=== PATIENT | female | born 1990 | race Caucasian/White ===

== ENCOUNTER 2023-06-20 16:08 | Emergency (ER) | payer MEDICAID, SELFPAY ==
[2023-06-20 16:14] VITALS: BP 150/91; PULSE 104; RESP 17; TEMP 36.9; O2SAT 97; BMI 21.6
--- NOTE | 2023-06-20 16:23 | CT_ITS ---
The [address] [address] Patient Name: RM MCCULLOUGH MRN: [id number] date: 1990 Sex: F Assigned Patient Location: ER Current Patient Location: ER Accession/Order Number: [id number] Exam Date: 06/20/2023 17:00 Report Date: 06/20/2023 18:30 At the request of: MEGHA SMITH Procedure: CT femur RT wo con EXAM: CT femur RT wo con, [id number] HISTORY: soft tissue infection TECHNIQUE: Helical CT images of the right thigh were obtained without IV contrast. Multiplanar reformats were generated at the scanner. COMPARISON: None. FINDINGS: Postsurgical soft tissue thickening and increased attenuation along the anterior and medial aspect of the right thigh. Mild adjacent subcutaneous fat stranding. No large loculated fluid collection demonstrated. No subcutaneous emphysema. No radiopaque foreign body. Right inguinal adenopathy with the largest lymph node measuring 16 x 12 mm (series 4 image 14). Moderate colonic stool burden. Remainder of the visualized intra-abdominal contents are within normal limits. Status post ACL repair. No acute fracture, dislocation, or suspicious osseous lesion. No significant knee joint effusion. No osteolysis to suggest osteomyelitis. CT/CT femur RT wo con IMPRESSION: 1. Postsurgical changes in the anterior medial aspects of the right thigh likely representing the sequela fasciotomies with the reported history of necrotizing fasciitis. Within the limitation of this noncontrast exam, no large loculated fluid collection. No soft tissue gas or radiopaque foreign body. Early inflammatory changes superimposed on the postsurgical changes cannot be ruled out. 2. Reactive right inguinal adenopathy. Electronically authenticated by: SPENCER PITTS Date: 06/20/2023 18:30
--- NOTE | 2023-06-20 16:29 | ED_ITS ---
HPI - General Adult General Chief complaint: Fever Stated complaint: Fever, Edema, Wound Check Time Seen by Provider: 06/20/23 16:14 Source: patient Mode of arrival: walk-in Limitations: no limitations History of Present Illness HPI narrative: patient is a 32-year-old female who presents to the emergency department for evaluation of erythematous rash around the site of two skin grafts to her right thigh. She states she had necrotizing fasciitis, she was admitted to [facility] and had two skin grafts performed on 05/08/23. she is due to see her plastic surgeon on Thursday. She states today she noticed redness in between the skin grafts on the anterior aspect and posterior aspect of the right thigh. She is concerned that the necrotizing fasciitis may be returning. She is not currently on antibiotics and has been doing her own wound dressings for his skin grafts at the rehab facility where she is currently being treated for opioid addiction. She is currently taking Suboxone. She states today she has had a headache, she has felt generally achy and nauseous. She is not concerned for . There has been no drainage from the rash, she denies any issues with the actual skin graft sites. she reports subjective fever. Related Data Allergies Allergy/AdvReac Type Severity Reaction Status Date / Time amoxicillin Allergy Severe Anaphylaxis Verified 06/20/23 16:14 nitrofurantoin Allergy Severe Anaphylaxis Verified 06/20/23 16:14 [From Macrobid] Penicillins Allergy Severe Anaphylaxis Verified 06/20/23 16:14 codeine Allergy Intermediate Hives Verified 06/20/23 16:14 medroxyprogesterone Allergy Mild Rash Verified 06/20/23 16:14 [From Depo-Provera] Review of Systems ROS Constitutional Denies: fever or chills Cardiovascular Denies: chest pain Respiratory Denies: shortness of breath Gastrointestinal Reports: nausea; Denies: abdominal pain or vomiting Musculoskeletal Reports: extremity pain; Denies: back pain or neck pain Integumentary/Breast Reports: rash, redness, skin pain and skin tenderness Neurological Reports: headache Allergic/Immunologic Denies: hives PFSH [facility] Social History Smoking status: Current every day smoker Exam Narrative Exam Narrative: Gen.: Awake, alert, in no distress Head: Normocephalic, atraumatic ENT: Moist mucous membranes Respiratory: No respiratory distress Extremities: right lower extremity with skin graft site to the medial and lateral aspects of the right thigh. Skin grafts are well healing with granulated tissue surrounding the edges of the skin graft. No redness or drainage. Blanchi ng erythematous rash on the anterior and posterior aspect of the right thigh. right thigh is soft, compressible. There is no rash or swelling or redness noted to the right calf. No purulent drainage or visible abscess. No open wounds other than the skin graft areas Psych: Normal mood and affect Neuro: No focal neuro deficit Skin: Warm, dry, intact Constitutional Vital Signs, click to edit/add: Last Vital Signs Temp 98.4 F 06/20/23 16:14 Pulse 104 H 06/20/23 16:14 Resp 17 06/20/23 16:14 BP 150/91 H 06/20/23 16:14 Pulse Ox 97 06/20/23 16:14 O2 Del Method Room Air 06/20/23 16:14 Course Vital Signs Vital signs: Vital Signs Temperature 98.4 F 06/20/23 16:14 Pulse Rate 104 H 06/20/23 16:14 Respiratory Rate 17 06/20/23 16:14 Blood Pressure 150/91 H 06/20/23 16:14 Pulse Oximetry 97 06/20/23 16:14 Oxygen Delivery Method Room Air 06/20/23 16:14 Temperature 98.4 F 06/20/23 16:14 Pulse Rate 104 H 06/20/23 16:14 Respiratory Rate 17 06/20/23 16:14 Blood Pressure 150/91 H 06/20/23 16:14 Pulse Oximetry 97 06/20/23 16:14 Oxygen Delivery Method Room Air 06/20/23 16:14 Medical Decision Making MDM Narrative Medical decision making narrative: patient was medicated with IV fluids, Toradol/Reglan/Benadryl for headache. Additional Valium and Pepcid were given for itching and discomfort in the right thigh. patient is on Suboxone and opioid addiction treatment. Lab studies show normal white blood cell count, normal lactic acid. Blood cultures obtained. Photos were placed in the patient's chart for reference. CT of the femur with no obvious gas or abscess in the soft tissue. Case discussed with [facility], Dr. Hunter for vascular services covering for Dr. Caban. Discussed transfer for evaluation to rule out necrotizing fasciitis given the patient's, located medical history. Patient was accepted by Dr. Arias to [facility] emergency department for evaluation. She is neurovascularly intact with stable vital signs at time of transfer. Evaluated by attending physician prior to transfer. critical care time thirty-five minutes Medical Records Medical records reviewed: Yes I reviewed the patient's medical records Lab Data Lab results reviewed: Yes I reviewed the patient's lab results Labs: Lab Results 06/20/23 Range/Units 16:46 WBC 7.5 (4.0-11.0) 10^3/uL RBC 5.18 (4.20-5.40) 10^6/uL Hgb 12.7 (12.0-16.0) g/dL Hct 40.7 (36.0-48.0) % MCV 78.6 L (81.0-99.0) fL MCH 24.5 L (26.7-34.0) pg MCHC 31.2 (29.9-35.2) g/dL RDW 15.4 H (11.0-15.0) % Plt Count 281 (150-450) 10^3/uL MPV 11.0 (9.5-13.5) fL Neut % (Auto) 86.9 H (43.0-75.0) % Lymph % (Auto) 9.5 L (20.5-60.0) % [place] % (Auto) 3.2 (1.7-12.0) % Eos % (Auto) 0.0 L (0.9-7.0) % Baso % (Auto) 0.1 L (0.2-2.0) % Neut # (Auto) 6.5 (1.4-6.5) 10^3/uL Lymph # (Auto) 0.7 L (1.2-3.8) 10^3/uL [place] # (Auto) 0.2 L (0.3-0.8) 10^3/uL Eos # (Auto) 0.0 (0.0-0.7) 10^3/uL Baso # (Auto) 0.0 (0.0-0.1) 10^3/uL Abs Immat Gran (auto) 0.02 (0.00-0.03) 10^3/uL Imm/Tot Granulo (auto) 0.3 (0.0-0.5) % PT 10.9 (9.0-11.6) sec INR 1.03 Lactate 1.3 (0.4-2.0) mmol/L Serum HCG, Qual Negative (NEGATIVE) Imaging Data CT femur: Attestation: I have reviewed the pertinent imaging results. Radiologist's impression: Procedure: CT femur RT wo con EXAM: CT femur RT wo con, [id number] HISTORY: soft tissue infection TECHNIQUE: Helical CT images of the right thigh were obtained without IV contrast. Multiplanar reformats were generated at the scanner. COMPARISON: None. FINDINGS: Postsurgical soft tissue thickening and increased attenuation along the anterior and medial aspect of the right thigh. Mild adjacent subcutaneous fat stranding. No large loculated fluid collection demonstrated. No subcutaneous emphysema. No radiopaque foreign body. Right inguinal adenopathy with the largest lymph node measuring 16 x 12 mm (series 4 image 14). Moderate colonic stool burden. Remainder of the visualized intra-abdominal contents are within normal limits. Status post ACL repair. No acute fracture, dislocation, or suspicious osseous lesion. No significant knee joint effusion. No osteolysis to suggest osteomyelitis. IMPRESSION: 1. Postsurgical changes in the anterior medial aspects of the right thigh likely representing the sequela fasciotomies with the reported history of necrotizing fasciitis. Within the limitation of this noncontrast exam, no large loculated fluid collection. No soft tissue gas or radiopaque foreign body. Early inflammatory changes superimposed on the postsurgical changes cannot be ruled out. 2. Reactive right inguinal adenopathy. Electronically authenticated by: SPENCER PITTS Date: 06/20/2023 18:30 Discharge Plan Discharge Chief Complaint: Fever Clinical Impression: Cellulitis of right leg Patient Disposition: [facility] Time of Disposition Decision: 18:38 Discharge Location: [facility] Condition: Good Mode of Transportation: EMS Stand Alone Forms: Portal Instructions Referrals: Physician,Non-Staff, MD [Primary Care Provider] - 1 week
[2023-06-20] MEDS: DIPHENHYDRAMINE HCL 50 MG/ML (1ML) VIAL 25 MG IV (16:52)
[2023-06-20] MEDS: 0.9 % SODIUM CHLORIDE 1,000 ML 999 ML IV (16:52)
[2023-06-20] MEDS: KETOROLAC TROMETHAMINE 30 MG/ML VIAL 15 MG IVP (16:52)
[2023-06-20] MEDS: METOCLOPRAMIDE HCL 10 MG/2 ML VIAL INJ (16:52)
[2023-06-20 17:08] LABS: Basophils Percent Auto 0.1 % (0.2-2.0); Hematocrit 40.7 % (36.0-48.0); Hemoglobin 12.7 g/dL (12.0-16.0); Immature Granulocytes Abs Auto 0.02 10^3/uL (0.00-0.03); Immature Granulocytes Pct Auto 0.3 % (0.0-0.5); Lymphocytes Absolute Auto 0.7 10^3/uL (1.2-3.8); Lymphocytes Percent Auto 9.5 % (20.5-60.0); Mean Corpuscular HGB Conc 31.2 g/dL (29.9-35.2); Mean Corpuscular Hemoglobin 24.5 pg (26.7-34.0); Mean Corpuscular Volume 78.6 fL (81.0-99.0); Monocytes Absolute Auto 0.2 10^3/uL (0.3-0.8); Monocytes Percent Auto 3.2 % (1.7-12.0); Neutrophils Absolute Auto 6.5 10^3/uL (1.4-6.5); Neutrophils Percent Auto 86.9 % (43.0-75.0); Platelet Count 281 10^3/uL (150-450); Red Blood Count 5.18 10^6/uL (4.20-5.40); Red Cell Distribution Width 15.4 % (11.0-15.0); White Blood Count 7.5 10^3/uL (4.0-11.0)
[2023-06-20 17:15] LABS: HCG Qualitative NEGATIVE (NEGATIVE)
[2023-06-20 17:16] LABS: INR 1.03; Prothrombin Time 10.9 sec (9.0-11.6)
[2023-06-20 17:20] LABS: Anion Gap 15.7
[2023-06-20 17:23] LABS: Lactate/Lactic Acid 1.3 mmol/L (0.4-2.0)
[2023-06-20 17:26] LABS: Alanine Aminotransferase 23 U/L (14-59); Albumin Globulin Ratio 0.9; Albumin Level 4.1 g/dL (3.4-5.0); Alkaline Phosphatase 125 U/L (46-116); Aspartate Amino Transferase 16 U/L (15-37); BUN Creatinine Ratio 12.5; Bilirubin Total 0.4 mg/dL (0.2-1.0); C Reactive Protein 15.5 mg/dL (<=1.0); Calcium 9.8 mg/dL (8.5-10.1); Carbon Dioxide 25.9 mmol/L (21.0-32.0); Chloride 97 mmol/L (98-107); Estimated GFR (African America >60 (>=60); Estimated GFR (Non-African Ame >60 (>=60); Globulin 4.7 g/dL; Glucose 100 mg/dL (74-106); Potassium 3.6 mmol/L (3.5-5.1); Sodium 135 mmol/L (136-145); Total Protein 8.8 g/dL (6.4-8.2)
[2023-06-20 17:45] VITALS: BP 130/75; PULSE 90; RESP 16; O2SAT 100
[2023-06-20 17:46] LABS: Erythrocyte Sedimentation Rate 91 mm/hr (<=20)
[2023-06-20] MEDS: VANCOMYCIN HCL 1,000 MG in 0.9 % SODIUM CHLORIDE 250 ML 250 MG IV (18:02)
[2023-06-20] MEDS: DIAZEPAM 5 MG/ML - 2 ML INJ SYRINGE IV (18:03)
[2023-06-20] MEDS: FAMOTIDINE/PF 20 MG/2 ML VIAL IV (18:03)
[2023-06-20] MEDS: IMIPENEM/CILASTATIN SODIUM 1,000 MG in 0.9 % SODIUM CHLORIDE 100 ML 100 MG IV (19:20)
== END 2023-06-20 20:40 | disposition short-term general hospital (02) ==
PROVIDERS: Physician Assistant; Emergency Provider Emergency Medicine
DX: L03.115 Cellulitis of right lower limb (principal); F11.20 Opioid dependence, uncomplicated; F17.210 Nicotine dependence, cigarettes, uncomplicated
CPT/HCPCS: 36415; 73700; 80053; 83605; 84703; 85025; 85610; 85652; 86140; 87040; 96365; 96366; 96368; 96372; 96375; 99285; J3370

== ENCOUNTER 2023-08-24 11:06 | Emergency (ER) | payer MEDICAID, SELFPAY ==
[2023-08-24 11:19] VITALS: BP 117/88; PULSE 77; RESP 18; TEMP 36.7; O2SAT 99; BMI 18.2
--- NOTE | 2023-08-24 11:31 | PC.NURSE ---
Dark blue/yellow bruise behind left knee, no redness or warmth at site, patient denies injury to area, skin to right leg pink and warm and pulses present.
--- NOTE | 2023-08-24 11:32 | ED.EXTPRO1 ---
HPI - Extremity Problem General Chief complaint: Extremity Problem, Nontraumatic Stated complaint: LOWER EXTREMITY PAIN Time Seen by Provider: 08/24/23 11:26 Mode of arrival: walk-in History of Present Illness HPI Narrative: his patient's here today with some discomfort swelling and bruising in the back of her left calf. To her knowledge she's not had any trauma or injury. She is concerned about having deep vein thrombosis because she has a history of idiopathic thrombocytopenia purpura and is supposed to be on blood thinners but because of insurance problems and follow-up she's not taking any anticoagulation therapy. She had been admitted to the hospital sometime ago after having severe trauma and necrotizing fasciitis to her right leg and was subsequently taking heparin injections after being on Lovenox for a while. However she's not been on any anticoagulation therapy and is scheduled to follow-up early this year with various physicians to get Rectified. In either case she has bruising behind her left calf. She does not have any shortness of breath she has no new symptoms in her right leg. Related Data Home Medications Medication Instructions Recorded Confirmed buspirone 7.5 mg tablet 7.5 mg PO TID 08/24/23 08/24/23 oxcarbazepine 150 mg tablet 150 mg PO BID 08/24/23 08/24/23 (Trileptal) propranolol 10 mg tablet 10 mg PO Q12H 08/24/23 08/24/23 quetiapine 200 mg tablet mg 08/24/23 Allergies Allergy/AdvReac Type Severity Reaction Status Date / Time amoxicillin Allergy Severe Anaphylaxis Verified 06/20/23 16:14 nitrofurantoin Allergy Severe Anaphylaxis Verified 06/20/23 16:14 [From Macrobid] Penicillins Allergy Severe Anaphylaxis Verified 06/20/23 16:14 codeine Allergy Intermediate Hives Verified 06/20/23 16:14 medroxyprogesterone Allergy Mild Rash Verified 06/20/23 16:14 [From Depo-Provera] aripiprazole [From Abilify] AdvReac Intermediate Verified 08/24/23 11:23 asenapine [From Saphris] AdvReac Intermediate Verified 08/24/23 11:23 bupropion [From Wellbutrin] AdvReac Intermediate Verified 08/24/23 11:23 fluoxetine [From Prozac] AdvReac Intermediate Verified 08/24/23 11:23 sertraline [From Zoloft] AdvReac Intermediate Verified 08/24/23 11:23 tramadol AdvReac Intermediate Verified 08/24/23 11:23 PFSH PFSH Social History Smoking status: Current every day smoker Exam Narrative Exam Narrative: patient here awake alert pleasant vital signs are stable is no hypoxemia her vital signs are stable was not tachycardic and she really does not appear uncomfortable. She is very pleasant. Problem focused examination shows good pulses to the distal left extremity with good capillary refill and no evidence of arterial insufficiency. The catheter is not red hot swollen or tender. Just distal to the popliteal fossa there is an area of ecchymosis approximately 5 x 4 cm. There is no hematoma. There is no pain over the hamstring tendon to palpation. She does have minor discomfort with unturned dorsiflexion of the foot. Upper thigh areas normal. Constitutional Vital Signs, click to edit/add: Last Vital Signs Temp 98.1 F 08/24/23 11:19 Pulse 77 08/24/23 11:19 Resp 18 08/24/23 11:19 BP 117/88 08/24/23 11:19 Pulse Ox 99 08/24/23 11:19 O2 Del Method Room Air 08/24/23 11:19 Course Vital Signs Vital signs: Vital Signs Temperature 98.1 F 08/24/23 11:19 Pulse Rate 77 08/24/23 11:19 Respiratory Rate 18 08/24/23 11:19 Blood Pressure 117/88 08/24/23 11:19 Pulse Oximetry 99 08/24/23 11:19 Oxygen Delivery Method Room Air 08/24/23 11:19 Temperature 98.1 F 08/24/23 11:19 Pulse Rate 77 08/24/23 11:19 Respiratory Rate 18 08/24/23 11:19 Blood Pressure 117/88 08/24/23 11:19 Pulse Oximetry 99 08/24/23 11:19 Oxygen Delivery Method Room Air 08/24/23 11:19 MDM - Extremity (Nontraumatic) MDM Narrative Medical decision making narrative: on a holiday today there is no ultrasound available. Because of her history I am not start her on Lovenox and we'll schedule her for an outpatient venous ultrasound tomorrow. She is in agreement with that therapy. Discharge Plan Discharge Chief Complaint: Extremity Problem, Nontraumatic Clinical Impression: Pain of left calf Patient Disposition: Home, Self-Care Time of Disposition Decision: 11:35 Prescriptions / Home Meds: No Action oxcarbazepine [Trileptal] 150 mg tablet 150 mg PO BID buspirone 7.5 mg tablet 7.5 mg PO TID propranolol 10 mg tablet 10 mg PO Q12H quetiapine 200 mg tablet Additional Instructions: return tomorrow for the ultrasound. Stand Alone Forms: Portal Instructions Referrals: Physician,Non-Staff, MD [Primary Care Provider] - 1 week
--- OUTSIDE RECORDS SUMMARY | 2023-08-24 11:36 | XMS_ITS | CCD ---
Author Name Unknown Address [id number] [place] [address] Organization [facility] Care Team Providers Care Industrial Chemist Name Role Phone Ingrid Dent Primary Care Provider SHEEBA LAINEZ Admitting Unavailable INGRID DENT Primary Care Unavailable SELF, REFERRED Referring Unavailable ZOHREH JOHANSEN Attending Unavailable Unavailable Primary Care Provider Unavailabl e Unavailable Primary Care Provider Unavailabl e INGRID DENT Primary Care Unavailable ROBY NAPIER P Consulting Unavailable MASHALCARLA, MOHAMMAD I Admitting Unavailable MASHALEH, MOHAMMAD I Attending Unavailable MASFABIAN, MOHAMMAD I Consulting Unavailable LAUREN CARTER Consulting Unavailable YOKO THAPA Attending Unavailable Lily OBREGON - AN, Mc Primary Care Provider Lily OBREGON - Mc NOLAN Primary Care Provider MC BAUTISTA Primary Care Unavailable PARINJA, JONATAN Admitting Unavailable THUMMEGGAN AGUSTIN Attending Unavaila ble PARINJA, JONATAN Consulting Unavailable ADELA, RAE S Consulting Unavailable LUIS RUTLEDGE Consulting Unavailable ASPEN BAUTISTAUA Primary Care Unavailable FLORENTINO ALVARADO Attending Unavailable RISSA BRIZUELA Referring Unavailable LILYMC MCDONOUGH Primary Care Unavailable HUMBLE RBIZUELA L Referring Unavailable USAMA BAUTISTASHUA Primary Care Unavailable RISSA MACK Attending Unavailable RISSA MACK Referring Unavailable NO PCP, NO PCP Primary Care Unavailable Allergies Allergy Classification Reported Allergen(s) Allergy Type Date of Onset Reaction(s) Facility (10 sources) Acetaminophen / HYDROcodone; Translations: [HYDROCODONE-ACETAMI NOPHEN] Drug Allergy 06-28-20 13 [place], [place] (10 sources) Amoxicillin; Translations: [AMOXICILLIN] Drug Allergy 06-28-20 13 Anaphylaxis [place], [place] (10 sources) ARIPiprazole; Translations: [ARIPIPRAZOLE] Drug Allergy 06-28-20 13 [place]aphylaxis [place], [place] (10 sources) Asenapine; Translations: [ASENAPINE] Drug Allergy 02-26-20 16 [place]axis [place], [place] (10 sources) Azithromycin; Translations: [AZITHROMYCIN] Drug Allergy 06-28-20 13 [place], [place] (10 sources) buPROPion; Translations: [BUPROPION] Drug Allergy 06-28-20 13 Anaphylaxis [place], [place] (10 sources) Codeine; Translations: [CODEINE] Drug Allergy 06-28-20 13 [facility], Itching [place], [place] (10 sources) Dihydroergotamine; Translations: [DIHYDROERGOTAMINE] Drug Allergy 06-28-20 13 [place]aphylaxis [place], [place] (9 sources) FLUoxetine Drug Allergy 02-17-20 19 [place]axis [place], [place] (10 sources) gabapentin; Translations: [GABAPENTIN] Drug Allergy 06-28-20 13 [place], [place] (10 sources) lamoTRIgine; Translations: [LAMOTRIGINE] Drug Allergy 06-28-20 13 [place], [place] (10 sources) medroxyPROGESTERone; Translations: [MEDROXYPROGESTERONE ] Drug Allergy 06-28-20 13 Other (See Comments) [place], [place] (9 sources) Naproxen Drug Allergy 02-26-20 16 [place], [place] (10 sources) Nitrofurantoin; Translations: [NITROFURANTOIN] Drug Allergy 06-28-20 13 [place] (9 sources) Nitrofurantoin Drug Allergy 02-17-20 19 Other (See Comments), Rash [place], [place] (9 sources) Penicillins; Translations: [PENICILLINS] Propensity to adverse reactions to drug 06-28-20 13 Hives, Rash [place], [place] (10 sources) Sertraline; Translations: [SERTRALINE] Drug Allergy 06-28-20 13 [place], [place] (10 sources) Sulfamethoxazole / Trimethoprim; Translations: [SULFAMETHOXAZOLE-TR IMETHOPRIM] Drug Allergy 06-28-20 13 [place], [place] (10 sources) traMADol; Translations: [TRAMADOL] Drug Allergy 01-17-20 15 [place], [place] (9 sources) Clindamycin/Lincomyc in Propensity to adverse reactions to drug 06-28-20 13 Anaphylaxis [place], [place] (1 source) Asenapine Drug Allergy 10-30-19 17 [facility] (1 source) buPROPion Drug Allergy 10-30-19 17 [facility] (1 source) Codeine Drug Allergy 10-30-19 17 [facility] (1 source) Dihydroergotamine Drug Allergy 10-30-19 17 [facility] (1 source) FLUoxetine Drug Allergy 10-30-19 17 [facility] (1 source) gabapentin Drug Allergy 10-30-19 17 [facility] (2 sources) HYDROcodone; Translations: [HYDROCODONE] Drug Allergy 10-30-19 17 [facility] (1 source) lamoTRIgine Drug Allergy 10-30-19 17 [facility] (2 sources) Naproxen; Translations: [NAPROXEN] Drug Allergy 10-30-19 17 [facility] (1 source) Nitrofurantoin Drug Allergy 10-30-19 17 [facility] (1 source) Penicillin Drug Allergy 10-30-19 17 [facility] (1 source) Sertraline Drug Allergy 10-30-19 17 [facility] (1 source) Sisomicin Drug Allergy 10-30-19 17 [facility] (1 source) Penicillins Propensity to adverse reactions to drug 06-28-20 13 Hives, Rash [facility] [employer] Phone: (1 source) Asenapine; Translations: [ASENAPINE MALEATE] Drug Allergy 06-07-20 [facility] (1 source) buPROPion; Translations: [BUPROPION HCL] Drug Allergy [facility] (1 source) Clindamycin; Translations: [CLINDAMYCIN HCL] Drug Allergy [facility] (1 source) FLUoxetine; Translations: [FLUOXETINE] Drug Allergy 06-28-20 13 [facility] (1 source) OLANZapine; Translations: [OLANZAPINE] Drug Allergy 09-08-19 21 [facility] (1 source) NITROFURANTOIN MONOHYD/M-CRYST; Translations: [NITROFURANTOIN MONOHYD/M-CRYST] Propensity to adverse reactions to drug (disorder) 02-27-20 16 [facility] Medications Current Medications Medication Drug Class(es) Dates Sig (Normalized) Sig (Original) acetaminophen 325 mg oral tablet (2 sources) Start: 08-30-2020 acetaminophen (TYLENOL) tablet 650 mg Start: 08-30-2020 End: 08-30-2020 acetaminophen (TYLENOL) 325 MG tablet Albuterol (9 sources) beta2-Adrenergic Agonist ALBUTER OL SULFATE HFA IN Inhale 2 puffs into the lungs as needed 0 Active buprenorphine 12 mg / naloxone 3 mg sublingual film (3 sources) Partial Opioid Agonist, Opioid Antagonist Start: 10-03-2021 buprenorphine-naloxon e (SUBOXONE) 12-3 MG sublingual film Start: 05-25-2020 End: 06-01-2020 buprenorphine-naloxone (SUBO XONE) 2-0.5 MG SUBL Indications: Opioid type dependence, continuous use (HCC) Place 2 tablets under the tongue 2 times daily for 7 days. 28 tablet 0 05/25/2020 06/01/2020 Active diazePAM 5 mg oral tablet (8 sources) Benzodiazepine take 1 tablet by billy th every twelve hours as needed for anxiety diazePAM (VALIUM) 5 MG tablet Take 5 mg by mouth every 12 hours as needed for Anxiety. 0 Active End: 09-01-2020 take 1 tablet by mouth every eight hours as needed for muscle spasms diazePAM (VALIUM) 5 MG tablet Take 5 mg by mouth every 8 hours as needed (muscle spasms). 0 09/01/2020 Discontinued (Stop Taking at Discharge) doxycycline hyclate 100 mg oral tablet (3 sources) Tetracycline-class Drug Start: 08-16-2022 End: 08-26-2022 take 1 tablet by mouth twice daily doxycycline hyclate (VIBRA-TABS) 100 MG tablet Take 1 tablet by mouth 2 times daily for 10 days 20 tablet 0 08/16/2022 08/26/2022 Active Start: 06-14-2021 End: 06-24-2021 take 1 tablet by mouth twice daily doxycycline hyclate (VIBRA-TABS) 100 MG tablet Take 1 tablet by mouth 2 times daily for 10 days 20 tablet 0 06/14/2021 06/24/2021 Active 1 ml enoxaparin sodium 100 mg/ml prefilled syringe (9 sources) Low Molecular Weight Heparin Start: 09-02-2020 enoxaparin (LOVENOX) injection 100 mg Start: 08-30-2020 End: 09-01-2020 inject 40 mg by subcutaneous injection once daily 40 mg, Subcutaneous, DAILY, First dose on Georgina 08/30/20 at 0900 ferrous sulfate 325 mg delayed release oral tablet (7 sources) Start: 09-02-2020 take 1 tablet by billy th once daily at breakfast ferrous sulfate (FE TABS 325) 325 (65 Fe) MG EC tablet Take 1 tablet by mouth daily (with breakfast) 90 tablet 3 09/02/2020 Active Start: 09-01-2020 ferrous sulfat e (FE TABS 325) EC tablet 325 mg Start: 08-02-2015 End: 05-22-2020 take 1 tablet by mouth twice daily at mealtime ferrous sulfate 325 (65 FE) MG tablet Take 1 tablet by mouth 2 times daily (with meals) 30 tablet 2 08/02/2015 05/22/2020 Discontinued (LIST CLEANUP) furosemide 40 mg oral tablet (10 sources) Loop Diuretic take 1 tablet by mouth twice daily furosemide (LASIX) 40 MG tablet Take 40 mg by mouth 2 times daily 0 Active End: 09-01-2020 take 1 tablet by mouth once daily furosemide (LASIX) 40 MG tablet Take 40 mg by mouth daily 0 09/01/2020 Discontinued (Stop Taking at Discharge) End: 05-25-2020 take 2 tablets by mouth once daily furosemide (LASIX) 20 MG tablet Take 40 mg by mouth daily 0 05/25/2020 Discontinued (Stop Taking at Discharge) gabapentin 300 mg oral capsule (8 sources) Anti-epileptic Agent Start: 09-01-2020 gabapentin (NEURONTIN) capsule 300 mg hydrocortisone 20 mg/ml topical lotion (2 sources) Corticosteroid Start: 08-16-2022 End: 08-16-2022 hydrocortisone (SCALACORT) 2 % LOTN lotion Apply 1 application topically 2 times daily 29.6 mL 0 08/16/2022 Active hydrOXYzine hydrochloride 25 mg oral tablet (1 source) Antihistamine Start: 12-10-2021 End: 12-20-2021 take 1 tablet by mouth every eight hours as needed hydrOXYzine (ATARAX) 25 MG tablet Indications: Anxiety Take 1 tablet by mouth every 8 hours as needed for Itching 30 tablet 0 12/10/2021 12/20/2021 Active lactobacillus rhamnosus gg [id number] unt oral capsule (1 source) Start: 09-01-2020 lactobacillus (CULTURELLE) capsule 1 capsule lithium carbonate 300 mg oral tablet (10 sources) Start: 08-30-2020 take 300 mg by mouth three times daily 300 mg, Oral, 3 TIMES DAILY, First dose on Georgina 08/30/20 at 0900 Maintain adequate fluid and sodium intake take 1 capsule by mouth three ti mes daily lithium 300 MG capsule Take 300 mg by mouth 3 times daily 0 Active loperamide hydrochloride 2 mg oral capsule (1 source) Opioid Agonist Start: 09-01-2020 loperamide (IMODIUM) capsule 2 mg metoprolol tartrate 50 mg oral tablet (10 sources) beta-Adrenergi c Rich Start: 03-21-2022 take 1 tablet by mouth in the morning metoprolol tartrate (LOPRESSOR) 50 MG tablet Indications: Essential hypertension Take 1 tablet by mouth in the morning and 1 tablet before bedtime. 180 tablet 0 03/21/2022 Active Start: 12-11-2021 take 1 tablet by billy th twice daily metoprolol tartrate (LOPRESSOR) 25 MG tablet Take 1 tablet by mouth 2 times daily 10 tablet 0 12/11/2021 Active Start: 12-10-2021 End: 03-10-2022 take 1 tablet by mouth once daily metoprolol tartrate (LOPRESSOR) 25 MG tablet Indications: Essential hypertension Take 1 tablet by mouth daily 90 tablet 0 12/10/2021 03/10/2022 Active Start: 08-30-2020 End: 08-31-2020 take 200 mg by mouth once daily 200 mg, Oral, DAILY, F irst dose on Georgina 08/30/20 at 0900 Do not crush or break. End: 09-01-2020 take 1 tablet by mouth once daily metoprolol succinate (TOPROL XL) 200 MG extended release tablet Take 200 mg by mouth daily 0 09/01/2020 Discontinued (Stop Taking at Discharge) ofloxacin 3 mg/ml otic solution (1 source) Quinolone Antimicrobial Start: 06-14-2021 End: 06-24-2021 take 5 drop(s) into the eye(s) twice daily ofloxacin (FLOXIN) 0.3 % otic solution Place 5 drops into the left ear 2 times daily for 10 days May Substitute ophthalmic drops. 10 mL 0 06/14/2021 06/24/2021 Active ondansetron 4 mg disintegrating oral tablet (5 sources) Serotonin-3 Receptor Antagonist Start: 12-11-2021 End: 12-11-2021 take 1 tablet by mouth every eight hours as needed for nausea ondansetron (ZOFRAN ODT) 4 MG disintegrating tablet Take 1 tablet by mouth every 8 hours as needed for Nausea or Vomiting 20 tablet 0 12/11/2021 Active Start: 11-05-2020 End: 11-05-2020 ondansetron (ZOFRAN-ODT) dis integrating tablet 4 mg microencapsulated potassium chloride 20 meq extended release oral tablet (10 sources) Start: 09-02-2020 potassium chlo ride (KLOR-CON M) extended release tablet 40 mEq Start: 09-02-2020 take 1 tablet by billy th once daily potassium chloride (KLOR-CON M) 20 MEQ extended release tablet Take 1 tablet by mouth daily 14 tablet 0 09/02/2020 Active Start: 05-25-2020 End: 09-01-2020 take 1 tablet by mouth twice daily at mealtime potassium chloride (KLOR-CON M) 20 MEQ extended release tablet Take 1 tablet by mouth 2 times daily (with meals) 60 tablet 3 05/25/2020 09/01/2020 Discontinued (Stop Taking at Discharge) Start: 07-12-2018 End: 05-22-2020 take 1 tablet by mouth once daily, then take 1 tablet by mouth potassium chloride (KLOR-CON M) 20 MEQ extended release tablet Take 20 mEq by mouth daily 0 07/12/2018 05/22/2020 Discontinued (LIST CLEANUP) predniSONE 10 mg oral tablet (3 sources) Start: 01-03-2022 predniSONE (DE LTASONE) 10 MG tablet Take five tablets on days 1-2, four tablets on days 3-4, three tablets on days 5-6, two tablets on day 7-8, one tablet on days 9-10. 30 tablet 0 01/03/2022 Active Start: 01-03-2022 End: 01-03-2022 predniSONE (DELTASONE) table t 60 mg Promethazine (1 source) Phenothiazine Start: 08-30-2020 promethazine (PHENERGAN) tablet 12.5 mg 24 hr QUEtiapine 300 mg extended release oral tablet (16 sources) Atypical Antipsychotic Start: 09-01-2020 QUEtiap ine (SEROQUEL XR) extended release tablet 900 mg Start: 09-01-2020 take 3 tablets by mo uth once daily QUEtiapine (SEROQUEL XR) 300 MG extended release tablet Take 3 tablets by mouth nightly 30 tablet 3 09/01/2020 Active Start: 08-31-2020 End: 09-01-2020 QUEtiapine (SEROQUEL XR) ext ended release tablet 300 mg Start: 08-30-2020 End: 08-31-2020 take 400 mg by mouth once daily 400 mg, Oral, NIGHTLY, First dose on Georgina 08/30/20 at 2100 Do not crush or break. Start: 05-25-2020 End: 09-01-2020 take 1 tablet by mouth once daily QUEtiapine (SEROQUEL XR) 400 MG extended release tablet Take 1 tablet by mouth nightly 30 tablet 3 05/25/2020 09/01/2020 Discontinued (Stop Taking at Discharge) End: 05-25-2020 take 2 tablets by mouth once daily QUEtiapine (SEROQUEL) 300 MG tablet Take 600 mg by mouth nightly 0 05/25/2020 Discontinued (Stop Taking at Discharge) End: 05-25-2020 take 2 tablets by mouth once daily QUEtiapine (SEROQUEL) 400 MG tablet Take 800 mg by mouth nightly 0 05/25/2020 Discontinued (Stop Taking at Discharge) traZODone (13 sources) Serotonin Reuptake Inhibitor Start: 09-01-2020 traZODone (DESYREL) tablet 150 mg Start: 09-01-2020 take 1 tablet by billy th once daily traZODone (DESYREL) 300 MG tablet Take 1 tablet by mouth nightly 30 tablet 0 09/01/2020 Active Start: 08-30-2020 End: 09-01-2020 traZODone (DESYREL) tablet 5 0 mg Start: 10-10-2018 End: 09-01-2020 take 1 tablet by mouth once daily as needed for sleep traZODone (DESYREL) 150 MG tablet Take 150 mg by mouth nightly as needed for Sleep 0 10/10/2018 05/25/2020 Discontinued (Stop Taking at Discharge) 24 hr venlafaxine 150 mg extended release oral capsule (13 sources) Serotonin and Norepinephrine Reuptake Inhibitor Start: 09-01-2020 End: 09-01-2020 take 2 capsules by mouth once daily venlafaxine (EFFEXOR XR) 150 MG extended release capsule Take 2 capsules by mouth daily 60 capsule 0 09/01/2020 Active Start: 09-01-2020 End: 09-01-2020 take 4 capsules by mouth once daily venlafaxine (EFFEXOR XR) 75 MG extended release capsule Take 4 capsules by mouth daily 30 capsule 3 09/01/2020 09/01/2020 Discontinued (REORDER) Start: 07-30-2015 End: 05-22-2020 take 1 capsule by mouth once daily at breakfast venlafaxine (EFFEXOR-XR) 75 MG XR capsule Take 1 capsule by mouth daily (with breakfast) 30 capsule 0 07/30/2015 05/22/2020 Discontinued (LIST CLEANUP) Completed/Discontinued Medications Medication Drug Class(es) Dates Sig (Normalized) Sig (Original) acetaminophen 325 mg / oxyCODONE hydrochloride 5 mg oral tablet (1 source) Opioid Agonist End: 09-05-2020 take 1 tablet by mouth every six hours as needed for pain oxyCODONE-acetami nophen (PERCOCET) 5-325 MG per tablet Take 1 tablet by mouth every 6 hours as needed for Pain. Up to 7 days. 0 09/05/2020 Discontinued (Stop Taking at Discharge) aspirin 81 mg oral tablet (1 source) Platelet Aggregation Inhibitor, Nonsteroidal Anti-inflammatory Drug End: 05-22-2020 take 1 tablet by mouth once daily aspirin 81 MG tablet Take 81 mg by mouth daily LAST DOSE 03/02/2019 0 05/22/2020 Discontinued (LIST CLEANUP) calcium chloride 0.0014 meq/ml / potassium chloride 0.004 meq/ml / sodium chloride 0.103 meq/ml / sodium lactate 0.028 meq/ml injectable solution (2 sources) Start: 08-30-2020 End: 08-30-2020 lactated ringers bolus cefadroxil 1000 mg oral tablet (2 sources) Cephalosporin Antibacterial Start: 09-01-2020 End: 09-01-2020 take 1 tablet by mouth once daily, then take 1 tablet by mouth cefadroxil (DURICEF) 1 g tablet Take 1 tablet by mouth daily for 5 days 5 tablet 0 09/01/2020 09/01/2020 Discontinued (Stop Taking at Discharge) ceFAZolin (ANCEF) 2 g in dextrose 5 % 50 mL IVPB (1 source) Start: 08-30-2020 End: 09-01-2020 ceFAZolin (ANCEF) 2 g in dextrose 5 % 50 mL IVPB docusate sodium 100 mg oral capsule (1 source) Start: 02-16-2019 End: 05-22-2020 take 1 capsule by mouth twice daily as needed for constipation docusate sodium (COLACE) 100 MG capsule Take 1 capsule by mouth 2 times daily as needed for Constipation 60 capsule 0 02/16/2019 05/22/2020 Discontinued (LIST CLEANUP) ergocalciferol 50895 unt oral capsule (1 source) Provitamin D2 Compound Start: 09-28-2018 End: 05-22-2020 take 1 capsule by mouth every week vitamin D (ERGOCALCIFEROL) 40867 units CAPS capsule Take 50,000 Units by mouth once a week Thursday 0 09/28/2018 05/22/2020 Discontinued (LIST CLEANUP) ibuprofen 600 mg oral tablet (3 sources) Nonsteroidal Anti-inflammatory Drug Start: 05-13-2018 End: 09-01-2020 take 1 tablet by mouth every six hours as needed for pain ibuprofen (IBU) 600 MG tablet Take 1 tablet by mouth every 6 hours as needed for Pain 30 tablet 0 05/13/2018 09/01/2020 Discontinued (Stop Taking at Discharge) LORazepam 0.5 mg oral tablet (1 source) Benzodiazepine Start: 11-05-2020 End: 11-05-2020 LORazepam (ATIVAN) tablet 0.5 mg Start: 11-05-2020 End: 11-05-2020 LORazepam (ATIVAN) tablet 0. 5 mg lubiprostone 0.024 mg oral capsule (1 source) Chloride Channel Activator Start: 11-09-2018 End: 05-25-2020 lubiprostone (AMITIZA) 24 MCG capsule Take 24 mcg by mouth as needed LAST DOSE 02/16/2019 0 11/09/2018 05/25/2020 Discontinued (Stop Taking at Discharge) magnesium oxide 400 mg oral tablet (8 sources) Start: 07-12-2018 End: 05-22-2020 take 1 tablet by mouth once daily magnesium oxide (MAG-OX) 400 MG tablet Take 1 tablet by mouth daily 0 07/12/2018 05/22/2020 Discontinued (LIST CLEANUP) 50 ml magnesium sulfate 40 mg/ml injection (1 source) Start: 09-01-2020 End: 09-01-2020 magnesium sulfate 2 g in 50 mL IVPB premix Naloxone (5 sources) Opioid Antagonist Start: 09-01-2020 End: 09-01-2020 Naloxone HCl (NALOXONE OPIATE OVERDOSE KIT) 1 each by Nasal route once for 1 dose 1 kit 0 09/01/2020 09/01/2020 Start: 05-25-2020 End: 09-01-2020 naloxone (NARCAN) 4 MG/0.1ML LIQD nasal spray 1 spray by Nasal route as needed for Opioid Reversal 1 each 0 05/25/2020 09/01/2020 Discontinued (Therapy completed) OLANZapine 10 mg oral tablet (1 source) Atypical Antipsychotic End: 05-22-2020 take 1 tablet by mouth once daily OLANZapine (ZYPREXA) 10 MG tablet Take 10 mg by mouth nightly 0 05/22/2020 Discontinued (LIST CLEANUP) 3 ml sodium chloride 9 mg/ml injection (2 sources) Start: 08-30-2020 End: 08-31-2020 10 mL, Intravenous, EVERY 12 HOURS SCHEDULED (2 times per day), First dose on Georgina 08/30/20 at 0900 Start: 08-30-2020 End: 08-30-2020 Intravenous, at 75 mL/hr, CO NTINUOUS, Starting Georgina 08/30/20 at 0530 spironolactone 25 mg oral tablet (10 sources) Aldosterone Antagonist Start: 08-30-2020 End: 08-31-2020 take 50 mg by mouth once daily 50 mg, Oral, DAILY, First dose on Georgina 08/30/20 at 0900 Start: 05-26-2020 End: 09-01-2020 take 1 tablet by mouth once daily spironolactone (ALDACTONE) 50 MG tablet Take 1 tablet by mouth daily 30 tablet 3 05/26/2020 09/01/2020 Discontinued (LIST CLEANUP) take 1 tablet by billy th once daily spironolactone (ALDACTONE) 25 MG tablet Take 25 mg by mouth daily 0 Active tiZANidine 2 mg oral tablet (1 source) Central alpha-2 Adrenergic Agonist End: 05-25-2020 take 1 tablet by mouth every eight hours as needed tiZANidine (ZANAFLEX) 2 MG tablet Take 2 mg by mouth every 8 hours as needed 0 05/25/2020 Discontinued (Stop Taking at Discharge) valACYclovir 1000 mg oral tablet (1 source) Herpesvirus Nucleoside Analog DNA Polymerase Inhibitor, Herpes Simplex Virus Nucleoside Analog DNA Polymerase Inhibitor, Herpes Zoster Virus Nucleoside Analog DNA Polymerase Inhibitor End: 05-25-2020 valACYclovir (VALTREX) 1 G tablet Take 1,000 mg by mouth 2 times daily as needed Started 1 wk ago (genital herpes diagnosed December 2015) 0 05/25/2020 Discontinued (Stop Taking at Discharge) vancomycin (VANCOCIN) 1250 mg in dextrose 5 % 250 mL IVPB (1 source) Start: 09-01-2020 End: 09-02-2020 vancomycin (VANCOCIN) 1250 mg in dextrose 5 % 250 mL IVPB vitamin b 12 1 mg/ml injectable solution (2 sources) Vitamin B12 Start: 09-28-2018 End: 05-22-2020 Cyanocobalamin 1000 MCG/ML KIT Inject 1,000 mcg/1.7m2 into the muscle every 30 days 0 09/28/2018 05/22/2020 Discontinued (LIST CLEANUP) Start: 09-28-2018 End: 05-22-2020 Cyanocobalamin 1000 MCG/ML K IT Inject into the skin LAST DOSE END OF 0 09/28/2018 05/22/2020 Discontinued (LIST CLEANUP) ziprasidone 40 mg oral capsule (1 source) Atypical Antipsychotic End: 05-25-2020 take 1 capsule by mouth once daily at mealtime ziprasidone (GEODON) 40 MG capsule Take 40 mg by mouth nightly With a meal 0 05/25/2020 Discontinued (Stop Taking at Discharge) Problems Active Problems Problem Classification Problem Date Documented Da te Episodic/Chronic Acute and unspecified renal failure (2 sources) Acute kidney failure, unspecified; Translations: [Acute kidney failure, unspecified] Onset: 3 Episodic Alcohol-related disorders (2 sources) Alcohol intoxication; Translations: [Alcoholic intoxication with complication (HCC)] Chronic Coagulation and hemorrhagic disorders (9 sources) Idiopathic thrombocytopenic purpura; 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] Onset: 5 01-27-2016 Chronic Essential hypertension (14 sources) Essential hypertension; Translations: [Essential (primary) hypertension] Onset: 5 07-27-2015 Chronic Hepatitis (9 sources) Chronic hepatitis C; Translations: [Chronic viral hepatitis C] Onset: 5 08-02-2015 Chronic Infective arthritis and osteomyelitis (except that caused by tuberculosis or sexually transmitted disease) (2 sources) Acute hematogenous osteomyelitis ; Translations: [Acute hematogenous osteomyelitis, unspecified site (HCC)] Chronic Mood disorders (17 sources) Mixed bipolar I disorder; Translations: [Depressive disorder] Onset: 3 07-19-2015 Chronic Mood disorders (1 source) Mood disorders; Translations: [Depression, unspecified] Onset: 3 Nausea and vomiting (1 source) Nausea; Translations: [Nausea] Episodic Non-Hodgkin`s lymphoma (9 sources) Non-Hodgkin's lymphoma (clinical); Translations: [Non-Hodgkin lymphoma, unspecified, unspecified site] Onset: 5 07-27-2015 Chronic Other connective tissue disease (4 sources) Transient synovitis; Translations: [Transient synovitis of knee, right] 03-14-2019 Episodic Other connective tissue disease (1 source) Pain in left foot; Translations: [Pain in left foot] Episodic Other connective tissue disease (5 sources) Transient synovitis, right knee; Translations: [Synovitis and tenosynovitis, unspecified] 03-14-2019 Episodic Other gastrointestinal disorders (9 sources) Celiac disease; Translations: [Celiac disease] Onset: 5 08-01-2015 Chronic Other injuries and conditions due to external causes (2 sources) Unspecified multiple injuries, initial encounter; Translations: [Unspecified multiple injuries, initial encounter] Onset: 3 Episodic Other skin disorders (2 sources) Eruption; Translations: [Rash and other nonspecific skin eruption] Episodic Otitis media and related conditions (1 source) Purulent otitis media; Translations: [Suppurative otitis media, unspecified, left ear] Episodic Poisoning by other medications and drugs (1 source) Accidental drug overdose; Translations: [Accidental drug overdose, initial encounter] Episodic Schizophrenia and other psychotic disorders (16 sources) Schizoaffective disorder; Translations: [Schizoaffective disorder, depressive type ] Onset: 0 05-22-2020 Chronic Sprains and strains (5 sources) Rupture of anterior cruciate ligament of right knee; Translations: [Sprain of anterior cruciate ligament of right knee, initial encounter] 04-13-2019 Episodic Substance-related disorders (20 sources) Continuous opioid dependence; Translations: [Opioid dependence] Onset: 3 07-19-2015 Chronic Suicide and intentional self-inflicted injury (13 sources) Suicidal behavior; Translations: [Suicidal thoughts] Onset: 1 09-01-2020 Episodic Unclassified (4 sources) Rupture of anterior cruciate ligament of right knee; Translations: [Rupture of anterior cruciate ligament of right knee] 04-13-2019 Past or Other Problems Problem Classification Problem Date Documented Da te Episodic/Chronic Abdominal pain (9 sources) Right upper quadrant pain; Translations: [Right upper quadrant pain] Onset: 08-01-2015 08-01-2015 Episodic Fluid and electrolyte disorders (20 sources) Lactic acidosis; Translations: [Acute hypokalemia] Onset: 08-30-2020 Resolved: 09-02-2020 09-02-2020 Episodic Nonspecific chest pain (9 sources) Chest pain; Translations: [Chest pain, unspecified] Onset: 08-01-2015 08-01-2015 Episodic Other and unspecified benign neoplasm (9 sources) Fibroma; Translations: [Benign neoplasm of connective and other soft tissue, unspecified] Onset: 08-01-2015 08-01-2015 Episodic Other gastrointestinal disorders (9 sources) Swollen abdomen; Translations: [Generalized intra-abdominal and pelvic swelling, mass and lump] Onset: 08-01-2015 08-01-2015 Episodic Other lower respiratory disease (9 sources) Dyspnea; Translations: [Shortness of breath] Onset: 08-01-2015 08-01-2015 Episodic Other nervous system disorders (9 sources) Trigeminal neuralgia; Translations: [Trigeminal neuralgia] Onset: 08-01-2015 08-01-2015 Episodic Other skin disorders (1 source) Rash and other nonspecific skin eruption; Translations: [Rash and other nonspecific skin eruption] Onset: 08-16-2022 Episodic Phlebitis; thrombophlebitis and thromboembolism (9 sources) Deep venous thrombosis; Translations: [Acute embolism and thrombosis of unspecified deep veins of unspecified lower extremity] Onset: 08-01-2015 08-01-2015 Episodic Residual codes; unclassified (9 sources) Localized edema; Translations: [Bilateral lower limb edema] Onset: 08-01-2015 08-01-2015 Episodic Screening and history of mental health and substance abuse codes (8 sources) H/O: depression; Translations: [Personal history of other mental and behavioral disorders] Onset: 09-02-2020 09-02-2020 Episodic Skin and subcutaneous tissue infections (10 sources) Cellulitis; Translations: [Cellulitis, unspecified] Onset: 08-30-2020 09-01-2020 Episodic Results Test Name Value Interpretation Reference Range Facility CT CHEST ABDOMEN PELVIS W CO NTRASTon 02-16-2023 CT CHEST ABDOMEN PELVIS W CONTRAST EXAMINATION: CT OF THE CHEST, ABDOMEN, AND PELVIS WITH CONTRAST 02/12/2023 4:19 pm TECHNIQUE: CT of the chest, abdomen and pelvis was performed with the administration of intravenous contrast. Multiplanar reformatted images are provided for review. Automated exposure control, iterative reconstruction, and/or weight based adjustment of the mA/kV was utilized to reduce the radiation dose to as low as reasonably achievable. COMPARISON: 08/29/2021, 11/06/2021 HISTORY: ORDERING SYSTEM PROVIDED HISTORY: lymphoma TECHNOLOGIST PROVIDED HISTORY: lymphoma Reason for Exam: Lymphoma Additional signs and symptoms: Pt has no complaints; States hx Non-Hodgkins Lymphoma FINDINGS: Chest: Mediastinum: No central pulmonary embolus. No thoracic adenopathy. Heart size is normal. No pericardial effusion. Thoracic aorta is normal caliber. Lungs/pleura: No acute lung or pleural abnormality. Central airways are clear. Soft Tissues/Bones: No acute abnormality of the visualized osseous structures. Abdomen/Pelvis: Organs: Stable low-attenuation in the posterior aspect of the liver dome. Stable mild splenomegaly measuring 12 cm. The liver, spleen, pancreas, gallbladder, adrenal glands, and kidneys demonstrate no acute abnormality. GI/Bowel: No acutely dilated or inflamed loops of bowel. Pelvis: No pelvic mass, adenopathy, or fluid collection. Peritoneum/Retroperito neum: No abdominal aortic aneurysm. No adenopathy. No ascites. No free intraperitoneal air. Bones/Soft Tissues: No acute abnormality of the visualized osseous structures. IMPRESSION: 1. No lymphadenopathy or metastatic disease in the chest, abdomen or pelvis. 2. Stable nonspecific low-density in the posterior dome of the right hepatic lobe since 08/29/2021. Interpreted by: Jerzy Linton MD Signed by: Jerzy Linton MD 02/16/23 Final result Normal [facility] Hemoglobin A1Con 02-13-2023 Glucose [Mass/Vol] 85 mg/dL Normal [facility] Comment on above: Result Comment: The ADA and AACC recommend providing the estimated average glucose result to permit better patient understanding of their HBA1c result. Performed By: #### T RAY, LIPR #### [facility] [address] [place] [address] Hot Strip Finisher: Rupesh Feldman DO #### GLYHGB #### [facility] [address] [place] [address] Hot Strip Finisher: Bryn Farias MD HbA1c (Bld) [Mass fraction] 4.6 % Normal 4.0-6.0 [facility] Comment on above: Performed By: #### T RAY, LIPR #### [facility] [address] [place] [address] Hot Strip Finisher: Rupesh Feldman DO #### GLYHGB #### [address] [address] Hot Strip Finisher: Bryn Farias MD TSH w/reflex to FT4on 2022 Thyroid Stim. Horm. 0.56 uIU/mL Normal 0.30-5.00 [facility] Comment on above: Performed By: #### T SHX, LIPR #### [facility] [address] [place] [address] Hot Strip Finisher: Rupesh Feldman DO #### GLYHGB #### [address] [address] Hot Strip Finisher: Bryn Farias MD Lipid Profileon Cholesterol [Mass/Vol] 198 mg/dL Normal <200 [facility] Comment on above: Result Comment: Cholesterol Guidelines: <200 Desirable 200-240 Borderline >240 Undesirable Performed By: #### T SHX, LIPR #### [facility] [address] [place] [address] Hot Strip Finisher: Rupesh Feldman DO #### GLYHGB #### [address] [address] Hot Strip Finisher: Bryn Farias MD Cholesterol in HDL [Mass/Vol] 45 mg/dL Normal >40 [facility] Comment on above: Result Comment: HDL Guidelines: <40 Undesirable 40-59 Borderline >59 Desirable Performed By: #### T SHX, LIPR #### [facility] [address] [place] [address] Hot Strip Finisher: Rupesh Feldman DO #### GLYHGB #### [address] [address] Hot Strip Finisher: Bryn Farias MD Cholesterol in LDL [Mass/Vol] 131 mg/dL High 0-130 [facility] Comment on above: Result Comment: LDL Guidelines: <100 Desirable 100-129 Near to/above Desirable 130-159 Borderline >159 Undesirable Direct (measured) LDL and calculated LDL are not interchangeable tests. Performed By: #### T SHX, LIPR #### [facility] [address] [place] [address] Hot Strip Finisher: Rupesh Feldman DO #### GLYHGB #### [id number] [place], [place] [id number] Hot Strip Finisher: Bryn Farias MD Cholesterol.total/Ch olesterol in HDL [Mass ratio] 4.4 {ratio} Normal <5 [facility] Comment on above: Performed By: #### T SHX, LIPR #### [facility] [address] [place] [address] Hot Strip Finisher: Rupesh Feldman DO #### GLYHGB #### [address] [address] Hot Strip Finisher: Bryn Farias MD Triglyceride [Mass/Vol] 109 mg/dL Normal <150 [facility] Comment on above: Result Comment: Triglyceride Guidelines: <150 Desirable 150-199 Borderline 200-499 High >499 Very high Based on AHA Guidelines for fasting triglyceride, May 2012. Performed By: #### T SHX, LIPR #### [facility] [address] [place] [address] Hot Strip Finisher: Rupesh Feldman DO #### GLYHGB #### [address] [address] Hot Strip Finisher: Bryn Farias MD Acetaminophenon 02-10-2023 Acetaminophen [Mass/Vol] ug/mL Low 10-30 [facility] Comment on above: Performed By: #### C DP, ACET, ALCB, SALI, CP, MG #### [facility] [address] [place] [address] Hot Strip Finisher: Rupesh Feldman DO CBC with Diffon 02-10-2023 Abs. Basophil 0.00 k/uL Normal 0.0-0.2 [facility] Comment on above: Performed By: #### C DP, ACET, ALCB, SALI, CP, MG #### [facility] [address] [place] [address] Hot Strip Finisher: Rupesh Feldman DO Abs.Neutrophil (Seg) 4.80 k/uL Normal 1.3-9.1 [facility] Comment on above: Performed By: #### C DP, ACET, ALCB, SALI, CP, MG #### [facility] [place] [address] Hot Strip Finisher: Rupesh Feldman DO Basophils/100 WBC (Bld) 1 % Normal 0-2 [facility] Comment on above: Performed By: #### C DP, ACET, ALCB, SALI, CP, MG #### [facility] [address] [place] [address] Hot Strip Finisher: Rupesh Feldman DO Eosinophils (Bld) [#/Vol] 0.00 10*3/uL Normal 0.0-0.4 [facility] Comment on above: Performed By: #### C DP, ACET, ALCB, SALI, CP, MG #### [facility] [address] [place] [address] Hot Strip Finisher: Rupesh Feldman DO Eosinophils/100 WBC (Bld) 1 % Normal 0-4 [facility] Comment on above: Performed By: #### C DP, ACET, ALCB, SALI, CP, MG #### [facility] [address] [place] [address] Hot Strip Finisher: Rupesh Feldman DO Erythrocyte distribution width (RBC) [Ratio] 15.3 % High 11.5-14.9 [facility] Comment on above: Performed By: #### C DP, ACET, ALCB, SALI, CP, MG #### [facility] [address] [place] [address] Hot Strip Finisher: Rupesh Feldman DO Hematocrit (Bld) [Volume fraction] 40.5 % Normal 36-46 [facility] Comment on above: Performed By: #### C DP, ACET, ALCB, SALI, CP, MG #### [facility] [address] [place] [address] Hot Strip Finisher: Rupesh Feldman DO Hemoglobin (Bld) [Mass/Vol] 13.9 g/dL Normal 12.0-16.0 [facility] Comment on above: Performed By: #### C DP, ACET, ALCB, SALI, CP, MG #### [facility] [address] [place], [place] [address]e [facility] [place] [address] Hot Strip Finisher: Rupesh Feldman DO Lymphocytes (Bld) [#/Vol] 2.20 10*3/uL Normal 1.0-4.8 [facility] Comment on above: Performed By: #### C DP, ACET, ALCB, SALI, CP, MG #### [facility] [place] [address] Hot Strip Finisher: Rupesh Feldman DO Lymphocytes/100 WBC (Bld) 30 % Normal 24-44 [facility] Comment on above: Performed By: #### C DP, ACET, ALCB, SALI, CP, MG #### [facility] [facility] [place] [address] Hot Strip Finisher: Rupesh Feldman DO MCH (RBC) [Entitic mass] 28.5 pg Normal 26-34 [facility] Comment on above: Performed By: #### C DP, ACET, ALCB, SALI, CP, MG #### [facility] [place] [facility] [place] [address] Hot Strip Finisher: Rupesh Feldman DO MCHC (RBC) [Mass/Vol] 34.3 g/dL Normal 31-37 [facility] Comment on above: Performed By: #### C DP, ACET, ALCB, SALI, CP, MG #### [facility] [address] [place] [address] Hot Strip Finisher: Rupesh Feldman DO MCV (RBC) [Entitic vol] 83.2 fL Normal 80-100 [facility] Comment on above: Performed By: #### C DP, ACET, ALCB, SALI, CP, MG #### [facility] [address] [place] [address] Hot Strip Finisher: Rupesh Feldman DO Monocytes (Bld) [#/Vol] 0.40 10*3/uL Normal 0.1-1.3 [facility] Comment on above: Performed By: #### C DP, ACET, ALCB, SALI, CP, MG #### [facility] [address] [facility] [place] [address] Hot Strip Finisher: Rupesh Feldman DO Monocytes/100 WBC (Bld) 5 % Normal 1-7 [facility] Comment on above: Performed By: #### C DP, ACET, ALCB, SALI, CP, MG #### [facility] [place] [address] Hot Strip Finisher: Rupesh Feldman DO Neutrophil (Seg) 63 % Normal 36-66 [facility] Comment on above: Performed By: #### C DP, ACET, ALCB, SALI, CP, MG #### [facility] [address] [facility] [place] [address] Hot Strip Finisher: Rupesh Feldman DO Platelet mean volume (Bld) [Entitic vol] 7.7 fL Normal 6.0-12.0 [facility] Comment on above: Performed By: #### C DP, ACET, ALCB, SALI, CP, MG #### [facility] [address] [place] [address] Hot Strip Finisher: Rupesh Feldman DO Platelets (Bld) [#/Vol] 287 10*3/uL Normal 150-450 [facility] Comment on above: Performed By: #### C DP, ACET, ALCB, SALI, CP, MG #### [facility] [address] [place] [address] Hot Strip Finisher: Rupesh Feldman DO RBC (Bld) [#/Vol] 4.87 10*6/uL Normal 4.0-5.2 [facility] Comment on above: Performed By: #### C DP, ACET, ALCB, SALI, CP, MG #### [facility] [place] [facility] [place] [address] Hot Strip Finisher: Rupesh Feldman DO WBC (Bld) [#/Vol] 7.5 10*3/uL Normal 3.5-11.0 [facility] Comment on above: Performed By: #### C DP, ACET, ALCB, SALI, CP, MG #### [facility] [address] [place] [address]. [place] [address] Hot Strip Finisher: Rupesh Feldman DO Comp Metabolic Profon 2022 Albumin [Mass/Vol] 4.8 g/dL Normal 3.5-5.2 [facility] Comment on above: Performed By: #### C DP, ACET, ALCB, SALI, CP, MG #### [facility] [place] [facility] [place] [address] Hot Strip Finisher: Rupesh Feldman DO Alkaline Phos 74 U/L Normal 35-104 [facility] Comment on above: Performed By: #### C DP, ACET, ALCB, SALI, CP, MG #### [facility] [address] [place] [address] Hot Strip Finisher: Rupesh Feldman DO ALT [Catalytic activity/Vol] 12 U/L Normal 5-33 [facility] Comment on above: Performed By: #### C DP, ACET, ALCB, SALI, CP, MG #### [facility] [address] [place] [address] Hot Strip Finisher: Rupesh Feldman DO Anion gap [Moles/Vol] 14 mmol/L Normal 9-17 [facility] Comment on above: Performed By: #### C DP, ACET, ALCB, SALI, CP, MG #### [facility] [address] [place] [address] Hot Strip Finisher: Rupesh Feldman DO AST [Catalytic activity/Vol] 15 U/L Normal <32 [facility] Comment on above: Performed By: #### C DP, ACET, ALCB, SALI, CP, MG #### [facility] [address] [place] [address] Hot Strip Finisher: Rupesh Feldman DO Bilirubin [Mass/Vol] 0.4 mg/dL Normal 0.3-1.2 [facility] Comment on above: Performed By: #### C DP, ACET, ALCB, SALI, CP, MG #### [facility] [address] [place] [address] Hot Strip Finisher: Rupesh Feldman DO Calcium [Mass/Vol] 9.4 mg/dL Normal 8.6-10.4 [facility] Comment on above: Performed By: #### C DP, ACET, ALCB, SALI, CP, MG #### [facility] [address] [place] [address] Hot Strip Finisher: Rupesh Feldman DO Chloride [Moles/Vol] 103 mmol/L Normal 98-107 [facility] Comment on above: Performed By: #### C DP, ACET, ALCB, SALI, CP, MG #### [facility] [address] [facility] [place] [address] Hot Strip Finisher: Rupesh Feldman DO CO2 [Moles/Vol] 19 mmol/L Low 20-31 [facility] Comment on above: Performed By: #### C DP, ACET, ALCB, SALI, CP, MG #### [facility] [address] [facility] [place] [address] Hot Strip Finisher: Rupesh Feldman DO Creatinine [Mass/Vol] 0.59 mg/dL Normal 0.50-0.90 [facility] Comment on above: Performed By: #### C DP, ACET, ALCB, SALI, CP, MG #### [facility] [address] [facility] [place] [address] Hot Strip Finisher: Rupesh Feldman DO GFR/1.73 sq M.predicted among non-blacks MDRD (S/P/Bld) [Vol rate/Area] mL/min/{1.73_m2} Normal >60 [facility] Comment on above: Result Comment: These results are not intended for use in patients <18 years of age. eGFR results are calculated without a race factor using the 2020 CKD-EPI equation. Careful clinical correlation is recommended, particularly when comparing to results calculated using previous equations. The CKD-EPI equation is less accurate in patients with extremes of muscle mass, extra-renal metabolism of creatine, excessive creatine ingestion, or following therapy that affects renal tubular secretion. Performed By: #### C DP, ACET, ALCB, SALI, CP, MG #### [facility] [address] [facility] [place] [address] Hot Strip Finisher: Rupesh Feldman DO Glucose [Mass/Vol] 101 mg/dL High 70-99 [facility] Comment on above: Performed By: #### C DP, ACET, ALCB, SALI, CP, MG #### [facility] [address] [place] [address] Hot Strip Finisher: Rupesh Feldman DO Potassium [Moles/Vol] 3.5 mmol/L Low 3.7-5.3 [facility] Comment on above: Performed By: #### C DP, ACET, ALCB, SALI, CP, MG #### [facility] [address] [place] [address] Hot Strip Finisher: Rupesh Feldman DO Protein [Mass/Vol] 7.6 g/dL Normal 6.4-8.3 [facility] Comment on above: Performed By: #### C DP, ACET, ALCB, SALI, CP, MG #### [facility] [place] [address] Hot Strip Finisher: Rupesh Feldman DO Sodium [Moles/Vol] 136 mmol/L Normal 135-144 [facility] Comment on above: Performed By: #### C DP, ACET, ALCB, SALI, CP, MG #### [facility] [place] [address] Hot Strip Finisher: Rupesh Feldman DO Urea nitrogen [Mass/Vol] 15 mg/dL Normal 6-20 [facility] Comment on above: Performed By: #### C DP, ACET, ALCB, SALI, CP, MG #### [facility] [place] [address] Hot Strip Finisher: Rupesh Feldman DO Drug Scr, Abuse, Uron 2022 Amphetamine(s),Ur Positive Abnormal NEG [facility] Comment on above: Result Comment: (Positive cutoff 1000 ng/mL) Performed By: #### D AU #### [facility] [place] [address] Hot Strip Finisher: Rupesh Feldman DO Barbiturate(s),Ur Negative Normal NEG [facility] Comment on above: Result Comment: (Positive cutoff 200 ng/mL) Performed By: #### D AU #### [facility] [address] [place] [address] Hot Strip Finisher: Rupesh Feldman DO Benzodiazepine(s) Negative Normal NEG [facility] Comment on above: Result Comment: (Positive cutoff 200 ng/mL) Performed By: #### D AU #### [facility] [address] [place] [address] Hot Strip Finisher: Rupesh Feldman DO Cannabinoid(s),Ur Negative Normal NEG [facility] Comment on above: Result Comment: (Positive cutoff 50 ng/mL) Performed By: #### D AU #### [facility] [address] [place] [address] Hot Strip Finisher: Rupesh Feldman DO Cocaine Metabolite Positive Abnormal NEG [facility] Comment on above: Result Comment: (Positive cutoff 300 ng/mL) Performed By: #### D AU #### [facility] [address] [place] [address] Hot Strip Finisher: Rupesh Feldman DO Fentanyl, Urine Negative Normal NEG [facility] Comment on above: Result Comment: (Positive cutoff 5 ng/ml) Performed By: #### D AU #### [facility] [address] [place] [address] Hot Strip Finisher: Rupesh Feldman DO Interpretive Info Assay provides medic al screening only. The absence of expected drug(s) and/or Normal [facility] Comment on above: Result Comment: meta bolite(s) may indicate diluted or adulterated urine, limitations of testing or timing of collection. Testing for legal purposes should be confirmed by another method. To request confirmation of test result, please call the lab within 7 days of sample submission. Performed By: #### D AU #### [facility] [address] [place] [address] Hot Strip Finisher: Rupesh Feldman DO Methadone Ql (U) Negative Normal NEG [facility] Comment on above: Result Comment: (Positive cutoff 300 ng/mL) Performed By: #### D AU #### [facility] [place] [address] Hot Strip Finisher: Rupesh Feldman DO Opiate(s), Ur Negative Normal NEG [facility] Comment on above: Result Comment: (Positive cutoff 300 ng/mL) Performed By: #### D AU #### [facility] [address] [place] [address] Hot Strip Finisher: Rupesh Feldman DO Oxycodone, Urine Negative Normal NEG [facility] Comment on above: Result Comment: (Positive cutoff 100 ng/mL) Performed By: #### D AU #### [facility] [address] [place] [address] Hot Strip Finisher: Rupesh Feldman DO Phencyclidine, Ur Negative Normal NEG [facility] Comment on above: Result Comment: (Positive cutoff 25 ng/mL) Performed By: #### D AU #### [facility] [address] [place] [address] Hot Strip Finisher: Rupesh Feldman DO Ethanol Alcoholon 02-10-2023 Ethanol [Mass/Vol] mg/dL Normal <10 [facility] Comment on above: Performed By: #### C DP, ACET, ALCB, SALI, CP, MG #### [facility] [address] [place] [address] Hot Strip Finisher: Rupesh Feldman DO Ethanol percent <0.010 Normal [facility] Comment on above: Performed By: #### C DP, ACET, ALCB, SALI, CP, MG #### [facility] [address] [place] [address] Hot Strip Finisher: Rupesh Feldman DO Magnesiumon 02-10-2023 Magnesium [Mass/Vol] 2.0 mg/dL Normal 1.6-2.6 [facility] Comment on above: Performed By: #### C DP, ACET, ALCB, SALI, CP, MG #### [facility] [address] [facility] [place] [address] Hot Strip Finisher: Rupesh Feldman DO Salicylateon 02-10-2023 Salicylate <1 Low 3-10 [facility] Comment on above: Performed By: #### T SHX, LIPR #### [facility] [address] [place] [address] Hot Strip Finisher: Rupesh Feldman DO #### GLYHGB #### [facility] [address] [place] [address] Hot Strip Finisher: Bryn Farias MD Flu A/B Ag Detectionon 12-11 Flu A Antigen Negative NEGATIVE [facility] Comment on above: for Influenza A Anti gen Flu B Antigen Negative NEGATIVE [facility] Comment on above: for Influenza B Anti gen. [facility] XR FOOT LEFT (MIN 3 VIEWS)on 05-16-2021 XR FOOT LEFT (MIN 3 VIEWS) EXAMINATION: THREE XRAY VIEWS OF THE LEFT FOOT 05/16/2021 1:00 am COMPARISON: None. HISTORY: ORDERING SYSTEM PROVIDED HISTORY: pain, bruising to the left lateral foot TECHNOLOGIST PROVIDED HISTORY: pain, bruising to the left lateral foot Reason for Exam: bruising to lateral aspect FINDINGS: Bones demonstrate normal alignment. Bone mineralization is within normal limits. Joint spaces are preserved. Soft tissues are unremarkable. IMPRESSION: Unremarkable radiographic views of the left foot. Interpreted by: Carlitos Lovell MD Signed by: Carlitos Lovell MD 05/16/21 Final result Normal [facility] XR FOOT LEFT (MIN 3 VIEWS)Or dered By: Van Peña on 05-16-2021 Unremarkable radiographic views of the left foot. [facility] Work Phone: EXAMINATION: THREE XRAY VIEWS OF THE LEFT FOOT 05/16/2021 1:00 am COMPARISON: None. HISTORY: ORDERING SYSTEM PROVIDED HISTORY: pain, bruising to the left lateral foot TECHNOLOGIST PROVIDED HISTORY: pain, bruising to the left lateral foot Reason for Exam: bruising to lateral aspect FINDINGS: Bones demonstrate normal alignment. Bone mineralization is within normal limits. Joint spaces are preserved. Soft tissues are unremarkable. [employer] Phone: [place], pn Incoming Radiant Results From [employer] - 05/16/2021 1:19 AM EDT EXAMINATION: THREE XRAY VIEWS OF THE LEFT FOOT 05/16/2021 1:00 am COMPARISON: None. HISTORY: ORDERING SYSTEM PROVIDED HISTORY: pain, bruising to the left lateral foot TECHNOLOGIST PROVIDED HISTORY: pain, bruising to the left lateral foot Reason for Exam: bruising to lateral aspect FINDINGS: Bones demonstrate normal alignment. Bone mineralization is within normal limits. Joint spaces are preserved. Soft tissues are unremarkable. IMPRESSION: Unremarkable radiographic views of the left foot. [employer] Phone: [employer] Phone: Comprehensive Metabolic Pane zaina 11-05-2020 Albumin [Mass/Vol] 4.8 g/dL 3.5 - 5.2 g/dL [facility] Phone: Albumin/Globulin [Mass ratio] 1.2 {ratio} [employer] Phone: ALP [Catalytic activity/Vol] 243 U/L High 35 - 104 U/L [employer] Phone: ALT [Catalytic activity/Vol] 27 U/L 5 - 33 U/L [employer] Phone: Anion gap [Moles/Vol] 18 mmol/L High 9 - 17 mmol/L [employer] Phone: AST [Catalytic activity/Vol] 32 U/L High <32 [employer] Phone: Bilirubin Ql (U) 0.50 mg/dL 0.3 - 1.2 mg/dL [employer] Phone: Bun/Cre Ratio NOT REPORTED [facility] Work Phone: Calcium [Mass/Vol] 9.9 mg/dL 8.6 - 10. 4 mg/dL [employer] Phone: Chloride [Moles/Vol] 98 mmol/L 98 - 10 7 mmol/L [facility] Phone: CO2 [Moles/Vol] 24 mmol/L 20 - 31 mmol/L [facility] Phone: Creatinine [Mass/Vol] 0.5 mg/dL 0.50 - 0.90 mg/dL [employer] Phone: GFR >60 >60 mL/min [employer] Phone: GFR Non- >60 >60 mL/min [facility] Phone: GFR/1.73 sq M predicted among non-blacks MDRD (S/P/Bld) [Vol rate/Area] [facility] Phone: Comment on above: Average GFR for 20-2 9 years old: 116 mL/min/1.73sq m Chronic Kidney Disease: <60 mL/min/1.73sq m Kidney failure: <15 mL/min/1.73sq m eGFR calculated using average adult body mass. Additional eGFR calculator available at: http://www.[employer].WhereNet/multiple_crcl_2012.htm GFR/1.73 sq M predicted among non-blacks MDRD (S/P/Bld) [Vol rate/Area] NOT REPORTED [facility] Phone: Glucose [Mass/Vol] 92 mg/dL 70 - 99 mg/dL [facility] [employer] Work Phone: Interpretation and review of laboratory results Abnormal [facility] Phone: Potassium [Moles/Vol] 2.7 mmol/L Critically low 3.7 - 5.3 mmol/L [facility] Work Phone: Protein [Mass/Vol] 8.7 g/dL High 6.4 - 8.3 g/dL [facility] [employer] Phone: Sodium [Moles/Vol] 140 mmol/L 135 - 144 mmol/L [facility] [employer] Phone: Urea nitrogen [Mass/Vol] 13 mg/dL 6 - 20 mg/dL [facility] [employer] Phone: Cult,Bloodon 09-05-2020 Cult,Blood Specimen Description .BLOOD Special Requests R WRIST, 3 ML red only Culture NO GROWTH 6 DAYS Report Status FINAL 09/05/2020 Normal [facility] Comment on above: Performed By: #### C DP, IPF, HCG, CRP, CP, EDTOX #### [facility] [address] [place] [phone] Hot Strip Finisher: Bryn Farias MD Cult,Blood Specimen Description .BLOOD Special Requests R HAND, 7 ML Culture NO GROWTH 6 DAYS Report Status FINAL 09/05/2020 Normal [facility] Comment on above: Performed By: #### C DP, IPF, HCG, CRP, CP, EDTOX #### [employer] [address] [place] [phone] Hot Strip Finisher: Bryn Farias MD Culture, Blood 1on Culture NO GROWTH 6 DAYS [place], [place] Special Requests R WRIST, 3 ML red only [place], [place] Specimen Description .BLOOD [place], [place] CBC with Diffon 09-02-2020 Abs. Basophil <0.03 Normal 0.00-0.20 [facility] Comment on above: Performed By: #### C DP, IPF, HCG, CRP, CP, EDTOX #### [facility] [address] [place] [phone] Hot [employer] Finisher: Bryn Farias MD Abs.Imm.Granulocyte <0.03 Normal 0.00-0.30 [facility] Comment on above: Performed By: #### C DP, IPF, HCG, CRP, CP, EDTOX #### [address] [address] Hot Strip Finisher: Bryn Farias MD Abs.Neutrophil (Seg) 3.13 k/uL Normal 1.50-8.10 [facility] Comment on above: Performed By: #### C DP, IPF, HCG, CRP, CP, EDTOX #### [address] [address] Hot [employer] Finisher: Bryn Farias MD Basophils/100 WBC (Bld) 0 % Normal 0-2 [facility] Comment on above: Performed By: #### C DP, IPF, HCG, CRP, CP, EDTOX #### [place] [address] Hot Strip Finisher: Bryn Farias MD Eosinophils (Bld) [#/Vol] 0.10 10*3/uL Normal 0.00-0.44 [facility] Comment on above: Performed By: #### C DP, IPF, HCG, CRP, CP, EDTOX #### [address] [address] Hot Strip Finisher: Bryn Farias MD Eosinophils/100 WBC (Bld) 2 % Normal 1-4 [facility] Comment on above: Performed By: #### C DP, IPF, HCG, CRP, CP, EDTOX #### [address] [address] Hot [employer] Finisher: Bryn Farias MD Erythrocyte distribution width (RBC) [Ratio] 16.4 % High 11.8-14.4 [facility] Comment on above: Performed By: #### C DP, IPF, HCG, CRP, CP, EDTOX #### [address] [address] Hot [employer] Finisher: Bryn Farias MD Hematocrit (Bld) [Volume fraction] 34.7 % Low 36.3-47.1 [facility] Comment on above: Performed By: #### C DP, IPF, HCG, CRP, CP, EDTOX #### [place] [address] Hot [employer] Finisher: Bryn Farias MD Hemoglobin (Bld) [Mass/Vol] 10.4 g/dL Low 11.9-15.1 [facility] Comment on above: Performed By: #### C DP, IPF, HCG, CRP, CP, EDTOX #### [place] [address] Hot Strip Finisher: Bryn Farias MD Immature granulocytes/100 WBC (Bld) 0 % Normal 0 [facility] Comment on above: Performed By: #### C DP, IPF, HCG, CRP, CP, EDTOX #### [place] [address] Hot Strip Finisher: Bryn Farias MD Lymphocytes (Bld) [#/Vol] 2.25 10*3/uL Normal 1.10-3.70 [facility] Comment on above: Performed By: #### C DP, IPF, HCG, CRP, CP, EDTOX #### [address] [address] Hot [employer] Finisher: Bryn Farias MD Lymphocytes/100 WBC (Bld) 38 % Normal 24-43 [facility] Comment on above: Performed By: #### C DP, IPF, HCG, CRP, CP, EDTOX #### [place] [address] Hot [employer] Finisher: Bryn Farias MD MCH (RBC) [Entitic mass] 29.6 pg Normal 25.2-33.5 [facility] Comment on above: Performed By: #### C DP, IPF, HCG, CRP, CP, EDTOX #### [address] [address] Hot [employer] Finisher: Bryn Farias MD MCHC (RBC) [Mass/Vol] 30.0 g/dL Normal 28.4-34.8 [facility] Comment on above: Performed By: #### C DP, IPF, HCG, CRP, CP, EDTOX #### [address] [address] Hot [employer] Finisher: Bryn Farias MD MCV (RBC) [Entitic vol] 98.9 fL Normal 82.6-102.9 [facility] Comment on above: Performed By: #### C DP, IPF, HCG, CRP, CP, EDTOX #### [address] [address] Hot Strip Finisher: Bryn Farias MD Monocytes (Bld) [#/Vol] 0.37 10*3/uL Normal 0.10-1.20 [facility] Comment on above: Performed By: #### C DP, IPF, HCG, CRP, CP, EDTOX #### [address] [address] Hot [employer] Finisher: Bryn Farias MD Monocytes/100 WBC (Bld) 6 % Normal 3-12 [facility] Comment on above: Performed By: #### C DP, IPF, HCG, CRP, CP, EDTOX #### [address] [address] Hot [employer] Finisher: Bryn Farias MD Neutrophil (Seg) 54 % Normal 36-65 [facility] Comment on above: Performed By: #### C DP, IPF, HCG, CRP, CP, EDTOX #### [address] [address] Hot [employer] Finisher: Bryn Farias MD NRBC Automated 0.0 per 100 WBC Normal 0.0 [facility] Comment on above: Performed By: #### C DP, IPF, HCG, CRP, CP, EDTOX #### [address] [phone] Hot Strip Finisher: Bryn Farias MD Platelet mean volume (Bld) [Entitic vol] 8.9 fL Normal 8.1-13.5 [facility] Comment on above: Performed By: #### C DP, IPF, HCG, CRP, CP, EDTOX #### [address] [address] Hot [employer] Finisher: Bryn Farias MD Platelets (Bld) [#/Vol] 269 10*3/uL Normal 138-453 [facility] Comment on above: Performed By: #### C DP, IPF, HCG, CRP, CP, EDTOX #### [address] [address] Hot Strip Finisher: Bryn Farias MD RBC (Bld) [#/Vol] 3.51 10*6/uL Low 3.95-5.11 [facility] Comment on above: Performed By: #### C DP, IPF, HCG, CRP, CP, EDTOX #### [address] [address] Hot [employer] Finisher: Bryn Farias MD RBC morphology finding Nom (Bld) ANISOCYTOSIS PRESENT Normal [facility] Comment on above: Performed By: #### C DP, IPF, HCG, CRP, CP, EDTOX #### [address] [address] Hot [employer] Finisher: Bryn Farias MD WBC (Bld) [#/Vol] 5.9 10*3/uL Normal 3.5-11.3 [facility] Comment on above: Performed By: #### C DP, IPF, HCG, CRP, CP, EDTOX #### [facility] [address] [place] [address] Hot [employer] Finisher: Bryn Farias MD Auto Diff Performed NOT REPORTED Normal [facility] Comment on above: Performed By: #### C DP, IPF, HCG, CRP, CP, EDTOX #### [facility] [address] [place], [place] [phone] Hot [employer] Finisher: Bryn Farias MD Platelet Estimate NOT REPORTED Normal [facility] Comment on above: Performed By: #### C DP, IPF, HCG, CRP, CP, EDTOX #### [facility] [address] [place], [place] [phone] Hot [employer] Finisher: Bryn Farias MD WBC Morphology NOT REPORTED Normal [facility] Comment on above: Performed By: #### C DP, IPF, HCG, CRP, CP, EDTOX #### [facility] [place], [place] [phone] Hot [employer] Finisher: Bryn Farias MD Hematologyon 09-02-2020 Basophils (Bld) [#/Vol] 10*3/uL [place] Basophils/100 WBC (Bld) 0 % 0 - 2 % [place] Eosinophils (Bld) [#/Vol] 0.10 10*3/uL [place] Eosinophils/100 WBC (Bld) 2 % 1 - 4 % [place] Hematocrit (Bld) [Volume fraction] 34.7 % Low 36.3 - 47.1 % [place] Hemoglobin (Bld) [Mass/Vol] 10.4 g/dL Low 11.9 - 15.1 g/dL [place] Lymphocytes (Bld) [#/Vol] 2.25 10*3/uL [place] Lymphocytes/100 WBC (Bld) 38 % 24 - 43 % [place] MCH (RBC) [Entitic mass] 29.6 pg 25.2 - 33.5 pg [place] MCV (RBC) [Entitic vol] 98.9 fL 82.6 - 102.9 fL [place] Monocytes (Bld) [#/Vol] 0.37 10*3/uL [place] Monocytes/100 WBC (Bld) 6 % 3 - 12 % [place] Platelets (Bld) [#/Vol] NOT REPORTED [place] Platelets (Bld) [#/Vol] 269 10*3/uL [place] RBC (Bld) [#/Vol] 3.51 10*6/uL Low 3.95 - 5.1 1 m/uL [place] RBC morphology finding Nom (Bld) ANISOCYTOSIS PRESENT [place] WBC (Bld) [#/Vol] 0.0 10*3/uL 0.0 per 10 0 WBC [place] WBC (Bld) [#/Vol] 5.9 10*3/uL [place] Metabolic Panelon 09-02-2020 Albumin [Mass/Vol] 2.8 g/dL Low 3.5 - 5.2 g/dL [place] Anion gap [Moles/Vol] 8 mmol/L Low 9 - 17 mmol/L [place] Calcium [Mass/Vol] 7.8 mg/dL Low 8.6 - 10. 4 mg/dL [place] Chloride [Moles/Vol] 108 mmol/L High 98 - 10 7 mmol/L [place] CO2 [Moles/Vol] 21 mmol/L 20 - 31 mmol/L [place] Creatinine [Mass/Vol] 0.31 mg/dL Low 0.5 - 0.9 mg/dL [place] GFR/1.73 sq M predicted among non-blacks MDRD (S/P/Bld) [Vol rate/Area] [place] Comment on above: Average GFR for 20-2 9 years old: 116 mL/min/1.73sq m Chronic Kidney Disease: <60 mL/min/1.73sq m Kidney failure: <15 mL/min/1.73sq m eGFR calculated using average adult body mass. Additional eGFR calculator available at: http://www.[employer].WhereNet/multiple_crcl_2012.htm GFR/1.73 sq M predicted among non-blacks MDRD (S/P/Bld) [Vol rate/Area] NOT REPORTED [place] Glucose [Mass/Vol] 99 mg/dL 70 - 99 mg/dL [place], [place] Phosphate [Mass/Vol] 3.6 mg/dL 2.6 - 4 .5 mg/dL [place] Potassium [Moles/Vol] 3.1 mmol/L Low 3.7 - 5.3 mmol/L [place] Sodium [Moles/Vol] 137 mmol/L 135 - 144 mmol/L [place] Urea nitrogen [Mass/Vol] 3 mg/dL Low 6 - 20 mg/dL [place] Otheron 09-02-2020 SARS-CoV-2 [place] SARS-CoV-2, Rapid Not Detected Not Detected [place] Comment on above: Rapid NAAT: The specimen is NEGATIVE for SARS-CoV-2, the novel coronavirus associated with COVID-19. The ID NOW COVID-19 assay is designed to detect the virus that causes COVID-19 in patients with signs and symptoms of infection who are suspected of COVID-19. An individual without symptoms of COVID-19 and who is not shedding SARS-CoV-2 virus would expect to have a negative (not detected) result in this assay. Negative results should be treated as presumptive and, if inconsistent with clinical signs and symptoms or necessary for patient management, should be tested with an alternative molecular assay. Negative results do not preclude SARS-CoV-2 infection and should not be used as the sole basis for patient management decisions. Fact sheet for Healthcare Providers: https://www.fda.gov/media/155083/download Fact sheet for Patients: https://www.fda.gov/media/434150/download Methodology: Isothermal Nucleic Acid Amplification Source .NASOPHARYNGEAL SWAB [place] Bun/Cre Ratio NOT REPORTED [place] GFR >60 >60 mL/min [place] GFR Non- >60 >60 mL/min [place] Interpretation and review of laboratory results Abnormal [place] Differential Type NOT REPORTED [place] Erythrocyte distribution width (RBC) [Ratio] 16.4 % High 11.8 - 14.4 % [place] Immature granulocytes (Bld) [#/Vol] 0 % 0 [place] Immature granulocytes (Bld) [#/Vol] 10*3/uL [place] Interpretation and review of laboratory results Abnormal [place] MCHC (RBC) [Mass/Vol] 30.0 g/dL 28.4 - 34.8 g/dL [place] Platelet mean volume (Bld) [Entitic vol] 8.9 fL 8.1 - 13.5 fL [place], [place] Segmented neutrophils/100 WBC (Bld) 54 % 36 - 65 % [place] Segs Absolute 3.13 [place], [place] WBC Morphology NOT REPORTED [place], [place] Renal Function Panelon 09-02 (cont.) Normal [facility] Comment on above: Result Comment: Aver age GFR for 20-29 years old: 116 mL/min/1.73sq m Chronic Kidney Disease: <60 mL/min/1.73sq m Kidney failure: <15 mL/min/1.73sq m eGFR calculated using average adult body mass. Additional eGFR calculator available at: http://www.[employer]/multiple_crcl_2011.htm Performed By: #### C DP, IPF, HCG, CRP, CP, EDTOX #### [facility] [address] [place] [phone] Hot [employer] Finisher: Bryn Farias MD Albumin [Mass/Vol] 2.8 g/dL Low 3.5-5.2 [facility] Comment on above: Performed By: #### C DP, IPF, HCG, CRP, CP, EDTOX #### [facility] [place], [place] [phone] [employer] Finisher: Bryn Farias MD Anion gap [Moles/Vol] 8 mmol/L Low 9-17 [facility] Comment on above: Performed By: #### C DP, IPF, HCG, CRP, CP, EDTOX #### [address] [address] Hot Strip Finisher: Bryn Farias MD Calcium [Mass/Vol] 7.8 mg/dL Low 8.6-10.4 [facility] Comment on above: Performed By: #### C DP, IPF, HCG, CRP, CP, EDTOX #### [address] [address] [employer] Finisher: Bryn Farias MD Chloride [Moles/Vol] 108 mmol/L High 98-107 [facility] Comment on above: Performed By: #### C DP, IPF, HCG, CRP, CP, EDTOX #### [address] [address] Hot Strip Finisher: Bryn Farias MD CO2 [Moles/Vol] 21 mmol/L Normal 20-31 [facility] Comment on above: Performed By: #### C DP, IPF, HCG, CRP, CP, EDTOX #### [address] [address] Hot Strip Finisher: Bryn Farias MD Creatinine [Mass/Vol] 0.31 mg/dL Low 0.50-0.90 [facility] Comment on above: Performed By: #### C DP, IPF, HCG, CRP, CP, EDTOX #### [address] [address] [employer] Finisher: Bryn Farias MD GFR, Amer >60 Normal >60 [facility] Comment on above: Performed By: #### C DP, IPF, HCG, CRP, CP, EDTOX #### [address] [address] [employer] Finisher: Bryn Farias MD GFR,non Amer >60 Normal >60 [facility] Comment on above: Performed By: #### C DP, IPF, HCG, CRP, CP, EDTOX #### [facility] [address] [place] [phone] Hot Strip Finisher: Bryn Farias MD Glucose [Mass/Vol] 99 mg/dL Normal 70-99 [facility] Comment on above: Performed By: #### C DP, IPF, HCG, CRP, CP, EDTOX #### [facility] [address] [place] [phone] Hot Strip Finisher: Bryn Farias MD Phosphorus, Inorg. 3.6 mg/dL Normal 2.6-4.5 [facility] Comment on above: Performed By: #### C DP, IPF, HCG, CRP, CP, EDTOX #### [facility] [address] [place] [phone] Hot [employer] Finisher: Bryn Farias MD Potassium [Moles/Vol] 3.1 mmol/L Low 3.7-5.3 [facility] Comment on above: Performed By: #### C DP, IPF, HCG, CRP, CP, EDTOX #### [facility] [address] [place] [phone] Hot Strip Finisher: Bryn Farias MD Sodium [Moles/Vol] 137 mmol/L Normal 135-144 [facility] Comment on above: Performed By: #### C DP, IPF, HCG, CRP, CP, EDTOX #### [facility] [address] [place] [phone] Hot [employer] Finisher: Bryn Farias MD Urea nitrogen [Mass/Vol] 3 mg/dL Low 6-20 [facility] Comment on above: Performed By: #### C DP, IPF, HCG, CRP, CP, EDTOX #### [facility] [address] [place] [phone] [employer] Finisher: Bryn Farias MD BUN/CRE Ratio NOT REPORTED Normal -20 [facility] Comment on above: Performed By: #### C DP, IPF, HCG, CRP, CP, EDTOX #### [address] [address] [employer] Finisher: Bryn Farias MD Staging: NOT REPORTED Normal [facility] Comment on above: Performed By: #### C DP, IPF, HCG, CRP, CP, EDTOX #### [address] [address] [employer] Finisher: Bryn Farias MD [id number] 09-02-2020 SARS-CoV-2 (COVID-19) RNA IRENA+probe Ql (Unsp spec) Normal [facility] Comment on above: Performed By: #### C DP, IPF, HCG, CRP, CP, EDTOX #### [address] [address] Hot Strip Finisher: Bryn Farias MD SARS-CoV-2 (COVID-19) RNA IRENA+probe Ql (Unsp spec) Normal [facility] Comment on above: Performed By: #### C DP, IPF, HCG, CRP, CP, EDTOX #### [address] [address] Hot Strip Finisher: Bryn Farias MD SARS-CoV-2 (COVID-19) RNA IRENA+probe Ql (Unsp spec) Not detected [facility] Comment on above: Result Comment: Rapid NAAT: The specimen is NEGATIVE for SARS-CoV-2, the novel coronavirus associated with COVID-19. The ID NOW COVID-19 assay is designed to detect the virus that causes COVID-19 in patients with signs and symptoms of infection who are suspected of COVID-19. An individual without symptoms of COVID-19 and who is not shedding SARS-CoV-2 virus would expect to have a negative (not detected) result in this assay. Negative results should be treated as presumptive and, if inconsistent with clinical signs and symptoms or necessary for patient management, should be tested with an alternative molecular assay. Negative results do not preclude SARS-CoV-2 infection and should not be used as the sole basis for patient management decisions. Fact sheet for Healthcare Providers: https://www.fda.gov/media/016155/download Fact sheet for Patients: https://www.fda.gov/media/698952/download Methodology: Isothermal Nucleic Acid Amplification Performed By: #### C DP, IPF, HCG, CRP, CP, EDTOX #### [facility] [address] [place] [phone] Hot [employer] Finisher: Bryn Farias MD SARS-CoV-2 (COVID-19) RNA IRENA+probe Ql (Unsp spec) .NASOPHARYNGEAL SWAB Normal [facility] Comment on above: Performed By: #### C DP, IPF, HCG, CRP, CP, EDTOX #### [facility] [address] [place] [phone] [employer] Finisher: Bryn Farias MD C-Reactive Proteinon 021 CRP [Mass/Vol] 10.2 mg/L High 0.0-5.0 [facility] Comment on above: Performed By: #### C DP, IPF, HCG, CRP, CP, EDTOX #### [facility] [address] [place] [phone] [employer] Finisher: Bryn Farias MD CBC auto differentialon Basophils (Bld) [#/Vol] 10*3/uL [place] Basophils/100 WBC (Bld) 0 % 0 - 2 % [place] Differential Type NOT REPORTED [place] Eosinophils (Bld) [#/Vol] 0.11 10*3/uL [place] Eosinophils/100 WBC (Bld) 2 % 1 - 4 % [place] Erythrocyte distribution width (RBC) [Ratio] 16.0 % High 11.8 - 14.4 % [place] Hematocrit (Bld) [Volume fraction] 35.0 % Low 36.3 - 47.1 % [place] Hemoglobin (Bld) [Mass/Vol] 11.0 g/dL Low 11.9 - 15.1 g/dL [place] Immature granulocytes (Bld) [#/Vol] 1 % High 0 [place] Immature granulocytes (Bld) [#/Vol] 0.03 10*3/uL [place] Interpretation and review of laboratory results Abnormal [place] Lymphocytes (Bld) [#/Vol] 1.99 10*3/uL [place] Lymphocytes/100 WBC (Bld) 30 % 24 - 43 % [place] MCH (RBC) [Entitic mass] 29.9 pg 25.2 - 33.5 pg [place] MCHC (RBC) [Mass/Vol] 31.4 g/dL 28.4 - 34.8 g/dL [place] MCV (RBC) [Entitic vol] 95.1 fL 82.6 - 102.9 fL [place] Monocytes (Bld) [#/Vol] 0.41 10*3/uL [place] Monocytes/100 WBC (Bld) 6 % 3 - 12 % [place] Platelet mean volume (Bld) [Entitic vol] 9.0 fL 8.1 - 13.5 fL [place] Platelets (Bld) [#/Vol] 258 10*3/uL [place] Platelets (Bld) [#/Vol] NOT REPORTED [place] RBC (Bld) [#/Vol] 3.68 10*6/uL Low 3.95 - 5.1 1 m/uL [place] RBC morphology finding Nom (Bld) ANISOCYTOSIS PRESENT [place] Segmented neutrophils/100 WBC (Bld) 61 % 36 - 65 % [place] Segs Absolute 3.99 [place] WBC (Bld) [#/Vol] 6.5 10*3/uL [place] WBC (Bld) [#/Vol] 0.0 10*3/uL 0.0 per 10 0 WBC [place] WBC Morphology NOT REPORTED [place] CBC with Diffon 09-01-2020 Abs. Basophil <0.03 Normal 0.00-0.20 [facility] Comment on above: Performed By: #### C DP, IPF, HCG, CRP, CP, EDTOX #### [address] [address] Hot Strip Finisher: Bryn Farias MD Abs.Imm.Granulocyte 0.03 k/uL Normal 0.00-0.30 [facility] Comment on above: Performed By: #### C DP, IPF, HCG, CRP, CP, EDTOX #### [place] [address] [employer] Finisher: Bryn Farias MD Abs.Neutrophil (Seg) 3.99 k/uL Normal 1.50-8.10 [facility] Comment on above: Performed By: #### C DP, IPF, HCG, CRP, CP, EDTOX #### [address] [address] [employer] Finisher: Bryn Farias MD Basophils/100 WBC (Bld) 0 % Normal 0-2 [facility] Comment on above: Performed By: #### C DP, IPF, HCG, CRP, CP, EDTOX #### [address] [address] [employer] Finisher: Bryn Farias MD Eosinophils (Bld) [#/Vol] 0.11 10*3/uL Normal 0.00-0.44 [facility] Comment on above: Performed By: #### C DP, IPF, HCG, CRP, CP, EDTOX #### [address] [address] Hot Strip Finisher: Bryn Farias MD Eosinophils/100 WBC (Bld) 2 % Normal 1-4 [facility] Comment on above: Performed By: #### C DP, IPF, HCG, CRP, CP, EDTOX #### [address] [address] Hot Strip Finisher: Bryn Farias MD Erythrocyte distribution width (RBC) [Ratio] 16.0 % High 11.8-14.4 [facility] Comment on above: Performed By: #### C DP, IPF, HCG, CRP, CP, EDTOX #### [address] [address] Hot Strip Finisher: Bryn Farias MD Hematocrit (Bld) [Volume fraction] 35.0 % Low 36.3-47.1 [facility] Comment on above: Performed By: #### C DP, IPF, HCG, CRP, CP, EDTOX #### [address] [address] [employer] Strip Finisher: Bryn Farias MD Hemoglobin (Bld) [Mass/Vol] 11.0 g/dL Low 11.9-15.1 [facility] Comment on above: Performed By: #### C DP, IPF, HCG, CRP, CP, EDTOX #### [address] [address] [employer] Strip Finisher: Bryn Farias MD Immature granulocytes/100 WBC (Bld) 1 % High 0 [facility] Comment on above: Performed By: #### C DP, IPF, HCG, CRP, CP, EDTOX #### [address] [address] [employer] Strip Finisher: Bryn Farias MD Lymphocytes (Bld) [#/Vol] 1.99 10*3/uL Normal 1.10-3.70 [facility] Comment on above: Performed By: #### C DP, IPF, HCG, CRP, CP, EDTOX #### [address] [address] [employer] Strip Finisher: Bryn Farias MD Lymphocytes/100 WBC (Bld) 30 % Normal 24-43 [facility] Comment on above: Performed By: #### C DP, IPF, HCG, CRP, CP, EDTOX #### [address] [address] Hot Strip Finisher: Bryn Fraias MD MCH (RBC) [Entitic mass] 29.9 pg Normal 25.2-33.5 [facility] Comment on above: Performed By: #### C DP, IPF, HCG, CRP, CP, EDTOX #### [facility] [address] [place] [phone] [employer] Finisher: Bryn Farias MD MCHC (RBC) [Mass/Vol] 31.4 g/dL Normal 28.4-34.8 [facility] Comment on above: Performed By: #### C DP, IPF, HCG, CRP, CP, EDTOX #### [address] [address] [employer] Strip Finisher: Bryn Farias MD MCV (RBC) [Entitic vol] 95.1 fL Normal 82.6-102.9 [facility] Comment on above: Performed By: #### C DP, IPF, HCG, CRP, CP, EDTOX #### [address] [address] [employer] Strip Finisher: Bryn Farias MD Monocytes (Bld) [#/Vol] 0.41 10*3/uL Normal 0.10-1.20 [facility] Comment on above: Performed By: #### C DP, IPF, HCG, CRP, CP, EDTOX #### [place] [address] [employer] Finisher: Bryn Farias MD Monocytes/100 WBC (Bld) 6 % Normal 3-12 [facility] Comment on above: Performed By: #### C DP, IPF, HCG, CRP, CP, EDTOX #### [address] [address] Hot Strip Finisher: Bryn Farias MD Neutrophil (Seg) 61 % Normal 36-65 [facility] Comment on above: Performed By: #### C DP, IPF, HCG, CRP, CP, EDTOX #### [address] [address] [employer] Strip Finisher: Bryn Farias MD NRBC Automated 0.0 per 100 WBC Normal 0.0 [facility] Comment on above: Performed By: #### C DP, IPF, HCG, CRP, CP, EDTOX #### [address] [address] [employer] Strip Finisher: Bryn Farias MD Platelet mean volume (Bld) [Entitic vol] 9.0 fL Normal 8.1-13.5 [facility] Comment on above: Performed By: #### C DP, IPF, HCG, CRP, CP, EDTOX #### [address] [address] [employer] Strip Finisher: Bryn Farias MD Platelets (Bld) [#/Vol] 258 10*3/uL Normal 138-453 [facility] Comment on above: Performed By: #### C DP, IPF, HCG, CRP, CP, EDTOX #### [address] [address] [employer] Strip Finisher: Bryn Farias MD RBC (Bld) [#/Vol] 3.68 10*6/uL Low 3.95-5.11 [facility] Comment on above: Performed By: #### C DP, IPF, HCG, CRP, CP, EDTOX #### [address] [address] [employer] Strip Finisher: Bryn Farias MD RBC morphology finding Nom (Bld) ANISOCYTOSIS PRESENT Normal [facility] Comment on above: Performed By: #### C DP, IPF, HCG, CRP, CP, EDTOX #### [address] [address] [employer] Strip Finisher: Bryn Farias MD WBC (Bld) [#/Vol] 6.5 10*3/uL Normal 3.5-11.3 [facility] Comment on above: Performed By: #### C DP, IPF, HCG, CRP, CP, EDTOX #### [address] [address] [employer] Finisher: Bryn Farias MD Auto Diff Performed NOT REPORTED Normal [facility] Comment on above: Performed By: #### C DP, IPF, HCG, CRP, CP, EDTOX #### [address] [address] [employer] Strip Finisher: Bryn Farias MD Platelet Estimate NOT REPORTED Normal [facility] Comment on above: Performed By: #### C DP, IPF, HCG, CRP, CP, EDTOX #### [address] [address] [employer] Strip Finisher: Bryn Farias MD WBC Morphology NOT REPORTED Normal [facility] Comment on above: Performed By: #### C DP, IPF, HCG, CRP, CP, EDTOX #### [address] [address] Hot Strip Finisher: Bryn Farias MD [facility]acon 09-01-2020 CRP [Mass/Vol] 10.2 mg/L High 0 - 5 mg/L [place] Otheron 09-01-2020 Sed Rate 1 mm 0 - 20 mm [place] Interpretation and review of laboratory results Abnormal [place] Sedimentation Rateon 021 Sedimentation Rate 1 mm Normal 0-20 [facility] Comment on above: Performed By: #### C DP, IPF, HCG, CRP, CP, EDTOX #### [address] [place] [address] Hot Strip Finisher: Bryn Farias MD CBC auto differentialon Basophils (Bld) [#/Vol] 10*3/uL [place] Basophils/100 WBC (Bld) 0 % 0 - 2 % [place] Differential Type NOT REPORTED [place] Eosinophils (Bld) [#/Vol] 0.12 10*3/uL [place] Eosinophils/100 WBC (Bld) 2 % 1 - 4 % [place] Erythrocyte distribution width (RBC) [Ratio] 16.7 % High 11.8 - 14.4 % [place] Hematocrit (Bld) [Volume fraction] 34.3 % Low 36.3 - 47.1 % [place] Hemoglobin (Bld) [Mass/Vol] 10.4 g/dL Low 11.9 - 15.1 g/dL [place] Immature granulocytes (Bld) [#/Vol] 0 % 0 [place] Immature granulocytes (Bld) [#/Vol] 0.03 10*3/uL [place] Interpretation and review of laboratory results Abnormal [place] Lymphocytes (Bld) [#/Vol] 2.10 10*3/uL [place] Lymphocytes/100 WBC (Bld) 26 % 24 - 43 % [place] MCH (RBC) [Entitic mass] 29.4 pg 25.2 - 33.5 pg [place] MCHC (RBC) [Mass/Vol] 30.3 g/dL 28.4 - 34.8 g/dL [place] MCV (RBC) [Entitic vol] 96.9 fL 82.6 - 102.9 fL [place] Monocytes (Bld) [#/Vol] 0.44 10*3/uL [place] Monocytes/100 WBC (Bld) 5 % 3 - 12 % [place] Platelet mean volume (Bld) [Entitic vol] 9.1 fL 8.1 - 13.5 fL [place] Platelets (Bld) [#/Vol] 238 10*3/uL [place] Platelets (Bld) [#/Vol] NOT REPORTED [place] RBC (Bld) [#/Vol] 3.54 10*6/uL Low 3.95 - 5.1 1 m/uL [place] RBC morphology finding Nom (Bld) ANISOCYTOSIS PRESENT [place] Segmented neutrophils/100 WBC (Bld) 67 % High 36 - 65 % [place] Segs Absolute 5.40 [place] WBC (Bld) [#/Vol] 8.1 10*3/uL [place] WBC (Bld) [#/Vol] 0.0 10*3/uL 0.0 per 10 0 WBC [place] WBC Morphology NOT REPORTED [place] CBC with Diffon 08-31-2020 Abs. Basophil <0.03 Normal 0.00-0.20 [facility] Comment on above: Performed By: #### C DP, IPF, HCG, CRP, CP, EDTOX #### [facility] [address] [place] [phone] Hot [employer] Finisher: Bryn Farias MD Abs.Imm.Granulocyte 0.03 k/uL Normal 0.00-0.30 [facility] Comment on above: Performed By: #### C DP, IPF, HCG, CRP, CP, EDTOX #### [facility] [address] [place] [address] [phone] [employer] Finisher: Bryn Farias MD Abs.Neutrophil (Seg) 5.40 k/uL Normal 1.50-8.10 [facility] Comment on above: Performed By: #### C DP, IPF, HCG, CRP, CP, EDTOX #### [facility] [address] [place] [address] [phone] [employer] Finisher: Bryn Farias MD Basophils/100 WBC (Bld) 0 % Normal 0-2 [facility] Comment on above: Performed By: #### C DP, IPF, HCG, CRP, CP, EDTOX #### [address] [address] Hot Strip Finisher: Bryn Farias MD Eosinophils (Bld) [#/Vol] 0.12 10*3/uL Normal 0.00-0.44 [facility] Comment on above: Performed By: #### C DP, IPF, HCG, CRP, CP, EDTOX #### [address] [address] [employer] Strip Finisher: Bryn Farias MD Eosinophils/100 WBC (Bld) 2 % Normal 1-4 [facility] Comment on above: Performed By: #### C DP, IPF, HCG, CRP, CP, EDTOX #### [place] [address] [employer] Strip Finisher: Bryn Farias MD Erythrocyte distribution width (RBC) [Ratio] 16.7 % High 11.8-14.4 [facility] Comment on above: Performed By: #### C DP, IPF, HCG, CRP, CP, EDTOX #### [address] [address] [employer] Strip Finisher: Bryn Farias MD Hematocrit (Bld) [Volume fraction] 34.3 % Low 36.3-47.1 [facility] Comment on above: Performed By: #### C DP, IPF, HCG, CRP, CP, EDTOX #### [address] [address] Hot Strip Finisher: Bryn Farias MD Hemoglobin (Bld) [Mass/Vol] 10.4 g/dL Low 11.9-15.1 [facility] Comment on above: Performed By: #### C DP, IPF, HCG, CRP, CP, EDTOX #### [address] [address] Hot Strip Finisher: Bryn Farias MD Immature granulocytes/100 WBC (Bld) 0 % Normal 0 [facility] Comment on above: Performed By: #### C DP, IPF, HCG, CRP, CP, EDTOX #### [address] [phone] Hot Strip Finisher: Bryn Farias MD Lymphocytes (Bld) [#/Vol] 2.10 10*3/uL Normal 1.10-3.70 [facility] Comment on above: Performed By: #### C DP, IPF, HCG, CRP, CP, EDTOX #### [address] [address] Hot Strip Finisher: Bryn Farias MD Lymphocytes/100 WBC (Bld) 26 % Normal 24-43 [facility] Comment on above: Performed By: #### C DP, IPF, HCG, CRP, CP, EDTOX #### [address] [address] Hot Strip Finisher: Bryn Farias MD MCH (RBC) [Entitic mass] 29.4 pg Normal 25.2-33.5 [facility] Comment on above: Performed By: #### C DP, IPF, HCG, CRP, CP, EDTOX #### [address] [address] Hot Strip Finisher: Bryn Farias MD MCHC (RBC) [Mass/Vol] 30.3 g/dL Normal 28.4-34.8 [facility] Comment on above: Performed By: #### C DP, IPF, HCG, CRP, CP, EDTOX #### [address] [address] Hot Strip Finisher: Bryn Farias MD MCV (RBC) [Entitic vol] 96.9 fL Normal 82.6-102.9 [facility] Comment on above: Performed By: #### C DP, IPF, HCG, CRP, CP, EDTOX #### [address] [address] Hot Strip Finisher: Bryn Farias MD Monocytes (Bld) [#/Vol] 0.44 10*3/uL Normal 0.10-1.20 [facility] Comment on above: Performed By: #### C DP, IPF, HCG, CRP, CP, EDTOX #### [address] [address] Hot Strip Finisher: Bryn Farias MD Monocytes/100 WBC (Bld) 5 % Normal 3-12 [facility] Comment on above: Performed By: #### C DP, IPF, HCG, CRP, CP, EDTOX #### [address] [address] Hot Strip Finisher: Bryn Farias MD Neutrophil (Seg) 67 % High 36-65 [facility] Comment on above: Performed By: #### C DP, IPF, HCG, CRP, CP, EDTOX #### [address] [address] Hot Strip Finisher: Bryn Farias MD NRBC Automated 0.0 per 100 WBC Normal 0.0 [facility] Comment on above: Performed By: #### C DP, IPF, HCG, CRP, CP, EDTOX #### [address] [address] Hot Strip Finisher: Bryn Farias MD Platelet mean volume (Bld) [Entitic vol] 9.1 fL Normal 8.1-13.5 [facility] Comment on above: Performed By: #### C DP, IPF, HCG, CRP, CP, EDTOX #### [address] [address] Hot Strip Finisher: Bryn Farias MD Platelets (Bld) [#/Vol] 238 10*3/uL Normal 138-453 [facility] Comment on above: Performed By: #### C DP, IPF, HCG, CRP, CP, EDTOX #### [address] [address] Hot Strip Finisher: Bryn Farias MD RBC (Bld) [#/Vol] 3.54 10*6/uL Low 3.95-5.11 [facility] Comment on above: Performed By: #### C DP, IPF, HCG, CRP, CP, EDTOX #### [address] [address] Hot Strip Finisher: Byrn Farias MD RBC morphology finding Nom (Bld) ANISOCYTOSIS PRESENT Normal [facility] Comment on above: Performed By: #### C DP, IPF, HCG, CRP, CP, EDTOX #### [address] [address] Hot Strip Finisher: Bryn Farias MD WBC (Bld) [#/Vol] 8.1 10*3/uL Normal 3.5-11.3 [facility] Comment on above: Performed By: #### C DP, IPF, HCG, CRP, CP, EDTOX #### [address] [address] Hot Strip Finisher: Bryn Farias MD Auto Diff Performed NOT REPORTED Normal [facility] Comment on above: Performed By: #### C DP, IPF, HCG, CRP, CP, EDTOX #### [address] [address] Hot Strip Finisher: Bryn Farias MD Platelet Estimate NOT REPORTED Normal [facility] Comment on above: Performed By: #### C DP, IPF, HCG, CRP, CP, EDTOX #### [address] [address] Hot Strip Finisher: Bryn Farias MD WBC Morphology NOT REPORTED Normal [facility] Comment on above: Performed By: #### C DP, IPF, HCG, CRP, CP, EDTOX #### [employer] [address] [place] [address] [phone] Hot Strip Finisher: Bryn Farias MD Comp Metabolic Pr/rfx MGon 0 08-31-2020 (cont.) Normal [facility] Comment on above: Result Comment: Aver age GFR for 20-29 years old: 116 mL/min/1.73sq m Chronic Kidney Disease: <60 mL/min/1.73sq m Kidney failure: <15 mL/min/1.73sq m eGFR calculated using average adult body mass. Additional eGFR calculator available at: http://www.[employer]/multiple_crcl_2011.htm Performed By: #### C DP, IPF, HCG, CRP, CP, EDTOX #### [employer] [address] [place] [phone] Hot Strip Finisher: Bryn Farias MD Albumin [Mass/Vol] 3.0 g/dL Low 3.5-5.2 [facility] Comment on above: Performed By: #### C DP, IPF, HCG, CRP, CP, EDTOX #### [employer] [address] [place] [address] [phone] Hot Strip Finisher: Bryn Farias MD Albumin/Glob Ratio 1.4 Normal 1.0-2.5 [facility] Comment on above: Performed By: #### C DP, IPF, HCG, CRP, CP, EDTOX #### [employer] [address] [place] [address] [phone] Hot Strip Finisher: Bryn Farias MD Alkaline Phos 122 U/L High 35-104 [facility] Comment on above: Result Comment: SPEC IMEN MODERATELY HEMOLYZED, RESULTS MAY BE ADVERSELY AFFECTED Performed By: #### C DP, IPF, HCG, CRP, CP, EDTOX #### [employer] [address] [place] [address] [phone] [employer] Strip Finisher: Bryn Farias MD ALT [Catalytic activity/Vol] 13 U/L Normal 5-33 [facility] Comment on above: Result Comment: SPEC IMEN MODERATELY HEMOLYZED, RESULTS MAY BE ADVERSELY AFFECTED Performed By: #### C DP, IPF, HCG, CRP, CP, EDTOX #### [address] [address] Hot Strip Finisher: Bryn Farias MD Anion gap [Moles/Vol] 4 mmol/L Low 9-17 [facility] Comment on above: Performed By: #### C DP, IPF, HCG, CRP, CP, EDTOX #### [facility] [address] [place] [address] Hot Strip Finisher: Bryn Farias MD AST [Catalytic activity/Vol] 26 U/L Normal <32 [facility] Comment on above: Result Comment: SPEC IMEN MODERATELY HEMOLYZED, RESULTS MAY BE ADVERSELY AFFECTED Performed By: #### C DP, IPF, HCG, CRP, CP, EDTOX #### [facility] [address] [place] [phone] Hot Strip Finisher: Bryn Farias MD Bilirubin [Mass/Vol] 0.21 mg/dL Low 0.3-1.2 [facility] Comment on above: Performed By: #### C DP, IPF, HCG, CRP, CP, EDTOX #### [facility] [address] [place] [address] Hot Strip Finisher: Bryn Farias MD Calcium [Mass/Vol] 8.5 mg/dL Low 8.6-10.4 [facility] Comment on above: Performed By: #### C DP, IPF, HCG, CRP, CP, EDTOX #### [facility] [address] [place] [phone] Hot Strip Finisher: Bryn Farias MD Chloride [Moles/Vol] 109 mmol/L High 98-107 [facility] Comment on above: Performed By: #### C DP, IPF, HCG, CRP, CP, EDTOX #### [address] [address] Hot Strip Finisher: Bryn Farias MD CO2 [Moles/Vol] 24 mmol/L Normal 20-31 [facility] Comment on above: Performed By: #### C DP, IPF, HCG, CRP, CP, EDTOX #### [address] [address] Hot Strip Finisher: Bryn Farias MD Creatinine [Mass/Vol] 0.31 mg/dL Low 0.50-0.90 [facility] Comment on above: Performed By: #### C DP, IPF, HCG, CRP, CP, EDTOX #### [address] [address] Hot Strip Finisher: Bryn Farias MD GFR, Amer >60 Normal >60 [facility] Comment on above: Performed By: #### C DP, IPF, HCG, CRP, CP, EDTOX #### [address] [address] Hot Strip Finisher: Bryn Farias MD GFR,non Amer >60 Normal >60 [facility] Comment on above: Performed By: #### C DP, IPF, HCG, CRP, CP, EDTOX #### [address] [address] Hot Strip Finisher: Bryn Farias MD Glucose [Mass/Vol] 104 mg/dL High 70-99 [facility] Comment on above: Performed By: #### C DP, IPF, HCG, CRP, CP, EDTOX #### [address] [address] Hot Strip Finisher: Bryn Farias MD Potassium [Moles/Vol] 4.5 mmol/L Normal 3.7-5.3 [facility] Comment on above: Result Comment: SPEC IMEN MODERATELY HEMOLYZED, RESULTS MAY BE ADVERSELY AFFECTED Performed By: #### C DP, IPF, HCG, CRP, CP, EDTOX #### [facility] [address] [place] [phone] Hot Strip Finisher: Bryn Farias MD Protein [Mass/Vol] 5.2 g/dL Low 6.4-8.3 [facility] Comment on above: Performed By: #### C DP, IPF, HCG, CRP, CP, EDTOX #### [facility] [address] [place] [phone] Hot Strip Finisher: Bryn Farias MD Sodium [Moles/Vol] 137 mmol/L Normal 135-144 [facility] Comment on above: Performed By: #### C DP, IPF, HCG, CRP, CP, EDTOX #### [address] [address] Hot Strip Finisher: Bryn Farias MD Urea nitrogen [Mass/Vol] 2 mg/dL Low 6-20 [facility] Comment on above: Performed By: #### C DP, IPF, HCG, CRP, CP, EDTOX #### [facility] [address] [place] [phone] Hot Strip Finisher: Bryn Farias MD BUN/CRE Ratio NOT REPORTED Normal -20 [facility] Comment on above: Performed By: #### C DP, IPF, HCG, CRP, CP, EDTOX #### [facility] [address] [place] [phone] Hot Strip Finisher: Bryn Farias MD Staging: NOT REPORTED Normal [facility] Comment on above: Performed By: #### C DP, IPF, HCG, CRP, CP, EDTOX #### [facility] [address] [place] [phone] [employer] Strip Finisher: Bryn Farias MD Metabolic Panelon 08-31-2020 Albumin [Mass/Vol] 3 g/dL Low 3.5 - 5.2 g/dL [place] ALP [Catalytic activity/Vol] 122 U/L High 35 - 104 U/L [place] Comment on above: SPECIMEN MODERATELY HEMOLYZED, RESULTS MAY BE ADVERSELY AFFECTED ALT [Catalytic activity/Vol] 13 U/L 5 - 33 U/L [place] Comment on above: SPECIMEN MODERATELY HEMOLYZED, RESULTS MAY BE ADVERSELY AFFECTED Anion gap [Moles/Vol] 4 mmol/L Low 9 - 17 mmol/L [place] AST [Catalytic activity/Vol] 26 U/L <32 [place] Comment on above: SPECIMEN MODERATELY HEMOLYZED, RESULTS MAY BE ADVERSELY AFFECTED Calcium [Mass/Vol] 8.5 mg/dL Low 8.6 - 10. 4 mg/dL [place] Chloride [Moles/Vol] 109 mmol/L High 98 - 10 7 mmol/L [place] CO2 [Moles/Vol] 24 mmol/L 20 - 31 mmol/L [place] Creatinine [Mass/Vol] 0.31 mg/dL Low 0.5 - 0.9 mg/dL [place] GFR/1.73 sq M predicted among non-blacks MDRD (S/P/Bld) [Vol rate/Area] NOT REPORTED [place] GFR/1.73 sq M predicted among non-blacks MDRD (S/P/Bld) [Vol rate/Area] [place] Comment on above: Average GFR for 20-2 9 years old: 116 mL/min/1.73sq m Chronic Kidney Disease: <60 mL/min/1.73sq m Kidney failure: <15 mL/min/1.73sq m eGFR calculated using average adult body mass. Additional eGFR calculator available at: http://www.[employer]/multiple_crcl_2012.htm Glucose [Mass/Vol] 104 mg/dL High 70 - 99 mg/dL [place] Potassium [Moles/Vol] 4.5 mmol/L 3.7 - 5.3 mmol/L [place] Comment on above: SPECIMEN MODERATELY HEMOLYZED, RESULTS MAY BE ADVERSELY AFFECTED Protein [Mass/Vol] 5.2 g/dL Low 6.4 - 8.3 g/dL [place] Sodium [Moles/Vol] 137 mmol/L 135 - 144 mmol/L [place] Urea nitrogen [Mass/Vol] 2 mg/dL Low 6 - 20 mg/dL [place] Otheron 08-31-2020 Atrial Rate 122 BPM [place] P [place] 60 degrees [place] P-R Interval 144 ms [place] Q-T Interval 356 ms [place] QRS Duration 92 ms [place] QTc Calculation ([place]) 507 ms [place] R [place] 19 degrees [place] T [place] 60 degrees [place] Ventricular Rate 122 BPM [place], [employer] Incoming E kg Results From [facility] - 08/31/2020 11:53 AM EST Sinus tachycardia Possible Left atrial enlargement Nonspecific ST abnormality Abnormal ECG When compared with ECG of 31-JUL-2015 19:51, No significant change was found [place] Sinus tachycardia Possible Left atrial enlargement Nonspecific ST abnormality Abnormal ECG When compared with ECG of 31-JUL-2015 19:51, No significant change was found [place] Albumin/Globulin [Mass ratio] 1.4 {ratio} [place] Bilirubin Ql (U) 0.21 mg/dL Low 0.3 - 1.2 mg/dL [place] Bun/Cre Ratio NOT REPORTED [place] GFR >60 >60 mL/min [place] GFR Non- >60 >60 mL/min [place] Interpretation and review of laboratory results Abnormal [place] EXAMINATION: TWO XRA Y VIEWS OF THE LEFT FOREARM; THREE XRAY VIEWS OF THE RIGHT HAND 08/30/2020 2:00 am COMPARISON: None. HISTORY: ORDERING SYSTEM PROVIDED HISTORY: s/p laceration eval for fb TECHNOLOGIST PROVIDED HISTORY: S/p laceration eval for fb Reason for Exam: r/o foreign body; ORDERING SYSTEM PROVIDED HISTORY: s/p laceration eval fb TECHNOLOGIST PROVIDED HISTORY: S/p laceration eval fb Reason for Exam: multiple cuts to hand r/o fb FINDINGS: Three views of the hand and two views of the forearm demonstrate no acute fracture or dislocation. Normal bony mineralization. No suspicious osseous lesion. No significant degenerative changes. No soft tissue swelling. No radiodense foreign body. [place] 1. No acute osseous abnormality of the right hand and forearm. 2. No radiodense foreign body. [place], [employer] Incoming Radiant Results From [facility] [employer] - 08/31/2020 5:09 AM EST EXAMINATION: TWO XRAY VIEWS OF THE LEFT FOREARM; THREE XRAY VIEWS OF THE RIGHT HAND 08/30/2020 2:00 am COMPARISON: None. HISTORY: ORDERING SYSTEM PROVIDED HISTORY: s/p laceration eval for fb TECHNOLOGIST PROVIDED HISTORY: S/p laceration eval for fb Reason for Exam: r/o foreign body; ORDERING SYSTEM PROVIDED HISTORY: s/p laceration eval fb TECHNOLOGIST PROVIDED HISTORY: S/p laceration eval fb Reason for Exam: multiple cuts to hand r/o fb FINDINGS: Three views of the hand and two views of the forearm demonstrate no acute fracture or dislocation. Normal bony mineralization. No suspicious osseous lesion. No significant degenerative changes. No soft tissue swelling. No radiodense foreign body. IMPRESSION: 1. No acute osseous abnormality of the right hand and forearm. 2. No radiodense foreign body. [place] XR HAND RIGHT (MIN 3 VIEWS)o n 08-31-2020 XR HAND RIGHT (MIN 3 VIEWS) EXAMINATION: TWO XRAY VIEWS OF THE LEFT FOREARM; THREE XRAY VIEWS OF THE RIGHT HAND 08/30/2020 2:00 am COMPARISON: None. HISTORY: ORDERING SYSTEM PROVIDED HISTORY: s/p laceration eval for fb TECHNOLOGIST PROVIDED HISTORY: S/p laceration eval for fb Reason for Exam: r/o foreign body; ORDERING SYSTEM PROVIDED HISTORY: s/p laceration eval fb TECHNOLOGIST PROVIDED HISTORY: S/p laceration eval fb Reason for Exam: multiple cuts to hand r/o fb FINDINGS: Three views of the hand and two views of the forearm demonstrate no acute fracture or dislocation. Normal bony mineralization. No suspicious osseous lesion. No significant degenerative changes. No soft tissue swelling. No radiodense foreign body. IMPRESSION: 1. No acute osseous abnormality of the right hand and forearm. 2. No radiodense foreign body. Interpreted by: Petty Lisa MD Signed by: Petty Lisa MD 08/31/20 Final result Normal [facility] XR RADIUS ULNA LEFT (2 VIEWS )on 08-31-2020 XR RADIUS ULNA LEFT (2 VIEWS) EXAMINATION: TWO XRAY VIEWS OF THE LEFT FOREARM; THREE XRAY VIEWS OF THE RIGHT HAND 08/30/2020 2:00 am COMPARISON: None. HISTORY: ORDERING SYSTEM PROVIDED HISTORY: s/p laceration eval for fb TECHNOLOGIST PROVIDED HISTORY: S/p laceration eval for fb Reason for Exam: r/o foreign body; ORDERING SYSTEM PROVIDED HISTORY: s/p laceration eval fb TECHNOLOGIST PROVIDED HISTORY: S/p laceration eval fb Reason for Exam: multiple cuts to hand r/o fb FINDINGS: Three views of the hand and two views of the forearm demonstrate no acute fracture or dislocation. Normal bony mineralization. No suspicious osseous lesion. No significant degenerative changes. No soft tissue swelling. No radiodense foreign body. IMPRESSION: 1. No acute osseous abnormality of the right hand and forearm. 2. No radiodense foreign body. Interpreted by: Petty Lisa MD Signed by: Petty Lisa MD 08/31/20 Final result Normal [facility] APTTon 08-30-2020 aPTT Coag (Bld) [Time] 24.8 s Normal 20.5-30.5 [facility] Comment on above: Result Comment: IV Heparin Therapy Range: 48.6-77.8 Performed By: #### C OVID #### [employer] [facility] [place], [place] [id number] Hot Strip Finisher: Bryn Farias MD Acetaminophenon 08-30-2020 Acetaminophen [Mass/Vol] ug/mL Low 10-30 [facility] Comment on above: Performed By: #### C OVID #### [employer] [address] [place] [phone] Hot Strip Finisher: Bryn Farias MD Basic Metab w/rfx MGon 08-30 Potassium [Moles/Vol] 3.3 mmol/L Low 3.7-5.3 [facility] Comment on above: Performed By: #### C OVID #### [address] [address] Hot Strip Finisher: Bryn Farias MD (cont.) [facility] Comment on above: Result Comment: Aver age GFR for 20-29 years old: 116 mL/min/1.73sq m Chronic Kidney Disease: <60 mL/min/1.73sq m Kidney failure: <15 mL/min/1.73sq m eGFR calculated using average adult body mass. Additional eGFR calculator available at: http://www.[employer]/multiple_crcl_2011.htm Performed By: #### C OVID #### [address] [address] Hot Strip Finisher: Bryn Farias MD Anion gap [Moles/Vol] 9 mmol/L Normal 9-17 [facility] Comment on above: Performed By: #### C OVID #### [address] [address] Hot Strip Finisher: Bryn Farias MD Calcium [Mass/Vol] 8.4 mg/dL Low 8.6-10.4 [facility] Comment on above: Performed By: #### C OVID #### [facility] [address] [place] [phone] Hot Strip Finisher: Bryn Farias MD Chloride [Moles/Vol] 106 mmol/L Normal 98-107 [facility] Comment on above: Performed By: #### C OVID #### [address] [address] Hot Strip Finisher: Bryn Farias MD CO2 [Moles/Vol] 23 mmol/L Normal 20-31 [facility] Comment on above: Performed By: #### C OVID #### [address] [address] Hot Strip Finisher: Bryn Farias MD Creatinine [Mass/Vol] 0.41 mg/dL Low 0.50-0.90 [facility] Comment on above: Performed By: #### C OVID #### [address] [address] Hot Strip Finisher: Bryn Farias MD GFR, Amer >60 Normal >60 [facility] Comment on above: Performed By: #### C OVID #### [address] [address] Hot Strip Finisher: Bryn Farias MD GFR,non Amer >60 Normal >60 [facility] Comment on above: Performed By: #### C OVID #### [address] [address] Hot Strip Finisher: Bryn Farias MD Glucose [Mass/Vol] 99 mg/dL Normal 70-99 [facility] Comment on above: Performed By: #### C OVID #### [address] [address] Hot Strip Finisher: Bryn Farias MD Sodium [Moles/Vol] 138 mmol/L Normal 135-144 [facility] Comment on above: Performed By: #### C OVID #### [address] [address] Hot Strip Finisher: Bryn Farias MD Urea nitrogen [Mass/Vol] 3 mg/dL Low 6-20 [facility] Comment on above: Performed By: #### C OVID #### [address] [address] Hot Strip Finisher: Bryn Farias MD BUN/CRE Ratio NOT REPORTED Normal 9-20 [facility] Comment on above: Performed By: #### C OVID #### [address], [place] [phone] Hot Strip Finisher: Bryn Farias MD Staging: NOT REPORTED Normal [facility] Comment on above: Performed By: #### C OVID #### [facility] [address] [place], [place] [phone] Hot Strip Finisher: Bryn Farias MD C-REACTIVE PROTEINon 021 CRP [Mass/Vol] 21.2 mg/L High 0 - 5 mg/L [place], [place] Interpretation and review of laboratory results Abnormal [place], [place] C-Reactive Proteinon 021 CRP [Mass/Vol] 21.2 mg/L High 0.0-5.0 [facility] Comment on above: Performed By: #### C DP, IPF, HCG, CRP, CP, EDTOX #### [place] [place], [place] [phone] [employer] Finisher: Bryn Farias MD CBC WITH AUTO DIFFERENTIALon 08-30-2020 Basophils (Bld) [#/Vol] 10*3/uL [place] Basophils/100 WBC (Bld) 0 % 0 - 2 % [place] Differential Type NOT REPORTED [place] Eosinophils (Bld) [#/Vol] 0.07 10*3/uL [place] Eosinophils/100 WBC (Bld) 1 % 1 - 4 % [place] Erythrocyte distribution width (RBC) [Ratio] 16.4 % High 11.8 - 14.4 % [place] Hematocrit (Bld) [Volume fraction] 36.8 % 36.3 - 47.1 % [place] Hemoglobin (Bld) [Mass/Vol] 12.2 g/dL 11.9 - 15.1 g/dL [place] Immature granulocytes (Bld) [#/Vol] 1 % High 0 [place] Immature granulocytes (Bld) [#/Vol] 0.04 10*3/uL [place] Interpretation and review of laboratory results Abnormal [place] Lymphocytes (Bld) [#/Vol] 1.57 10*3/uL [place] Lymphocytes/100 WBC (Bld) 21 % Low 24 - 43 % [place] MCH (RBC) [Entitic mass] 29.3 pg 25.2 - 33.5 pg [place] MCHC (RBC) [Mass/Vol] 33.2 g/dL 28.4 - 34.8 g/dL [place] MCV (RBC) [Entitic vol] 88.2 fL 82.6 - 102.9 fL [place] Monocytes (Bld) [#/Vol] 0.31 10*3/uL [place] Monocytes/100 WBC (Bld) 4 % 3 - 12 % [place] Platelet mean volume (Bld) [Entitic vol] NOT REPORTED 8.1 - 13.5 fL [place] Platelets (Bld) [#/Vol] NOT REPORTED [place] Platelets (Bld) [#/Vol] See Reflexed IPF Result [place] RBC (Bld) [#/Vol] 4.17 10*6/uL 3.95 - 5.1 1 m/uL [place] RBC morphology finding Nom (Bld) ANISOCYTOSIS PRESENT [place] Segmented neutrophils/100 WBC (Bld) 74 % High 36 - 65 % [place] Segs Absolute 5.62 [place] WBC (Bld) [#/Vol] 7.6 10*3/uL [place] WBC (Bld) [#/Vol] 0.0 10*3/uL 0.0 per 10 0 WBC [place] WBC Morphology NOT REPORTED [place] CBC auto differentialon Basophils (Bld) [#/Vol] 10*3/uL [place] Basophils/100 WBC (Bld) 0 % 0 - 2 % [place] Differential Type NOT REPORTED [place] Eosinophils (Bld) [#/Vol] 0.06 10*3/uL [place] Eosinophils/100 WBC (Bld) 1 % 1 - 4 % [place] Erythrocyte distribution width (RBC) [Ratio] 16.4 % High 11.8 - 14.4 % [place] Hematocrit (Bld) [Volume fraction] 35.1 % Low 36.3 - 47.1 % [place] Hemoglobin (Bld) [Mass/Vol] 11.2 g/dL Low 11.9 - 15.1 g/dL [place] Immature granulocytes (Bld) [#/Vol] 0.03 10*3/uL [place] Immature granulocytes (Bld) [#/Vol] 0 % 0 [place] Interpretation and review of laboratory results Abnormal [place] Lymphocytes (Bld) [#/Vol] 2.54 10*3/uL [place] Lymphocytes/100 WBC (Bld) 29 % 24 - 43 % [place] MCH (RBC) [Entitic mass] 29.7 pg 25.2 - 33.5 pg [place] MCHC (RBC) [Mass/Vol] 31.9 g/dL 28.4 - 34.8 g/dL [place] MCV (RBC) [Entitic vol] 93.1 fL 82.6 - 102.9 fL [place] Monocytes (Bld) [#/Vol] 0.47 10*3/uL [place] Monocytes/100 WBC (Bld) 5 % 3 - 12 % [place] Platelet mean volume (Bld) [Entitic vol] 8.6 fL 8.1 - 13.5 fL [place] Platelets (Bld) [#/Vol] NOT REPORTED [place] Platelets (Bld) [#/Vol] 287 10*3/uL [place] RBC (Bld) [#/Vol] 3.77 10*6/uL Low 3.95 - 5.1 1 m/uL [place] RBC morphology finding Nom (Bld) ANISOCYTOSIS PRESENT [place] Segmented neutrophils/100 WBC (Bld) 65 % 36 - 65 % [place] Segs Absolute 5.59 [place] WBC (Bld) [#/Vol] 8.7 10*3/uL [place] WBC (Bld) [#/Vol] 0.0 10*3/uL 0.0 per 10 0 WBC [place] WBC Morphology NOT REPORTED [place] CBC with Diffon 08-30-2020 Abs. Basophil <0.03 Normal 0.00-0.20 [facility] Comment on above: Performed By: #### C OVID #### [address] [address] [employer] Finisher: Bryn Farias MD Abs.Imm.Granulocyte 0.03 k/uL Normal 0.00-0.30 [facility] Comment on above: Performed By: #### C OVID #### [address] [address] [employer] Strip Finisher: Bryn Farias MD Abs.Neutrophil (Seg) 5.59 k/uL Normal 1.50-8.10 [facility] Comment on above: Performed By: #### C OVID #### [address] [address] [employer] Finisher: Bryn Farias MD Basophils/100 WBC (Bld) 0 % Normal 0-2 [facility] Comment on above: Performed By: #### C OVID #### [address] [address] [employer] Finisher: Bryn Farias MD Eosinophils (Bld) [#/Vol] 0.06 10*3/uL Normal 0.00-0.44 [facility] Comment on above: Performed By: #### C OVID #### [address] [address] [employer] Finisher: Bryn Farias MD Eosinophils/100 WBC (Bld) 1 % Normal 1-4 [facility] Comment on above: Performed By: #### C OVID #### [address] [address] [employer] Finisher: Bryn Farias MD Erythrocyte distribution width (RBC) [Ratio] 16.4 % High 11.8-14.4 [facility] Comment on above: Performed By: #### C OVID #### [address] [address] [employer] Finisher: Bryn Farias MD Hematocrit (Bld) [Volume fraction] 35.1 % Low 36.3-47.1 [facility] Comment on above: Performed By: #### C OVID #### [address] [address] [employer] Finisher: Bryn Farias MD Hemoglobin (Bld) [Mass/Vol] 11.2 g/dL Low 11.9-15.1 [facility] Comment on above: Performed By: #### C OVID #### [address] [address] [employer] Finisher: Bryn Farias MD Immature granulocytes/100 WBC (Bld) 0 % Normal 0 [facility] Comment on above: Performed By: #### C OVID #### [address] [address] [employer] Finisher: Bryn Farias MD Lymphocytes (Bld) [#/Vol] 2.54 10*3/uL Normal 1.10-3.70 [facility] Comment on above: Performed By: #### C OVID #### [address] [address] [employer] Finisher: Bryn Farias MD Lymphocytes/100 WBC (Bld) 29 % Normal 24-43 [facility] Comment on above: Performed By: #### C OVID #### [address] [address] [employer] Finisher: Bryn Farias MD MCH (RBC) [Entitic mass] 29.7 pg Normal 25.2-33.5 [facility] Comment on above: Performed By: #### C OVID #### [address] [address] [employer] Finisher: Bryn Farias MD MCHC (RBC) [Mass/Vol] 31.9 g/dL Normal 28.4-34.8 [facility] Comment on above: Performed By: #### C OVID #### [address] [address] [employer] Finisher: Bryn Farias MD MCV (RBC) [Entitic vol] 93.1 fL Normal 82.6-102.9 [facility] Comment on above: Performed By: #### C OVID #### [address] [address] Hot Strip Finisher: Bryn Farias MD Monocytes (Bld) [#/Vol] 0.47 10*3/uL Normal 0.10-1.20 [facility] Comment on above: Performed By: #### C OVID #### [address] [address] [employer] Finisher: Bryn Farias MD Monocytes/100 WBC (Bld) 5 % Normal 3-12 [facility] Comment on above: Performed By: #### C OVID #### [address] [address] [employer] Finisher: Bryn Farias MD Neutrophil (Seg) 65 % Normal 36-65 [facility] Comment on above: Performed By: #### C OVID #### [address] [address] [employer] Finisher: Bryn Farias MD NRBC Automated 0.0 per 100 WBC Normal 0.0 [facility] Comment on above: Performed By: #### C OVID #### [address] [address] [employer] Finisher: Bryn aFrias MD Platelet mean volume (Bld) [Entitic vol] 8.6 fL Normal 8.1-13.5 [facility] Comment on above: Performed By: #### C OVID #### [address] [address] [employer] Finisher: Bryn Farias MD Platelets (Bld) [#/Vol] 287 10*3/uL Normal 138-453 [facility] Comment on above: Performed By: #### C OVID #### [address] [address] [employer]isher: Bryn Farias MD RBC (Bld) [#/Vol] 3.77 10*6/uL Low 3.95-5.11 [facility] Comment on above: Performed By: #### C OVID #### [address] [address] [employer] Finisher: Bryn Farias MD RBC morphology finding Nom (Bld) ANISOCYTOSIS PRESENT Normal [facility] Comment on above: Performed By: #### C OVID #### [address] [address] [employer] Finisher: Bryn Farias MD WBC (Bld) [#/Vol] 8.7 10*3/uL Normal 3.5-11.3 [facility] Comment on above: Performed By: #### C OVID #### [address] [address] [employer] Finisher: Bryn Farias MD Auto Diff Performed NOT REPORTED Normal [facility] Comment on above: Performed By: #### C OVID #### [address] [address] [employer] Finisher: Bryn Farias MD Platelet Estimate NOT REPORTED Normal [facility] Comment on above: Performed By: #### C OVID #### [place] [address] [employer]isher: Bryn Farias MD WBC Morphology NOT REPORTED Normal [facility] Comment on above: Performed By: #### C OVID #### [place] [address] [employer] Finisher: Bryn Farias MD Abs. Basophil <0.03 Normal 0.00-0.20 [facility] Comment on above: Performed By: #### C DP, IPF, HCG, CRP, CP, EDTOX #### [place] [address] [employer] Finisher: Bryn Farias MD Abs.Imm.Granulocyte 0.04 k/uL Normal 0.00-0.30 [facility] Comment on above: Performed By: #### C DP, IPF, HCG, CRP, CP, EDTOX #### [place] [address] [employer] Finisher: Bryn Farias MD Abs.Neutrophil (Seg) 5.62 k/uL Normal 1.50-8.10 [facility] Comment on above: Performed By: #### C DP, IPF, HCG, CRP, CP, EDTOX #### [place] [address] [employer]isher: Bryn Farias MD Basophils/100 WBC (Bld) 0 % Normal 0-2 [facility] Comment on above: Performed By: #### C DP, IPF, HCG, CRP, CP, EDTOX #### [place] [address] [employer] Finisher: Bryn Farias MD Eosinophils (Bld) [#/Vol] 0.07 10*3/uL Normal 0.00-0.44 [facility] Comment on above: Performed By: #### C DP, IPF, HCG, CRP, CP, EDTOX #### [address] [address] [employer]isher: Bryn Farias MD Eosinophils/100 WBC (Bld) 1 % Normal 1-4 [facility] Comment on above: Performed By: #### C DP, IPF, HCG, CRP, CP, EDTOX #### [address] [address] [employer]isher: Bryn Farias MD Erythrocyte distribution width (RBC) [Ratio] 16.4 % High 11.8-14.4 [facility] Comment on above: Performed By: #### C DP, IPF, HCG, CRP, CP, EDTOX #### [place] [address] [employer] Finisher: Bryn Farias MD Hematocrit (Bld) [Volume fraction] 36.8 % Normal 36.3-47.1 [facility] Comment on above: Performed By: #### C DP, IPF, HCG, CRP, CP, EDTOX #### [address] [address] [employer]isher: Bryn Farias MD Hemoglobin (Bld) [Mass/Vol] 12.2 g/dL Normal 11.9-15.1 [facility] Comment on above: Performed By: #### C DP, IPF, HCG, CRP, CP, EDTOX #### [address] [address] [employer]isher: Bryn Farias MD Immature granulocytes/100 WBC (Bld) 1 % High 0 [facility] Comment on above: Performed By: #### C DP, IPF, HCG, CRP, CP, EDTOX #### [address] [address] [employer]isher: Bryn Farias MD Lymphocytes (Bld) [#/Vol] 1.57 10*3/uL Normal 1.10-3.70 [facility] Comment on above: Performed By: #### C DP, IPF, HCG, CRP, CP, EDTOX #### [address] [address] [employer]isher: Bryn Farias MD Lymphocytes/100 WBC (Bld) 21 % Low 24-43 [facility] Comment on above: Performed By: #### C DP, IPF, HCG, CRP, CP, EDTOX #### [address] [address] [employer] Finisher: Bryn Farias MD MCH (RBC) [Entitic mass] 29.3 pg Normal 25.2-33.5 [facility] Comment on above: Performed By: #### C DP, IPF, HCG, CRP, CP, EDTOX #### [address] [address] [employer] Finisher: Bryn Farias MD MCHC (RBC) [Mass/Vol] 33.2 g/dL Normal 28.4-34.8 [facility] Comment on above: Performed By: #### C DP, IPF, HCG, CRP, CP, EDTOX #### [address] [address] [employer] Finisher: Bryn Farias MD MCV (RBC) [Entitic vol] 88.2 fL Normal 82.6-102.9 [facility] Comment on above: Performed By: #### C DP, IPF, HCG, CRP, CP, EDTOX #### [address] [address] [employer] Finisher: Bryn Farias MD Monocytes (Bld) [#/Vol] 0.31 10*3/uL Normal 0.10-1.20 [facility] Comment on above: Performed By: #### C DP, IPF, HCG, CRP, CP, EDTOX #### [address] [address] [employer]isher: Bryn Farias MD Monocytes/100 WBC (Bld) 4 % Normal 3-12 [facility] Comment on above: Performed By: #### C DP, IPF, HCG, CRP, CP, EDTOX #### [address] [address] [employer]isher: Bryn Farias MD Neutrophil (Seg) 74 % High 36-65 [facility] Comment on above: Performed By: #### C DP, IPF, HCG, CRP, CP, EDTOX #### [address] [address] [employer]isher: Bryn Farias MD NRBC Automated 0.0 per 100 WBC Normal 0.0 [facility] Comment on above: Performed By: #### C DP, IPF, HCG, CRP, CP, EDTOX #### [address] [address] [employer]isher: Bryn Farias MD Platelet Count See Reflexed IPF Result Normal 138-453 [facility] Comment on above: Performed By: #### C DP, IPF, HCG, CRP, CP, EDTOX #### [address] [address] [employer]isher: Bryn Farias MD RBC (Bld) [#/Vol] 4.17 10*6/uL Normal 3.95-5.11 [facility] Comment on above: Performed By: #### C DP, IPF, HCG, CRP, CP, EDTOX #### [address] [address] [employer]isher: Bryn Farias MD RBC morphology finding Nom (Bld) ANISOCYTOSIS PRESENT Normal [facility] Comment on above: Performed By: #### C DP, IPF, HCG, CRP, CP, EDTOX #### [address] [address] [employer]isher: Bryn Farias MD WBC (Bld) [#/Vol] 7.6 10*3/uL Normal 3.5-11.3 [facility] Comment on above: Performed By: #### C DP, IPF, HCG, CRP, CP, EDTOX #### [address] [address] [employer]isher: Bryn Farias MD Auto Diff Performed NOT REPORTED Normal [facility] Comment on above: Performed By: #### C DP, IPF, HCG, CRP, CP, EDTOX #### [address] [address] [employer]isher: Bryn Farias MD MPV NOT REPORTED Normal 8.1-13.5 [facility] Comment on above: Performed By: #### C DP, IPF, HCG, CRP, CP, EDTOX #### [address] [address] [employer]isher: Bryn Farias MD Platelet Estimate NOT REPORTED Normal [facility] Comment on above: Performed By: #### C DP, IPF, HCG, CRP, CP, EDTOX #### [address] [address] [employer]isher: Bryn Farias MD WBC Morphology NOT REPORTED Normal [facility] Comment on above: Performed By: #### C DP, IPF, HCG, CRP, CP, EDTOX #### [address] [address] [employer]isher: Bryn Farias MD COVID-19on 08-30-2020 SARS-CoV-2, Rapid Not Detected Not Detected [place], [place] Comment on above: Rapid NAAT: The specimen is NEGATIVE for SARS-CoV-2, the novel coronavirus associated with COVID-19. The ID NOW COVID-19 assay is designed to detect the virus that causes COVID-19 in patients with signs and symptoms of infection who are suspected of COVID-19. An individual without symptoms of COVID-19 and who is not shedding SARS-CoV-2 virus would expect to have a negative (not detected) result in this assay. Negative results should be treated as presumptive and, if inconsistent with clinical signs and symptoms or necessary for patient management, should be tested with an alternative molecular assay. Negative results do not preclude SARS-CoV-2 infection and should not be used as the sole basis for patient management decisions. Fact sheet for Healthcare Providers: https://www.fda.gov/media/370907/download Fact sheet for Patients: https://www.fda.gov/media/030970/download Methodology: Isothermal Nucleic Acid Amplification Source .NASOPHARYNGEAL SWAB [facility], [place] Comp Metabolic Profon 2020 (cont.) Normal [facility] Comment on above: Result Comment: Aver age GFR for 20-29 years old: 116 mL/min/1.73sq m Chronic Kidney Disease: <60 mL/min/1.73sq m Kidney failure: <15 mL/min/1.73sq m eGFR calculated using average adult body mass. Additional eGFR calculator available at: http://www.[employer]/multiple_crcl_2012.htm Performed By: #### C DP, IPF, HCG, CRP, CP, EDTOX #### [facility] [address] [place] [phone] [employer]isher: Bryn Farias MD Albumin [Mass/Vol] 3.9 g/dL Normal 3.5-5.2 [facility] Comment on above: Performed By: #### C DP, IPF, HCG, CRP, CP, EDTOX #### [facility] [address] [place] [phone] [employer]isher: Bryn Farias MD Albumin/Glob Ratio 1.7 Normal 1.0-2.5 [facility] Comment on above: Performed By: #### C DP, IPF, HCG, CRP, CP, EDTOX #### [address] [address] [employer]isher: Bryn Farias MD Alkaline Phos 132 U/L High 35-104 [facility] Comment on above: Performed By: #### C DP, IPF, HCG, CRP, CP, EDTOX #### [address] [address] [employer]isher: Bryn Farias MD ALT [Catalytic activity/Vol] 18 U/L Normal 5-33 [facility] Comment on above: Performed By: #### C DP, IPF, HCG, CRP, CP, EDTOX #### [address] [address] [employer]isher: Bryn Farias MD Anion gap [Moles/Vol] 10 mmol/L Normal 9-17 [facility] Comment on above: Performed By: #### C DP, IPF, HCG, CRP, CP, EDTOX #### [address] [address] [employer]isher: Bryn Farias MD AST [Catalytic activity/Vol] 20 U/L Normal <32 [facility] Comment on above: Performed By: #### C DP, IPF, HCG, CRP, CP, EDTOX #### [address] [address] [employer]isher: Bryn Farias MD Bilirubin [Mass/Vol] mg/dL Low 0.3-1.2 [facility] Comment on above: Performed By: #### C DP, IPF, HCG, CRP, CP, EDTOX #### [address] [address] [employer]isher: Bryn Farias MD Calcium [Mass/Vol] 8.9 mg/dL Normal 8.6-10.4 [facility] Comment on above: Performed By: #### C DP, IPF, HCG, CRP, CP, EDTOX #### [address] [address] [employer]isher: Bryn Farias MD Chloride [Moles/Vol] 103 mmol/L Normal 98-107 [facility] Comment on above: Performed By: #### C DP, IPF, HCG, CRP, CP, EDTOX #### [address] [address] [employer]isher: Bryn Farias MD CO2 [Moles/Vol] 24 mmol/L Normal 20-31 [facility] Comment on above: Performed By: #### C DP, IPF, HCG, CRP, CP, EDTOX #### [address] [address] [employer]isher: Bryn Farias MD Creatinine [Mass/Vol] 0.39 mg/dL Low 0.50-0.90 [facility] Comment on above: Performed By: #### C DP, IPF, HCG, CRP, CP, EDTOX #### [address] [address] [employer]isher: Bryn Farias MD GFR, Amer >60 Normal >60 [facility] Comment on above: Performed By: #### C DP, IPF, HCG, CRP, CP, EDTOX #### [address] [address] [employer]isher: Bryn Farias MD GFR,non Amer >60 Normal >60 [facility] Comment on above: Performed By: #### C DP, IPF, HCG, CRP, CP, EDTOX #### [address] [address] [employer]isher: Bryn Farias MD Glucose [Mass/Vol] 86 mg/dL Normal 70-99 [facility] Comment on above: Performed By: #### C DP, IPF, HCG, CRP, CP, EDTOX #### [address] [address] [employer]isher: Bryn Farias MD Potassium [Moles/Vol] 3.6 mmol/L Low 3.7-5.3 [facility] Comment on above: Performed By: #### C DP, IPF, HCG, CRP, CP, EDTOX #### [facility] [address] [place] [id number] [employer]isher: Bryn Farias MD Protein [Mass/Vol] 6.2 g/dL Low 6.4-8.3 [facility] Comment on above: Performed By: #### C DP, IPF, HCG, CRP, CP, EDTOX #### [address] [address] Hot Strip Finisher: Bryn Farias MD Sodium [Moles/Vol] 137 mmol/L Normal 135-144 [facility] Comment on above: Performed By: #### C DP, IPF, HCG, CRP, CP, EDTOX #### [address] [address] Hot Strip Finisher: Bryn Farias MD Urea nitrogen [Mass/Vol] 4 mg/dL Low 6-20 [facility] Comment on above: Performed By: #### C DP, IPF, HCG, CRP, CP, EDTOX #### [facility] [address] [place] [phone] Hot Strip Finisher: Bryn Farias MD BUN/CRE Ratio NOT REPORTED Normal -20 [facility] Comment on above: Performed By: #### C DP, IPF, HCG, CRP, CP, EDTOX #### [facility] [address] [place] [phone] Hot Strip Finisher: Bryn Farias MD Staging: NOT REPORTED Normal [facility] Comment on above: Performed By: #### C DP, IPF, HCG, CRP, CP, EDTOX #### [address] [phone] Hot Strip Finisher: Bryn Farias MD Drugon 08-30-2020 Ethanol [Mass/Vol] 194 mg/dL High <10 [facility], [place] Drug Scr, Abuse, Uron 2020 Amphetamine(s),Ur Negative Normal NEG [facility] Comment on above: Result Comment: (Positive cutoff 1000 ng/mL) Performed By: #### C DP, IPF, HCG, CRP, CP, EDTOX #### [address] [id number] Hot Strip Finisher: Bryn Farias MD Barbiturate(s),Ur Negative Normal NEG [facility] Comment on above: Result Comment: (Positive cutoff 200 ng/mL) Performed By: #### C DP, IPF, HCG, CRP, CP, EDTOX #### [facility] [address] [place] [address] [phone] Hot Strip Finisher: Bryn Farias MD Benzodiazepine(s) Negative Normal NEG [facility] Comment on above: Result Comment: (Positive cutoff 200 ng/mL) Performed By: #### C DP, IPF, HCG, CRP, CP, EDTOX #### [facility] [address] [place] [address] [phone] Hot Strip Finisher: Bryn Farias MD Cannabinoid(s),Ur Negative Normal NEG [facility] Comment on above: Result Comment: (Positive cutoff 50 ng/mL) Performed By: #### C DP, IPF, HCG, CRP, CP, EDTOX #### [facility] [address] [place] [address] [phone] Hot Strip Finisher: Bryn Farias MD Cocaine Metabolite Negative Normal NEG [facility] Comment on above: Result Comment: (Positive cutoff 300 ng/mL) Performed By: #### C DP, IPF, HCG, CRP, CP, EDTOX #### [address] [address] Hot Strip Finisher: Bryn Farias MD Interpretive Info Assay provides medic al screening only. The absence of expected drug(s) and/or Normal [facility] Comment on above: Result Comment: meta bolite(s) may indicate diluted or adulterated urine, limitations of testing or timing of collection. Testing for legal purposes should be confirmed by another method. To request confirmation of test result, please call the lab within 7 days of sample submission. Performed By: #### C DP, IPF, HCG, CRP, CP, EDTOX #### [address] [address] Hot Strip Finisher: Bryn Farias MD Methadone Ql (U) Negative Normal NEG [facility] Comment on above: Result Comment: (Positive cutoff 300 ng/mL) Performed By: #### C DP, IPF, HCG, CRP, CP, EDTOX #### [facility] [address] [place] [phone] Hot Strip Finisher: Bryn Farias MD Opiate(s), Ur Negative Normal NEG [facility] Comment on above: Result Comment: (Positive cutoff 300 ng/mL) Performed By: #### C DP, IPF, HCG, CRP, CP, EDTOX #### [facility] [address] [place] [phone] Hot Strip Finisher: Bryn Farias MD Oxycodone, Urine Negative Normal NEG [facility] Comment on above: Result Comment: (Positive cutoff 100 ng/mL) Performed By: #### C DP, IPF, HCG, CRP, CP, EDTOX #### [facility] [address] [place] [phone] Hot Strip Finisher: Bryn Farias MD Phencyclidine, Ur Negative Normal NEG [facility] Comment on above: Result Comment: (Positive cutoff 25 ng/mL) Performed By: #### C DP, IPF, HCG, CRP, CP, EDTOX #### [facility] [address] [place] [phone] Hot Strip Finisher: Bryn Farias MD Buprenorphrine, Ur NOT REPORTED Normal NEG [facility] Comment on above: Performed By: #### C DP, IPF, HCG, CRP, CP, EDTOX #### [facility] [address] [place] [address] Hot Strip Finisher: Bryn Farias MD MDMA, Urine NOT REPORTED Normal NEG [facility] Comment on above: Performed By: #### C DP, IPF, HCG, CRP, CP, EDTOX #### [facility] [address] [place] [phone] Hot Strip Finisher: Bryn Farias MD Methamphetamine, Ur NOT REPORTED Normal NEG [facility] Comment on above: Performed By: #### C DP, IPF, HCG, CRP, CP, EDTOX #### [facility] [address] [place] [address] Hot Strip Finisher: Bryn Farias MD Propoxyphene,Urine NOT REPORTED Normal NEG [facility] Comment on above: Performed By: #### C DP, IPF, HCG, CRP, CP, EDTOX #### [facility] [address] [place] [phone] Hot Strip Finisher: Bryn Farias MD Tricyclic antidepressants Screen Ql (U) NOT REPORTED Normal NEG [facility] Comment on above: Performed By: #### C DP, IPF, HCG, CRP, CP, EDTOX #### [facility] [address] [place] [phone] Hot Strip Finisher: Bryn Farias MD Amphetamine(s),Ur Negative Normal NEG [facility] Comment on above: Result Comment: (Positive cutoff 1000 ng/mL) Performed By: #### D AU #### [facility] [address] [place] [address] Hot Strip Finisher: Bryn Farias MD Barbiturate(s),Ur Negative Normal NEG [facility] Comment on above: Result Comment: (Positive cutoff 200 ng/mL) Performed By: #### D AU #### [address] [address] Hot Strip Finisher: Bryn Farias MD Benzodiazepine(s) Negative Normal NEG [facility] Comment on above: Result Comment: (Positive cutoff 200 ng/mL) Performed By: #### D AU #### [address] [address] Hot Strip Finisher: Bryn Farias MD Cannabinoid(s),Ur Negative Normal NEG [facility] Comment on above: Result Comment: (Positive cutoff 50 ng/mL) Performed By: #### D AU #### [address] [address] Hot Strip Finisher: Bryn Farias MD Cocaine Metabolite Negative Normal NEG [facility] Comment on above: Result Comment: (Positive cutoff 300 ng/mL) Performed By: #### D AU #### [address] [address] Hot Strip Finisher: Bryn Farias MD Interpretive Info Assay provides medic al screening only. The absence of expected drug(s) and/or Normal [facility] Comment on above: Result Comment: meta bolite(s) may indicate diluted or adulterated urine, limitations of testing or timing of collection. Testing for legal purposes should be confirmed by another method. To request confirmation of test result, please call the lab within 7 days of sample submission. Performed By: #### D AU #### [address] [address] Hot Strip Finisher: Bryn Farias MD Methadone Ql (U) Negative Normal NEG [facility] Comment on above: Result Comment: (Positive cutoff 300 ng/mL) Performed By: #### D AU #### [address] [address] Hot Strip Finisher: Bryn Farias MD Opiate(s), Ur Negative Normal NEG [facility] Comment on above: Result Comment: (Positive cutoff 300 ng/mL) Performed By: #### D AU #### [address] [address] Hot Strip Finisher: Bryn Farias MD Oxycodone, Urine Negative Normal NEG [facility] Comment on above: Result Comment: (Positive cutoff 100 ng/mL) Performed By: #### D AU #### [address] [address] Hot Strip Finisher: Bryn Farias MD Phencyclidine, Ur Negative Normal NEG [facility] Comment on above: Result Comment: (Positive cutoff 25 ng/mL) Performed By: #### D AU #### [address] [address] Hot Strip Finisher: Bryn Farias MD Buprenorphrine, Ur NOT REPORTED Normal NEG [facility] Comment on above: Performed By: #### D AU #### [address] [address] Hot Strip Finisher: Bryn Farias MD MDMA, Urine NOT REPORTED Normal NEG [facility] Comment on above: Performed By: #### D AU #### [address] [address] Hot Strip Finisher: Bryn Farias MD Methamphetamine, Ur NOT REPORTED Normal NEG [facility] Comment on above: Performed By: #### D AU #### [address] [address] Hot Strip Finisher: Bryn Farias MD Propoxyphene,Urine NOT REPORTED Normal NEG [facility] Comment on above: Performed By: #### D AU #### [address] [phone] Hot Strip Finisher: Bryn Farias MD Tricyclic antidepressants Screen Ql (U) NOT REPORTED Normal NEG [facility] Comment on above: Performed By: #### D AU #### [facility] [place], [place] [phone] Hot Strip Finisher: Bryn Farias MD HCG Screen, Bloodon 08-30-19 21 HCG Screen, Blood Negative Normal NEG [facility] Comment on above: Result Comment: Spec imens with hCG levels near the threshold of the test (25 mIU/mL) may give a negative or indeterminate result. In such cases, another test should be performed with a new specimen in 48-72 hours. If early is suspected clinically in this setting, correlation with quantitative serum b-hCG level is suggested. [employer] [facility] has confirmed the use of plasma for this test. This has not been cleared or approved by the U.S. Food and Drug Administration. The FDA has determined that such clearance is not necessary. Performed By: #### C DP, IPF, HCG, CRP, CP, EDTOX #### [facility] [address] [place], [place] [phone] Hot Strip Finisher: Bryn Farias MD Hematologyon 08-30-2020 aPTT Coag (Bld) [Time] 24.8 s [place], [place] Comment on above: IV Heparin Therapy Range: 48.6-77.8 INR Coag (PPP) [Relative time] 1.0 {INR} [place], [place] Comment on above: Therapeutic Range: Moderate Anticoagulant Intensity: INR = 2.0-3.0 High Anticoagulant Intensity: INR = 2.5-3.5 PT Coag (PPP) [Time] 10.1 s [place], [place] Lactic Acidon 08-30-2020 Lactic Acid,Whole Bl 1.3 mmol/L Normal 0.7-2.1 [facility] Comment on above: Performed By: #### C DP, IPF, HCG, CRP, CP, EDTOX #### [facility] [place], [place] [phone] Hot Strip Finisher: Bryn Farias MD Lactic Acid NOT REPORTED Normal [facility] Comment on above: Performed By: #### C DP, IPF, HCG, CRP, CP, EDTOX #### [facility] [address] [place] [address] Hot Strip Finisher: Bryn Farias MD Lactic Acid,Whole Bl 2.5 mmol/L High 0.7-2.1 [facility] Comment on above: Performed By: #### C OVID #### [facility] [address] [place] [address] Hot Strip Finisher: Bryn Farias MD Lactic Acid NOT REPORTED Normal [facility] Comment on above: Performed By: #### C OVID #### [facility] [address] [place] [address] Hot Strip Finisher: Bryn Farias MD Lactic Acid,Whole Bl 2.3 mmol/L High 0.7-2.1 [facility] Comment on above: Performed By: #### C OVID #### [facility] [address] [place] [address] Hot Strip Finisher: Bryn Farias MD Lactic Acid NOT REPORTED Normal [facility] Comment on above: Performed By: #### C OVID #### [facility] [address] [place] [address] Hot Strip Finisher: Bryn Farias MD Lactic Acid, Plasmaon 2020 Interpretation and review of laboratory results Abnormal [place] Lactate [Moles/Vol] NOT REPORTED mmol/L [place] Lactic Acid, Whole Blood 2.5 mmol/L High 0.7 - 2.1 mmol/L [place] Interpretation and review of laboratory results Abnormal [place] Lactate [Moles/Vol] NOT REPORTED mmol/L [place] Lactic Acid, Whole Blood 2.3 mmol/L High 0.7 - 2.1 mmol/L [place] Magnesiumon 08-30-2020 Magnesium [Mass/Vol] 1.8 mg/dL Normal 1.6-2.6 [facility] Comment on above: Performed By: #### C OVID #### [facility] [address] [place] [address] Hot Strip Finisher: Bryn Farias MD Metabolic Panelon 08-30-2020 Lactate [Moles/Vol] NOT REPORTED mmol/L [place] Magnesium [Mass/Vol] 1.8 mg/dL 1.6 - 2 .6 mg/dL [place] Anion gap [Moles/Vol] 9 mmol/L 9 - 17 mmol/L [place] Calcium [Mass/Vol] 8.4 mg/dL Low 8.6 - 10. 4 mg/dL [place] Chloride [Moles/Vol] 106 mmol/L 98 - 10 7 mmol/L [place] CO2 [Moles/Vol] 23 mmol/L 20 - 31 mmol/L [place] Creatinine [Mass/Vol] 0.41 mg/dL Low 0.5 - 0.9 mg/dL [place] GFR/1.73 sq M predicted among non-blacks MDRD (S/P/Bld) [Vol rate/Area] [place], [place] Comment on above: Average GFR for 20-2 9 years old: 116 mL/min/1.73sq m Chronic Kidney Disease: <60 mL/min/1.73sq m Kidney failure: <15 mL/min/1.73sq m eGFR calculated using average adult body mass. Additional eGFR calculator available at: http://www.[employer].WhereNet/multiple_crcl_2012.htm GFR/1.73 sq M predicted among non-blacks MDRD (S/P/Bld) [Vol rate/Area] NOT REPORTED [place] Glucose [Mass/Vol] 99 mg/dL 70 - 99 mg/dL [place] Potassium [Moles/Vol] 3.3 mmol/L Low 3.7 - 5.3 mmol/L [place] Sodium [Moles/Vol] 138 mmol/L 135 - 144 mmol/L [place] Urea nitrogen [Mass/Vol] 3 mg/dL Low 6 - 20 mg/dL [place] Albumin [Mass/Vol] 3.9 g/dL 3.5 - 5.2 g/dL [place], [place] ALP [Catalytic activity/Vol] 132 U/L High 35 - 104 U/L [place] ALT [Catalytic activity/Vol] 18 U/L 5 - 33 U/L [place] Anion gap [Moles/Vol] 10 mmol/L 9 - 17 mmol/L [place] AST [Catalytic activity/Vol] 20 U/L <32 [place] Calcium [Mass/Vol] 8.9 mg/dL 8.6 - 10. 4 mg/dL [place] Chloride [Moles/Vol] 103 mmol/L 98 - 10 7 mmol/L [place] CO2 [Moles/Vol] 24 mmol/L 20 - 31 mmol/L [place] Creatinine [Mass/Vol] 0.39 mg/dL Low 0.5 - 0.9 mg/dL [place] GFR/1.73 sq M predicted among non-blacks MDRD (S/P/Bld) [Vol rate/Area] NOT REPORTED [place] GFR/1.73 sq M predicted among non-blacks MDRD (S/P/Bld) [Vol rate/Area] [place] Comment on above: Average GFR for 20-2 9 years old: 116 mL/min/1.73sq m Chronic Kidney Disease: <60 mL/min/1.73sq m Kidney failure: <15 mL/min/1.73sq m eGFR calculated using average adult body mass. Additional eGFR calculator available at: http://www.[employer].WhereNet/multiple_crcl_2012.htm Glucose [Mass/Vol] 86 mg/dL 70 - 99 mg/dL [place] Potassium [Moles/Vol] 3.6 mmol/L Low 3.7 - 5.3 mmol/L [place] Protein [Mass/Vol] 6.2 g/dL Low 6.4 -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 above: Daily until disconti nued starting 08/30/2020, 4 completed Daily until disconti nued starting 09/02/2020 Culture, Blood 1 [place], [place] Oxygen therapy [[facility] Data Set] Initiate Oxygen Therapy Protocol Respiratory Care Routine Daily until discontinued starting 08/30/2020 [place] Comment on above: Daily until disconti nued starting 08/30/2020 End: 08-30-2020 PREVIOUS SPECIMEN PREVIOUS SPECIMEN Lab STAT Once for 1 Occurrences starting 08/30/2020 until 08/30/2020 [place] Comment on above: Once for 1 Occurrenc es starting 08/30/2020 until 08/30/2020 PREVIOUS SPECIMEN PREVIOUS SPECI MEN Lab STAT 08/30/2020 3:13 AM EST [place] RENAL FUNCTION PANEL RENAL FUNCT ION PANEL Lab Routine Daily until discontinued starting 09/02/2020, 1 completed [place] Comment on above: Daily until disconti nued starting 09/02/2020, 1 completed End: 11-05-2020 XR CHEST PORTABLE XR CHEST PORTABLE Imaging STAT Once for 1 Occurrences starting 11/05/2020 until 11/05/2020 [employer] Phone: Comment on above: Once for 1 Occurrenc es starting 11/05/2020 until 11/05/2020 XR CHEST PORTABLE XR CHEST LALO BLE Imaging STAT 11/05/2020 4:06 PM EDT [employer] Phone: Immunizations Immunization Date Immunization Notes Care Provider Fa [facility] 05-22-2020 tetanus toxoid, redu francisco diphtheria toxoid, and acellular pertussis vaccine, adsorbed Ingrid [facility] [employer] Payers Date Payer Category Payer Medicaid [id number] 2015 Unknown [id number] 2015 Unknown [id number] 1990 Unknown [id number] 2.16.8 [id number] 1990 Unknown [id number] 2.16.8 [id number] 1990 Unknown [id number] 2.16.8 [id number] 1990 Unknown [id number] 2.16.8 [id number] 1990 Unknown [id number] 2.16.8 [id number] 1990 Unknown [id number] 2.16.8 [id number] 1990 Unknown [id number] 2.16.8 [id number] 1990 Unknown [id number] Social History Date Type Detail Facility Start: 05-23-2020 End: 12-10-2021 Tobacco smoking status NHIS Current every day smoker [place], [place] End: 09-24-2015 History of tobacco use Cigarette Smoker [place], [place] Start: 05-23-2020 End: 08-16-2022 Cigarettes smoked current (pack per day) - Reported [place], [place] Start: 05-23-2020 End: 12-10-2021 Tobacco use and exposure Never used [place], [place] Start: 05-23-2020 End: 08-16-2022 Alcohol intake Current non-drinker of alcohol (finding) [place], [place] Start: 02-16-2019 Tobacco Comment E-cig and down to 1 cigarette a day [place], [place] Start: 1990 Sex Assigned At Not on file [place], [place] Start: 12-01-2021 End: 08-16-2022 Exposure to SARS-CoV-2 (event) Not sure [place], [place] Start: 12-10-2021 History SDOH Financial 5 [facility] Work Phone: Start: 12-10-2021 History SDOH Food Worry 1 [employer] Work Phone: Start: 12-10-2021 Tobacco Comment Pt has been us ing her vape more [employer] Work Phone: Medical Equipment Procedure Code Equipment Code Equipment Origin al Text Equipment Identifier Dates Impl Tightrope R t Acl W/Suture [id number] Start: 03-16-2019 [employer] [facility] [employer]on - [id number] Start: 03-16-2019 Comment on above: Description: [id number] [employer] - [id number] Start: 03-16-2019 Comment on above: Description: [id number] Screw Bc Vented If 8x20mm [id number] Start: 03-16-2019 Hospital Discharge instructions 08-16-2022 Discharge InstructionsAttachments Note Date & Type Note Facility 08-16-2022 Hospital Discharg e instructions Florentino Alvarado MD - 08/16/2022 8:57 PM EST I recommend reevaluation given the dysuria and concern for possible PID. Take the antibiotics that were given here as prescribed. You may take up to 50 mg of Benadryl at night to help with irritation of the skin and itching. Hydrocortisone cream can also be used. The following attachments cannot be sent through Care Everywhere.Rash (Salvadorean)documented in this encounter [facility] Work Phone: Hospital Discharge instructions 06-14-2021 InstructionsAttachments Note Date & Type Note Facility 06-14-2021 Hospital Discharg e instructions Fanta Rodriguez MD - 06/14/2021 May take Tylenol and Motrin as directed. Doxycycline and Floxin drops as directed. Return for worsening pain, fever, dizziness, or if worse in any way. Please understand that at this time there is no evidence for a more serious underlying process, but that early in the process of an illness or injury, an emergency department workup can be falsely reassuring. You should contact your family doctor within the next 48 hours for a follow up appointment THANK YOU!!! From [facility] and [facility] On behalf of the Emergency Department staff at [facility], I would like to thank you for giving us the opportunity to address your health care needs and concerns. We hope that during your visit, our service was delivered in a professional and caring manner. Please keep [facility] in mind as we walk with you down the path to your own personal wellness. Please expect an automated text message or email from us so we can ask a few questions about your health and progress. Based on your answers, a clinician may call you back to offer help and instructions. Please understand that early in the process of an illness or injury, an emergency department workup can be falsely reassuring. If you notice any worsening, changing or persistent symptoms please call your family doctor or return to the ER immediately. Tell us how we did during your visit at [email or web address] and let us know about your experience The following attachments cannot be sent through Care Everywhere.Perforated Eardrum (Salvadorean)Otitis Media (Salvadorean)documented in this encounter [employer] Phone: Evaluation note Note Date & Type Note Facility Evaluation note Diagnosis Left foot pain- Primary Pain in limb documented in this encounter [employer] Phone: Evaluation note Note Date & Type Note Facility Evaluation note Diagnosis Suppurative otitis media with spontaneous tympanic membrane rupture, left- Primary documented in this encounter [employer] Phone: Evaluation note Note Date & Type Note Facility Evaluation note Diagnosis Hypertension, unspecified type- Primary Nausea Nausea alone documented in this encounter [employer] Phone: Evaluation note Note Date & Type Note Facility Evaluation note Diagnosis Rash- Primary Rash and other nonspecific skin eruption documented in this encounter [employer] Phone: Evaluation note Note Date & Type Note Facility Evaluation note Diagnosis Rash and other nonspecific skin eruption- Primary documented in this encounter [facility] [employer] Phone: Hospital Discharge instructions InstructionsAttachments Note Date & Type Note Facility Hospital Discharge instructions Van Peña MD - 05/16/2021 THANK YOU!!! From [facility] On behalf of the Emergency Department staff at [facility], I would like to thank you for giving [facility] the opportunity to address your health care needs and concerns. We hope that during your visit, our service was delivered in a professional and caring manner. Please keep [facility] in mind as we walk with you down the path to your own personal wellness. Please expect an automated phone call from so we can ask a few questions about your health and progress. Based on your answers, a clinician may call you back to offer help and instructions. If you notice any concerning symptoms please return to the ED immediately. These can include but are not limited to: fevers, chills, shortness of breath, vomiting, weakness of the extremities, changes in your mental status, numbness, pale extremities, or chest pain. The following attachments cannot be sent through Care Everywhere.Foot Pain (Salvadorean)documented in this encounter [employer] Phone: Hospital Discharge instructions Attachments Note Date & Type Note Facility Hospital Discharge instructions The following attachments cannot be sent through Care Everywhere.Nausea and Vomiting (Salvadorean)Hypertension: General Info (Salvadorean)documented in this encounter [employer] Phone: Hospital Discharge instructions Attachments Note Date & Type Note Facility Hospital Discharge instructions The following attachments cannot be sent through Care Everywhere.Rash (Salvadorean)Dyshidrotic Eczema (Salvadorean)documented in this encounter [employer] Phone: Family History No Family History Records Found Medical History Relation Name Comments Heart Disease Brother BRADLEY Other Brother BRADLEY EPILEPSY High Blood Pressure Father High Blood Pressure Mother Other Mother Relation Name Status Comments Brother BRADLEY Alive Brother LACY Alive Brother BRIGIDO Alive Brother RENITA Alive Brother SHILA Alive Brother NAY Alive Father Alive Maternal Grandfather Alive Maternal Grandmother Alive Mother Alive Paternal Grandfather Alive Paternal Grandmother Sister KARLO Alive Advance Directives No Advanced Directives Records FoundDocuments on File Type Date Recorded Patient Machine Feller Expl anation ACP-Advance Directive 07/07/2013 3:21 PM Latest Code Status on File Code Status Date Activated Date Inactivated Comments Full Code 09/02/2020 6:23 PM 09/05/2020 3:15 PM Full Code 08/30/2020 5:17 AM 09/02/2020 6:03 PM Full Code 05/23/2020 2:28 AM 05/25/2020 5:47 PM Full Code 08/01/2015 5:11 PM 08/02/2015 5:59 PM Full Code 07/18/2015 10:52 PM 07/30/2015 5:54 PM Documents on File Type Date Recorded Patient Machine Feller Expl anation ACP-Advance Directive 07/07/2013 3:21 PM ACP-Power of Vocational Psychologist Latest Code Status on File Code Status Date Activated Date Inactivated Comments Full Code 05/23/2020 2:28 AM Full Code 08/01/2015 5:11 PM 08/02/2015 5:59 PM Full Code 07/18/2015 10:52 PM 07/30/2015 5:54 PM Full Code 06/28/2013 6:15 AM 07/05/2013 11:40 AM Documents on File Type Date Recorded Patient Machine Feller Expl anation ACP-Advance Directive 07/07/2013 3:21 PM ACP-Power of Vocational Psychologist Latest Code Status on File Code Status Date Activated Date Inactivated Comments Full Code 09/02/2020 6:23 PM Full Code 08/30/2020 5:17 AM 09/02/2020 6:03 PM Full Code 05/23/2020 2:28 AM 05/25/2020 5:47 PM Latest Code Status on File Code Status Date Activated Date Inactivated Comments Full Code 08/30/2020 5:17 AM Full Code 06/28/2013 6:15 AM 07/05/2013 11:40 AM Documents on File Type Date Recorded Patient Machine Feller Expl anation ACP-Power of Vocational Psychologist ACP-Advance Directive 07/07/2013 3:21 PM Summary Purpose Discharge Instructions * Instructions* Matthew Stratton, - 11/05/2020 Return to the emergency department at any time if you would like to continue treatment. Please makean appointment to follow up with your primary doctor and/or the specialist as we discussed. Take all medications as prescribed. Return to ER if condition worsens or you develop any new/concerning symptoms as we discussed. * Attachments The following attachments cannot be sent through Care Everywhere. * Medication Overdose: Accidental (Salvadorean) documented in this encounter* Instructions* Hansa Davenport I, - 09/01/2020 Take.medication as prescribed. If you develop any worsening fevers, chills, nausea, vomiting, diarrhea redness, numbness, tingling, loss of sensation in the right lower extremity please seek urgent medical care Please follow-up with your orthopedic surgeon Dr. Chase for continued evaluation of right leg. * Attachments The following attachments cannot be sent through Care Everywhere. * Cellulitis (Salvadorean) documented in this encounter Assessments Diagnosis Accidental drug overdose, initial encounter- Primary Hypokalemia Hypopotassemia Diagnosis Cellulitis- Primary Cellulitis and abscess of unspecified site Suicidal ideation Suicidal behavior with attempted self-injury (HCC) Alcoholic intoxication with complication (HCC) Acute hematogenous osteomyelitis, unspecified site (HCC) Acute hypokalemia Hypopotassemia Essential hypertension Unspecified essential hypertension Opioid type dependence, continuous use (HCC) Opioid type dependence, continuous Lactic acidosis Acidosis Hospital Course * Hansa Davenport DO - 09/01/2020 4:10 PM EST [facility] Office: [phone] Valeriy García DO, Grey Hauser DO, Kike Cardenas DO, Roby Napier DO, Amado Bhagat MD, Liv Snowden MD, Abimael Amor MD, Violeta Saba MD, Delfin Marshall MD, Kirsty Del Valle MD, MD Shawn, Shan Keenan MD, Jeni Partida MD, Ghanshyam Bonilla DO, Avtar Wall MD, Gaby Rodriguez MD, Jamir Chavira DO, Heriberto Bermeo MD, Hansa Davenport DO, Rios Kowalski MD, MD Ra, Jenny Goodrich GASOLINE ENGINE INSPECTOR, Jewels Dominguez GASOLINE ENGINE INSPECTOR, Shireen Bernal GASOLINE ENGINE INSPECTOR, Stephanie Leos, CIRCUIT BOARD ASSEMBLER,Bonilla Arce CNP, Yodit Edwards GASOLINE ENGINE INSPECTOR, Annabella Smith GASOLINE ENGINE INSPECTOR, Yaa Cantu CNP, Akira Bundy CNP, Trevor Arriaga PA-C, Zohreh Nguyen DNP, Irma Milian CNP, Sri Fishman, AN, Deena Jones CNP, Alka Lazo CNP, Pretty Barbosa, AN [facility] IN-PATIENT SERVICE [facility] Discharge Summary Patient ID: Rm Mccullough : 1990 ACCOUNT: [id number] Patient's PCP: Ingrid Dent APRN - AN Admit Date: 08/30/2020 Discharge Date: 09/02/2020 Length of Stay: 3 Code Status: Full Code Admitting Physician: Hansa Davenport DO Discharge Physician: Hansa Davenport DO Active Discharge Diagnoses: Hospital Problem Lists: Principal Problem: Cellulitis Active Problems: Opioid type dependence, continuous use (HCC) Essential hypertension Suicidal behavior with attempted self-injury (HCC) Acute hypokalemia Resolved Problems: Lactic acidosis Admission Condition: stable Discharged Condition: stable Hospital Stay: Hospital Course: Rm Mccullough is a 29 y.o. female with an extensive psychiatric history including bipolar disease, depression, PTSD who presents to our hospital with suicidal ideation and right leg cellulitis. On admission, ethanol level was 0.19. She did have suicidal thoughts with plan. Patient was admitted and evaluated by psychiatry who recommend continuing suicide precautions and admitting to [facility] once patient is discharged. Patient did complain of some right lower extremity leg pain/erythema concerning for cellulitis. X-rays on 08/30/20 showed findings suggestive of nonunion distal tibi al and fibular fractures and subtle moth-eaten bone appearance in the proximal tibial fracture suggestive of possible osteomyelitis. Her CRP and ESR were not elevated enough to suggest an active boneinfection. She was started on Ancef 2 g every 8 hours on 08/30/19 with improvement in her right leg pain/swelling. She was evaluated by infectious disease prior to discharge who did not recommend any fu rther antibiotics. Patient's vital signs remained stable during her admission. She was afebrile andnormotensive with no white count. It is recommended that she continue outpatient follow up With herorthopedic surgeon at [facility] for further treatment and evaluation of her right ankle problems.Currently, patient is medically stable for discharge. She will be discharged to [facility] for continued psychiatric evaluation/treatment. Significant therapeutic interventions: see above Significant Diagnostic Studies: Labs / Micro: CBC: Lab Results Component Value Date WBC 5.9 09/02/2020 RBC 3.51 09/02/2020 RBC 5.02 04/22/2011 HGB 10.4 09/02/2020 HCT 34.7 09/02/2020 MCV 98.9 09/02/2020 MCH 29.6 09/02/2020 MCHC 30.0 09/02/2020 RDW 16.4 09/02/2020 PLT 269 09/02/2020 PLT 245 04/22/2011 BMP: Lab Results Component Value Date GLUCOSE 99 09/02/2020 GLUCOSE 100 04/22/2011 NA 137 09/02/2020 K 3.1 09/02/2020 CL 108 09/02/2020 CO2 21 09/02/2020 ANIONGAP 8 09/02/2020 BUN 3 09/02/2020 CREATININE 0.31 09/02/2020 BUNCRER NOT REPORTED 09/02/2020 CALCIUM 7.8 09/02/2020 LABGLOM >60 09/02/2020 GFRAA >60 09/02/2020 GFR 09/02/2020 GFR NOT REPORTED 09/02/2020 Radiology: Xr Radius Ulna Left (2 Views) Result Date: 08/31/2020 1. No acute osseous abnormality of the right hand and forearm. 2. No radiodense foreign body. Xr Hand Right (min 3 Views) Result Date: 08/31/2020 1. No acute osseous abnormality of the right hand and forearm. 2. No radiodense foreign body. Xr Tibia Fibula Right (2 Views) Result Date: 08/30/2020 Findings concerning for osteomyelitis proximally adjacent the fracture line of the distal tibia with adjacent soft tissue swelling medially. 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 Hardware appears well seated currently. Consultations: Consults: Final Specialist Recommendations/Findings: IP CONSULT TO HOSPITALIST IP CONSULT TO PSYCHIATRY IP CONSULT TO INFECTIOUS DISEASES IP CONSULT TO HISTORY AND PHYSICAL The patient was seen and examined on day of discharge and this discharge summary is in conjunction with any daily progress note from day of discharge. Discharge plan: Disposition: Psychiatric facility Physician Follow Up: Ingrid Dent, PAROLE DIRECTOR - GASOLINE ENGINE INSPECTOR [address] [facility] [id number] In 1 week Hospital follow-up for evaluation of underlying cellulitis Compa Chase MD [address] [place] [address], [address] [facility] [id number] In 2 weeks For wound re-check (right leg) Requiring Further Evaluation/Follow Up POST HOSPITALIZATION/Incidental Findings: Patient needs reevaluation by her primary care physician within 7 days of discharge to monitor improvement of right leg cellulitis. Patient needs follow-up with inpatient psychiatry for further titration/adjustment of her medications It is recommended that she continue outpatient follow up With her orthopedic surgeon at [facility] for further treatment and evaluation of her right ankle problems. Diet: regular diet Activity: As tolerated Instructions to Patient: see above Discharge Medications: Medication List START taking these medications ferrous sulfate 325 (65 Fe) MG EC tablet Commonly known as: FE TABS 325 Take 1 tablet by mouth daily (with breakfast) CHANGE how you take these medications potassium chloride 20 MEQ extended release tablet Commonly known as: KLOR-CON M Take 1 tablet by mouth daily What changed: when to take this QUEtiapine 300 MG extended release tablet Commonly known as: SEROQUEL XR Take 3 tablets by mouth nightly What changed: medication strength how much to take traZODone 300 MG tablet Commonly known as: DESYREL Take 1 tablet by mouth nightly What changed: medication strength how much to take CONTINUE taking these medications ALBUTEROL SULFATE HFA IN enoxaparin 40 MG/0.4ML injection Commonly known as: LOVENOX gabapentin 300 MG capsule Commonly known as: NEURONTIN lithium 300 MG capsule magnesium oxide 400 MG tablet Commonly known as: MAG-OX spironolactone 25 MG tablet Commonly known as: ALDACTONE venlafaxine 150 MG extended release capsule Commonly known as: Effexor XR Take 2 capsules by mouth daily STOP taking these medications diazePAM 5 MG tablet Commonly known as: VALIUM furosemide 40 MG tablet Commonly known as: LASIX ibuprofen 600 MG tablet Commonly known as: IBU metoprolol succinate 200 MG extended release tablet Commonly known as: TOPROL XL Narcan 4 MG/0.1ML Liqd nasal spray Generic drug: naloxone ASK your doctor about these medications NALOXONE OPIATE OVERDOSE KIT 1 each by Nasal route once for 1 dose Ask about: Should I take this medication? Where to Get Your Medications You can get these medications from any pharmacy Bring a paper prescription for each of these medications NALOXONE OPIATE OVERDOSE KIT Information about where to get these medications is not yet available Ask your nurse or doctor about these medications ferrous sulfate 325 (65 Fe) MG EC tablet potassium chloride 20 MEQ extended release tablet QUEtiapine 300 MG extended release tablet traZODone 300 MG tablet venlafaxine 150 MG extended release capsule No discharge procedures on file. Time Spent on discharge is 37 mins in patient examination, evaluation, counseling as well as medication reconciliation, prescriptions for required medications, discharge plan and follow up. Electronically signed by Hansa Davenport DO 09/02/2020 2:[address] Ingrid Dent, SABAS - AN for the opportunity to be involved in this patient's care. documented in this encounter History of Present Illness * Alyce Ortiz RN - 09/02/2020 3:16 PM EST Report called to the receiving RN at [facility]. Patient scheduled to be transported at 1730 * Florentino Chang RCP - 09/02/2020 2:43 PM EST RAPID Covid 19 swab taken from left nare, labeled, placed in red dot bag, and handed off to second healthcare worker outside of room for transport to laboratory per hospital policy and procedure. Patient tolerated procedure well. * Hansa Davenport DO - 09/02/2020 12:20 PM EST [facility] Office: [phone] Valeriy García DO, Grey Hauser DO, Kike Cardenas DO, Roby Napier DO, Amado Bhagat MD, Liv Snowden MD, Abimael Amor MD, Violeta Saba MD, Delfin Marshall MD, Kirsty Del Valle MD, MD Shawn, Shan Keenan MD, Jeni Partida MD, Ghanshyam Bonilla DO, Avtar Wall MD, Gaby Rodriguez MD, Jamir Chavira DO, Heriberto Bermeo MD, Hansa Davenport DO, Rios Kowalski MD, MD Ra, Jenny Goodrich, GASOLINE ENGINE INSPECTOR, Jewels Dominguez, GASOLINE ENGINE INSPECTOR, Shireen Bernal CNP, Stephanie Leos, CIRCUIT BOARD ASSEMBLER,Bonilla Arce CNP, Yodit Edwards CNP, Annabella Smith CNP, Yaa Cantu CNP, Akira Bundy, AN, Trevor Arriaga PA-C, Zohreh Nguyen DNP, Irma Milian CNP, Sri Fishman CNP, Deena Jones CNP, Alka Lazo CNP, Pretty Barbosa, AN [facility] IN-PATIENT SERVICE [facility] Progress Note 09/02/2020 12:20 PM Name: Rm Mccullough Acct: [id number] Room: [facility] Day: 3 Admit Date: 08/30/2020 1:07 AM PCP: SABAS Quevedo CNP Code Status: Full Code Subjective: C/C: Chief Complaint Patient presents with Suicidal Alcohol Intoxication Interval History Status: improved. No acute events overnight. Denies any chest pain, shortness of breath, difficulty breathing, nausea, vomiting, diarrhea. Patient remains afebrile. No complaints. Review of Systems: Constitutional: negative for chills, fevers, sweats Respiratory: negative for cough, dyspnea on exertion, shortness of breath, wheezing Cardiovascular: negative for chest pain, chest pressure/discomfort, lower extremity edema, palpitations Gastrointestinal: negative for abdominal pain, constipation, diarrhea, nausea, vomiting Neurological: negative for dizziness, headache Medications: Allergies: Allergies Allergen Reactions Amoxicillin Anaphylaxis Aripiprazole Anaphylaxis ABILIFY Asenapine Anaphylaxis Clindamycin/Lincomycin Anaphylaxis Depo-Provera [Medroxyprogesterone] Other (See Comments) WEIGHT LOSS AND BLEEDING Hydrocodone-Acetaminophen Hives Lamictal [Lamotrigine] Anaphylaxis Migranol [Dihydroergotamine] Anaphylaxis Prozac [Fluoxetine Hcl] Anaphylaxis Wellbutrin [Bupropion] Anaphylaxis Zoloft [Sertraline] Anaphylaxis Azithromycin Hives Bactrim [Sulfamethoxazole-Trimethoprim] Hives Codeine Hives and Itching Macrobid [Nitrofurantoin] Hives Naproxen Sodium Hives Neurontin [Gabapentin] Hives Penicillins Hives and Rash Macrobid [Nitrofurantoin Macrocrystal] Other (See Comments) and Rash Tramadol Hives Current Meds: Scheduled Meds: QUEtiapine 900 mg Oral Nightly gabapentin 300 mg Oral TID traZODone 150 mg Oral Nightly enoxaparin 1.5 mg/kg Subcutaneous Daily ferrous sulfate 325 mg Oral Daily with breakfast lactobacillus 1 capsule Oral Daily with breakfast lithium 300 mg Oral TID Continuous Infusions: PRN Meds: loperamide, promethazine OR ondansetron, acetaminophen Data: Past Medical History: has a past medical history of Asthma, Bipolar 1 disorder (HCC), Celiac disease, Chronic kidney disease, Depression, Difficult intravenous access, Genital herpes, GERD (gastroesophageal reflux disease), H/O opioid abuse (HCC), H/O self mutilation, Hepatitis C, Heroin abuse (HCC), History of blood transfusion, History of chemotherapy, Hx of blood clots, Hypertension, Hypokalemia, Miscarriage, Nausea and vomiting, Non Hodgkin's lymphoma (HCC), Seizures (HCC), Sepsis (HCC), Trigeminal neuralgia, Tumor of lung, Wears dentures, and Wears dentures. Social History: reports that she has been smoking cigarettes. She has a 1.25 pack-year smoking history. She has never used smokeless tobacco. She reports previous drug use. She reports that she does not drink alcohol. Family History: Family History Problem Relation Age of Onset High Blood Pressure Mother Other Mother High Blood Pressure Father Heart Disease Brother Other Brother EPILEPSY Vitals: BP 114/84 Pulse 87 Temp 98.3 F (36.8 C) (Oral) Resp 18 Ht 5' 6 (1.676 m) Wt 145 lb (65.8kg) SpO2 99% BMI 23.40 kg/m Temp (24hrs), Av.9 F (36.6 C), Min:97.4 F (36.3 C), Max:98.5 F (36.9 C) No results for input(s): POCGLU in the last 72 hours. I/O (24Hr): Intake/Output Summary (Last 24 hours) at 09/02/2020 1220 Last data filed at 09/02/2020 0557 Gross per 24 hour Intake 1803 ml Output Net 1803 ml Labs: Hematology: Recent Labs 08/31/20 0604 09/01/20 0531 09/01/20 1809 09/02/20 0617 WBC 8.1 6.5 -- 5.9 RBC 3.54* 3.68* -- 3.51* HGB 10.4* 11.0* -- 10.4* HCT 34.3* 35.0* -- 34.7* MCV 96.9 95.1 -- 98.9 MCH 29.4 29.9 -- 29.6 MCHC 30.3 31.4 -- 30.0 RDW 16.7* 16.0* -- 16.4* PLT 238 258 -- 269 MPV 9.1 9.0 -- 8.9 SEDRATE -- -- 1 -- CRP -- -- 10.2* -- Chemistry: Recent Labs 08/30/20 1801 08/31/20 0604 09/02/20 0617 NA -- 137 137 K -- 4.5 3.1* CL -- 109* 108* CO2 -- 24 21 GLUCOSE -- 104* 99 BUN -- 2* 3* CREATININE -- 0.31* 0.31* ANIONGAP -- 4* 8* LABGLOM -- >60 >60 GFRAA -- >60 >60 CALCIUM -- 8.5* 7.8* PHOS -- -- 3.6 LACTACIDWB 1.3 -- -- Recent Labs 08/31/20 0604 09/02/20 0617 PROT 5.2* -- LABALBU 3.0* 2.8* AST 26 -- ALT 13 -- ALKPHOS 122* -- BILITOT 0.21* -- ABG:No results found for: POCPH, PHART, PH, POCPCO2, QMQ6TWO, PCO2, POCPO2, PO2ART, PO2, POCHCO3, GOI9JLL, HCO3, NBEA, PBEA, BEART, BE, THGBART, THB, HNU8SQN, XLTS0FTH, Z0OMDBNB, O2SAT, FIO2 Lab Results Component Value Date/Time SPECIAL R WRIST, 3 ML red only 08/30/2020 04:20 AM Lab Results Component Value Date/Time CULTURE NO GROWTH 3 DAYS 08/30/2020 04:20 AM Radiology: Xr Radius Ulna Left (2 Views) Result Date: 08/31/2020 1. No acute osseous abnormality of the right hand and forearm. 2. No radiodense foreign body. Xr Hand Right (min 3 Views) Result Date: 08/31/2020 1. No acute osseous abnormality of the right hand and forearm. 2. No radiodense foreign body. Xr Tibia Fibula Right (2 Views) Result Date: 08/30/2020 Findings concerning for osteomyelitis proximally adjacent the fracture line of the distal tibia with adjacent soft tissue swelling medially. 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 Hardware appears well seated currently. Physical Examination: General appearance: alert, cooperative and no distress Mental Status: oriented to person, place and time and normal affect Lungs: clear to auscultation bilaterally, normal effort Heart: regular rate and rhythm, no murmur Abdomen: soft, nontender, nondistended, normal bowel sounds, no masses, hepatomegaly, splenomegaly Extremities: no edema, redness, tenderness in the calves Skin: no gross lesions, rashes, induration Assessment: Hospital Problems Last Modified POA * (Principal) Cellulitis 09/01/2020 Yes Opioid type dependence, continuous use (HCC) 09/01/2020 Yes Essential hypertension 09/01/2020 Yes Suicidal behavior with attempted self-injury (HCC) 09/01/2020 Yes Acute hypokalemia 09/01/2020 Yes Plan: 1. Patient seen and evaluated by infectious disease, do not recommend any further antibiotics for treatment of cellulitis. They do recommend continued outpatient follow-up with her orthopedic surgeonDr. Audie Cabrera once her acute psychiatric issues are resolved. 2. Patient is agreeable for discharge to [facility], currently she is medically stable. 3. We will continue her current home regimen. 4. Discussed with case management 5. Discussed with nurse 6. Discussed with patient. Hansa Davenport DO 09/02/2020 12:20 PM * Sammie Casanova RN - 09/02/2020 12:40 AM EST Pt. Requested medication for diarrhea. Imodium order received and given to pt. See MAR. * Berry Mccain [facility] - 09/01/2020 6:51 PM EST Pharmacy Note Vancomycin Consult Rm Mccullough is a 29 y.o. female started on Vancomycin for cellulitis; consult received from Dr. Hansa Davenport to manage therapy. Also receiving the following antibiotics: n/a. Patient Active Problem List Diagnosis Mixed bipolar I disorder (HCC) Opioid type dependence, continuous use (HCC) Opioid dependence with withdrawal (HCC) Hep C w/o coma, chronic (HCC) Essential hypertension NHL (non-Hodgkin's lymphoma) (HCC) Bilateral leg edema Abdominal swelling, generalized Right upper quadrant pain Chest pain Shortness of breath Idiopathic thrombocytopenic purpura (HCC) DVT (deep venous thrombosis) (HCC) Trigeminal neuralgia Celiac disease Fibroma Transient synovitis of knee, right Rupture of anterior cruciate ligament of right knee Schizoaffective disorder (HCC) Suicidal behavior with attempted self-injury (HCC) Acute hypokalemia Cellulitis Depression with suicidal ideation Lactic acidosis Allergies: Amoxicillin, Aripiprazole, Asenapine, Clindamycin/lincomycin, Depo- provera [medroxyprogesterone], Hydrocodone-acetaminophen, Lamictal [lamotrigine], Migranol [dihydroergotamine], Prozac [fluoxetine hcl], Wellbutrin [bupropion], Zoloft [sertraline], Azithromycin, Bactrim [sulfamethoxazole- trimethoprim], Codeine, Macrobid [nitrofurantoin], Naproxen sodium, Neurontin [gabapentin], Penicillins, Macrobid [nitrofurantoin macrocrystal], and Tramadol Recent Labs 08/30/20 0606 08/31/20 0604 BUN 3* 2* Recent Labs 08/30/20 0606 08/31/20 0604 CREATININE 0.41* 0.31* Recent Labs 08/31/20 0604 09/01/20 0531 WBC 8.1 6.5 No intake or output data in the 24 hours ending 09/01/20 1835 Culture Date Source Results 08/30 blood x2 no growth x2 days Ht Readings from Last 1 Encounters: 09/01/20 5' 6 (1.676 m) Wt Readings from Last 1 Encounters: 09/01/20 145 lb (65.8 kg) Body mass index is 23.4 kg/m . Estimated Creatinine Clearance: 253 mL/min (A) (based on SCr of 0.31 mg/dL (L)). Goal Trough Level: 10-20 mcg/mL Assessment/Plan: Will initiate Vancomycin 1250 mg IV every 12 hours. Timing of trough level will be determined basedon culture results, renal function, and clinical response. Thank you for the consult. Will continue to follow. Berry Mccain, PharmD * Hansa Davenport DO - 09/01/2020 3:57 PM EST [facility] Office: [phone] Valeriy García DO, Grey Hauser DO, Kike Cardenas DO, Roby Npaier DO, Amado Bhagat MD, Liv Snowden MD, Abimael Amor MD, Violeta Saba MD, Delfin Marshall MD, Kirsty Del Valle MD, MD Shawn, Shan Keenan MD, Jeni Partida MD, Ghanshyam Bonilla DO, Avtar Wall MD, Gaby Rodriguez MD, Jamir Chavira DO, Heriberto Bermeo MD, Hansa Davenport DO, Rios Kowalski MD, MD Ra, Jenny Goodrich GASOLINE ENGINE INSPECTOR, Jewels Dominguez GASOLINE ENGINE INSPECTOR, Shireen Bernal, GASOLINE ENGINE INSPECTOR, Stephanie Leos, CIRCUIT BOARD ASSEMBLER,Bonilla Arce, GASOLINE ENGINE INSPECTOR, Yodit Edwards, GASOLINE ENGINE INSPECTOR, Annabella Smith, GASOLINE ENGINE INSPECTOR, Yaa Cantu GASOLINE ENGINE INSPECTOR, Akira Bundy, GASOLINE ENGINE INSPECTOR, Trevor Arriaga PA-C, Zohreh Nguyen DNP, Irma Milian, GASOLINE ENGINE INSPECTOR, Sri Fishman, GASOLINE ENGINE INSPECTOR, Deena Jones, GASOLINE ENGINE INSPECTOR, Alka Lazo, GASOLINE ENGINE INSPECTOR, Pretty Barbosa, GASOLINE ENGINE INSPECTOR [facility] IN-PATIENT SERVICE [facility] Progress Note 09/01/2020 3:57 PM Name: Rm Mccullough Acct: [id number] Room: [facility] Day: 2 Admit Date: 08/30/2020 1:07 AM PCP: Ingrid Dent, SABAS - AN Code Status: Full Code Subjective: C/C: Chief Complaint Patient presents with Suicidal Alcohol Intoxication Interval History Status: not changed. Patient seen and examined at bedside. Doing well today. Feels as if her leg is slowly getting better but is still complaining of discomfort. Review of Systems: Constitutional: negative for chills, fevers, sweats Respiratory: negative for cough, dyspnea on exertion, shortness of breath, wheezing Cardiovascular: negative for chest pain, chest pressure/discomfort, lower extremity edema, palpitations Gastrointestinal: Admits to diarrhea and abdominal pain Neurological: negative for dizziness, headache EXT: Right leg cellulitis improving Medications: Allergies: Allergies Allergen Reactions Amoxicillin Anaphylaxis Aripiprazole Anaphylaxis ABILIFY Asenapine Anaphylaxis Clindamycin/Lincomycin Anaphylaxis Depo-Provera [Medroxyprogesterone] Other (See Comments) WEIGHT LOSS AND BLEEDING Hydrocodone-Acetaminophen Hives Lamictal [Lamotrigine] Anaphylaxis Migranol [Dihydroergotamine] Anaphylaxis Prozac [Fluoxetine Hcl] Anaphylaxis Wellbutrin [Bupropion] Anaphylaxis Zoloft [Sertraline] Anaphylaxis Azithromycin Hives Bactrim [Sulfamethoxazole-Trimethoprim] Hives Codeine Hives and Itching Macrobid [Nitrofurantoin] Hives Naproxen Sodium Hives Neurontin [Gabapentin] Hives Penicillins Hives and Rash Macrobid [Nitrofurantoin Macrocrystal] Other (See Comments) and Rash Tramadol Hives Current Meds: Scheduled Meds: ferrous sulfate 325 mg Oral Daily with breakfast QUEtiapine 300 mg Oral Nightly lactobacillus 1 capsule Oral Daily with breakfast lithium 300 mg Oral TID enoxaparin 40 mg Subcutaneous Daily ceFAZolin 2 g Intravenous Q8H traZODone 50 mg Oral Nightly Continuous Infusions: PRN Meds: promethazine OR ondansetron, acetaminophen Data: Past Medical History: has a past medical history of Asthma, Bipolar 1 disorder (HCC), Celiac disease, Chronic kidney disease, Depression, Difficult intravenous access, Genital herpes, GERD (gastroesophageal reflux disease), H/O opioid abuse ([facility]), H/O self mutilation, Hepatitis C, Heroin abuse (HCC), History of blood transfusion, History of chemotherapy, Hx of blood clots, Hypertension, Hypokalemia, Miscarriage, Nausea and vomiting, Non Hodgkin's lymphoma (HCC), Seizures (HCC), Sepsis (HCC), Trigeminal neuralgia, Tumor of lung, Wears dentures, and Wears dentures. Social History: reports that she has been smoking cigarettes. She has a 1.25 pack-year smoking history. She has never used smokeless tobacco. She reports previous drug use. She reports that she does not drink alcohol. Family History: Family History Problem Relation Age of Onset High Blood Pressure Mother Other Mother High Blood Pressure Father Heart Disease Brother Other Brother EPILEPSY Vitals: BP 123/84 Pulse 90 Temp 98.1 F (36.7 C) (Oral) Resp 21 Ht 5' 6 (1.676 m) Wt 145 lb (65.8kg) SpO2 99% BMI 23.40 kg/m Temp (24hrs), Av F (36.7 C), Min:97.8 F (36.6 C), Max:98.1 F (36.7 C) No results for input(s): POCGLU in the last 72 hours. I/O (24Hr): No intake or output data in the 24 hours ending 09/01/20 1557 Labs: Hematology: Recent Labs 08/30/20 0236 08/30/20 0313 08/30/20 0320 08/30/20 0606 08/31/20 0604 09/01/20 0531 WBC 7.6 -- -- 8.7 8.1 6.5 RBC 4.17 -- -- 3.77* 3.54* 3.68* HGB 12.2 -- -- 11.2* 10.4* 11.0* HCT 36.8 -- -- 35.1* 34.3* 35.0* MCV 88.2 -- -- 93.1 96.9 95.1 MCH 29.3 -- -- 29.7 29.4 29.9 MCHC 33.2 -- -- 31.9 30.3 31.4 RDW 16.4* -- -- 16.4* 16.7* 16.0* PLT See Reflexed IPF Result -- -- 287 238 258 MPV NOT REPORTED -- -- 8.6 9.1 9.0 SEDRATE -- 1 -- -- -- -- CRP 21.2* -- -- -- -- -- INR -- -- 1.0 -- -- -- Chemistry: Recent Labs 08/30/20 0236 08/30/20 0359 08/30/20 0606 08/30/20 1801 08/31/20 0604 NA 137 -- 138 -- 137 K 3.6* -- 3.3* -- 4.5 CL 103 -- 106 -- 109* CO2 24 -- 23 -- 24 GLUCOSE 86 -- 99 -- 104* BUN 4* -- 3* -- 2* CREATININE 0.39* -- 0.41* -- 0.31* MG -- -- 1.8 -- -- ANIONGAP 10 -- 9 -- 4* LABGLOM >60 -- >60 -- >60 GFRAA >60 -- >60 -- >60 CALCIUM 8.9 -- 8.4* -- 8.5* LACTACIDWB -- 2.3* 2.5* 1.3 -- Recent Labs 08/30/20 02308/31/20 0604 PROT 6.2* 5.2* LABALBU 3.9 3.0* AST 20 26 ALT 18 13 ALKPHOS 132* 122* BILITOT <0.10* 0.21* ABG:No results found for: POCPH, PHART, PH, POCPCO2, PZI2ZOD, PCO2, POCPO2, PO2ART, PO2, POCHCO3, [id number], HCO3, NBEA, PBEA, BEART, BE, THGBART, THB, DMA0AUD, [id number], [id number], O2SAT, FIO2 Lab Results Component Value Date/Time SPECIAL R WRIST, 3 ML red only 08/30/2020 04:20 AM Lab Results Component Value Date/Time CULTURE NO GROWTH 2 DAYS 08/30/2020 04:20 AM Radiology: Xr Radius Ulna Left (2 Views) Result Date: 08/31/2020 1. No acute osseous abnormality of the right hand and forearm. 2. No radiodense foreign body. Xr Hand Right (min 3 Views) Result Date: 08/31/2020 1. No acute osseous abnormality of the right hand and forearm. 2. No radiodense foreign body. Xr Tibia Fibula Right (2 Views) Result Date: 08/30/2020 Findings concerning for osteomyelitis proximally adjacent the fracture line of the distal tibia with adjacent soft tissue swelling medially. 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 Hardware appears well seated currently. Physical Examination: General appearance: alert, cooperative and no distress Mental Status: oriented to person, place and time and normal affect Lungs: clear to auscultation bilaterally, normal effort Heart: regular rate and rhythm, no murmur Abdomen: soft, nontender, nondistended, normal bowel sounds, no masses, hepatomegaly, splenomegaly Extremities: Right lower extremity cellulitis appears to be improving minimally compared to yesterday Skin: no gross lesions, rashes, induration Assessment: Hospital Problems Last Modified POA * (Principal) Cellulitis 08/30/2020 Yes Opioid type dependence, continuous use (HCC) 08/30/2020 Yes Essential hypertension 08/30/2020 Yes Suicidal behavior with attempted self-injury (HCC) 08/30/2020 Yes Acute hypokalemia 08/30/2020 Yes Brief History: This is a 29-year-old female with an extensive psych history including bipolar disease, depression,PTSD who presents to our hospital with suicidal ideation and right leg cellulitis. On admission, ethanol level was 0.19. She did have suicidal thoughts with plan. Patient was admitted and evaluated by psychiatry who recommend continuing suicide precautions and admitting to [facility] once patient is medically stable for discharge. Patient did complain of some right lower extremity leg pain/erythema concerning for cellulitis. She was started on Ancef 2 g every 8 hours on 08/30/19 and vancomycin with improvement in her right leg pain/swelling. Patient's vital signs remained stable during her admission. She was afebrile and normotensive with no white count. She will be discharged to [facility] for continued psychiatric evaluation/treatment once evaluated by ID. Plan: 1. Right lower extremity cellulitis-improving: She does have multiple drug allergies, continue Ancef/Vancomycin. Will have ID evaluate Leg for abx recommendations. She will need follow-up with her primary care physician/surgeon for reevaluation of cellulitis and to ensure resolution. Blood cultureswith no growth to date. 2. Suicidal ideation with plan: Plan to discharge to [facility]. Continue current medication. Will need 1:1 Sitter at bedside, suicide precautions> Pt on high doses of medication. 3. Nausea/diarrhea: resolved. 4. UMM: continue home ferrous sulfate 325 mg daily. 5. Acute hypokalemia replaced 6. Lactic acidosis: Resolved. 7. DVT prophylaxis 8. Advance diet as tolerated Dispo: will discharged today to [facility] Hansa Davenport DO 09/01/2020 3:57 PM * Alyce Ortiz RN - 09/01/2020 12:55 PM EST RN phoned the [facility] pharmacy and requested home medication list faxed. Will update once received. * Hansa Davenport DO - 08/31/2020 12:42 PM EST [facility] Office: [phone] Valeriy García DO, Grey Hauser DO, Kike Cardenas DO, Roby Napier DO, Amado Bhagat MD, Liv Snowden MD, Abimael Amor MD, Violeta Saba MD, Delfin Marshall MD, Kirsty Del Valle MD, MD Shawn, Shan Keenan MD, Jeni Partida MD, Ghanshyam Bonilla DO, Avtar Wall MD, Gaby Rodriguez MD, Jamir Chavira DO, Heriberto Bermeo MD, Hansa Davenport DO, Rios Kowalski MD, MD Ra, Jenny Goodrich GASOLINE ENGINE INSPECTOR, Jewels Dominguez GASOLINE ENGINE INSPECTOR, Shireen Bernal, GASOLINE ENGINE INSPECTOR, Stephanie Leos, CIRCUIT BOARD ASSEMBLER,Bonilla Arce, GASOLINE ENGINE INSPECTOR, Yodit Edwards GASOLINE ENGINE INSPECTOR, Annabella Smith GASOLINE ENGINE INSPECTOR, Yaa Cantu, GASOLINE ENGINE INSPECTOR, Akira Bundy, GASOLINE ENGINE INSPECTOR, Trevor Arriaga PA-C, Zohreh Nguyen, RAUL, Irma Milian, GASOLINE ENGINE INSPECTOR, Sri Fishman, GASOLINE ENGINE INSPECTOR, Deena Jones, GASOLINE ENGINE INSPECTOR, Alka Lazo, GASOLINE ENGINE INSPECTOR, Prettymegan Barbosa CNP [facility] IN-PATIENT SERVICE [facility] Progress Note 08/31/2020 12:43 PM Name: Rm Mccullough Acct: [id number] Room: [address] Day: 1 Admit Date: 08/30/2020 1:07 AM PCP: SABAS Quevedo CNP Code Status: Full Code Subjective: C/C: Chief Complaint Patient presents with Suicidal Alcohol Intoxication Interval History Status: not changed. Patient seen and examined at bedside. Today she does complain of some nausea/vomiting. She continues to complain of right leg pain however states that it feels somewhat improved compared to yesterday. Patient denies any chronic alcohol use and has never been in withdrawal. Patient denies any opiateuse. She does have a history of iron deficiency anemia remainder of history is unclear as she is a poor historian. She denies any chest pain, shortness of breath consequently breathing. Denies any withdrawal symptoms including hallucinations, visual changes, tremors, palpitations, diaphoresis. Review of Systems: Constitutional: negative for chills, fevers, sweats Respiratory: negative for cough, dyspnea on exertion, shortness of breath, wheezing Cardiovascular: negative for chest pain, chest pressure/discomfort, lower extremity edema, palpitations Gastrointestinal: Admits to diarrhea and abdominal pain Neurological: negative for dizziness, headache EXT: Admits to right leg pain with palpation that is slightly improving Medications: Allergies: Allergies Allergen Reactions Amoxicillin Anaphylaxis Aripiprazole Anaphylaxis ABILIFY Asenapine Anaphylaxis Clindamycin/Lincomycin Anaphylaxis Depo-Provera [Medroxyprogesterone] Other (See Comments) WEIGHT LOSS AND BLEEDING Hydrocodone-Acetaminophen Hives Lamictal [Lamotrigine] Anaphylaxis Migranol [Dihydroergotamine] Anaphylaxis Prozac [Fluoxetine Hcl] Anaphylaxis Wellbutrin [Bupropion] Anaphylaxis Zoloft [Sertraline] Anaphylaxis Azithromycin Hives Bactrim [Sulfamethoxazole-Trimethoprim] Hives Codeine Hives and Itching Macrobid [Nitrofurantoin] Hives Naproxen Sodium Hives Neurontin [Gabapentin] Hives Penicillins Hives and Rash Macrobid [Nitrofurantoin Macrocrystal] Other (See Comments) and Rash Tramadol Hives Current Meds: Scheduled Meds: [START ON 09/01/2020] ferrous sulfate 325 mg Oral Daily with breakfast QUEtiapine 300 mg Oral Nightly lithium 300 mg Oral TID enoxaparin 40 mg Subcutaneous Daily ceFAZolin 2 g Intravenous Q8H traZODone 50 mg Oral Nightly Continuous Infusions: PRN Meds: promethazine OR ondansetron, acetaminophen Data: Past Medical History: has a past medical history of Asthma, Bipolar 1 disorder (HCC), Celiac disease, Chronic kidney disease, Depression, Difficult intravenous access, Genital herpes, GERD (gastroesophageal reflux disease), H/O opioid abuse (HCC), H/O self mutilation, Hepatitis C, Heroin abuse (HCC), History of blood transfusion, History of chemotherapy, Hx of blood clots, Hypertension, Hypokalemia, Miscarriage, Nausea and vomiting, Non Hodgkin's lymphoma (HCC), Seizures (HCC), Sepsis (HCC), Trigeminal neuralgia, Tumor of lung, Wears dentures, and Wears dentures. Social History: reports that she has been smoking cigarettes. She has a 1.25 pack-year smoking history. She has never used smokeless tobacco. She reports previous drug use. She reports that she does not drink alcohol. Family History: Family History Problem Relation Age of Onset High Blood Pressure Mother Other Mother High Blood Pressure Father Heart Disease Brother Other Brother EPILEPSY Vitals: BP 113/78 Pulse 78 Temp 99.1 F (37.3 C) (Oral) Resp 14 Ht 5' 6 (1.676 m) Wt 145 lb (65.8kg) SpO2 100% BMI 23.40 kg/m Temp (24hrs), Av.1 F (37.3 C), Min:99.1 F (37.3 C), Max:99.1 F (37.3 C) No results for input(s): POCGLU in the last 72 hours. I/O (24Hr): No intake or output data in the 24 hours ending 08/31/20 1243 Labs: Hematology: Recent Labs 08/30/20 0236 08/30/20 0313 08/30/20 0320 08/30/20 0606 08/31/20 0604 WBC 7.6 -- -- 8.7 8.1 RBC 4.17 -- -- 3.77* 3.54* HGB 12.2 -- -- 11.2* 10.4* HCT 36.8 -- -- 35.1* 34.3* MCV 88.2 -- -- 93.1 96.9 MCH 29.3 -- -- 29.7 29.4 MCHC 33.2 -- -- 31.9 30.3 RDW 16.4* -- -- 16.4* 16.7* PLT See Reflexed IPF Result -- -- 287 238 MPV NOT REPORTED -- -- 8.6 9.1 SEDRATE -- 1 -- -- -- CRP 21.2* -- -- -- -- INR -- -- 1.0 -- -- Chemistry: Recent Labs 08/30/2023508/30/20 0359 08/30/20 0606 08/30/20 1801 08/31/20 0604 NA 137 -- 138 -- 137 K 3.6* -- 3.3* -- 4.5 CL 103 -- 106 -- 109* CO2 24 -- 23 -- 24 GLUCOSE 86 -- 99 -- 104* BUN 4* -- 3* -- 2* CREATININE 0.39* -- 0.41* -- 0.31* MG -- -- 1.8 -- -- ANIONGAP 10 -- 9 -- 4* LABGLOM >60 -- >60 -- >60 GFRAA >60 -- >60 -- >60 CALCIUM 8.9 -- 8.4* -- 8.5* LACTACIDWB -- 2.3* 2.5* 1.3 -- Recent Labs 08/30/2023508/31/20 0604 PROT 6.2* 5.2* LABALBU 3.9 3.0* AST 20 26 ALT 18 13 ALKPHOS 132* 122* BILITOT <0.10* 0.21* ABG:No results found for: POCPH, PHART, PH, POCPCO2, YPQ2FOM, PCO2, POCPO2, PO2ART, PO2, POCHCO3, GEM0ZWV, HCO3, NBEA, PBEA, BEART, BE, THGBART, THB, [id number], [id number], [id number], O2SAT, FIO2 Lab Results Component Value Date/Time SPECIAL R WRIST, 3 ML red only 08/30/2020 04:20 AM Lab Results Component Value Date/Time CULTURE NO GROWTH 1 DAY 08/30/2020 04:20 AM Radiology: Xr Radius Ulna Left (2 Views) Result Date: 08/31/2020 1. No acute osseous abnormality of the right hand and forearm. 2. No radiodense foreign body. Xr Hand Right (min 3 Views) Result Date: 08/31/2020 1. No acute osseous abnormality of the right hand and forearm. 2. No radiodense foreign body. Xr Tibia Fibula Right (2 Views) Result Date: 08/30/2020 Findings concerning for osteomyelitis proximally adjacent the fracture line of the distal tibia with adjacent soft tissue swelling medially. 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 Hardware appears well seated currently. Physical Examination: General appearance: alert, cooperative and no distress Mental Status: oriented to person, place and time and normal affect Lungs: clear to auscultation bilaterally, normal effort Heart: regular rate and rhythm, no murmur Abdomen: soft, nontender, nondistended, normal bowel sounds, no masses, hepatomegaly, splenomegaly Extremities: Right lower extremity cellulitis appears to be improving minimally compared to yesterday Skin: no gross lesions, rashes, induration Assessment: Hospital Problems Last Modified POA * (Principal) Cellulitis 08/30/2020 Yes Opioid type dependence, continuous use (HCC) 08/30/2020 Yes Essential hypertension 08/30/2020 Yes Suicidal behavior with attempted self-injury (HCC) 08/30/2020 Yes Acute hypokalemia 08/30/2020 Yes Brief History: This is a 29-year-old female with an extensive psych history including bipolar disease, depression,PTSD who presents to our hospital with suicidal ideation and right leg cellulitis. On admission, ethanol level was 0.19. She did have suicidal thoughts with plan. Patient was admitted with a psych consult currently scheduled for 1230 on 08/31/2020. Otherwise, patient does have some right lower extremity leg pain concerning for cellulitis. She was started on Ancef 2 g every 8 hours on 08/30/19 with improvement in her right leg pain/swelling. Plan: 1. Right lower extremity cellulitis-improving: Ancef 2g Q8h started 08/30/20 with plans to transitionto oral abx and have patient complete a 7-day course on an outpatient basis. She will need follow-up with her primary care physician. Blood cultures with no growth to date. 2. Suicidal ideation with plan: We will consult psychiatry for possible inpatient hospitalization, appointment scheduled for 1230 08/31/20. Continue current medication. Will need 1:1 Sitter at bedside,suicide precautions 3. Nausea/diarrhea: Difficult to obtain history from patient however she denies any previous history of alcohol abuse. Will monitor for signs of withdrawal and treat accordingly. Add probiotic 4. UMM: continue home ferrous sulfate 325 mg daily. Monitor Hgb, transfuse PRN for symptomatic anemia. 5. Acute hypokalemia: Replace electrolytes per protocol 6. Lactic acidosis: Lactic acid 2.5 on admission, resolved with IV fluids. 7. DVT prophylaxis 8. Advance diet as tolerated Dispo: will await psych recommendations and continue tx for cellulitis. Hansa Davenport DO 08/31/2020 12:43 PM * Akira Gambino, [facility] - 08/30/2020 4:03 AM EST Pharmacy Note Vancomycin Consult Rm Mccullough is a 29 y.o. female started on Vancomycin for cellulitis; consult received from Dr. Alex Cedeño to manage therapy. Also receiving the following antibiotics: none. Patient Active Problem List Diagnosis Mixed bipolar I disorder ([facility]) Opioid type dependence, continuous use (HCC) Opioid dependence with withdrawal ([facility]) Hep C w/o coma, chronic (HCC) Essential hypertension NHL (non-Hodgkin's lymphoma) ([facility]) Bilateral leg edema Abdominal swelling, generalized Right upper quadrant pain Chest pain Shortness of breath Idiopathic thrombocytopenic purpura (HCC) DVT (deep venous thrombosis) ([facility]) Trigeminal neuralgia Celiac disease Fibroma Transient synovitis of knee, right Rupture of anterior cruciate ligament of right knee Schizoaffective disorder (HCC) Allergies: Amoxicillin, Aripiprazole, Asenapine, Clindamycin/lincomycin, Depo- provera [medroxyprogesterone], Hydrocodone-acetaminophen, Lamictal [lamotrigine], Migranol [dihydroergotamine], Prozac [fluoxetine hcl], Wellbutrin [bupropion], Zoloft [sertraline], Azithromycin, Bactrim [sulfamethoxazole- trimethoprim], Codeine, Macrobid [nitrofurantoin], Naproxen sodium, Neurontin [gabapentin], Penicillins, Macrobid [nitrofurantoin macrocrystal], and Tramadol Temp max: 98.9 Recent Labs 08/30/20 0236 BUN 4* Recent Labs 08/30/20 0236 CREATININE 0.39* Recent Labs 08/30/20 0236 WBC 7.6 No intake or output data in the 24 hours ending 08/30/20 0402 Culture Date Source Results pending Ht Readings from Last 1 Encounters: 08/30/20 5' 6 (1.676 m) Wt Readings from Last 1 Encounters: 08/30/20 145 lb (65.8 kg) Body mass index is 23.4 kg/m . Estimated Creatinine Clearance: 201 mL/min (A) (based on SCr of 0.39 mg/dL (L)). Goal Trough Level: 10-15 mcg/mL Assessment/Plan: Will initiate Vancomycin with a one time loading dose of 1500 mg x1, followed by 1250 mg IV every 12 hours. Timing of trough level will be determined based on culture results, renal function, and clinical response. Thank you for the consult. Will continue to follow. Akira Gambino [facility] 08/30/2020 4:03 AM documented in this encounter Additional Source Comments INFORMATION SOURCE (unrecogn ized section and content) DATE CREATED AUTHOR 06/02/2020 [facility] DATE CREATED AUTHOR AUTHOR'S ORGANIZ ATION 05/17/2021 [facility] DATE CREATED AUTHOR AUTHOR'S ORGANIZ ATION 02/16/2023 [facility] DATE CREATED AUTHOR AUTHOR'S ORGANIZ ATION 05/08/2023 [facility] DATE CREATED AUTHOR AUTHOR'S ORGANIZ ATION 08/24/2023 [facility] Reason for Visit (unrecogniz ed section and content) Reason Comments Drug Overdose Reason Comments Suicidal Alcohol Intoxication Status Reason Specialty Diagnoses / Procedures Referre d By Contact Referred To Contact Diagnoses Suicidal behavior with attempted self-injury (HCC) Hansa Davenport DO [address] [place], [place] [facility] Reason Comments Foot Pain Other Medical clearance fo r fci Reason Comments Ear Fullness Otalgia Reason Comments Hypertension seen doctor yesterda y and perscribed lopressor but not came in yet Reason Comments Allergic Reaction patient on ATB for P ID Reason Comments Rash Dysuria Surgical History (unrecogniz ed section and content) Surgery Date Site/Laterality Comments TONSILLECTOMY 08/24/2004 - 08/23/2005 TUMOR REMOVAL 08/24/2000 - 08/23/2001 chest CYST REMOVAL 08/24/2011 - 08/23/2012 Right GANGLION HAND COSMETIC SURGERY 08/24/2013 - 08/23/2014 Right facial SECTION x2 TUBAL LIGATION 08/24/2015 - 08/23/2016 KNEE ARTHROSCOPY 02/16/2019 Right KNEE ARTHROSCOPY 02/16/2019 Right DIAGNOSTIC KNEE ARTHROSCOPY WITH LIMITED SYNOVECTOMY performed by Cipriano Tilley DO at [facility] OR SECTION 2011 & 2015 X 2 DILATION AND CURETTAGE OF UTERUS 08/24/2013 - 08/23/2014 ANTERIOR CRUCIATE LIGAMENT REPAIR 03/16/2019 ANTERIOR CRUCIATE LIGAMENT REPAIR 03/16/2019 Knee/Right ARTHROSCOPIC ACL RECONSTRUCTION (ARTHREX, 3080 TABLE) performed by Cipriano Tilley DO at [facility] OR Medical devices from this surgery are in the Implants section. Medical History (unrecognize d section and content) Medical History Date Comments Celiac disease 2010 Bipolar 1 disorder (HCC) 2011 follows with [facility] Depression 2011 Trigeminal neuralgia 2010 TREATED WIT H BOTOX Heroin abuse (HCC) 2011 LAST DOSE 201 3 H/O self mutilation 2003 STRUGGLES BU T HAS NOT DONE IN 1 YEAR Tumor of lung 2013 BEING MONITORED Chronic kidney disease Seizures (HCC) 2002 LAST SEIZURE 200 3 Genital herpes 2016 diagnosed January 10 Hepatitis C 2013 REMISSION History of chemotherapy 2000 NHL GERD (gastroesophageal reflux disease) 2015 NO RX AT THIS TIME Wears dentures Asthma 2001 INHALER NEEDE D Non Hodgkin's lymphoma (HCC) 2001 B-C ELL TREATED WITH CHEMO History of blood transfusion 2016 R/T PLACENTAL ABRUPTION Hx of blood clots 2013 LEGS Hypertension 2010 ON RX Sepsis (HCC) 2014 ABSCESS RIGHT SI DE OF FACE Miscarriage 2014 Wears dentures UPPER AND LOWER Difficult intravenous access STA BETTY LAST TIME NEEDED PICC TEAM Hypokalemia Nausea and vomiting H/O opioid abuse (HCC) Percocet Obstetrics History (unrecogn ized section and content) Grav Para Term Pre Abrt (TAB) (SAB) (Ect) Mult Lvng Comments 6 2 2 2 2 1 2 Patient on progesterone and procardia for both . labor with prolonged bedrest for 2 months with G1 and 4 months with G3 Date Outcome GA Total Labor Labor/2nd/3rd Weight Sex Delivery Anes PTL Kamala A1 A5 Name Cl in 2007 SAB 16w 0d SAB 02/25 35w 0d 7 lb 12 oz M Vag-Spont Y Tania ng 02/15 29w 0d 4 lb M CS-LTranv Y Tania ng 02/15 29w 0d 2 lb 2 oz M CS-LTranv Y Tania ng Complications: heart de celeration 12/11 14 SAB 8w0 d SAB Ordered Prescriptions (unrec ognized section and content) Prescription Sig Dispensed Refills Start Date End Da te potassium chloride (KLOR-CON M) 20 MEQ extended release tablet Take 1 tablet by mouth daily 14 tablet 0 09/02/2020 venlafaxine (EFFEXOR XR) 150 MG extended release capsule Take 2 capsules by mouth daily 60 capsule 0 09/01/2020 traZODone (DESYREL) 300 MG tablet Take 1 tablet by mouth nightly 30 tablet 0 09/01/2020 QUEtiapine (SEROQUEL XR) 300 MG extended release tablet Take 3 tablets by mouth nightly 30 tablet 3 09/01/2020 ferrous sulfate (FE TABS 325) 325 (65 Fe) MG EC tablet Take 1 tablet by mouth daily (with breakfast) 90 tablet 3 09/02/2020 venlafaxine (EFFEXOR XR) 75 MG extended release capsule Take 4 capsules by mouth daily 30 capsule 3 09/01/2020 09/01/2020 Naloxone HCl (NALOXONE OPIATE OVERDOSE KIT) 1 each by Nasal route once for 1 dose 1 kit 0 09/01/2020 09/01/2020 cefadroxil (DURICEF) 1 g tablet Take 1 tablet by mouth daily for 5 days 5 tablet 0 09/01/2020 09/01/2020 Prescription Sig Dispensed Refills Start Date End Da te ofloxacin (FLOXIN) 0.3 % otic solution Place 5 drops into the left ear 2 times daily for 10 days May Substitute ophthalmic drops. 10 mL 0 06/14/2021 06/24/2021 doxycycline hyclate (VIBRA-TABS) 100 MG tablet Take 1 tablet by mouth 2 times daily for 10 days 20 tablet 0 06/14/2021 06/24/2021 Prescription Sig Dispensed Refills Start Date End Da te ondansetron (ZOFRAN ODT) 4 MG disintegrating tablet Take 1 tablet by mouth every 8 hours as needed for Nausea or Vomiting 20 tablet 0 12/11/2021 metoprolol tartrate (LOPRESSOR) 25 MG tablet Take 1 tablet by mouth 2 times daily 10 tablet 0 12/11/2021 Prescription Sig Dispensed Refills Start Date End Da te predniSONE (DELTASONE) 10 MG tablet Take five tablets on days 1-2, four tablets on days 3-4, three tablets on days 5-6, two tablets on day 7-8, one tablet on days 9-10. 30 tablet 0 01/03/2022 Prescription Sig Dispensed Refills Start Date End Da te hydrocortisone (SCALACORT) 2 % LOTN lotion Apply 1 application topically 2 times daily 29.6 mL 0 08/16/2022 doxycycline hyclate (VIBRA-TABS) 100 MG tablet Take 1 tablet by mouth 2 times daily for 10 days 20 tablet 0 08/16/2022 08/26/2022 hydrocortisone (SCALACORT) 2 % LOTN lotion Apply 1 application topically 2 times daily 29.6 mL 0 08/16/2022 08/16/2022 doxycycline hyclate (VIBRA-TABS) 100 MG tablet Take 1 tablet by mouth 2 times daily for 10 days 20 tablet 0 08/16/2022 08/16/2022 Scheduled Active and Recently Administ ered Medications (unrecognized section and content) Medication Order 12/09/2021 12/10/2021 12/11/2021 metoprolol tartrate (LOPRESSOR) tablet 25 mg (COMPLETED) 25 mg, Oral, ONCE, 1 dose, On Thu12/11/21 at 0945 0950 (Given - Provid er: Shin New, RN) ondansetron (ZOFRAN-ODT) disintegrating tablet 4 mg (COMPLETED) 4 mg, Oral, ONCE, 1 dose, On 12/11/21 at 1115 1120 (Given - Provid er: Shin Wolff RN) Scheduled Medication Order 01/01/2022 01/02/2022 01/03/2022 predniSONE (DELTASONE) tablet 60 mg (COMPLETED) 60 mg, Oral, ONCE, 1 dose, On 01/03/22 at 1015 1028 (Given - Provid er: Jaleesa Starr RN) Scheduled Medication Order 08/14/2022 08/15/2022 08/16/2022 doxycycline monohydrate (MONODOX) capsule 100 mg 100 mg, Oral, ONCE, 1 dose, On 08/16/22 at 2100, Antimicrobial Indications: Skin and Soft Tissue Infection, STD infection, This medication can interact with tube feedings (TF)- obtain MD order to manage. Recommend holding TF for 1 h before and 2 h after dose. Take 1 h before or 2 h after dairy, calcium, iron, magnesium, aluminum or zinc. 2100 (Due) Care Teams (unrecognized sec tion and content) Industrial Chemist Relationship Specialty Start Date End Date Mc BautistaSABAS - GASOLINE ENGINE INSPECTOR [address] [place] [address] PCP - General Certified Nurse Practitioner 12/25/21 Industrial Chemist Relationship Specialty Start Date End Date Lily Mc, PAROLE DIRECTOR - GASOLINE ENGINE INSPECTOR [address] [place] [address] PCP - General Certified Nurse Practitioner 12/25/21 FOR RECORDS PERTAINING TO PATIENTS WHO ARE OR HAVE BEEN ENROLLED IN A CHEMICAL DEPENDENCY/SUBSTANCEABUSE PROGRAM, SOME INFORMATION MAY BE OMITTED. This clinical summary was aggregated from multiple sources. Caution should be exercised in using it in the provision of clinical care. This summary normalizes information from multiple sources, and as a consequence, information in this document may materially change the coding, format and clinical context of patient data. In addition, data may be omitted in some cases. CLINICAL DECISIONS SHOULD BE BASED ON THE PRIMARY CLINICAL RECORDS. [employer] [facility] provides no warranty or guarantee of the accuracy or completeness of information in this document.
[2023-08-24] MEDS: ENOXAPARIN SODIUM 60 MG/0.6 ML SYRINGE 50 MG SUBQ (11:44)
== END 2023-08-24 11:53 | disposition home or self-care (01) ==
PROVIDERS: Emergency Provider Emergency Medicine Emergency Medical Services
DX: M79.662 Pain in left lower leg (principal); Z79.899 Other long term (current) drug therapy; F17.210 Nicotine dependence, cigarettes, uncomplicated
CPT/HCPCS: 99283; J1650

== ENCOUNTER 2023-08-25 08:37 | Outpatient (OUT) | payer MEDICAID, SELFPAY ==
--- NOTE | 2023-08-25 08:51 | US_ITS ---
[place] [id number] Patient Name: RM MCCULLOUGH MRN: [id number] date: 1990 Sex: F Assigned Patient Location: US Current Patient Location: US Accession/Order Number: [id number] Exam Date: 08/25/2023 08:55 Report Date: 08/25/2023 09:48 At the request of: LUZ MARINA METZ Procedure: US venous doppler LE LT EXAMINATION: US venous doppler LE LT HISTORY: Calf Pain , Idiopathic Thrombocytopenic Purpura COMPARISON: No relevant comparison available. TECHNIQUE: Grayscale, color and Doppler FINDINGS: Region: Left leg Thrombus: None Flow: Normal Compressibility: Normal Augmentation: Normal US/US venous doppler LE LT IMPRESSION: No deep or superficial vein thrombus in the left leg *Exam performed in accordance with [facility] practice guidelines- Peripheral venous ultrasound, November 17, 2009. Electronically authenticated by: COURTNEY MCMANUS Date: 08/25/2023 09:48
--- OUTSIDE RECORDS SUMMARY | 2023-08-25 08:52 | XMS_ITS | CCD ---
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 Name Role Phone Ingrid Dent Primary Care Provider [phone] SHEEBA LAINEZ Admitting Unavailable INGRID DENT Primary Care Unavailable SELF, REFERRED Referring Unavailable ZOHREH JOHANSEN Attending Unavailable Unavailable Primary Care Provider Unavailabl e Unavailable Primary Care Provider Unavailabl e INGRID DENT Primary Care Unavailable ROBY NAPIER P Consulting Unavailable MASHALCRALA, MOHAMMAD I Admitting Unavailable MASHALEH, MOHAMMAD I [...] Unavailable LILYMC MCDONOUGH Primary Care Unavailable HUMBLE BRIZUELA L Referring Unavailable USAMA BAUTISTASHUA Primary Care Unavailable RISSA MACK Attending Unavailable RISSA MACK Referring Unavailable NO PCP, NO PCP Primary Care Unavailable Allergies Allergy Classification Reported Allergen(s) Allergy Type Date of Onset Reaction(s) Facility (10 sources) Acetaminophen / HYDROcodone; Translations: [HYDROCODONE-ACETAMI NOPHEN] Drug Allergy 06-28-20 13 [place], [place] (10 sources) Amoxicillin; Translations: [AMOXICILLIN] Drug Allergy 06-28-20 13 Anaphylaxis [place], [place] (10 sources) ARIPiprazole; Translations: [ARIPIPRAZOLE] Drug Allergy 06-28-20 13 [place]aphylaxis [place], [place] (10 sources) Asenapine; Translations: [ASENAPINE] Drug Allergy 02-26-20 16 [place]aphylaxis [place], [place] (10 sources) Azithromycin; Translations: [AZITHROMYCIN] Drug Allergy 06-28-20 13 [place], [place] (10 sources) buPROPion; Translations: [BUPROPION] Drug Allergy 06-28-20 13 [place]aphylaxis [place], [place] (10 sources) Codeine; Translations: [CODEINE] Drug Allergy 06-28-20 13 [facility], Itching [place], [place] (10 sources) Dihydroergotamine; Translations: [DIHYDROERGOTAMINE] Drug Allergy 06-28-20 13 [place]aphylaxis [place] (9 sources) FLUoxetine Drug Allergy 02-17-20 19 [place]aphylaxis [place] (10 sources) gabapentin; Translations: [GABAPENTIN] Drug Allergy 06-28-20 13 [place] (10 sources) lamoTRIgine; Translations: [LAMOTRIGINE] Drug Allergy 06-28-20 13 [place], [place] (10 sources) medroxyPROGESTERone; Translations: [MEDROXYPROGESTERONE ] Drug Allergy 06-28-20 13 Other (See Comments) [place] (9 sources) Naproxen Drug Allergy 02-26-20 16 [place] (10 sources) Nitrofurantoin; Translations: [NITROFURANTOIN] Drug Allergy 06-28-20 13 [place] (9 sources) Nitrofurantoin Drug Allergy 02-17-20 19 Other (See Comments), Rash [place] (9 sources) Penicillins; Translations: [PENICILLINS] Propensity to adverse reactions to drug 06-28-20 13 Hives, Rash [place] (10 sources) Sertraline; Translations: [SERTRALINE] Drug Allergy 06-28-20 13 [place] (10 sources) Sulfamethoxazole / Trimethoprim; Translations: [SULFAMETHOXAZOLE-TR IMETHOPRIM] Drug Allergy 06-28-20 13 [place] (10 sources) traMADol; Translations: [TRAMADOL] Drug Allergy 01-17-20 15 [place] (9 sources) Clindamycin/Lincomyc in Propensity to adverse reactions to drug 06-28-20 13 [place]aphylaxis [place] (1 source) Asenapine Drug Allergy 10-30-19 17 [facility] (1 source) buPROPion Drug Allergy 10-30-19 17 [facility] (1 source) Codeine Drug Allergy 10-30-19 17 [facility] (1 source) Dihydroergotamine Drug Allergy 10-30-19 17 [facility] (1 source) FLUoxetine Drug Allergy 10-30-19 17 [facility] (1 source) gabapentin Drug Allergy 10-30-19 17 [facility] (2 sources) HYDROcodone; Translations: [HYDROCODONE] Drug Allergy 10-30-19 17 [facility] (1 source) lamoTRIgine Drug Allergy 10-30-19 17 [facility] (2 sources) Naproxen; Translations: [NAPROXEN] Drug Allergy 10-30-19 17 [facility] (1 source) Nitrofurantoin Drug Allergy 10-30-19 17 [facility] (1 source) Penicillin Drug Allergy 10-30-19 17 [facility] (1 source) Sertraline Drug Allergy 10-30-19 17 [facility] (1 source) Sisomicin Drug Allergy 10-30-19 17 [facility] (1 source) Penicillins Propensity to adverse reactions to drug 06-28-20 13 Hives, Rash [place] [facility] Phone: (1 source) Asenapine; Translations: [ASENAPINE MALEATE] [...] 0 12/10/2021 12/20/2021 Active lactobacillus rhamnosus gg [id number] unt oral capsule (1 source) Start: 09-01-2020 [...] 0 02/16/2019 05/22/2020 Discontinued (LIST CLEANUP) ergocalciferol 66616 unt oral capsule (1 source) Provitamin D2 Compound Start: 09-28-2018 End: 05-22-2020 take 1 capsule by mouth every week vitamin D (ERGOCALCIFEROL) 81129 units CAPS capsule Take 50,000 Units by [...] Jerzy Linton MD 02/16/23 Final result Normal [facility] Hemoglobin A1Con 02-13-2023 Glucose [Mass/Vol] 85 mg/dL Normal [facility] Comment on above: Result Comment: The ADA and AACC recommend providing the estimated average glucose result to permit better patient understanding of their HBA1c result. Performed By: #### T RAY, LIPR #### [facility] [address] [place] [address] Director Biostatistics: Rupesh Feldman DO #### GLYHGB #### [facility] [address] [place] [address] Director Biostatistics: Bryn Farias MD HbA1c (Bld) [Mass fraction] 4.6 % Normal 4.0-6.0 [facility] Comment on above: Performed By: #### T RAY, LIPR #### [facility] [address] [place] [address] Director Biostatistics: Rupesh Feldman DO #### GLYHGB #### [address] [address] Director Biostatistics: Bryn Farias MD TSH w/reflex to FT4on 2022 Thyroid Stim. Horm. 0.56 uIU/mL Normal 0.30-5.00 [facility] Comment on above: Performed By: #### T SHX, LIPR #### [facility] [address] [place] [address] Director Biostatistics: Rupesh Feldman DO #### GLYHGB #### [address] [address] Director Biostatistics: Bryn Farias MD Lipid Profileon 4 Cholesterol [Mass/Vol] 198 mg/dL Normal <200 [facility] Comment on above: Result Comment: Cholesterol Guidelines: <200 Desirable 200-240 Borderline >240 Undesirable Performed By: #### T SHX, LIPR #### [facility] [address] [place] [address] Director Biostatistics: Rupesh Feldman DO #### GLYHGB #### [address] [address] Director Biostatistics: Bryn Farias MD Cholesterol in HDL [Mass/Vol] 45 mg/dL Normal >40 [facility] Comment on above: Result Comment: HDL Guidelines: <40 Undesirable 40-59 Borderline >59 Desirable Performed By: #### T SHX, LIPR #### [facility] [address] [place] [address] Director Biostatistics: Rupesh Feldman DO #### GLYHGB #### [address] [address] Director Biostatistics: Bryn Farias MD Cholesterol in LDL [Mass/Vol] 131 mg/dL High 0-130 [facility] Comment on above: Result Comment: LDL Guidelines: <100 Desirable 100-129 Near to/above Desirable 130-159 Borderline >159 Undesirable Direct (measured) LDL and calculated LDL are not interchangeable tests. Performed By: #### T SHX, LIPR #### [facility] [address] [place] [address] Director Biostatistics: Rupesh Feldman DO #### GLYHGB #### [address] [place], [place] [id number] Director Biostatistics: Bryn Farias MD Cholesterol.total/Ch olesterol in HDL [Mass ratio] 4.4 {ratio} Normal <5 [facility] Comment on above: Performed By: #### T SHX, LIPR #### [facility] [address] [place] [address] Director Biostatistics: Rupesh Feldman DO #### GLYHGB #### [address] [address] Director Biostatistics: Bryn Farias MD Triglyceride [Mass/Vol] 109 mg/dL Normal <150 [facility] Comment on above: Result Comment: Triglyceride Guidelines: <150 Desirable 150-199 Borderline 200-499 High >499 Very high Based on AHA Guidelines for fasting triglyceride, May 2012. Performed By: #### T SHX, LIPR #### [facility] [address] [place] [address] Director Biostatistics: Rupesh Feldman DO #### GLYHGB #### [address] [address] Director Biostatistics: Bryn Farias MD Acetaminophenon 02-10-2023 Acetaminophen [Mass/Vol] ug/mL Low 10-30 [facility] Comment on above: Performed By: #### C DP, ACET, ALCB, SALI, CP, MG #### [facility] [address] [place] [address] Director Biostatistics: Rupesh Feldman DO CBC with Diffon 02-10-2023 Abs. Basophil 0.00 k/uL Normal 0.0-0.2 [facility] Comment on above: Performed By: #### C DP, ACET, ALCB, SALI, CP, MG #### [facility] [address] [place] [address] Director Biostatistics: Rupesh Feldman DO Abs.Neutrophil (Seg) 4.80 k/uL Normal 1.3-9.1 [facility] Comment on above: Performed By: #### C DP, ACET, ALCB, SALI, CP, MG #### [facility] [place] [address] Director Biostatistics: Rupesh Feldman DO Basophils/100 WBC (Bld) 1 % Normal 0-2 [facility] Comment on above: Performed By: #### C DP, ACET, ALCB, SALI, CP, MG #### [facility] [address] [place] [address] Director Biostatistics: Rupesh Feldman DO Eosinophils (Bld) [#/Vol] 0.00 10*3/uL Normal 0.0-0.4 [facility] Comment on above: Performed By: #### C DP, ACET, ALCB, SALI, CP, MG #### [facility] [address] [place] [address] Director Biostatistics: Rupesh Feldman DO Eosinophils/100 WBC (Bld) 1 % Normal 0-4 [facility] Comment on above: Performed By: #### C DP, ACET, ALCB, SALI, CP, MG #### [facility] [address] [place] [address] Director Biostatistics: Rupesh Feldman DO Erythrocyte distribution width (RBC) [Ratio] 15.3 % High 11.5-14.9 [facility] Comment on above: Performed By: #### C DP, ACET, ALCB, SALI, CP, MG #### [facility] [address] [place] [address] Director Biostatistics: Rupesh Feldman DO Hematocrit (Bld) [Volume fraction] 40.5 % Normal 36-46 [facility] Comment on above: Performed By: #### C DP, ACET, ALCB, SALI, CP, MG #### [facility] [address] [place] [address] Director Biostatistics: Rupesh Feldman DO Hemoglobin (Bld) [Mass/Vol] 13.9 g/dL Normal 12.0-16.0 [facility] Comment on above: Performed By: #### C DP, ACET, ALCB, SALI, CP, MG #### [facility] [address] [place], [place] [address]e [facility] [place] [address] Director Biostatistics: Rupesh Feldman DO Lymphocytes (Bld) [#/Vol] 2.20 10*3/uL Normal 1.0-4.8 [facility] Comment on above: Performed By: #### C DP, ACET, ALCB, SALI, CP, MG #### [facility] [place] [address] Director Biostatistics: Rupesh Feldman DO Lymphocytes/100 WBC (Bld) 30 % Normal 24-44 [facility] Comment on above: Performed By: #### C DP, ACET, ALCB, SALI, CP, MG #### [facility] [address] [facility] [place] [address] Director Biostatistics: Rupesh Feldman DO MCH (RBC) [Entitic mass] 28.5 pg Normal 26-34 [facility] Comment on above: Performed By: #### C DP, ACET, ALCB, SALI, CP, MG #### [facility] [address] [facility] [place] [address] Director Biostatistics: Rupesh Feldman DO MCHC (RBC) [Mass/Vol] 34.3 g/dL Normal 31-37 [facility] Comment on above: Performed By: #### C DP, ACET, ALCB, SALI, CP, MG #### [facility] [address] [place] [address] Director Biostatistics: Rupesh Feldman DO MCV (RBC) [Entitic vol] 83.2 fL Normal 80-100 [facility] Comment on above: Performed By: #### C DP, ACET, ALCB, SALI, CP, MG #### [facility] [address] [place] [address] Director Biostatistics: Rupesh Feldman DO Monocytes (Bld) [#/Vol] 0.40 10*3/uL Normal 0.1-1.3 [facility] Comment on above: Performed By: #### C DP, ACET, ALCB, SALI, CP, MG #### [facility] [address] [facility] [place] [address] Director Biostatistics: Rupesh Feldman DO Monocytes/100 WBC (Bld) 5 % Normal 1-7 [facility] Comment on above: Performed By: #### C DP, ACET, ALCB, SALI, CP, MG #### [facility] [place] [address] Director Biostatistics: Rupesh Feldman DO Neutrophil (Seg) 63 % Normal 36-66 [facility] Comment on above: Performed By: #### C DP, ACET, ALCB, SALI, CP, MG #### [facility] [address] [facility] [place] [address] Director Biostatistics: Rupesh Feldman DO Platelet mean volume (Bld) [Entitic vol] 7.7 fL Normal 6.0-12.0 [facility] Comment on above: Performed By: #### C DP, ACET, ALCB, SALI, CP, MG #### [facility] [address] [place] [address] Director Biostatistics: Rupesh Feldman DO Platelets (Bld) [#/Vol] 287 10*3/uL Normal 150-450 [facility] Comment on above: Performed By: #### C DP, ACET, ALCB, SALI, CP, MG #### [facility] [address] [place] [address] Director Biostatistics: Rupesh Feldman DO RBC (Bld) [#/Vol] 4.87 10*6/uL Normal 4.0-5.2 [facility] Comment on above: Performed By: #### C DP, ACET, ALCB, SALI, CP, MG #### [facility] [address] [facility] [place] [address] Director Biostatistics: Rupesh Feldman DO WBC (Bld) [#/Vol] 7.5 10*3/uL Normal 3.5-11.0 [facility] Comment on above: Performed By: #### C DP, ACET, ALCB, SALI, CP, MG #### [facility] [address] [place] [address]. [place] [address] Director Biostatistics: Rupesh eFldman DO Comp Metabolic Profon 2022 Albumin [Mass/Vol] 4.8 g/dL Normal 3.5-5.2 [facility] Comment on above: Performed By: #### C DP, ACET, ALCB, SALI, CP, MG #### [facility] [address] [facility] [place] [address] Director Biostatistics: Rupesh Feldman DO Alkaline Phos 74 U/L Normal 35-104 [facility] Comment on above: Performed By: #### C DP, ACET, ALCB, SALI, CP, MG #### [facility] [address] [facility] [place] [address] Director Biostatistics: Rupesh Feldman DO ALT [Catalytic activity/Vol] 12 U/L Normal 5-33 [facility] Comment on above: Performed By: #### C DP, ACET, ALCB, SALI, CP, MG #### [facility] [address] [place] [address] Director Biostatistics: Rupesh Feldman DO Anion gap [Moles/Vol] 14 mmol/L Normal 9-17 [facility] Comment on above: Performed By: #### C DP, ACET, ALCB, SALI, CP, MG #### [facility] [address] [place] [address] Director Biostatistics: Rupesh Feldman DO AST [Catalytic activity/Vol] 15 U/L Normal <32 [facility] Comment on above: Performed By: #### C DP, ACET, ALCB, SALI, CP, MG #### [facility] [address] [place] [address] Director Biostatistics: Rupesh Feldman DO Bilirubin [Mass/Vol] 0.4 mg/dL Normal 0.3-1.2 [facility] Comment on above: Performed By: #### C DP, ACET, ALCB, SALI, CP, MG #### [facility] [address] [place] [address] Director Biostatistics: Rupesh Feldman DO Calcium [Mass/Vol] 9.4 mg/dL Normal 8.6-10.4 [facility] Comment on above: Performed By: #### C DP, ACET, ALCB, SALI, CP, MG #### [facility] [address] [place] [address] Director Biostatistics: Rupesh Feldman DO Chloride [Moles/Vol] 103 mmol/L Normal 98-107 [facility] Comment on above: Performed By: #### C DP, ACET, ALCB, SALI, CP, MG #### [facility] [address] [facility] [place] [address] Director Biostatistics: Rupesh Feldman DO CO2 [Moles/Vol] 19 mmol/L Low 20-31 [facility] Comment on above: Performed By: #### C DP, ACET, ALCB, SALI, CP, MG #### [facility] [address] [facility] [place] [address] Director Biostatistics: Rupesh Feldman DO Creatinine [Mass/Vol] 0.59 mg/dL Normal 0.50-0.90 [facility] Comment on above: Performed By: #### C DP, ACET, ALCB, SALI, CP, MG #### [facility] [address] [facility] [place] [address] Director Biostatistics: Rupesh Feldman DO GFR/1.73 sq M.predicted among non-blacks MDRD (S/P/Bld) [Vol rate/Area] mL/min/{1.73_m2} Normal >60 [facility] Comment on above: Result Comment: These results [...] DP, ACET, ALCB, SALI, CP, MG #### [facility] [address] [facility] [place] [address] Director Biostatistics: Rupesh Feldman DO Glucose [Mass/Vol] 101 mg/dL High 70-99 [facility] Comment on above: Performed By: #### C DP, ACET, ALCB, SALI, CP, MG #### [facility] [address] [place] [address] Director Biostatistics: Rupesh Feldman DO Potassium [Moles/Vol] 3.5 mmol/L Low 3.7-5.3 [facility] Comment on above: Performed By: #### C DP, ACET, ALCB, SALI, CP, MG #### [facility] [address] [place] [address] Director Biostatistics: Rupesh Feldman DO Protein [Mass/Vol] 7.6 g/dL Normal 6.4-8.3 [facility] Comment on above: Performed By: #### C DP, ACET, ALCB, SALI, CP, MG #### [facility] [place] [address] Director Biostatistics: Rupesh Feldman DO Sodium [Moles/Vol] 136 mmol/L Normal 135-144 [facility] Comment on above: Performed By: #### C DP, ACET, ALCB, SALI, CP, MG #### [facility] [place] [address] Director Biostatistics: Rupesh Feldman DO Urea nitrogen [Mass/Vol] 15 mg/dL Normal 6-20 [facility] Comment on above: Performed By: #### C DP, ACET, ALCB, SALI, CP, MG #### [facility] [place] [address] Director Biostatistics: Rupesh Feldman DO Drug Scr, Abuse, Uron 2022 Amphetamine(s),Ur Positive Abnormal NEG [facility] Comment on above: Result Comment: (Positive cutoff 1000 ng/mL) Performed By: #### D AU #### [facility] [place] [address] Director Biostatistics: Rupesh Feldman DO Barbiturate(s),Ur Negative Normal NEG [facility] Comment on above: Result Comment: (Positive cutoff 200 ng/mL) Performed By: #### D AU #### [facility] [address] [place] [address] Director Biostatistics: Rupesh Feldman DO Benzodiazepine(s) Negative Normal NEG [facility] Comment on above: Result Comment: (Positive cutoff 200 ng/mL) Performed By: #### D AU #### [facility] [address] [place] [address] Director Biostatistics: Rupesh Feldman DO Cannabinoid(s),Ur Negative Normal NEG [facility] Comment on above: Result Comment: (Positive cutoff 50 ng/mL) Performed By: #### D AU #### [facility] [address] [place] [address] Director Biostatistics: Rupesh Feldman DO Cocaine Metabolite Positive Abnormal NEG [facility] Comment on above: Result Comment: (Positive cutoff 300 ng/mL) Performed By: #### D AU #### [facility] [address] [place] [address] Director Biostatistics: Rupesh Feldman DO Fentanyl, Urine Negative Normal NEG [facility] Comment on above: Result Comment: (Positive cutoff 5 ng/ml) Performed By: #### D AU #### [facility] [address] [place] [address] Director Biostatistics: Rupesh Feldman DO Interpretive Info Assay provides medic al screening only. The absence of expected drug(s) and/or Normal [facility] Comment on above: Result Comment: meta bolite(s) may indicate diluted or adulterated urine, limitations of testing or timing of collection. Testing for legal purposes should be confirmed by another method. To request confirmation of test result, please call the lab within 7 days of sample submission. Performed By: #### D AU #### [facility] [address] [place] [address] Director Biostatistics: Rupesh Feldman DO Methadone Ql (U) Negative Normal NEG [facility] Comment on above: Result Comment: (Positive cutoff 300 ng/mL) Performed By: #### D AU #### [facility] [place] [address] Director Biostatistics: Rupesh Feldman DO Opiate(s), Ur Negative Normal NEG [facility] Comment on above: Result Comment: (Positive cutoff 300 ng/mL) Performed By: #### D AU #### [facility] [address] [place] [address] Director Biostatistics: Rupesh Feldman DO Oxycodone, Urine Negative Normal NEG [facility] Comment on above: Result Comment: (Positive cutoff 100 ng/mL) Performed By: #### D AU #### [facility] [address] [place] [address] Director Biostatistics: Rupesh Feldman DO Phencyclidine, Ur Negative Normal NEG [facility] Comment on above: Result Comment: (Positive cutoff 25 ng/mL) Performed By: #### D AU #### [facility] [address] [place] [address] Director Biostatistics: Rupesh Feldman DO Ethanol Alcoholon 02-10-2023 Ethanol [Mass/Vol] mg/dL Normal <10 [facility] Comment on above: Performed By: #### C DP, ACET, ALCB, SALI, CP, MG #### [facility] [address] [place] [address] Director Biostatistics: Rupesh Feldman DO Ethanol percent <0.010 Normal [facility] Comment on above: Performed By: #### C DP, ACET, ALCB, SALI, CP, MG #### [facility] [address] [place] [address] Director Biostatistics: Rupesh Feldman DO Magnesiumon 02-10-2023 Magnesium [Mass/Vol] 2.0 mg/dL Normal 1.6-2.6 [facility] Comment on above: Performed By: #### C DP, ACET, ALCB, SALI, CP, MG #### [facility] [address] [facility] [place] [address] Director Biostatistics: Rupesh Feldman DO Salicylateon 02-10-2023 Salicylate <1 Low 3-10 [facility] Comment on above: Performed By: #### T SHX, LIPR #### [facility] [address] [place] [address] Director Biostatistics: Rupesh Feldman DO #### GLYHGB #### [facility] [address] [place] [address] Director Biostatistics: Bryn Farias MD Flu A/B Ag Detectionon 12-11 Flu A Antigen Negative NEGATIVE [facility] Comment on above: for Influenza A Anti gen Flu B Antigen Negative NEGATIVE [facility] Comment on above: for Influenza B Anti gen. [facility] XR FOOT LEFT (MIN 3 [...] Carlitos Lovell MD 05/16/21 Final result Normal [facility] XR FOOT LEFT (MIN 3 VIEWS)Or dered By: Van Peña on 05-16-2021 Unremarkable radiographic views of the left foot. [facility] Work Phone: EXAMINATION: THREE XRAY [...] spaces are preserved. Soft tissues are unremarkable. [employer] Phone: [place] Incoming Radiant Results From [email or web address] - 05/16/2021 1:19 AM EDT EXAMINATION: THREE [...] Unremarkable radiographic views of the left foot. [employer] Phone: [employer] Phone: Comprehensive Metabolic Pane zaina 11-05-2020 Albumin [Mass/Vol] 4.8 g/dL 3.5 - 5.2 g/dL [facility] Phone: Albumin/Globulin [Mass ratio] 1.2 {ratio} [employer] Phone: ALP [Catalytic activity/Vol] 243 U/L High 35 - 104 U/L [employer] Phone: ALT [Catalytic activity/Vol] 27 U/L 5 - 33 U/L [employer] Phone: Anion gap [Moles/Vol] 18 mmol/L High 9 - 17 mmol/L [employer] Phone: AST [Catalytic activity/Vol] 32 U/L High <32 [employer] Phone: Bilirubin Ql (U) 0.50 mg/dL 0.3 - 1.2 mg/dL [employer] Phone: Bun/Cre Ratio NOT REPORTED [facility] Phone: Calcium [Mass/Vol] 9.9 mg/dL 8.6 - 10. 4 mg/dL [employer] Phone: Chloride [Moles/Vol] 98 mmol/L 98 - 10 7 mmol/L [facility] Phone: CO2 [Moles/Vol] 24 mmol/L 20 - 31 mmol/L [facility] Phone: Creatinine [Mass/Vol] 0.5 mg/dL 0.50 - 0.90 mg/dL [employer] Phone: GFR >60 >60 mL/min [employer] Phone: GFR Non- >60 >60 mL/min [facility] Phone: GFR/1.73 sq M predicted among non-blacks MDRD (S/P/Bld) [Vol rate/Area] [facility] Phone: Comment on above: Average GFR for 20-2 9 years old: 116 mL/min/1.73sq m Chronic Kidney Disease: <60 mL/min/1.73sq m Kidney failure: <15 mL/min/1.73sq m eGFR calculated using average adult body mass. Additional eGFR calculator available at: http://www.[employer]/multiple_crcl_2012.htm GFR/1.73 sq M predicted among non-blacks MDRD (S/P/Bld) [Vol rate/Area] NOT REPORTED [facility] Phone: Glucose [Mass/Vol] 92 mg/dL 70 - 99 mg/dL [facility] [employer] Work Phone: Interpretation and review of laboratory results Abnormal [facility] Phone: Potassium [Moles/Vol] 2.7 mmol/L Critically low 3.7 - 5.3 mmol/L [facility] Work Phone: Protein [Mass/Vol] 8.7 g/dL High 6.4 - 8.3 g/dL [facility] [employer] Phone: Sodium [Moles/Vol] 140 mmol/L 135 - 144 mmol/L [facility] [employer] Phone: Urea nitrogen [Mass/Vol] 13 mg/dL 6 - 20 mg/dL [facility] [employer] Phone: Cult,Bloodon 09-05-2020 Cult,Blood Specimen Description .BLOOD Special Requests R WRIST, 3 ML red only Culture NO GROWTH 6 DAYS Report Status FINAL 09/05/2020 Normal [facility] Comment on above: Performed By: #### C DP, IPF, HCG, CRP, CP, EDTOX #### [facility] [employer] [address] [place] [address] Director Biostatistics: Bryn Farias MD Cult,Blood Specimen Description .BLOOD Special Requests R HAND, 7 ML Culture NO GROWTH 6 DAYS Report Status FINAL 09/05/2020 Normal [facility] Comment on above: Performed By: #### C DP, IPF, HCG, CRP, CP, EDTOX #### [employer] [address] [place] [address] Director Biostatistics: Bryn Farias MD Culture, Blood 1on Culture NO GROWTH 6 DAYS [place], [place] Special Requests R WRIST, 3 ML red only [place], [place] Specimen Description .BLOOD [place], [place] CBC with Diffon 09-02-2020 Abs. Basophil <0.03 Normal 0.00-0.20 [facility] Comment on above: Performed By: #### C DP, IPF, HCG, CRP, CP, EDTOX #### [facility] [employer] [address] [place] [address] Director Biostatistics: Bryn Farias MD Abs.Imm.Granulocyte <0.03 Normal 0.00-0.30 [facility] Comment on above: Performed By: #### C DP, IPF, HCG, CRP, CP, EDTOX #### [address] [address] Director Biostatistics: Bryn Farias MD Abs.Neutrophil (Seg) 3.13 k/uL Normal 1.50-8.10 [facility] Comment on above: Performed By: #### C DP, IPF, HCG, CRP, CP, EDTOX #### [address] [address] Director Biostatistics: Bryn Farias MD Basophils/100 WBC (Bld) 0 % Normal 0-2 [facility] Comment on above: Performed By: #### C DP, IPF, HCG, CRP, CP, EDTOX #### [place] [address] Director Biostatistics: Bryn Farias MD Eosinophils (Bld) [#/Vol] 0.10 10*3/uL Normal 0.00-0.44 [facility] Comment on above: Performed By: #### C DP, IPF, HCG, CRP, CP, EDTOX #### [address] [address] Director Biostatistics: Bryn Farias MD Eosinophils/100 WBC (Bld) 2 % Normal 1-4 [facility] Comment on above: Performed By: #### C DP, IPF, HCG, CRP, CP, EDTOX #### [address] [address] Director Biostatistics: Bryn Farias MD Erythrocyte distribution width (RBC) [Ratio] 16.4 % High 11.8-14.4 [facility] Comment on above: Performed By: #### C DP, IPF, HCG, CRP, CP, EDTOX #### [address] [address] Director Biostatistics: Bryn Farias MD Hematocrit (Bld) [Volume fraction] 34.7 % Low 36.3-47.1 [facility] Comment on above: Performed By: #### C DP, IPF, HCG, CRP, CP, EDTOX #### [place] [address] Director Biostatistics: Bryn Farias MD Hemoglobin (Bld) [Mass/Vol] 10.4 g/dL Low 11.9-15.1 [facility] Comment on above: Performed By: #### C DP, IPF, HCG, CRP, CP, EDTOX #### [place] [address] Director Biostatistics: Bryn Farias MD Immature granulocytes/100 WBC (Bld) 0 % Normal 0 [facility] Comment on above: Performed By: #### C DP, IPF, HCG, CRP, CP, EDTOX #### [place] [address] Director Biostatistics: Bryn Farias MD Lymphocytes (Bld) [#/Vol] 2.25 10*3/uL Normal 1.10-3.70 [facility] Comment on above: Performed By: #### C DP, IPF, HCG, CRP, CP, EDTOX #### [address] [address] Director Biostatistics: Bryn Farias MD Lymphocytes/100 WBC (Bld) 38 % Normal 24-43 [facility] Comment on above: Performed By: #### C DP, IPF, HCG, CRP, CP, EDTOX #### [place] [address] Director Biostatistics: Bryn Farias MD MCH (RBC) [Entitic mass] 29.6 pg Normal 25.2-33.5 [facility] Comment on above: Performed By: #### C DP, IPF, HCG, CRP, CP, EDTOX #### [address] [address] Director Biostatistics: Bryn Farias MD MCHC (RBC) [Mass/Vol] 30.0 g/dL Normal 28.4-34.8 [facility] Comment on above: Performed By: #### C DP, IPF, HCG, CRP, CP, EDTOX #### [address] [address] Director Biostatistics: Bryn Farias MD MCV (RBC) [Entitic vol] 98.9 fL Normal 82.6-102.9 [facility] Comment on above: Performed By: #### C DP, IPF, HCG, CRP, CP, EDTOX #### [address] [address] Director Biostatistics: Bryn Farias MD Monocytes (Bld) [#/Vol] 0.37 10*3/uL Normal 0.10-1.20 [facility] Comment on above: Performed By: #### C DP, IPF, HCG, CRP, CP, EDTOX #### [address] [address] Director Biostatistics: Bryn Farias MD Monocytes/100 WBC (Bld) 6 % Normal 3-12 [facility] Comment on above: Performed By: #### C DP, IPF, HCG, CRP, CP, EDTOX #### [address] [address] Director Biostatistics: Bryn Farias MD Neutrophil (Seg) 54 % Normal 36-65 [facility] Comment on above: Performed By: #### C DP, IPF, HCG, CRP, CP, EDTOX #### [address] [address] Director Biostatistics: Bryn Farias MD NRBC Automated 0.0 per 100 WBC Normal 0.0 [facility] Comment on above: Performed By: #### C DP, IPF, HCG, CRP, CP, EDTOX #### [address] [address] Director Biostatistics: Bryn Farias MD Platelet mean volume (Bld) [Entitic vol] 8.9 fL Normal 8.1-13.5 [facility] Comment on above: Performed By: #### C DP, IPF, HCG, CRP, CP, EDTOX #### [address] [address] Director Biostatistics: Bryn Farias MD Platelets (Bld) [#/Vol] 269 10*3/uL Normal 138-453 [facility] Comment on above: Performed By: #### C DP, IPF, HCG, CRP, CP, EDTOX #### [address] [address] Director Biostatistics: Bryn Farias MD RBC (Bld) [#/Vol] 3.51 10*6/uL Low 3.95-5.11 [facility] Comment on above: Performed By: #### C DP, IPF, HCG, CRP, CP, EDTOX #### [address] [address] Director Biostatistics: Bryn Farias MD RBC morphology finding Nom (Bld) ANISOCYTOSIS PRESENT Normal [facility] Comment on above: Performed By: #### C DP, IPF, HCG, CRP, CP, EDTOX #### [address] [address] Director Biostatistics: Bryn Farias MD WBC (Bld) [#/Vol] 5.9 10*3/uL Normal 3.5-11.3 [facility] Comment on above: Performed By: #### C DP, IPF, HCG, CRP, CP, EDTOX #### [facility] [employer] [address] [place] [address] Director Biostatistics: Bryn Farias MD Auto Diff Performed NOT REPORTED Normal [facility] Comment on above: Performed By: #### C DP, IPF, HCG, CRP, CP, EDTOX #### [facility] [address] [place], [place] [phone] Director Biostatistics: Bryn Farias MD Platelet Estimate NOT REPORTED Normal [facility] Comment on above: Performed By: #### C DP, IPF, HCG, CRP, CP, EDTOX #### [facility] [address] [place], [place] [phone] Director Biostatistics: Bryn Farias MD WBC Morphology NOT REPORTED Normal [facility] Comment on above: Performed By: #### C DP, IPF, HCG, CRP, CP, EDTOX #### [facility] [place], [place] [phone] Director Biostatistics: Bryn Farias MD Hematologyon 09-02-2020 Basophils (Bld) [#/Vol] 10*3/uL [place] Basophils/100 WBC (Bld) 0 % 0 - 2 % [place] Eosinophils (Bld) [#/Vol] 0.10 10*3/uL [place] Eosinophils/100 WBC (Bld) 2 % 1 - 4 % [place] Hematocrit (Bld) [Volume fraction] 34.7 % Low 36.3 - 47.1 % [place] Hemoglobin (Bld) [Mass/Vol] 10.4 g/dL Low 11.9 - 15.1 g/dL [place] Lymphocytes (Bld) [#/Vol] 2.25 10*3/uL [place] Lymphocytes/100 WBC (Bld) 38 % 24 - 43 % [place] MCH (RBC) [Entitic mass] 29.6 pg 25.2 - 33.5 pg [place] MCV (RBC) [Entitic vol] 98.9 fL 82.6 - 102.9 fL [place] Monocytes (Bld) [#/Vol] 0.37 10*3/uL [place] Monocytes/100 WBC (Bld) 6 % 3 - 12 % [place] Platelets (Bld) [#/Vol] NOT REPORTED [place] Platelets (Bld) [#/Vol] 269 10*3/uL [place] RBC (Bld) [#/Vol] 3.51 10*6/uL Low 3.95 - 5.1 1 m/uL [place] RBC morphology finding Nom (Bld) ANISOCYTOSIS PRESENT [place], [place] WBC (Bld) [#/Vol] 0.0 10*3/uL 0.0 per 10 0 WBC [place] WBC (Bld) [#/Vol] 5.9 10*3/uL [place] Metabolic Panelon 09-02-2020 Albumin [Mass/Vol] 2.8 g/dL Low 3.5 - 5.2 g/dL [place] Anion gap [Moles/Vol] 8 mmol/L Low 9 - 17 mmol/L [place] Calcium [Mass/Vol] 7.8 mg/dL Low 8.6 - 10. 4 mg/dL [place] Chloride [Moles/Vol] 108 mmol/L High 98 - 10 7 mmol/L [place] CO2 [Moles/Vol] 21 mmol/L 20 - 31 mmol/L [place] Creatinine [Mass/Vol] 0.31 mg/dL Low 0.5 - 0.9 mg/dL [place] GFR/1.73 sq M predicted among non-blacks MDRD (S/P/Bld) [Vol rate/Area] [place] Comment on above: Average GFR for 20-2 9 years old: 116 mL/min/1.73sq m Chronic Kidney Disease: <60 mL/min/1.73sq m Kidney failure: <15 mL/min/1.73sq m eGFR calculated using average adult body mass. Additional eGFR calculator available at: http://www.[employer].Neokinetics/multiple_crcl_2012.htm GFR/1.73 sq M predicted among non-blacks MDRD (S/P/Bld) [Vol rate/Area] NOT REPORTED [place] Glucose [Mass/Vol] 99 mg/dL 70 - 99 mg/dL [place], [place] Phosphate [Mass/Vol] 3.6 mg/dL 2.6 - 4 .5 mg/dL [place] Potassium [Moles/Vol] 3.1 mmol/L Low 3.7 - 5.3 mmol/L [place] Sodium [Moles/Vol] 137 mmol/L 135 - 144 mmol/L [place] Urea nitrogen [Mass/Vol] 3 mg/dL Low 6 - 20 mg/dL [place] Otheron 09-02-2020 SARS-CoV-2 [place] SARS-CoV-2, Rapid Not Detected Not Detected [place], [place] Comment on above: Rapid NAAT: The [...] management decisions. Fact sheet for Healthcare Providers: https://www.fda.gov/media/919397/download Fact sheet for Patients: https://www.fda.gov/media/912230/download Methodology: Isothermal Nucleic Acid Amplification Source .NASOPHARYNGEAL SWAB [place], [place] Bun/Cre Ratio NOT REPORTED [place], [place] GFR >60 >60 mL/min [place], [place] GFR Non- >60 >60 mL/min [place] Interpretation and review of laboratory results Abnormal [place] Differential Type NOT REPORTED [place] Erythrocyte distribution width (RBC) [Ratio] 16.4 % High 11.8 - 14.4 % [place] Immature granulocytes (Bld) [#/Vol] 0 % 0 [place] Immature granulocytes (Bld) [#/Vol] 10*3/uL [place] Interpretation and review of laboratory results Abnormal [place] MCHC (RBC) [Mass/Vol] 30.0 g/dL 28.4 - 34.8 g/dL [place] Platelet mean volume (Bld) [Entitic vol] 8.9 fL 8.1 - 13.5 fL [place], [place] Segmented neutrophils/100 WBC (Bld) 54 % 36 - 65 % [place] Segs Absolute 3.13 [place], [place] WBC Morphology NOT REPORTED [place], [place] Renal Function Panelon 09-02 (cont.) Normal [facility] Comment on above: Result Comment: Aver age GFR for 20-29 years old: 116 mL/min/1.73sq m Chronic Kidney Disease: <60 mL/min/1.73sq m Kidney failure: <15 mL/min/1.73sq m eGFR calculated using average adult body mass. Additional eGFR calculator available at: http://www.[facility] EHR/multiple_crcl_2011.htm Performed By: #### C DP, IPF, HCG, CRP, CP, EDTOX #### [facility] [employer] [address] [place] [phone] Director Biostatistics: Bryn Farias MD Albumin [Mass/Vol] 2.8 g/dL Low 3.5-5.2 [facility] Comment on above: Performed By: #### C DP, IPF, HCG, CRP, CP, EDTOX #### [facility] [employer] [facility] [place], [place] [phone] Director Biostatistics: Bryn Farias MD Anion gap [Moles/Vol] 8 mmol/L Low 9-17 [facility] Comment on above: Performed By: #### C DP, IPF, HCG, CRP, CP, EDTOX #### [address] [address] Director Biostatistics: Bryn Farias MD Calcium [Mass/Vol] 7.8 mg/dL Low 8.6-10.4 [facility] Comment on above: Performed By: #### C DP, IPF, HCG, CRP, CP, EDTOX #### [address] [address] Director Biostatistics: Bryn Farias MD Chloride [Moles/Vol] 108 mmol/L High 98-107 [facility] Comment on above: Performed By: #### C DP, IPF, HCG, CRP, CP, EDTOX #### [address] [address] Director Biostatistics: Bryn Farias MD CO2 [Moles/Vol] 21 mmol/L Normal 20-31 [facility] Comment on above: Performed By: #### C DP, IPF, HCG, CRP, CP, EDTOX #### [address] [address] Director Biostatistics: Bryn Farias MD Creatinine [Mass/Vol] 0.31 mg/dL Low 0.50-0.90 [facility] Comment on above: Performed By: #### C DP, IPF, HCG, CRP, CP, EDTOX #### [address] [address] Director Biostatistics: Bryn Farias MD GFR, Amer >60 Normal >60 [facility] Comment on above: Performed By: #### C DP, IPF, HCG, CRP, CP, EDTOX #### [address] [address] Director Biostatistics: Bryn Farias MD GFR,non Amer >60 Normal >60 [facility] Comment on above: Performed By: #### C DP, IPF, HCG, CRP, CP, EDTOX #### [facility] [employer] [address] [place] [address] Director Biostatistics: Bryn Farias MD Glucose [Mass/Vol] 99 mg/dL Normal 70-99 [facility] Comment on above: Performed By: #### C DP, IPF, HCG, CRP, CP, EDTOX #### [facility] [employer] [address] [place] [phone] Director Biostatistics: Bryn Farias MD Phosphorus, Inorg. 3.6 mg/dL Normal 2.6-4.5 [facility] Comment on above: Performed By: #### C DP, IPF, HCG, CRP, CP, EDTOX #### [facility] [employer] [address] [place] [address] Director Biostatistics: Bryn Farias MD Potassium [Moles/Vol] 3.1 mmol/L Low 3.7-5.3 [facility] Comment on above: Performed By: #### C DP, IPF, HCG, CRP, CP, EDTOX #### [facility] [employer] [address] [place] [address] Director Biostatistics: Bryn Farias MD Sodium [Moles/Vol] 137 mmol/L Normal 135-144 [facility] Comment on above: Performed By: #### C DP, IPF, HCG, CRP, CP, EDTOX #### [facility] [employer] [address] [place] [address] Director Biostatistics: Bryn Farias MD Urea nitrogen [Mass/Vol] 3 mg/dL Low 6-20 [facility] Comment on above: Performed By: #### C DP, IPF, HCG, CRP, CP, EDTOX #### [facility] [employer] [address] [place] [address] Director Biostatistics: Bryn Farias MD BUN/CRE Ratio NOT REPORTED Normal -20 [facility] Comment on above: Performed By: #### C DP, IPF, HCG, CRP, CP, EDTOX #### [address] [address] Director Biostatistics: Bryn Farias MD Staging: NOT REPORTED Normal [facility] Comment on above: Performed By: #### C DP, IPF, HCG, CRP, CP, EDTOX #### [address] [address] Director Biostatistics: Bryn Farias MD [id number] 09-02-2020 SARS-CoV-2 (COVID-19) RNA IRENA+probe Ql (Unsp spec) Normal [facility] Comment on above: Performed By: #### C DP, IPF, HCG, CRP, CP, EDTOX #### [address] [address] Director Biostatistics: Bryn Farias MD SARS-CoV-2 (COVID-19) RNA IRENA+probe Ql (Unsp spec) Normal [facility] Comment on above: Performed By: #### C DP, IPF, HCG, CRP, CP, EDTOX #### [address] [address] Director Biostatistics: Bryn Farias MD SARS-CoV-2 (COVID-19) RNA IRENA+probe Ql (Unsp spec) Not detected Normal [facility] Comment on above: Result Comment: Rapid [...] management decisions. Fact sheet for Healthcare Providers: https://www.fda.gov/media/577478/download Fact sheet for Patients: https://www.fda.gov/media/970270/download Methodology: Isothermal Nucleic Acid Amplification Performed By: #### C DP, IPF, HCG, CRP, CP, EDTOX #### [facility] [address] [place] [address] [phone] Director Biostatistics: Bryn Farias MD SARS-CoV-2 (COVID-19) RNA IRENA+probe Ql (Unsp spec) .NASOPHARYNGEAL SWAB Normal [facility] Comment on above: Performed By: #### C DP, IPF, HCG, CRP, CP, EDTOX #### [facility] [employer] [address] [place] [phone] Director Biostatistics: Bryn Farias MD C-Reactive Proteinon 021 CRP [Mass/Vol] 10.2 mg/L High 0.0-5.0 [facility] Comment on above: Performed By: #### C DP, IPF, HCG, CRP, CP, EDTOX #### [facility] [employer] [address] [place] [address] [phone] Director Biostatistics: Bryn Farias MD CBC auto differentialon Basophils (Bld) [#/Vol] 10*3/uL [place] Basophils/100 WBC (Bld) 0 % 0 - 2 % [place] Differential Type NOT REPORTED [place] Eosinophils (Bld) [#/Vol] 0.11 10*3/uL [place] Eosinophils/100 WBC (Bld) 2 % 1 - 4 % [place] Erythrocyte distribution width (RBC) [Ratio] 16.0 % High 11.8 - 14.4 % [place] Hematocrit (Bld) [Volume fraction] 35.0 % Low 36.3 - 47.1 % [place] Hemoglobin (Bld) [Mass/Vol] 11.0 g/dL Low 11.9 - 15.1 g/dL [place] Immature granulocytes (Bld) [#/Vol] 1 % High 0 [place] Immature granulocytes (Bld) [#/Vol] 0.03 10*3/uL [place] Interpretation and review of laboratory results Abnormal [place] Lymphocytes (Bld) [#/Vol] 1.99 10*3/uL [place] Lymphocytes/100 WBC (Bld) 30 % 24 - 43 % [place] MCH (RBC) [Entitic mass] 29.9 pg 25.2 - 33.5 pg [place] MCHC (RBC) [Mass/Vol] 31.4 g/dL 28.4 - 34.8 g/dL [place] MCV (RBC) [Entitic vol] 95.1 fL 82.6 - 102.9 fL [place] Monocytes (Bld) [#/Vol] 0.41 10*3/uL [place] Monocytes/100 WBC (Bld) 6 % 3 - 12 % [place] Platelet mean volume (Bld) [Entitic vol] 9.0 fL 8.1 - 13.5 fL [place] Platelets (Bld) [#/Vol] 258 10*3/uL [place] Platelets (Bld) [#/Vol] NOT REPORTED [place] RBC (Bld) [#/Vol] 3.68 10*6/uL Low 3.95 - 5.1 1 m/uL [place] RBC morphology finding Nom (Bld) ANISOCYTOSIS PRESENT [place] Segmented neutrophils/100 WBC (Bld) 61 % 36 - 65 % [place] Segs Absolute 3.99 [place] WBC (Bld) [#/Vol] 6.5 10*3/uL [place] WBC (Bld) [#/Vol] 0.0 10*3/uL 0.0 per 10 0 WBC [place] WBC Morphology NOT REPORTED [place], [place] CBC with Diffon 09-01-2020 Abs. Basophil <0.03 Normal 0.00-0.20 [facility] Comment on above: Performed By: #### C DP, IPF, HCG, CRP, CP, EDTOX #### [address] [address] Director Biostatistics: Bryn Farias MD Abs.Imm.Granulocyte 0.03 k/uL Normal 0.00-0.30 [facility] Comment on above: Performed By: #### C DP, IPF, HCG, CRP, CP, EDTOX #### [place] [address] Director Biostatistics: Bryn Farias MD Abs.Neutrophil (Seg) 3.99 k/uL Normal 1.50-8.10 [facility] Comment on above: Performed By: #### C DP, IPF, HCG, CRP, CP, EDTOX #### [address] [address] Director Biostatistics: Bryn Farias MD Basophils/100 WBC (Bld) 0 % Normal 0-2 [facility] Comment on above: Performed By: #### C DP, IPF, HCG, CRP, CP, EDTOX #### [address] [address] Director Biostatistics: Bryn Farias MD Eosinophils (Bld) [#/Vol] 0.11 10*3/uL Normal 0.00-0.44 [facility] Comment on above: Performed By: #### C DP, IPF, HCG, CRP, CP, EDTOX #### [address] [address] Director Biostatistics: Bryn Farias MD Eosinophils/100 WBC (Bld) 2 % Normal 1-4 [facility] Comment on above: Performed By: #### C DP, IPF, HCG, CRP, CP, EDTOX #### [address] [address] Director Biostatistics: Bryn Farias MD Erythrocyte distribution width (RBC) [Ratio] 16.0 % High 11.8-14.4 [facility] Comment on above: Performed By: #### C DP, IPF, HCG, CRP, CP, EDTOX #### [address] [address] Director Biostatistics: Bryn Farias MD Hematocrit (Bld) [Volume fraction] 35.0 % Low 36.3-47.1 [facility] Comment on above: Performed By: #### C DP, IPF, HCG, CRP, CP, EDTOX #### [address] [address] Director Biostatistics: Bryn Farias MD Hemoglobin (Bld) [Mass/Vol] 11.0 g/dL Low 11.9-15.1 [facility] Comment on above: Performed By: #### C DP, IPF, HCG, CRP, CP, EDTOX #### [address] [address] Director Biostatistics: Bryn Farias MD Immature granulocytes/100 WBC (Bld) 1 % High 0 [facility] Comment on above: Performed By: #### C DP, IPF, HCG, CRP, CP, EDTOX #### [address] [address] Director Biostatistics: Bryn Farias MD Lymphocytes (Bld) [#/Vol] 1.99 10*3/uL Normal 1.10-3.70 [facility] Comment on above: Performed By: #### C DP, IPF, HCG, CRP, CP, EDTOX #### [address] [address] Director Biostatistics: Bryn Farias MD Lymphocytes/100 WBC (Bld) 30 % Normal 24-43 [facility] Comment on above: Performed By: #### C DP, IPF, HCG, CRP, CP, EDTOX #### [address] [address] Director Biostatistics: Bryn Farias MD MCH (RBC) [Entitic mass] 29.9 pg Normal 25.2-33.5 [facility] Comment on above: Performed By: #### C DP, IPF, HCG, CRP, CP, EDTOX #### [facility] [employer] [address] [place] [phone] Director Biostatistics: Bryn Farias MD MCHC (RBC) [Mass/Vol] 31.4 g/dL Normal 28.4-34.8 [facility] Comment on above: Performed By: #### C DP, IPF, HCG, CRP, CP, EDTOX #### [address] [address] Director Biostatistics: Bryn Farias MD MCV (RBC) [Entitic vol] 95.1 fL Normal 82.6-102.9 [facility] Comment on above: Performed By: #### C DP, IPF, HCG, CRP, CP, EDTOX #### [address] [address] Director Biostatistics: Bryn Farias MD Monocytes (Bld) [#/Vol] 0.41 10*3/uL Normal 0.10-1.20 [facility] Comment on above: Performed By: #### C DP, IPF, HCG, CRP, CP, EDTOX #### [place] [address] Director Biostatistics: Bryn Farias MD Monocytes/100 WBC (Bld) 6 % Normal 3-12 [facility] Comment on above: Performed By: #### C DP, IPF, HCG, CRP, CP, EDTOX #### [address] [address] Director Biostatistics: Bryn Farias MD Neutrophil (Seg) 61 % Normal 36-65 [facility] Comment on above: Performed By: #### C DP, IPF, HCG, CRP, CP, EDTOX #### [address] [address] Director Biostatistics: Bryn Farias MD NRBC Automated 0.0 per 100 WBC Normal 0.0 [facility] Comment on above: Performed By: #### C DP, IPF, HCG, CRP, CP, EDTOX #### [address] [address] Director Biostatistics: Bryn Farias MD Platelet mean volume (Bld) [Entitic vol] 9.0 fL Normal 8.1-13.5 [facility] Comment on above: Performed By: #### C DP, IPF, HCG, CRP, CP, EDTOX #### [address] [address] Director Biostatistics: Bryn Farias MD Platelets (Bld) [#/Vol] 258 10*3/uL Normal 138-453 [facility] Comment on above: Performed By: #### C DP, IPF, HCG, CRP, CP, EDTOX #### [address] [address] Director Biostatistics: Bryn Farias MD RBC (Bld) [#/Vol] 3.68 10*6/uL Low 3.95-5.11 [facility] Comment on above: Performed By: #### C DP, IPF, HCG, CRP, CP, EDTOX #### [address] [address] Director Biostatistics: Bryn Farias MD RBC morphology finding Nom (Bld) ANISOCYTOSIS PRESENT Normal [facility] Comment on above: Performed By: #### C DP, IPF, HCG, CRP, CP, EDTOX #### [address] [address] Director Biostatistics: Bryn Farias MD WBC (Bld) [#/Vol] 6.5 10*3/uL Normal 3.5-11.3 [facility] Comment on above: Performed By: #### C DP, IPF, HCG, CRP, CP, EDTOX #### [address] [address] Director Biostatistics: Bryn Farias MD Auto Diff Performed NOT REPORTED Normal [facility] Comment on above: Performed By: #### C DP, IPF, HCG, CRP, CP, EDTOX #### [address] [address] Director Biostatistics: Bryn Farias MD Platelet Estimate NOT REPORTED Normal [facility] Comment on above: Performed By: #### C DP, IPF, HCG, CRP, CP, EDTOX #### [address] [address] Director Biostatistics: Bryn Farias MD WBC Morphology NOT REPORTED Normal [facility] Comment on above: Performed By: #### C DP, IPF, HCG, CRP, CP, EDTOX #### [address] [address] Director Biostatistics: Bryn Farias MD Cardiacon 09-01-2020 CRP [Mass/Vol] 10.2 mg/L High 0 - 5 mg/L [place], [place] Otheron 09-01-2020 Sed Rate 1 mm 0 - 20 mm [place], [place] Interpretation and review of laboratory results Abnormal [place] Sedimentation Rateon 021 Sedimentation Rate 1 mm Normal 0-20 [facility] Comment on above: Performed By: #### C DP, IPF, HCG, CRP, CP, EDTOX #### [address] [place] [address] Director Biostatistics: Bryn Farias MD CBC auto differentialon Basophils (Bld) [#/Vol] 10*3/uL [place] Basophils/100 WBC (Bld) 0 % 0 - 2 % [place] Differential Type NOT REPORTED [place] Eosinophils (Bld) [#/Vol] 0.12 10*3/uL [place] Eosinophils/100 WBC (Bld) 2 % 1 - 4 % [place] Erythrocyte distribution width (RBC) [Ratio] 16.7 % High 11.8 - 14.4 % [place] Hematocrit (Bld) [Volume fraction] 34.3 % Low 36.3 - 47.1 % [place] Hemoglobin (Bld) [Mass/Vol] 10.4 g/dL Low 11.9 - 15.1 g/dL [place] Immature granulocytes (Bld) [#/Vol] 0 % 0 [place] Immature granulocytes (Bld) [#/Vol] 0.03 10*3/uL [place] Interpretation and review of laboratory results Abnormal [place] Lymphocytes (Bld) [#/Vol] 2.10 10*3/uL [place] Lymphocytes/100 WBC (Bld) 26 % 24 - 43 % [place] MCH (RBC) [Entitic mass] 29.4 pg 25.2 - 33.5 pg [place] MCHC (RBC) [Mass/Vol] 30.3 g/dL 28.4 - 34.8 g/dL [place] MCV (RBC) [Entitic vol] 96.9 fL 82.6 - 102.9 fL [place] Monocytes (Bld) [#/Vol] 0.44 10*3/uL [place] Monocytes/100 WBC (Bld) 5 % 3 - 12 % [place] Platelet mean volume (Bld) [Entitic vol] 9.1 fL 8.1 - 13.5 fL [place] Platelets (Bld) [#/Vol] 238 10*3/uL [place] Platelets (Bld) [#/Vol] NOT REPORTED [place] RBC (Bld) [#/Vol] 3.54 10*6/uL Low 3.95 - 5.1 1 m/uL [place] RBC morphology finding Nom (Bld) ANISOCYTOSIS PRESENT [place] Segmented neutrophils/100 WBC (Bld) 67 % High 36 - 65 % [place] Segs Absolute 5.40 [place] WBC (Bld) [#/Vol] 8.1 10*3/uL [place] WBC (Bld) [#/Vol] 0.0 10*3/uL 0.0 per 10 0 WBC [place] WBC Morphology NOT REPORTED [place], [place] CBC with Diffon 08-31-2020 Abs. Basophil <0.03 Normal 0.00-0.20 [facility] Comment on above: Performed By: #### C DP, IPF, HCG, CRP, CP, EDTOX #### [facility] [employer] [address] [place] [phone] Director Biostatistics: Bryn Farias MD Abs.Imm.Granulocyte 0.03 k/uL Normal 0.00-0.30 [facility] Comment on above: Performed By: #### C DP, IPF, HCG, CRP, CP, EDTOX #### [facility] [employer] [address] [place] [address] [phone] Director Biostatistics: Bryn Farias MD Abs.Neutrophil (Seg) 5.40 k/uL Normal 1.50-8.10 [facility] Comment on above: Performed By: #### C DP, IPF, HCG, CRP, CP, EDTOX #### [facility] [employer] [address] [place] [address] [phone] Director Biostatistics: Bryn Farias MD Basophils/100 WBC (Bld) 0 % Normal 0-2 [facility] Comment on above: Performed By: #### C DP, IPF, HCG, CRP, CP, EDTOX #### [address] [address] Director Biostatistics: Bryn Farias MD Eosinophils (Bld) [#/Vol] 0.12 10*3/uL Normal 0.00-0.44 [facility] Comment on above: Performed By: #### C DP, IPF, HCG, CRP, CP, EDTOX #### [address] [address] Director Biostatistics: Bryn Farias MD Eosinophils/100 WBC (Bld) 2 % Normal 1-4 [facility] Comment on above: Performed By: #### C DP, IPF, HCG, CRP, CP, EDTOX #### [place] [address] Director Biostatistics: Bryn Farias MD Erythrocyte distribution width (RBC) [Ratio] 16.7 % High 11.8-14.4 [facility] Comment on above: Performed By: #### C DP, IPF, HCG, CRP, CP, EDTOX #### [address] [address] Director Biostatistics: Bryn Farias MD Hematocrit (Bld) [Volume fraction] 34.3 % Low 36.3-47.1 [facility] Comment on above: Performed By: #### C DP, IPF, HCG, CRP, CP, EDTOX #### [address] [address] Director Biostatistics: Bryn Farias MD Hemoglobin (Bld) [Mass/Vol] 10.4 g/dL Low 11.9-15.1 [facility] Comment on above: Performed By: #### C DP, IPF, HCG, CRP, CP, EDTOX #### [address] [address] Director Biostatistics: Bryn Farias MD Immature granulocytes/100 WBC (Bld) 0 % Normal 0 [facility] Comment on above: Performed By: #### C DP, IPF, HCG, CRP, CP, EDTOX #### [address] [phone] Director Biostatistics: Bryn Farias MD Lymphocytes (Bld) [#/Vol] 2.10 10*3/uL Normal 1.10-3.70 [facility] Comment on above: Performed By: #### C DP, IPF, HCG, CRP, CP, EDTOX #### [address] [address] Director Biostatistics: Bryn Farias MD Lymphocytes/100 WBC (Bld) 26 % Normal 24-43 [facility] Comment on above: Performed By: #### C DP, IPF, HCG, CRP, CP, EDTOX #### [address] [address] Director Biostatistics: Bryn Farias MD MCH (RBC) [Entitic mass] 29.4 pg Normal 25.2-33.5 [facility] Comment on above: Performed By: #### C DP, IPF, HCG, CRP, CP, EDTOX #### [address] [address] Director Biostatistics: Bryn Farias MD MCHC (RBC) [Mass/Vol] 30.3 g/dL Normal 28.4-34.8 [facility] Comment on above: Performed By: #### C DP, IPF, HCG, CRP, CP, EDTOX #### [address] [address] Director Biostatistics: Bryn Farias MD MCV (RBC) [Entitic vol] 96.9 fL Normal 82.6-102.9 [facility] Comment on above: Performed By: #### C DP, IPF, HCG, CRP, CP, EDTOX #### [address] [address] Director Biostatistics: Bryn Farias MD Monocytes (Bld) [#/Vol] 0.44 10*3/uL Normal 0.10-1.20 [facility] Comment on above: Performed By: #### C DP, IPF, HCG, CRP, CP, EDTOX #### [address] [address] Director Biostatistics: Bryn Farias MD Monocytes/100 WBC (Bld) 5 % Normal 3-12 [facility] Comment on above: Performed By: #### C DP, IPF, HCG, CRP, CP, EDTOX #### [address] [address] Director Biostatistics: Bryn Farias MD Neutrophil (Seg) 67 % High 36-65 [facility] Comment on above: Performed By: #### C DP, IPF, HCG, CRP, CP, EDTOX #### [address] [address] Director Biostatistics: Bryn Farias MD NRBC Automated 0.0 per 100 WBC Normal 0.0 [facility] Comment on above: Performed By: #### C DP, IPF, HCG, CRP, CP, EDTOX #### [address] [address] Director Biostatistics: Bryn Farias MD Platelet mean volume (Bld) [Entitic vol] 9.1 fL Normal 8.1-13.5 [facility] Comment on above: Performed By: #### C DP, IPF, HCG, CRP, CP, EDTOX #### [address] [address] Director Biostatistics: Bryn Farias MD Platelets (Bld) [#/Vol] 238 10*3/uL Normal 138-453 [facility] Comment on above: Performed By: #### C DP, IPF, HCG, CRP, CP, EDTOX #### [address] [address] Director Biostatistics: Bryn Farias MD RBC (Bld) [#/Vol] 3.54 10*6/uL Low 3.95-5.11 [facility] Comment on above: Performed By: #### C DP, IPF, HCG, CRP, CP, EDTOX #### [address] [address] Director Biostatistics: Bryn Farias MD RBC morphology finding Nom (Bld) ANISOCYTOSIS PRESENT Normal [facility] Comment on above: Performed By: #### C DP, IPF, HCG, CRP, CP, EDTOX #### [address] [address] Director Biostatistics: Bryn Farias MD WBC (Bld) [#/Vol] 8.1 10*3/uL Normal 3.5-11.3 [facility] Comment on above: Performed By: #### C DP, IPF, HCG, CRP, CP, EDTOX #### [address] [address] Director Biostatistics: Bryn Farias MD Auto Diff Performed NOT REPORTED Normal [facility] Comment on above: Performed By: #### C DP, IPF, HCG, CRP, CP, EDTOX #### [address] [address] Director Biostatistics: Bryn Farias MD Platelet Estimate NOT REPORTED Normal [facility] Comment on above: Performed By: #### C DP, IPF, HCG, CRP, CP, EDTOX #### [address] [address] Director Biostatistics: Bryn Farias MD WBC Morphology NOT REPORTED Normal [facility] Comment on above: Performed By: #### C DP, IPF, HCG, CRP, CP, EDTOX #### [facility] [address] [place] [phone] Director Biostatistics: Bryn Farias MD Comp Metabolic Pr/rfx MGon 0 08-31-2020 (cont.) Normal [facility] Comment on above: Result Comment: Aver age GFR for 20-29 years old: 116 mL/min/1.73sq m Chronic Kidney Disease: <60 mL/min/1.73sq m Kidney failure: <15 mL/min/1.73sq m eGFR calculated using average adult body mass. Additional eGFR calculator available at: http://www.[facility] EHR/multiple_crcl_2011.htm Performed By: #### C DP, IPF, HCG, CRP, CP, EDTOX #### [facility] [address] [place] [phone] Director Biostatistics: Bryn Farias MD Albumin [Mass/Vol] 3.0 g/dL Low 3.5-5.2 [facility] Comment on above: Performed By: #### C DP, IPF, HCG, CRP, CP, EDTOX #### [facility] [address] [place] [address] [phone] Director Biostatistics: Bryn Farias MD Albumin/Glob Ratio 1.4 Normal 1.0-2.5 [facility] Comment on above: Performed By: #### C DP, IPF, HCG, CRP, CP, EDTOX #### [facility] [address] [place] [phone] Director Biostatistics: Bryn Farias MD Alkaline Phos 122 U/L High 35-104 [facility] Comment on above: Result Comment: SPEC IMEN MODERATELY HEMOLYZED, RESULTS MAY BE ADVERSELY AFFECTED Performed By: #### C DP, IPF, HCG, CRP, CP, EDTOX #### [facility] [address] [place] [address] [phone] Director Biostatistics: Bryn Farias MD ALT [Catalytic activity/Vol] 13 U/L Normal 5-33 [facility] Comment on above: Result Comment: SPEC IMEN MODERATELY HEMOLYZED, RESULTS MAY BE ADVERSELY AFFECTED Performed By: #### C DP, IPF, HCG, CRP, CP, EDTOX #### [address] [address] Director Biostatistics: Bryn Farias MD Anion gap [Moles/Vol] 4 mmol/L Low 9-17 [facility] Comment on above: Performed By: #### C DP, IPF, HCG, CRP, CP, EDTOX #### [facility] [employer] [address] [place] [phone] Director Biostatistics: Bryn Farias MD AST [Catalytic activity/Vol] 26 U/L Normal <32 [facility] Comment on above: Result Comment: SPEC IMEN MODERATELY HEMOLYZED, RESULTS MAY BE ADVERSELY AFFECTED Performed By: #### C DP, IPF, HCG, CRP, CP, EDTOX #### [facility] [employer] [address] [place] [phone] Director Biostatistics: Bryn Farias MD Bilirubin [Mass/Vol] 0.21 mg/dL Low 0.3-1.2 [facility] Comment on above: Performed By: #### C DP, IPF, HCG, CRP, CP, EDTOX #### [facility] [employer] [address] [place] [phone] Director Biostatistics: Bryn Farias MD Calcium [Mass/Vol] 8.5 mg/dL Low 8.6-10.4 [facility] Comment on above: Performed By: #### C DP, IPF, HCG, CRP, CP, EDTOX #### [facility] [employer] [address] [place] [phone] Director Biostatistics: Bryn Farias MD Chloride [Moles/Vol] 109 mmol/L High 98-107 [facility] Comment on above: Performed By: #### C DP, IPF, HCG, CRP, CP, EDTOX #### [address] [address] Director Biostatistics: Bryn Farias MD CO2 [Moles/Vol] 24 mmol/L Normal 20-31 [facility] Comment on above: Performed By: #### C DP, IPF, HCG, CRP, CP, EDTOX #### [address] [address] Director Biostatistics: Bryn Farias MD Creatinine [Mass/Vol] 0.31 mg/dL Low 0.50-0.90 [facility] Comment on above: Performed By: #### C DP, IPF, HCG, CRP, CP, EDTOX #### [address] [address] Director Biostatistics: Bryn Farias MD GFR, Amer >60 Normal >60 [facility] Comment on above: Performed By: #### C DP, IPF, HCG, CRP, CP, EDTOX #### [address] [address] Director Biostatistics: Bryn Farias MD GFR,non Amer >60 Normal >60 [facility] Comment on above: Performed By: #### C DP, IPF, HCG, CRP, CP, EDTOX #### [address] [address] Director Biostatistics: Bryn Farias MD Glucose [Mass/Vol] 104 mg/dL High 70-99 [facility] Comment on above: Performed By: #### C DP, IPF, HCG, CRP, CP, EDTOX #### [address] [address] Director Biostatistics: Bryn Farias MD Potassium [Moles/Vol] 4.5 mmol/L Normal 3.7-5.3 [facility] Comment on above: Result Comment: SPEC IMEN MODERATELY HEMOLYZED, RESULTS MAY BE ADVERSELY AFFECTED Performed By: #### C DP, IPF, HCG, CRP, CP, EDTOX #### [facility] [employer] [address] [place] [phone] Director Biostatistics: Bryn Farias MD Protein [Mass/Vol] 5.2 g/dL Low 6.4-8.3 [facility] Comment on above: Performed By: #### C DP, IPF, HCG, CRP, CP, EDTOX #### [facility] [employer] [address] [place] [phone] Director Biostatistics: Bryn Farias MD Sodium [Moles/Vol] 137 mmol/L Normal 135-144 [facility] Comment on above: Performed By: #### C DP, IPF, HCG, CRP, CP, EDTOX #### [address] [address] Director Biostatistics: Bryn Farias MD Urea nitrogen [Mass/Vol] 2 mg/dL Low 6-20 [facility] Comment on above: Performed By: #### C DP, IPF, HCG, CRP, CP, EDTOX #### [facility] [employer] [address] [place] [phone] Director Biostatistics: Bryn Farias MD BUN/CRE Ratio NOT REPORTED Normal -20 [facility] Comment on above: Performed By: #### C DP, IPF, HCG, CRP, CP, EDTOX #### [facility] [employer] [address] [place] [phone] Director Biostatistics: Bryn Farias MD Staging: NOT REPORTED Normal [facility] Comment on above: Performed By: #### C DP, IPF, HCG, CRP, CP, EDTOX #### [facility] [employer] [address] [place] [phone] Director Biostatistics: Bryn Farias MD Metabolic Panelon 08-31-2020 Albumin [Mass/Vol] 3 g/dL Low 3.5 - 5.2 g/dL [place] ALP [Catalytic activity/Vol] 122 U/L High 35 - 104 U/L [place] Comment on above: SPECIMEN MODERATELY HEMOLYZED, RESULTS MAY BE ADVERSELY AFFECTED ALT [Catalytic activity/Vol] 13 U/L 5 - 33 U/L [place] Comment on above: SPECIMEN MODERATELY HEMOLYZED, RESULTS MAY BE ADVERSELY AFFECTED Anion gap [Moles/Vol] 4 mmol/L Low 9 - 17 mmol/L [place] AST [Catalytic activity/Vol] 26 U/L <32 [place] Comment on above: SPECIMEN MODERATELY HEMOLYZED, RESULTS MAY BE ADVERSELY AFFECTED Calcium [Mass/Vol] 8.5 mg/dL Low 8.6 - 10. 4 mg/dL [place] Chloride [Moles/Vol] 109 mmol/L High 98 - 10 7 mmol/L [place] CO2 [Moles/Vol] 24 mmol/L 20 - 31 mmol/L [place] Creatinine [Mass/Vol] 0.31 mg/dL Low 0.5 - 0.9 mg/dL [place] GFR/1.73 sq M predicted among non-blacks MDRD (S/P/Bld) [Vol rate/Area] NOT REPORTED [place] GFR/1.73 sq M predicted among non-blacks MDRD (S/P/Bld) [Vol rate/Area] [place] Comment on above: Average GFR for 20-2 9 years old: 116 mL/min/1.73sq m Chronic Kidney Disease: <60 mL/min/1.73sq m Kidney failure: <15 mL/min/1.73sq m eGFR calculated using average adult body mass. Additional eGFR calculator available at: http://www.[employer]/multiple_crcl_2012.htm Glucose [Mass/Vol] 104 mg/dL High 70 - 99 mg/dL [place], [place] Potassium [Moles/Vol] 4.5 mmol/L 3.7 - 5.3 mmol/L [place] Comment on above: SPECIMEN MODERATELY HEMOLYZED, RESULTS MAY BE ADVERSELY AFFECTED Protein [Mass/Vol] 5.2 g/dL Low 6.4 - 8.3 g/dL [place] Sodium [Moles/Vol] 137 mmol/L 135 - 144 mmol/L [place] Urea nitrogen [Mass/Vol] 2 mg/dL Low 6 - 20 mg/dL [place] Otheron 08-31-2020 Atrial Rate 122 BPM [place] P Edroy 60 degrees [place] P-R Interval 144 ms [place] Q-T Interval 356 ms [place] QRS Duration 92 ms [place] QTc Calculation (Bazett) 507 ms [place] R Edro[place] 19 degrees [place] T Edroy 60 degrees [place] Ventricular Rate 122 BPM [place], [employer] Incoming E kg Results From [address] - 08/31/2020 11:53 AM EST Sinus tachycardia Possible Left atrial enlargement Nonspecific ST abnormality Abnormal ECG When compared with ECG of 31-JUL-2015 19:51, No significant change was found [place] Sinus tachycardia Possible Left atrial enlargement Nonspecific ST abnormality Abnormal ECG When compared with ECG of 31-JUL-2015 19:51, No significant change was found [place] Albumin/Globulin [Mass ratio] 1.4 {ratio} [place] Bilirubin Ql (U) 0.21 mg/dL Low 0.3 - 1.2 mg/dL [place] Bun/Cre Ratio NOT REPORTED [place], [place] GFR >60 >60 mL/min [place] GFR Non- >60 >60 mL/min [place] Interpretation and review of laboratory results Abnormal [place] EXAMINATION: TWO XRA Y VIEWS OF [...] soft tissue swelling. No radiodense foreign body. [place] 1. No acute osseous abnormality of the right hand and forearm. 2. No radiodense foreign body. [place] [employer] Incoming Radiant Results From [email or web address] - 08/31/2020 5:09 AM EST EXAMINATION: TWO [...] and forearm. 2. No radiodense foreign body. [place] XR HAND RIGHT (MIN 3 VIEWS)o [...] Petty Lisa MD 08/31/20 Final result Normal [facility] XR RADIUS ULNA LEFT (2 VIEWS )on [...] Petty Lisa MD 08/31/20 Final result Normal [facility] APTTon 08-30-2020 aPTT Coag (Bld) [Time] 24.8 s Normal 20.5-30.5 [facility] Comment on above: Result Comment: IV Heparin Therapy Range: 48.6-77.8 Performed By: #### C OVID #### [facility] [place], [place] [id number] Director Biostatistics: Bryn Farias MD Acetaminophenon 08-30-2020 Acetaminophen [Mass/Vol] ug/mL Low 10-30 [facility] Comment on above: Performed By: #### C OVID #### [facility] [address] [place] [phone] Director Biostatistics: Bryn Farias MD Basic Metab w/rfx MGon 08-30 Potassium [Moles/Vol] 3.3 mmol/L Low 3.7-5.3 [facility] Comment on above: Performed By: #### C OVID #### [address] [address] Director Biostatistics: Bryn Farias MD (cont.) [facility] Comment on above: Result Comment: Aver age GFR for 20-29 years old: 116 mL/min/1.73sq m Chronic Kidney Disease: <60 mL/min/1.73sq m Kidney failure: <15 mL/min/1.73sq m eGFR calculated using average adult body mass. Additional eGFR calculator available at: http://www.[facility] EHR/multiple_crcl_2011.htm Performed By: #### C OVID #### [address] [address] Director Biostatistics: Bryn Farias MD Anion gap [Moles/Vol] 9 mmol/L Normal 9-17 [facility] Comment on above: Performed By: #### C OVID #### [address] [address] Director Biostatistics: Bryn Farias MD Calcium [Mass/Vol] 8.4 mg/dL Low 8.6-10.4 [facility] Comment on above: Performed By: #### C OVID #### [facility] [employer] [address] [place] [phone] Director Biostatistics: Bryn Farias MD Chloride [Moles/Vol] 106 mmol/L Normal 98-107 [facility] Comment on above: Performed By: #### C OVID #### [address] [address] Director Biostatistics: Bryn Farias MD CO2 [Moles/Vol] 23 mmol/L Normal 20-31 [facility] Comment on above: Performed By: #### C OVID #### [address] [address] Director Biostatistics: Bryn Farias MD Creatinine [Mass/Vol] 0.41 mg/dL Low 0.50-0.90 [facility] Comment on above: Performed By: #### C OVID #### [address] [address] Director Biostatistics: Bryn Farias MD GFR, Amer >60 Normal >60 [facility] Comment on above: Performed By: #### C OVID #### [address] [address] Director Biostatistics: Bryn Farias MD GFR,non Amer >60 Normal >60 [facility] Comment on above: Performed By: #### C OVID #### [address] [address] Director Biostatistics: Bryn Farias MD Glucose [Mass/Vol] 99 mg/dL Normal 70-99 [facility] Comment on above: Performed By: #### C OVID #### [address] [address] Director Biostatistics: Bryn Farias MD Sodium [Moles/Vol] 138 mmol/L Normal 135-144 [facility] Comment on above: Performed By: #### C OVID #### [address] [address] Director Biostatistics: Bryn Farias MD Urea nitrogen [Mass/Vol] 3 mg/dL Low 6-20 [facility] Comment on above: Performed By: #### C OVID #### [address] [address] Director Biostatistics: Bryn Farias MD BUN/CRE Ratio NOT REPORTED Normal 9-20 [facility] Comment on above: Performed By: #### C OVID #### [address], [place] [id number] Director Biostatistics: Bryn Farias MD Staging: NOT REPORTED Normal [facility] Comment on above: Performed By: #### C OVID #### [facility] [address] [place], [place] [id number] Director Biostatistics: Bryn Farias MD C-REACTIVE PROTEINon 021 CRP [Mass/Vol] 21.2 mg/L High 0 - 5 mg/L [place] Interpretation and review of laboratory results Abnormal [place] C-Reactive Proteinon 021 CRP [Mass/Vol] 21.2 mg/L High 0.0-5.0 [facility] Comment on above: Performed By: #### C DP, IPF, HCG, CRP, CP, EDTOX #### [place] [place], [place] [phone] Director Biostatistics: Bryn Farias MD CBC WITH AUTO DIFFERENTIALon 08-30-2020 Basophils (Bld) [#/Vol] 10*3/uL [place] Basophils/100 WBC (Bld) 0 % 0 - 2 % [place] Differential Type NOT REPORTED [place] Eosinophils (Bld) [#/Vol] 0.07 10*3/uL [place] Eosinophils/100 WBC (Bld) 1 % 1 - 4 % [place] Erythrocyte distribution width (RBC) [Ratio] 16.4 % High 11.8 - 14.4 % [place] Hematocrit (Bld) [Volume fraction] 36.8 % 36.3 - 47.1 % [place] Hemoglobin (Bld) [Mass/Vol] 12.2 g/dL 11.9 - 15.1 g/dL [place] Immature granulocytes (Bld) [#/Vol] 1 % High 0 [place] Immature granulocytes (Bld) [#/Vol] 0.04 10*3/uL [place] Interpretation and review of laboratory results Abnormal [place] Lymphocytes (Bld) [#/Vol] 1.57 10*3/uL [place] Lymphocytes/100 WBC (Bld) 21 % Low 24 - 43 % [place] MCH (RBC) [Entitic mass] 29.3 pg 25.2 - 33.5 pg [place] MCHC (RBC) [Mass/Vol] 33.2 g/dL 28.4 - 34.8 g/dL [place] MCV (RBC) [Entitic vol] 88.2 fL 82.6 - 102.9 fL [place] Monocytes (Bld) [#/Vol] 0.31 10*3/uL [place] Monocytes/100 WBC (Bld) 4 % 3 - 12 % [place] Platelet mean volume (Bld) [Entitic vol] NOT REPORTED 8.1 - 13.5 fL [place] Platelets (Bld) [#/Vol] NOT REPORTED [place] Platelets (Bld) [#/Vol] See Reflexed IPF Result [place] RBC (Bld) [#/Vol] 4.17 10*6/uL 3.95 - 5.1 1 m/uL [place] RBC morphology finding Nom (Bld) ANISOCYTOSIS PRESENT [place] Segmented neutrophils/100 WBC (Bld) 74 % High 36 - 65 % [place] Segs Absolute 5.62 [place] WBC (Bld) [#/Vol] 7.6 10*3/uL [place] WBC (Bld) [#/Vol] 0.0 10*3/uL 0.0 per 10 0 WBC [place] WBC Morphology NOT REPORTED [place] CBC auto differentialon Basophils (Bld) [#/Vol] 10*3/uL [place] Basophils/100 WBC (Bld) 0 % 0 - 2 % [place] Differential Type NOT REPORTED [place] Eosinophils (Bld) [#/Vol] 0.06 10*3/uL [place] Eosinophils/100 WBC (Bld) 1 % 1 - 4 % [place] Erythrocyte distribution width (RBC) [Ratio] 16.4 % High 11.8 - 14.4 % [place] Hematocrit (Bld) [Volume fraction] 35.1 % Low 36.3 - 47.1 % [place] Hemoglobin (Bld) [Mass/Vol] 11.2 g/dL Low 11.9 - 15.1 g/dL [place] Immature granulocytes (Bld) [#/Vol] 0.03 10*3/uL [place] Immature granulocytes (Bld) [#/Vol] 0 % 0 [place] Interpretation and review of laboratory results Abnormal [place] Lymphocytes (Bld) [#/Vol] 2.54 10*3/uL [place] Lymphocytes/100 WBC (Bld) 29 % 24 - 43 % [place] MCH (RBC) [Entitic mass] 29.7 pg 25.2 - 33.5 pg [place] MCHC (RBC) [Mass/Vol] 31.9 g/dL 28.4 - 34.8 g/dL [place] MCV (RBC) [Entitic vol] 93.1 fL 82.6 - 102.9 fL [place] Monocytes (Bld) [#/Vol] 0.47 10*3/uL [place] Monocytes/100 WBC (Bld) 5 % 3 - 12 % [place] Platelet mean volume (Bld) [Entitic vol] 8.6 fL 8.1 - 13.5 fL [place] Platelets (Bld) [#/Vol] NOT REPORTED [place] Platelets (Bld) [#/Vol] 287 10*3/uL [place] RBC (Bld) [#/Vol] 3.77 10*6/uL Low 3.95 - 5.1 1 m/uL [place] RBC morphology finding Nom (Bld) ANISOCYTOSIS PRESENT [place] Segmented neutrophils/100 WBC (Bld) 65 % 36 - 65 % [place] Segs Absolute 5.59 [place] WBC (Bld) [#/Vol] 8.7 10*3/uL [place] WBC (Bld) [#/Vol] 0.0 10*3/uL 0.0 per 10 0 WBC [place] WBC Morphology NOT REPORTED [place] CBC with Diffon 08-30-2020 Abs. Basophil <0.03 Normal 0.00-0.20 [facility] Comment on above: Performed By: #### C OVID #### [address] [address] Director Biostatistics: Bryn Farias MD Abs.Imm.Granulocyte 0.03 k/uL Normal 0.00-0.30 [facility] Comment on above: Performed By: #### C OVID #### [address] [address] Director Biostatistics: Bryn Farias MD Abs.Neutrophil (Seg) 5.59 k/uL Normal 1.50-8.10 [facility] Comment on above: Performed By: #### C OVID #### [address] [address] Director Biostatistics: Bryn Farias MD Basophils/100 WBC (Bld) 0 % Normal 0-2 [facility] Comment on above: Performed By: #### C OVID #### [address] [address] Director Biostatistics: Bryn Farias MD Eosinophils (Bld) [#/Vol] 0.06 10*3/uL Normal 0.00-0.44 [facility] Comment on above: Performed By: #### C OVID #### [address] [address] Director Biostatistics: Bryn Farias MD Eosinophils/100 WBC (Bld) 1 % Normal 1-4 [facility] Comment on above: Performed By: #### C OVID #### [address] [address] Director Biostatistics: Bryn Farias MD Erythrocyte distribution width (RBC) [Ratio] 16.4 % High 11.8-14.4 [facility] Comment on above: Performed By: #### C OVID #### [address] [address] Director Biostatistics: Bryn Farias MD Hematocrit (Bld) [Volume fraction] 35.1 % Low 36.3-47.1 [facility] Comment on above: Performed By: #### C OVID #### [address] [address] Director Biostatistics: Bryn Farias MD Hemoglobin (Bld) [Mass/Vol] 11.2 g/dL Low 11.9-15.1 [facility] Comment on above: Performed By: #### C OVID #### [address] [address] Director Biostatistics: Bryn Farias MD Immature granulocytes/100 WBC (Bld) 0 % Normal 0 [facility] Comment on above: Performed By: #### C OVID #### [address] [address] Director Biostatistics: Bryn Farias MD Lymphocytes (Bld) [#/Vol] 2.54 10*3/uL Normal 1.10-3.70 [facility] Comment on above: Performed By: #### C OVID #### [address] [address] Director Biostatistics: Bryn Farias MD Lymphocytes/100 WBC (Bld) 29 % Normal 24-43 [facility] Comment on above: Performed By: #### C OVID #### [address] [address] Director Biostatistics: Bryn Farias MD MCH (RBC) [Entitic mass] 29.7 pg Normal 25.2-33.5 [facility] Comment on above: Performed By: #### C OVID #### [address] [address] Director Biostatistics: Bryn Farias MD MCHC (RBC) [Mass/Vol] 31.9 g/dL Normal 28.4-34.8 [facility] Comment on above: Performed By: #### C OVID #### [address] [address] Director Biostatistics: Bryn Farias MD MCV (RBC) [Entitic vol] 93.1 fL Normal 82.6-102.9 [facility] Comment on above: Performed By: #### C OVID #### [address] [address] Director Biostatistics: Bryn Farias MD Monocytes (Bld) [#/Vol] 0.47 10*3/uL Normal 0.10-1.20 [facility] Comment on above: Performed By: #### C OVID #### [address] [address] Director Biostatistics: Bryn Farias MD Monocytes/100 WBC (Bld) 5 % Normal 3-12 [facility] Comment on above: Performed By: #### C OVID #### [address] [address] Director Biostatistics: Bryn Farias MD Neutrophil (Seg) 65 % Normal 36-65 [facility] Comment on above: Performed By: #### C OVID #### [address] [address] Director Biostatistics: Bryn Farias MD NRBC Automated 0.0 per 100 WBC Normal 0.0 [facility] Comment on above: Performed By: #### C OVID #### [address] [address] Director Biostatistics: Bryn Farias MD Platelet mean volume (Bld) [Entitic vol] 8.6 fL Normal 8.1-13.5 [facility] Comment on above: Performed By: #### C OVID #### [address] [address] Director Biostatistics: Bryn Farias MD Platelets (Bld) [#/Vol] 287 10*3/uL Normal 138-453 [facility] Comment on above: Performed By: #### C OVID #### [address] [address] Director Biostatistics: Bryn Farias MD RBC (Bld) [#/Vol] 3.77 10*6/uL Low 3.95-5.11 [facility] Comment on above: Performed By: #### C OVID #### [address] [address] Director Biostatistics: Bryn Farias MD RBC morphology finding Nom (Bld) ANISOCYTOSIS PRESENT Normal [facility] Comment on above: Performed By: #### C OVID #### [address] [address] Director Biostatistics: Bryn Farias MD WBC (Bld) [#/Vol] 8.7 10*3/uL Normal 3.5-11.3 [facility] Comment on above: Performed By: #### C OVID #### [address] [address] Director Biostatistics: Bryn Farias MD Auto Diff Performed NOT REPORTED Normal [facility] Comment on above: Performed By: #### C OVID #### [address] [address] Director Biostatistics: Bryn Farias MD Platelet Estimate NOT REPORTED Normal [facility] Comment on above: Performed By: #### C OVID #### [place] [address] Director Biostatistics: Bryn Farias MD WBC Morphology NOT REPORTED Normal [facility] Comment on above: Performed By: #### C OVID #### [place] [address] Director Biostatistics: Bryn Farias MD Abs. Basophil <0.03 Normal 0.00-0.20 [facility] Comment on above: Performed By: #### C DP, IPF, HCG, CRP, CP, EDTOX #### [place] [address] Director Biostatistics: Bryn Farias MD Abs.Imm.Granulocyte 0.04 k/uL Normal 0.00-0.30 [facility] Comment on above: Performed By: #### C DP, IPF, HCG, CRP, CP, EDTOX #### [place] [address] Director Biostatistics: Bryn Farias MD Abs.Neutrophil (Seg) 5.62 k/uL Normal 1.50-8.10 [facility] Comment on above: Performed By: #### C DP, IPF, HCG, CRP, CP, EDTOX #### [place] [address] Director Biostatistics: Bryn Farias MD Basophils/100 WBC (Bld) 0 % Normal 0-2 [facility] Comment on above: Performed By: #### C DP, IPF, HCG, CRP, CP, EDTOX #### [place] [address] Director Biostatistics: Bryn Farias MD Eosinophils (Bld) [#/Vol] 0.07 10*3/uL Normal 0.00-0.44 [facility] Comment on above: Performed By: #### C DP, IPF, HCG, CRP, CP, EDTOX #### [address] [address] Director Biostatistics: Bryn Farias MD Eosinophils/100 WBC (Bld) 1 % Normal 1-4 [facility] Comment on above: Performed By: #### C DP, IPF, HCG, CRP, CP, EDTOX #### [address] [address] Director Biostatistics: Bryn Farias MD Erythrocyte distribution width (RBC) [Ratio] 16.4 % High 11.8-14.4 [facility] Comment on above: Performed By: #### C DP, IPF, HCG, CRP, CP, EDTOX #### [place] [address] Director Biostatistics: Bryn Farias MD Hematocrit (Bld) [Volume fraction] 36.8 % Normal 36.3-47.1 [facility] Comment on above: Performed By: #### C DP, IPF, HCG, CRP, CP, EDTOX #### [address] [address] Director Biostatistics: Bryn Farias MD Hemoglobin (Bld) [Mass/Vol] 12.2 g/dL Normal 11.9-15.1 [facility] Comment on above: Performed By: #### C DP, IPF, HCG, CRP, CP, EDTOX #### [address] [address] Director Biostatistics: Bryn Farias MD Immature granulocytes/100 WBC (Bld) 1 % High 0 [facility] Comment on above: Performed By: #### C DP, IPF, HCG, CRP, CP, EDTOX #### [address] [address] Director Biostatistics: Bryn Farias MD Lymphocytes (Bld) [#/Vol] 1.57 10*3/uL Normal 1.10-3.70 [facility] Comment on above: Performed By: #### C DP, IPF, HCG, CRP, CP, EDTOX #### [address] [address] Director Biostatistics: Bryn Farias MD Lymphocytes/100 WBC (Bld) 21 % Low 24-43 [facility] Comment on above: Performed By: #### C DP, IPF, HCG, CRP, CP, EDTOX #### [address] [address] Director Biostatistics: Bryn Farias MD MCH (RBC) [Entitic mass] 29.3 pg Normal 25.2-33.5 [facility] Comment on above: Performed By: #### C DP, IPF, HCG, CRP, CP, EDTOX #### [address] [address] Director Biostatistics: Bryn Farias MD MCHC (RBC) [Mass/Vol] 33.2 g/dL Normal 28.4-34.8 [facility] Comment on above: Performed By: #### C DP, IPF, HCG, CRP, CP, EDTOX #### [address] [address] Director Biostatistics: Bryn Farias MD MCV (RBC) [Entitic vol] 88.2 fL Normal 82.6-102.9 [facility] Comment on above: Performed By: #### C DP, IPF, HCG, CRP, CP, EDTOX #### [address] [address] Director Biostatistics: Bryn Farias MD Monocytes (Bld) [#/Vol] 0.31 10*3/uL Normal 0.10-1.20 [facility] Comment on above: Performed By: #### C DP, IPF, HCG, CRP, CP, EDTOX #### [address] [address] Director Biostatistics: Bryn Farias MD Monocytes/100 WBC (Bld) 4 % Normal 3-12 [facility] Comment on above: Performed By: #### C DP, IPF, HCG, CRP, CP, EDTOX #### [address] [address] Director Biostatistics: Bryn Farias MD Neutrophil (Seg) 74 % High 36-65 [facility] Comment on above: Performed By: #### C DP, IPF, HCG, CRP, CP, EDTOX #### [address] [address] Director Biostatistics: Bryn Farias MD NRBC Automated 0.0 per 100 WBC Normal 0.0 [facility] Comment on above: Performed By: #### C DP, IPF, HCG, CRP, CP, EDTOX #### [address] [address] Director Biostatistics: Bryn Farias MD Platelet Count See Reflexed IPF Result Normal 138-453 [facility] Comment on above: Performed By: #### C DP, IPF, HCG, CRP, CP, EDTOX #### [address] [address] Director Biostatistics: Bryn Farias MD RBC (Bld) [#/Vol] 4.17 10*6/uL Normal 3.95-5.11 [facility] Comment on above: Performed By: #### C DP, IPF, HCG, CRP, CP, EDTOX #### [address] [address] Director Biostatistics: Bryn Farias MD RBC morphology finding Nom (Bld) ANISOCYTOSIS PRESENT Normal [facility] Comment on above: Performed By: #### C DP, IPF, HCG, CRP, CP, EDTOX #### [address] [address] Director Biostatistics: Bryn Farias MD WBC (Bld) [#/Vol] 7.6 10*3/uL Normal 3.5-11.3 [facility] Comment on above: Performed By: #### C DP, IPF, HCG, CRP, CP, EDTOX #### [address] [address] Director Biostatistics: Bryn Farias MD Auto Diff Performed NOT REPORTED Normal [facility] Comment on above: Performed By: #### C DP, IPF, HCG, CRP, CP, EDTOX #### [address] [address] Director Biostatistics: Bryn Farias MD MPV NOT REPORTED Normal 8.1-13.5 [facility] Comment on above: Performed By: #### C DP, IPF, HCG, CRP, CP, EDTOX #### [address] [address] Director Biostatistics: Bryn Farias MD Platelet Estimate NOT REPORTED Normal [facility] Comment on above: Performed By: #### C DP, IPF, HCG, CRP, CP, EDTOX #### [address] [address] Director Biostatistics: Bryn Farias MD WBC Morphology NOT REPORTED Normal [facility] Comment on above: Performed By: #### C DP, IPF, HCG, CRP, CP, EDTOX #### [address] [address] Director Biostatistics: Brny Farias MD COVID-19on 08-30-2020 SARS-CoV-2, Rapid Not Detected Not Detected [place], [place] Comment on above: Rapid NAAT: The [...] management decisions. Fact sheet for Healthcare Providers: https://www.fda.gov/media/812147/download Fact sheet for Patients: https://www.fda.gov/media/544949/download Methodology: Isothermal Nucleic Acid Amplification Source .NASOPHARYNGEAL SWAB [facility], [place] Comp Metabolic Profon 2020 (cont.) Normal [facility] Comment on above: Result Comment: Aver age GFR for 20-29 years old: 116 mL/min/1.73sq m Chronic Kidney Disease: <60 mL/min/1.73sq m Kidney failure: <15 mL/min/1.73sq m eGFR calculated using average adult body mass. Additional eGFR calculator available at: http://www.[facility] EHR/multiple_crcl_2012.htm Performed By: #### C DP, IPF, HCG, CRP, CP, EDTOX #### [facility] [employer] [address] [place] [phone] Director Biostatistics: Bryn Farias MD Albumin [Mass/Vol] 3.9 g/dL Normal 3.5-5.2 [facility] Comment on above: Performed By: #### C DP, IPF, HCG, CRP, CP, EDTOX #### [facility] [employer] [address] [place] [phone] Director Biostatistics: Bryn Farias MD Albumin/Glob Ratio 1.7 Normal 1.0-2.5 [facility] Comment on above: Performed By: #### C DP, IPF, HCG, CRP, CP, EDTOX #### [address] [address] Director Biostatistics: Bryn Farias MD Alkaline Phos 132 U/L High 35-104 [facility] Comment on above: Performed By: #### C DP, IPF, HCG, CRP, CP, EDTOX #### [address] [address] Director Biostatistics: Bryn Farias MD ALT [Catalytic activity/Vol] 18 U/L Normal 5-33 [facility] Comment on above: Performed By: #### C DP, IPF, HCG, CRP, CP, EDTOX #### [address] [address] Director Biostatistics: Bryn Farias MD Anion gap [Moles/Vol] 10 mmol/L Normal 9-17 [facility] Comment on above: Performed By: #### C DP, IPF, HCG, CRP, CP, EDTOX #### [address] [address] Director Biostatistics: Bryn Farias MD AST [Catalytic activity/Vol] 20 U/L Normal <32 [facility] Comment on above: Performed By: #### C DP, IPF, HCG, CRP, CP, EDTOX #### [address] [address] Director Biostatistics: Bryn Farias MD Bilirubin [Mass/Vol] mg/dL Low 0.3-1.2 [facility] Comment on above: Performed By: #### C DP, IPF, HCG, CRP, CP, EDTOX #### [address] [address] Director Biostatistics: Bryn Farias MD Calcium [Mass/Vol] 8.9 mg/dL Normal 8.6-10.4 [facility] Comment on above: Performed By: #### C DP, IPF, HCG, CRP, CP, EDTOX #### [address] [address] Director Biostatistics: Bryn Farias MD Chloride [Moles/Vol] 103 mmol/L Normal 98-107 [facility] Comment on above: Performed By: #### C DP, IPF, HCG, CRP, CP, EDTOX #### [address] [address] Director Biostatistics: Bryn Farias MD CO2 [Moles/Vol] 24 mmol/L Normal 20-31 [facility] Comment on above: Performed By: #### C DP, IPF, HCG, CRP, CP, EDTOX #### [address] [address] Director Biostatistics: Bryn Farias MD Creatinine [Mass/Vol] 0.39 mg/dL Low 0.50-0.90 [facility] Comment on above: Performed By: #### C DP, IPF, HCG, CRP, CP, EDTOX #### [address] [address] Director Biostatistics: Bryn Farias MD GFR, Amer >60 Normal >60 [facility] Comment on above: Performed By: #### C DP, IPF, HCG, CRP, CP, EDTOX #### [address] [address] Director Biostatistics: Bryn Farias MD GFR,non Amer >60 Normal >60 [facility] Comment on above: Performed By: #### C DP, IPF, HCG, CRP, CP, EDTOX #### [address] [address] Director Biostatistics: Bryn Farias MD Glucose [Mass/Vol] 86 mg/dL Normal 70-99 [facility] Comment on above: Performed By: #### C DP, IPF, HCG, CRP, CP, EDTOX #### [address] [address] Director Biostatistics: Bryn Farias MD Potassium [Moles/Vol] 3.6 mmol/L Low 3.7-5.3 [facility] Comment on above: Performed By: #### C DP, IPF, HCG, CRP, CP, EDTOX #### [facility] [employer] [address] [place] [phone] Director Biostatistics: Bryn Farias MD Protein [Mass/Vol] 6.2 g/dL Low 6.4-8.3 [facility] Comment on above: Performed By: #### C DP, IPF, HCG, CRP, CP, EDTOX #### [address] [address] Director Biostatistics: Bryn Farias MD Sodium [Moles/Vol] 137 mmol/L Normal 135-144 [facility] Comment on above: Performed By: #### C DP, IPF, HCG, CRP, CP, EDTOX #### [address] [address] Director Biostatistics: Bryn Farias MD Urea nitrogen [Mass/Vol] 4 mg/dL Low 6-20 [facility] Comment on above: Performed By: #### C DP, IPF, HCG, CRP, CP, EDTOX #### [facility] [employer] [address] [place] [phone] Director Biostatistics: Bryn Farias MD BUN/CRE Ratio NOT REPORTED Normal -20 [facility] Comment on above: Performed By: #### C DP, IPF, HCG, CRP, CP, EDTOX #### [facility] [employer] [address] [place] [phone] Director Biostatistics: Bryn Farias MD Staging: NOT REPORTED Normal [facility] Comment on above: Performed By: #### C DP, IPF, HCG, CRP, CP, EDTOX #### [address] [id number] Director Biostatistics: Bryn Farias MD Drugon 08-30-2020 Ethanol [Mass/Vol] 194 mg/dL High <10 [facility], [place] Drug Scr, Abuse, Uron 2020 Amphetamine(s),Ur Negative Normal NEG [facility] Comment on above: Result Comment: (Positive cutoff 1000 ng/mL) Performed By: #### C DP, IPF, HCG, CRP, CP, EDTOX #### [address] [phone] Director Biostatistics: Bryn Farias MD Barbiturate(s),Ur Negative Normal NEG [facility] Comment on above: Result Comment: (Positive cutoff 200 ng/mL) Performed By: #### C DP, IPF, HCG, CRP, CP, EDTOX #### [facility] [employer] [address] [place] [phone] Director Biostatistics: Bryn Farias MD Benzodiazepine(s) Negative Normal NEG [facility] Comment on above: Result Comment: (Positive cutoff 200 ng/mL) Performed By: #### C DP, IPF, HCG, CRP, CP, EDTOX #### [facility] [employer] [address] [place] [address] [phone] Director Biostatistics: Bryn Farias MD Cannabinoid(s),Ur Negative Normal NEG [facility] Comment on above: Result Comment: (Positive cutoff 50 ng/mL) Performed By: #### C DP, IPF, HCG, CRP, CP, EDTOX #### [facility] [address] [place] [phone] Director Biostatistics: Bryn Farias MD Cocaine Metabolite Negative Normal NEG [facility] Comment on above: Result Comment: (Positive cutoff 300 ng/mL) Performed By: #### C DP, IPF, HCG, CRP, CP, EDTOX #### [address] [address] Director Biostatistics: Bryn Farias MD Interpretive Info Assay provides medic al screening only. The absence of expected drug(s) and/or Normal [facility] Comment on above: Result Comment: meta bolite(s) may indicate diluted or adulterated urine, limitations of testing or timing of collection. Testing for legal purposes should be confirmed by another method. To request confirmation of test result, please call the lab within 7 days of sample submission. Performed By: #### C DP, IPF, HCG, CRP, CP, EDTOX #### [address] [address] Director Biostatistics: Bryn Farias MD Methadone Ql (U) Negative Normal NEG [facility] Comment on above: Result Comment: (Positive cutoff 300 ng/mL) Performed By: #### C DP, IPF, HCG, CRP, CP, EDTOX #### [facility] [address] [place] [phone] Director Biostatistics: Bryn Farias MD Opiate(s), Ur Negative Normal NEG [facility] Comment on above: Result Comment: (Positive cutoff 300 ng/mL) Performed By: #### C DP, IPF, HCG, CRP, CP, EDTOX #### [facility] [address] [place] [phone] Director Biostatistics: Bryn Farias MD Oxycodone, Urine Negative Normal NEG [facility] Comment on above: Result Comment: (Positive cutoff 100 ng/mL) Performed By: #### C DP, IPF, HCG, CRP, CP, EDTOX #### [facility] [address] [place] [phone] Director Biostatistics: Bryn Farias MD Phencyclidine, Ur Negative Normal NEG [facility] Comment on above: Result Comment: (Positive cutoff 25 ng/mL) Performed By: #### C DP, IPF, HCG, CRP, CP, EDTOX #### [facility] [employer] [address] [place] [phone] Director Biostatistics: Bryn Farias MD Buprenorphrine, Ur NOT REPORTED Normal NEG [facility] Comment on above: Performed By: #### C DP, IPF, HCG, CRP, CP, EDTOX #### [facility] [employer] [address] [place] [phone] Director Biostatistics: Bryn Farias MD MDMA, Urine NOT REPORTED Normal NEG [facility] Comment on above: Performed By: #### C DP, IPF, HCG, CRP, CP, EDTOX #### [facility] [employer] [address] [place] [phone] Director Biostatistics: Bryn Farias MD Methamphetamine, Ur NOT REPORTED Normal NEG [facility] Comment on above: Performed By: #### C DP, IPF, HCG, CRP, CP, EDTOX #### [facility] [employer] [address] [place] [phone] Director Biostatistics: Bryn Farias MD Propoxyphene,Urine NOT REPORTED Normal NEG [facility] Comment on above: Performed By: #### C DP, IPF, HCG, CRP, CP, EDTOX #### [facility] [employer] [address] [place] [phone] Director Biostatistics: Bryn Farias MD Tricyclic antidepressants Screen Ql (U) NOT REPORTED Normal NEG [facility] Comment on above: Performed By: #### C DP, IPF, HCG, CRP, CP, EDTOX #### [facility] Media [address] [place] [address] Director Biostatistics: Bryn Farias MD Amphetamine(s),Ur Negative Normal NEG [facility] Comment on above: Result Comment: (Positive cutoff 1000 ng/mL) Performed By: #### D AU #### [facility] [employer] [address] [place] [address] Director Biostatistics: Bryn Farias MD Barbiturate(s),Ur Negative Normal NEG [facility] Comment on above: Result Comment: (Positive cutoff 200 ng/mL) Performed By: #### D AU #### [address] [address] Director Biostatistics: Bryn Farias MD Benzodiazepine(s) Negative Normal NEG [facility] Comment on above: Result Comment: (Positive cutoff 200 ng/mL) Performed By: #### D AU #### [address] [address] Director Biostatistics: Bryn Farias MD Cannabinoid(s),Ur Negative Normal NEG [facility] Comment on above: Result Comment: (Positive cutoff 50 ng/mL) Performed By: #### D AU #### [address] [address] Director Biostatistics: Bryn Farias MD Cocaine Metabolite Negative Normal NEG [facility] Comment on above: Result Comment: (Positive cutoff 300 ng/mL) Performed By: #### D AU #### [address] [address] Director Biostatistics: Bryn Farias MD Interpretive Info Assay provides medic al screening only. The absence of expected drug(s) and/or Normal [facility] Comment on above: Result Comment: meta bolite(s) may indicate diluted or adulterated urine, limitations of testing or timing of collection. Testing for legal purposes should be confirmed by another method. To request confirmation of test result, please call the lab within 7 days of sample submission. Performed By: #### D AU #### [address] [address] Director Biostatistics: Bryn Farias MD Methadone Ql (U) Negative Normal NEG [facility] Comment on above: Result Comment: (Positive cutoff 300 ng/mL) Performed By: #### D AU #### [address] [address] Director Biostatistics: Bryn Farias MD Opiate(s), Ur Negative Normal NEG [facility] Comment on above: Result Comment: (Positive cutoff 300 ng/mL) Performed By: #### D AU #### [address] [address] Director Biostatistics: Bryn Farias MD Oxycodone, Urine Negative Normal NEG [facility] Comment on above: Result Comment: (Positive cutoff 100 ng/mL) Performed By: #### D AU #### [address] [address] Director Biostatistics: Bryn Farias MD Phencyclidine, Ur Negative Normal NEG [facility] Comment on above: Result Comment: (Positive cutoff 25 ng/mL) Performed By: #### D AU #### [address] [address] Director Biostatistics: Bryn Farias MD Buprenorphrine, Ur NOT REPORTED Normal NEG [facility] Comment on above: Performed By: #### D AU #### [address] [address] Director Biostatistics: Bryn Farias MD MDMA, Urine NOT REPORTED Normal NEG [facility] Comment on above: Performed By: #### D AU #### [address] [address] Director Biostatistics: Bryn Farias MD Methamphetamine, Ur NOT REPORTED Normal NEG [facility] Comment on above: Performed By: #### D AU #### [address] [address] Director Biostatistics: Bryn Farias MD Propoxyphene,Urine NOT REPORTED Normal NEG [facility] Comment on above: Performed By: #### D AU #### [address] [id number] Director Biostatistics: Bryn Farias MD Tricyclic antidepressants Screen Ql (U) NOT REPORTED Normal NEG [facility] Comment on above: Performed By: #### D AU #### [facility] [place], [place] [id number] Director Biostatistics: Bryn Farias MD HCG Screen, Bloodon 08-30-19 21 HCG Screen, Blood Negative Normal NEG [facility] Comment on above: Result Comment: Spec imens with hCG levels near the threshold of the test (25 mIU/mL) may give a negative or indeterminate result. In such cases, another test should be performed with a new specimen in 48-72 hours. If early is suspected clinically in this setting, correlation with quantitative serum b-hCG level is suggested. [facility] has confirmed the use of plasma for this test. This has not been cleared or approved by the U.S. Food and Drug Administration. The FDA has determined that such clearance is not necessary. Performed By: #### C DP, IPF, HCG, CRP, CP, EDTOX #### [facility] [address] [place], [place] [id number] Director Biostatistics: Bryn Farias MD Hematologyon 08-30-2020 aPTT Coag (Bld) [Time] 24.8 s [place], [place] Comment on above: IV Heparin Therapy Range: 48.6-77.8 INR Coag (PPP) [Relative time] 1.0 {INR} [place] Comment on above: Therapeutic Range: Moderate Anticoagulant Intensity: INR = 2.0-3.0 High Anticoagulant Intensity: INR = 2.5-3.5 PT Coag (PPP) [Time] 10.1 s [place], [place] Lactic Acidon 08-30-2020 Lactic Acid,Whole Bl 1.3 mmol/L Normal 0.7-2.1 [facility] Comment on above: Performed By: #### C DP, IPF, HCG, CRP, CP, EDTOX #### [facility] [place], [place] [id number] Director Biostatistics: Bryn Farias MD Lactic Acid NOT REPORTED Normal [facility] Comment on above: Performed By: #### C DP, IPF, HCG, CRP, CP, EDTOX #### [facility] [address] [place] [address] Director Biostatistics: Bryn Farias MD Lactic Acid,Whole Bl 2.5 mmol/L High 0.7-2.1 [facility] Comment on above: Performed By: #### C OVID #### [facility] [address] [place] [address] Director Biostatistics: Bryn Farias MD Lactic Acid NOT REPORTED Normal [facility] Comment on above: Performed By: #### C OVID #### [facility] [employer] [address] [place] [address] Director Biostatistics: Bryn Farias MD Lactic Acid,Whole Bl 2.3 mmol/L High 0.7-2.1 [facility] Comment on above: Performed By: #### C OVID #### [facility] [employer] [address] [place] [address] Director Biostatistics: Bryn Farias MD Lactic Acid NOT REPORTED Normal [facility] Comment on above: Performed By: #### C OVID #### [facility] [employer] [address] [place] [address] Director Biostatistics: Bryn Farias MD Lactic Acid, Plasmaon 2020 Interpretation and review of laboratory results Abnormal [place], [place] Lactate [Moles/Vol] NOT REPORTED mmol/L [place], [place] Lactic Acid, Whole Blood 2.5 mmol/L High 0.7 - 2.1 mmol/L [place] Interpretation and review of laboratory results Abnormal [place] Lactate [Moles/Vol] NOT REPORTED mmol/L [place] Lactic Acid, Whole Blood 2.3 mmol/L High 0.7 - 2.1 mmol/L [place] Magnesiumon 08-30-2020 Magnesium [Mass/Vol] 1.8 mg/dL Normal 1.6-2.6 [facility] Comment on above: Performed By: #### C OVID #### [facility] [employer] [address] [place] [address] Director Biostatistics: Bryn Farias MD Metabolic Panelon 08-30-2020 Lactate [Moles/Vol] NOT REPORTED mmol/L [place] Magnesium [Mass/Vol] 1.8 mg/dL 1.6 - 2 .6 mg/dL [place] Anion gap [Moles/Vol] 9 mmol/L 9 - 17 mmol/L [place] Calcium [Mass/Vol] 8.4 mg/dL Low 8.6 - 10. 4 mg/dL [place] Chloride [Moles/Vol] 106 mmol/L 98 - 10 7 mmol/L [place] CO2 [Moles/Vol] 23 mmol/L 20 - 31 mmol/L [place] Creatinine [Mass/Vol] 0.41 mg/dL Low 0.5 - 0.9 mg/dL [place] GFR/1.73 sq M predicted among non-blacks MDRD (S/P/Bld) [Vol rate/Area] [place], [place] Comment on above: Average GFR for 20-2 9 years old: 116 mL/min/1.73sq m Chronic Kidney Disease: <60 mL/min/1.73sq m Kidney failure: <15 mL/min/1.73sq m eGFR calculated using average adult body mass. Additional eGFR calculator available at: http://www.Jaunt.Neokinetics/multiple_crcl_2012.htm GFR/1.73 sq M predicted among non-blacks MDRD (S/P/Bld) [Vol rate/Area] NOT REPORTED [place] Glucose [Mass/Vol] 99 mg/dL 70 - 99 mg/dL [place] Potassium [Moles/Vol] 3.3 mmol/L Low 3.7 - 5.3 mmol/L [place] Sodium [Moles/Vol] 138 mmol/L 135 - 144 mmol/L [place] Urea nitrogen [Mass/Vol] 3 mg/dL Low 6 - 20 mg/dL [place] Albumin [Mass/Vol] 3.9 g/dL 3.5 - 5.2 g/dL [place] ALP [Catalytic activity/Vol] 132 U/L High 35 - 104 U/L [place] ALT [Catalytic activity/Vol] 18 U/L 5 - 33 U/L [place] Anion gap [Moles/Vol] 10 mmol/L 9 - 17 mmol/L [place] AST [Catalytic activity/Vol] 20 U/L <32 [place] Calcium [Mass/Vol] 8.9 mg/dL 8.6 - 10. 4 mg/dL [place] Chloride [Moles/Vol] 103 mmol/L 98 - 10 7 mmol/L [place] CO2 [Moles/Vol] 24 mmol/L 20 - 31 mmol/L [place] Creatinine [Mass/Vol] 0.39 mg/dL Low 0.5 - 0.9 mg/dL [place] GFR/1.73 sq M predicted among non-blacks MDRD (S/P/Bld) [Vol rate/Area] NOT REPORTED [place] GFR/1.73 sq M predicted among non-blacks MDRD (S/P/Bld) [Vol rate/Area] [place] Comment on above: Average GFR for 20-2 9 years old: 116 mL/min/1.73sq m Chronic Kidney Disease: <60 mL/min/1.73sq m Kidney failure: <15 mL/min/1.73sq m eGFR calculated using average adult body mass. Additional eGFR calculator available at: http://www.Jaunt.Neokinetics/multiple_crcl_2012.htm Glucose [Mass/Vol] 86 mg/dL 70 - 99 mg/dL [place] Potassium [Moles/Vol] 3.6 mmol/L Low 3.7 - 5.3 mmol/L [place] Protein [Mass/Vol] 6.2 g/dL Low 6.4 - 8.3 g/dL [place] Sodium [Moles/Vol] 137 mmol/L 135 - 144 mmol/L [place] Urea nitrogen [Mass/Vol] 4 mg/dL Low 6 - 20 mg/dL [place] Otheron 08-30-2020 Lactic Acid, Whole Blood 1.3 mmol/L 0.7 - 2.1 mmol/L [place] Amphetamine Screen, Ur Negative NEGATIVE [place] Comment on above: (Positive cutoff 1000 ng/mL) Barbiturate Screen, Ur Negative NEGATIVE [place] Comment on above: (Positive cutoff 200 ng/mL) Benzodiazepine Screen, Urine Negative NEGATIVE [place] Comment on above: (Positive cutoff 200 ng/mL) Buprenorphine Urine NOT REPORTED NEGATIVE [place] Cannabinoid Scrn, Ur Negative NEGATIVE [place], [place] Comment on above: (Positive cutoff 50 ng/mL) Cocaine Metabolite, Urine Negative NEGATIVE [place], [place] Comment on above: (Positive cutoff 300 ng/mL) MDMA, Urine NOT REPORTED NEGATIVE [facility] [place], [place] Methadone Screen, Urine Negative NEGATIVE [place] Comment on above: (Positive cutoff 300 ng/mL) Methamphetamine, Urine NOT REPORTED NEGATIVE [place] Opiates, Urine Negative NEGATIVE [facility] [place] Comment on above: (Positive cutoff 300 ng/mL) Oxycodone Screen, Ur Negative NEGATIVE [place], [place] Comment on above: (Positive cutoff 100 ng/mL) Phencyclidine, Urine Negative NEGATIVE [place] Comment on above: (Positive cutoff 25 ng/mL) Propoxyphene, Urine NOT REPORTED NEGATIVE [place] Test Information Assay provides medic al screening only. The absence of expected drug(s) and/or metabolite(s) may indicate diluted or adulterated urine, limitations of testing or timing of collection. [place] Comment on above: Testing for legal pu rposes should be confirmed by another method. To request confirmation of test result, please call the lab within 7 days of sample submission. Tricyclic Antidepressants, Urine NOT REPORTED NEGATIVE [place] Acetaminophen [Mass/Vol] <5 Low 10 - 30 ug/mL [place] Interpretation and review of laboratory results Abnormal [place] Bun/Cre Ratio NOT REPORTED [facility] [place], [place] GFR >60 >60 mL/min [place], [place] GFR Non- >60 >60 mL/min [place] Interpretation and review of laboratory results Abnormal [place] EXAMINATION: 2 XRAY VIEWS OF THE [...] sclerosis is also present in this area. [place] Findings concerning for osteomyelitis proximally adjacent the fracture line of the distal tibia with adjacent soft tissue swelling medially. 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 Hardware appears well seated currently. [place], [place] [employer], [employer] Incoming Radiant Results From [email or web address] - 08/30/2020 3:19 AM EST EXAMINATION: 2 [...] nonunion fractures. Hardware appears well seated currently. [place] Acetaminophen [Mass/Vol] 9 ug/mL Low 10 - 30 ug/mL [place] Albumin/Globulin [Mass ratio] 1.7 {ratio} [place] Bilirubin Ql (U) <0.10 Low 0.3 - 1.2 mg/dL [place] Bun/Cre Ratio NOT REPORTED [place], [place] Ethanol percent 0.194 % High <0.010 [place], [place] GFR >60 >60 mL/min [place], [place] GFR Non- >60 >60 mL/min [place] Interpretation and review of laboratory results Abnormal [place] Salicylate Lvl <1 Low 3 - 10 mg/dL [place], [place] Toxic Tricyclic Sc,Blood Negative NEGATIVE [place] hCG Qual Negative NEGATIVE [place] Comment on above: Specimens with hCG l evels near the threshold of the test (25 mIU/mL) may give a negative or indeterminate result. In such cases, another test should be performed with a new specimen in 48-72 hours. If early is suspected clinically in this setting, correlation with quantitative serum b-hCG level is suggested. [employer] has confirmed the use of plasma for this test. This has not been cleared or approved by the U.S. Food and Drug Administration. The FDA has determined that such clearance is not necessary. Platelet, Fluorescence 252 [place], [place] Platelet, Immature Fraction 1.7 % 1.1 - 10.3 % [place] SARS-CoV-2 [place] PLT, Immature Fract.on 08-30 Platelet, Fluoresc. 252 k/uL Normal 138-453 [facility] Comment on above: Performed By: #### C DP, IPF, HCG, CRP, CP, EDTOX #### [address] [address] Director Biostatistics: Bryn Farias MD PLT, Immature Fract. 1.7 % Normal 1.1-10.3 [facility] Comment on above: Performed By: #### C DP, IPF, HCG, CRP, CP, EDTOX #### [address] [address] Director Biostatistics: Bryn Farias MD PTon 08-30-2020 INR Coag (PPP) [Relative time] 1.0 {INR} Normal [facility] Comment on above: Result Comment: Therapeutic Range: Moderate Anticoagulant Intensity: INR = 2.0-3.0 High Anticoagulant Intensity: INR = 2.5-3.5 Performed By: #### C OVID #### [address] [address] Director Biostatistics: Bryn Farias MD PT Coag (PPP) [Time] 10.1 s Normal 9.0-12.0 [facility] Comment on above: Performed By: #### C OVID #### [address] [address] Director Biostatistics: Bryn Farias MD [id number] 08-30-2020 SARS-CoV-2 (COVID-19) RNA IRENA+probe Ql (Unsp spec) Normal [facility] Comment on above: Performed By: #### C OVID #### [address] [address] Director Biostatistics: Bryn Farias MD SARS-CoV-2 (COVID-19) RNA IRENA+probe Ql (Unsp spec) Normal [facility] Comment on above: Performed By: #### C OVID #### [address] [id number] Director Biostatistics: Bryn Farias MD SARS-CoV-2 (COVID-19) RNA IRENA+probe Ql (Unsp spec) Not detected Normal [facility] Comment on above: Result Comment: Rapid [...]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 11-05-2020 End: 11-05-2020 Emergency department patient visit Matthew Stratton Work Phone: [facility] ED Comment on above: Accidental drug over dose, initial encounter (Primary Dx); Hypokalemia Start: 09-02-2020 Patient encounter procedure Ingrid Dent [facility] [place] Start: 08-30-2020 Patient encounter procedure Ingrid Dent [facility] Start: 08-30-2020 End: 09-02-2020 Evaluation and management of inpatient INGRID Covarrubias [facility] Start: 08-30-2020 End: 09-02-2020 Evaluation and management of inpatient Zohreh Marrero Work Phone: [facility] Comment on above: Suicidal ideation (P rimary Dx); Suicidal behavior with attempted self-injury (HCC); Alcoholic intoxication with complication (HCC); Acute hematogenous osteomyelitis, unspecified site (HCC) Start: 05-23-2020 Patient encounter procedure Ingrid Dent [facility] [place] Start: 05-22-2020 Patient encounter procedure Ingrid BATISTA Admitting Start: 03-28-2020 End: 03-28-2020 Emergency department patient visit SHEEBA LAINEZ Facility:[facility] Procedures Date Procedure Procedure Detail Performing Clinician Start: 12-11-2021 Iaadiadoo influenza Jamesi teena Fritz [employer] MACHINE FEEDER - P 3 ARMAMENT/ORDNANCE IMA TECHNICIAN Work Phone: Start: 05-16-2021 Radex foot complete [...] Cedeño Work Phone: Start: 08-30-2020 COVID-19 Alex summesr Work Phone: Start: 08-30-2020 Radex forearm 2 [...] of thyroid stimulating hormone tsh Berry Hinkle [employer] Work Phone: Start: 05-22-2020 Potassium serum plasma/whole blood Berry Hinkle [employer] Work Phone: Start: 05-22-2020 Drug screen class list a Ramya Kern Work Phone: Start: 05-22-2020 Urine test visual color cmprsn meths Berry Hinkle [employer] Work Phone: Start: 05-22-2020 Assay of lipase Berry [facility]inkle [employer] Work Phone: Start: 05-22-2020 Assay of magnesium Joesphnicolas Hinkle [employer] Work Phone: Start: 05-22-2020 Blood count complete auto&auto difrntl wbc Berry Hinkle [employer] Work Phone: Start: 05-22-2020 Comprehensive metabo lic panel Berry Hinkle [employer] Work Phone: Start: 05-22-2020 Radiologic exam ches t single view Berry Hinkle [employer] Work Phone: Start: 05-22-2020 Ecg routine ecg w/le ast 12 lds trcg only w/o i&r Berry [facility]inkle [employer] Work Phone: Start: 05-22-2020 EKG REPORT Hpf Scanni ng Plan of Treatment Date Care Activity Detail Author Start: 05-22-2030 DTaP/Tdap/Td vaccine (2 - Td) DTaP/Tdap/Td vaccine (2 - Td) [place] Start: 05-22-2030 DTaP/Tdap/Td vaccine (3 - Td or Tdap) DTaP/Tdap/Td vaccine (3 - Td or Tdap) [facility] Start: 05-22-2030 DTaP/Tdap/Td vaccine (3 - Td) DTaP/Tdap/Td vaccine (3 - Td) [place] Start: 12-10-2022 Depression Monitoring Depression Mon itoring [facility] Start: 11-13-2022 Creatinine measurement Creatinine [facility] Start: 11-13-2022 Potassium [Moles/vol ume] in Serum or Plasma Potassium [facility] Start: 04-24-2022 Influenza vaccination Flu vacc ine (Season Ended) [facility] Start: 03-24-2022 Influenza vaccination Flu vaccine (# 1) [facility] Start: 03-11-2022 End: 03-11-2022 Patient encounter procedure 03/11/2022 Office Visit Family Medicine Mc Bautista, [employer] MACHINE FEEDER - P 3 ARMAMENT/ORDNANCE IMA TECHNICIAN [id number] [place] [address] [facility] Start: 11-05-2021 Creatinine measurement Creatinine mo [facility] Work Phone: Start: 11-05-2021 Potassium monitoring Potassium monit [facility] Work Phone: Start: 2021 Screening for malign ant neoplasm of cervix [facility] Start: 09-02-2021 Creatinine measurement Creatinine mo [place], [place] Start: 09-02-2021 Potassium monitoring Potassium monit [place], [place] Start: 06-20-2021 COVID-19 Vaccine (2 - Pfizer risk 4-dose series) COVID-19 Vaccine (2 - Pfizer risk 4-dose series) [facility] Start: 06-20-2021 COVID-19 Vaccine (2 - Pfizer risk series) COVID-19 Vaccine (2 - Pfizer risk series) [facility] Start: 05-22-2021 Creatinine measurement Creatinine mo [place] Start: 05-22-2021 Potassium monitoring Potassium monit [place], [place] Start: 04-24-2021 Influenza vaccination Flu vaccine (# 1) [facility] [employer] Work Phone: Start: 04-24-2020 Influenza vaccination Flu vaccine (# 1) [place] Start: 2012 Screening for malign ant neoplasm of cervix [facility] Start: 2010 Hepatitis B vaccine (1 of 3 - Risk 3-dose series) Hepatitis B vaccine (1 of 3 - Risk 3-dose series) [facility] Start: 2010 Shingles vaccine (1 of 2) Shingles vaccine (1 of 2) [facility] Start: 2003 COVID-19 Vaccine (1) COVID-19 Vaccin e (1) [facility] Work Phone: Start: 1997 Pneumococcal 0-64 ye ars Vaccine (1 - PCV) Pneumococcal 0-64 years Vaccine (1 - PCV) [facility] Start: 1997 Pneumococcal 0-64 ye ars Vaccine (1 of 3 - PCV13) Pneumococcal 0-64 years Vaccine (1 of 3 - PCV13) [place], [place] Start: 1997 Pneumococcal 0-64 ye ars Vaccine (1 of 4 - PCV13) Pneumococcal 0-64 years Vaccine (1 of 4 - PCV13) [facility] Work Phone: Start: 1992 Hepatitis A vaccine (1 of 2 - Risk 2-dose series) Hepatitis A vaccine (1 of 2 - Risk 2-dose series) [facility] Start: 1992 Varicella vaccine (1 of 2 - 2-dose childhood series) Varicella vaccine (1 of 2 - 2-dose childhood series) [facility] CBC auto differential [place], [place] Comment on above: Daily until disconti nued starting 08/30/2020, 4 completed Daily until disconti nued starting 09/02/2020 Culture, Blood 1 [place], [place] Oxygen therapy [Mini [facility] Data Set] Initiate Oxygen Therapy Protocol Respiratory Care Routine Daily until discontinued starting 08/30/2020 [place], [place] Comment on above: Daily until disconti nued starting 08/30/2020 End: 08-30-2020 PREVIOUS SPECIMEN PREVIOUS SPECIMEN Lab STAT Once for 1 Occurrences starting 08/30/2020 until 08/30/2020 [place], [place] Comment on above: Once for 1 Occurrenc es starting 08/30/2020 until 08/30/2020 PREVIOUS SPECIMEN PREVIOUS SPECI MEN Lab STAT 08/30/2020 3:13 AM EST [place] RENAL FUNCTION PANEL RENAL FUNCT ION PANEL Lab Routine Daily until discontinued starting 09/02/2020, 1 completed [place] Comment on above: Daily until disconti nued starting 09/02/2020, 1 completed End: 11-05-2020 XR CHEST PORTABLE XR CHEST PORTABLE Imaging STAT Once for 1 Occurrences starting 11/05/2020 until 11/05/2020 [employer] [facility] Phone: Comment on above: Once for 1 Occurrenc es starting 11/05/2020 until 11/05/2020 XR CHEST PORTABLE XR CHEST LALO BLE Imaging STAT 11/05/2020 4:06 PM EDT [employer] [facility] Phone: Immunizations Immunization Date Immunization Notes Care Provider Fa [facility] 05-22-2020 tetanus toxoid, redu francisco diphtheria toxoid, and acellular pertussis vaccine, adsorbed Ingrid [facility] Payers Date Payer Category Payer Medicaid [id number] 2015 Unknown [id number] 2015 Unknown [id number] 1991 Unknown [id number] 2.16.8 [id number] 1991 Unknown [id number] 2.16.8 [id number] 1991 Unknown [id number] 2.16.8 [id number] 1991 Unknown [id number] 2.16.8 [id number] 1991 Unknown [id number] 2.16.8 [id number] 1991 Unknown [id number] 2.16.8 [id number] 1991 Unknown [id number] 2.16.8 [id number] 1991 Unknown [id number] 2.16.84 [id number] Social History Date Type Detail Facility Start: 05-23-2020 End: 12-10-2021 Tobacco smoking status NHIS Current every day smoker [place], [place] End: 09-24-2015 History of tobacco use Cigarette Smoker [place] Start: 05-23-2020 End: 08-16-2022 Cigarettes smoked current (pack per day) - Reported [place], [place] Start: 05-23-2020 End: 12-10-2021 Tobacco use and exposure Never used [place], [place] Start: 05-23-2020 End: 08-16-2022 Alcohol intake Current non-drinker of alcohol (finding) [place], [place] Start: 02-16-2019 Tobacco Comment E-cig and down to 1 cigarette a day [place], [place] Start: 1990 Sex Assigned At Not on file [place] Start: 12-01-2021 End: 08-16-2022 Exposure to SARS-CoV-2 (event) Not sure [place], [place] Start: 12-10-2021 [facility] Start: 12-10-2021 History SDOH 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 Worry [employer] Work Phone: Start: 12-10-2021 Tobacco Comment Pt has been us ing her vape more [employer] Work Phone: Medical Equipment Procedure Code Equipment Code Equipment Origin al Text Equipment Identifier Dates Impl Tightrope R t Acl W/Suture [id number] Start: 03-16-2019 [facility] - [id number] Start: 03-16-2019 Comment on above: Description: [id number] [employer] [facility] - [id number] Start: 03-16-2019 Comment on above: Description: [id number] Screw Bc Vented If 8x20mm [id number][facility] Start: 03-16-2019 Hospital Discharge instructions 08-16-2022 [...] attachments cannot be sent through Care Everywhere.Rash (Nicaraguan)documented in this encounter [facility] Work Phone: Hospital Discharge instructions 06-14-2021 InstructionsAttachments [...] a follow up appointment THANK YOU!!! From [facility] and [facility] On behalf of the Emergency Department staff at [facility], I would like to thank you for giving us the opportunity to address your health care needs and concerns. We hope that during your visit, our service was delivered in a professional and caring manner. Please keep [facility] in mind as we walk [...] how we did during your visit at [email or web address] and let us know about your experience The following attachments cannot be sent through Care Everywhere.Perforated Eardrum (Nicaraguan)Otitis Media (Nicaraguan)documented in this encounter [employer] [facility] Phone: Evaluation note Note Date & Type Note Facility Evaluation note Diagnosis Left foot pain- Primary Pain in limb documented in this encounter [employer] [facility] Phone: Evaluation note Note Date & Type Note Facility Evaluation note Diagnosis Suppurative otitis media with spontaneous tympanic membrane rupture, left- Primary documented in this encounter [employer] [facility] Phone: Evaluation note Note Date & Type Note Facility Evaluation note Diagnosis Hypertension, unspecified type- Primary Nausea Nausea alone documented in this encounter [facility] Phone: Evaluation note Note Date & Type Note Facility Evaluation note Diagnosis Rash- Primary Rash and other nonspecific skin eruption documented in this encounter [employer] [facility] Phone: Evaluation note Note Date & Type Note Facility Evaluation note Diagnosis Rash and other nonspecific skin eruption- Primary documented in this encounter TERRIE CRUZ [employer] Phone: Hospital Discharge instructions InstructionsAttachments Note Date & Type Note Facility Hospital Discharge instructions Van Peña MD - 05/16/2021 THANK YOU!!! From [facility] Emergency Department On behalf of the Emergency Department staff at [facility]'s Emergency Department, I would like to thank you for giving [facility] the opportunity to address your health care needs and concerns. We hope that during your visit, our service was delivered in a professional and caring manner. Please keep [facility] in mind as we [...] cannot be sent through Care Everywhere.Foot Pain (Nicaraguan)documented in this encounter [facility] Phone: Hospital Discharge instructions Attachments Note Date & Type Note Facility Hospital Discharge instructions The following attachments cannot be sent through Care Everywhere.Nausea and Vomiting (Nicaraguan)Hypertension: General Info (Nicaraguan)documented in this encounter [employer] [facility] Phone: Hospital Discharge instructions Attachments Note Date & Type Note Facility Hospital Discharge instructions The following attachments cannot be sent through Care Everywhere.Rash (Nicaraguan)Dyshidrotic Eczema (Nicaraguan)documented in this encounter [employer] [facility] Phone: Family History No Family History Records [...] FoundDocuments on File Type Date Recorded Patient Quickbooks Bookkeeper Expl anation ACP-Advance Directive 07/07/2013 3:21 PM [...] Documents on File Type Date Recorded Patient [employer] Bookkeeper Expl anation ACP-Advance Directive 07/07/2013 3:21 PM ACP-Power of Hall Manager Latest Code Status on File Code Status Date Activated Date Inactivated Comments Full Code 05/23/2020 2:28 AM Full Code 08/01/2015 5:11 PM 08/02/2015 5:59 PM Full Code 07/18/2015 10:52 PM 07/30/2015 5:54 PM Full Code 06/28/2013 6:15 AM 07/05/2013 11:40 AM Documents on File Type Date Recorded Patient [employer] Bookkeeper Expl anation ACP-Advance Directive 07/07/2013 3:21 PM ACP-Power of Hall Manager Latest Code Status on File Code Status [...] Documents on File Type Date Recorded Patient [employer] Bookkeeper Expl anation ACP-Power of Hall Manager ACP-Advance Directive 07/07/2013 3:21 PM Summary Purpose [...] through Care Everywhere. * Medication Overdose: Accidental (Nicaraguan) documented in this encounter* Instructions* Hansa Davenport [...] be sent through Care Everywhere. * Cellulitis (Nicaraguan) documented in this encounter Assessments Diagnosis Accidental [...] Davenport DO - 09/01/2020 4:10 PM EST [facility] Office: [phone] Valeriy García DO, Grey Hauser DO, Kike [...] Rios Kowalski MD, MD Ra, Jenny Goodrich P 3 ARMAMENT/ORDNANCE IMA TECHNICIAN, Jewels Dominguez P 3 ARMAMENT/ORDNANCE IMA TECHNICIAN, Shireen Bernal P 3 ARMAMENT/ORDNANCE IMA TECHNICIAN, Stephanie Leos, MULTIMEDIA ASSISTANT,Bonilla Arce CNP, Yodit Edwards P 3 ARMAMENT/ORDNANCE IMA TECHNICIAN, Annabella Smith P 3 ARMAMENT/ORDNANCE IMA TECHNICIAN, Yaa Cantu CNP, Akira Bundy CNP, Trevor Arriaga PA-C, Zohreh Nguyen DNP, Irma Milian CNP, Sri Fishman, AN, Deena Jones CNP, Alka Lazo CNP, Pretty Barbosa, AN [facility] IN-PATIENT SERVICE [facility] Discharge Summary Patient ID: Rm Mccullough : 1990 ACCOUNT: [id number] Patient's PCP: Ingrid Dent APRN - AN [...] recommend continuing suicide precautions and admitting to [facility] once patient is discharged. Patient did complain [...] outpatient follow up With herorth[facility] at [facility] for further treatment and evaluation of her right ankle problems.Currently, patient is medically stable for discharge. She will be discharged to [facility] for continued psychiatric evaluation/treatment. Significant therapeutic interventions: [...] Psychiatric facility Physician Follow Up: Ingrid Dent, DESSERT CUP MACHINE FEEDER - P 3 ARMAMENT/ORDNANCE IMA TECHNICIAN [address] [facility] [address] In 1 week Hospital follow-up for evaluation of underlying cellulitis Compa Chase MD [address] [place] [address], [address] [facility] [id number] In 2 weeks For wound re-check (right leg) Requiring Further Evaluation/Follow Up POST HOSPITALIZATION/Incidental Findings: Patient needs reevaluation by her primary care physician within 7 days of discharge to monitor improvement of right leg cellulitis. Patient needs follow-up with inpatient psychiatry for further titration/adjustment of her medications It is recommended that she continue outpatient follow up With her orthopedic surgeon at [facility] for further treatment and evaluation of [...] Report called to the receiving RN at [facility]. Patient scheduled to be transported at 1730 * Florentino Chang RCP - 09/02/2020 2:43 PM EST RAPID Covid 19 swab taken from left nare, labeled, placed in red dot bag, and handed off to second healthcare worker outside of room for transport to laboratory per hospital policy and procedure. Patient tolerated procedure well. * Hansa Davenport DO - 09/02/2020 12:20 PM EST [facility] Office: [phone] Valeriy García DO, Grey Hauser DO, Kike [...] Rios Kowalski MD, MD Ra, Jenny Goodrich, P 3 ARMAMENT/ORDNANCE IMA TECHNICIAN, Jewels Dominguez, P 3 ARMAMENT/ORDNANCE IMA TECHNICIAN, Shireen Bernal CNP, Stephanie Leos, MULTIMEDIA ASSISTANT,Bonilla Arce CNP, Yodit Edwards CNP, Annabella Smith CNP, Yaa Cantu CNP, Akira Bundy, AN, Trevor Arriaga PA-C, Zohreh Nguyen DNP, Irma Milian CNP, Sri Fishman CNP, Deena Jones CNP, Alka Lazo CNP, Pretty Barbosa, AN [facility] IN-PATIENT SERVICE [facility] Progress Note 09/02/2020 12:20 PM Name: Rm Mccullough Acct: [id number] Room: [facility] Day: 3 Admit Date: 08/30/2020 1:07 AM [...] results found for: POCPH, PHART, PH, POCPCO2, BIA1XFV, PCO2, POCPO2, PO2ART, PO2, POCHCO3, JQT0TCB, HCO3, NBEA, PBEA, BEART, BE, THGBART, THB, [id number], [id number], [id number], O2SAT, FIO2 Lab Results Component Value Date/Time [...] 2. Patient is agreeable for discharge to [facility], currently she is medically stable. 3. We will continue her current home regimen. 4. Discussed with case management 5. Discussed with nurse 6. Discussed with patient. Hansa Davenport DO 09/02/2020 12:20 PM * Sammie Casanova RN - 09/02/2020 12:40 AM EST Pt. Requested medication for diarrhea. Imodium order received and given to pt. See MAR. * Berry Mccain [facility] - 09/01/2020 6:51 PM EST Pharmacy Note [...] Davenport DO - 09/01/2020 3:57 PM EST [facility] Office: [phone] Valeriy García DO, Grey Hauser DO, Kike [...] Rios Kowalski MD, MD Ra, Jenny Goodrich P 3 ARMAMENT/ORDNANCE IMA TECHNICIAN, Jewels Dominguez P 3 ARMAMENT/ORDNANCE IMA TECHNICIAN, Shireen Bernal, P 3 ARMAMENT/ORDNANCE IMA TECHNICIAN, Stephanie Leos, MULTIMEDIA ASSISTANT,Bonilla Arce, P 3 ARMAMENT/ORDNANCE IMA TECHNICIAN, Yodit Edwards, P 3 ARMAMENT/ORDNANCE IMA TECHNICIAN, Annabella Smith, P 3 ARMAMENT/ORDNANCE IMA TECHNICIAN, Yaa Cantu P 3 ARMAMENT/ORDNANCE IMA TECHNICIAN, Akira Bundy, P 3 ARMAMENT/ORDNANCE IMA TECHNICIAN, Trevor Arriaga PA-C, Zohreh Nguyen DNP, Irma Milian, P 3 ARMAMENT/ORDNANCE IMA TECHNICIAN, Sri Fishman, P 3 ARMAMENT/ORDNANCE IMA TECHNICIAN, Deena Jones, P 3 ARMAMENT/ORDNANCE IMA TECHNICIAN, Alka Lazo, P 3 ARMAMENT/ORDNANCE IMA TECHNICIAN, Pretty Barbosa, P 3 ARMAMENT/ORDNANCE IMA TECHNICIAN [facility] IN-PATIENT SERVICE [facility] Progress Note 09/01/2020 3:57 PM Name: Rm Mccullough Acct: [id number] Room: [facility] Day: 2 Admit Date: 08/30/2020 1:07 AM [...] GERD (gastroesophageal reflux disease), H/O opioid abuse ([facility]), H/O self mutilation, Hepatitis C, Heroin abuse [...] results found for: POCPH, PHART, PH, POCPCO2, PKT8MCP, PCO2, POCPO2, PO2ART, PO2, POCHCO3, ITP6IOL, HCO3, NBEA, PBEA, BEART, BE, THGBART, THB, RLS7ANS, [id number], [id number], O2SAT, FIO2 Lab Results Component Value Date/Time [...] recommend continuing suicide precautions and admitting to [facility] once patient is medically stable for discharge. Patient did complain of some right lower extremity leg pain/erythema concerning for cellulitis. She was started on Ancef 2 g every 8 hours on 08/30/19 and vancomycin with improvement in her right leg pain/swelling. Patient's vital signs remained stable during her admission. She was afebrile and normotensive with no white count. She will be discharged to [facility] for continued psychiatric evaluation/treatment once evaluated by ID. Plan: 1. Right lower extremity cellulitis-improving: She does have multiple drug allergies, continue Ancef/Vancomycin. Will have ID evaluate Leg for abx recommendations. She will need follow-up with her primary care physician/surgeon for reevaluation of cellulitis and to ensure resolution. Blood cultureswith no growth to date. 2. Suicidal ideation with plan: Plan to discharge to [facility]. Continue current medication. Will need 1:1 Sitter at bedside, suicide precautions> Pt on high doses of medication. 3. Nausea/diarrhea: resolved. 4. UMM: continue home ferrous sulfate 325 mg daily. 5. Acute hypokalemia replaced 6. Lactic acidosis: Resolved. 7. DVT prophylaxis 8. Advance diet as tolerated Dispo: will discharged today to [facility] Hansa Davenport DO 09/01/2020 3:57 PM * Alyce Ortiz RN - 09/01/2020 12:55 PM EST RN phoned the [facility] pharmacy and requested home medication list faxed. Will update once received. * Hansa Davenport DO - 08/31/2020 12:42 PM EST [facility] Office: [phone] Valeriy García DO, Grey Hauser DO, Kike [...] Rios Kowalski MD, MD Ra, Jenny Goodrich P 3 ARMAMENT/ORDNANCE IMA TECHNICIAN, Jewels Dominguez P 3 ARMAMENT/ORDNANCE IMA TECHNICIAN, Shireen Bernal, P 3 ARMAMENT/ORDNANCE IMA TECHNICIAN, Stephanie Leos, MULTIMEDIA ASSISTANT,Bonilla Arce, P 3 ARMAMENT/ORDNANCE IMA TECHNICIAN, Yodit Edwards P 3 ARMAMENT/ORDNANCE IMA TECHNICIAN, Annabella Smith P 3 ARMAMENT/ORDNANCE IMA TECHNICIAN, Yaa Cantu, P 3 ARMAMENT/ORDNANCE IMA TECHNICIAN, Akira Bundy, P 3 ARMAMENT/ORDNANCE IMA TECHNICIAN, Trevor Arriaga PA-C, Zohreh Nguyen, RAUL, Irma Milian, P 3 ARMAMENT/ORDNANCE IMA TECHNICIAN, Sri Fishman, P 3 ARMAMENT/ORDNANCE IMA TECHNICIAN, Deena Jones, P 3 ARMAMENT/ORDNANCE IMA TECHNICIAN, Alka Lazo, P 3 ARMAMENT/ORDNANCE IMA TECHNICIAN, Prettymegan Barbosa CNP [facility] IN-PATIENT SERVICE [facility] Progress Note 08/31/2020 12:43 PM Name: Rm Mccullough Acct: [id number] Room: [address] Day: 1 Admit Date: 08/30/2020 1:07 [...] results found for: POCPH, PHART, PH, POCPCO2, CUR2AWQ, PCO2, POCPO2, PO2ART, PO2, POCHCO3, NPG3DCM, HCO3, NBEA, PBEA, BEART, BE, THGBART, THB, [id number], [id number], [id number], O2SAT, FIO2 Lab Results Component Value Date/Time [...] DO 08/31/2020 12:43 PM * Akira Gambino, [facility] - 08/30/2020 4:03 AM EST Pharmacy Note Vancomycin Consult Rm Mccullough is a 29 y.o. female started on Vancomycin for cellulitis; consult received from Dr. Alex Cedeño to manage therapy. Also receiving the following antibiotics: none. Patient Active Problem List Diagnosis Mixed bipolar I disorder ([facility]) Opioid type dependence, continuous use (HCC) Opioid dependence with withdrawal ([facility]) Hep C w/o coma, chronic (HCC) Essential hypertension NHL (non-Hodgkin's lymphoma) ([facility]) Bilateral leg edema Abdominal swelling, generalized Right upper quadrant pain Chest pain Shortness of breath Idiopathic thrombocytopenic purpura (HCC) DVT (deep venous thrombosis) ([facility]) Trigeminal neuralgia Celiac disease Fibroma Transient synovitis [...] consult. Will continue to follow. Akira Gambino [facility] 08/30/2020 4:03 AM documented in this encounter Additional Source Comments INFORMATION SOURCE (unrecogn ized section and content) DATE CREATED AUTHOR 06/02/2020 [facility] DATE CREATED AUTHOR AUTHOR'S ORGANIZ ATION 05/17/2021 [facility] DATE CREATED AUTHOR AUTHOR'S ORGANIZ ATION 02/16/2023 [facility] DATE CREATED AUTHOR AUTHOR'S ORGANIZ ATION 05/08/2023 [facility] DATE CREATED AUTHOR AUTHOR'S ORGANIZ ATION 08/24/2023 [facility] Reason for Visit (unrecogniz ed section and content) Reason Comments Drug Overdose Reason Comments Suicidal Alcohol Intoxication Status Reason Specialty Diagnoses / Procedures Referre d By Contact Referred To Contact Diagnoses Suicidal behavior with attempted self-injury (HCC) Hansa Davenport DO [address] [place], [place] [facility] Reason Comments Foot Pain Other Medical clearance fo r [facility] Reason Comments Ear Fullness Otalgia Reason Comments [...] SYNOVECTOMY performed by Cipriano Tilley DO at [facility] OR SECTION 2011 & 2015 X 2 DILATION AND CURETTAGE OF UTERUS 08/24/2013 - 08/23/2014 ANTERIOR CRUCIATE LIGAMENT REPAIR 03/16/2019 ANTERIOR CRUCIATE LIGAMENT REPAIR 03/16/2019 Knee/Right ARTHROSCOPIC ACL RECONSTRUCTION (ARTHREX, 3080 TABLE) performed by Cipriano Tilley DO at [facility] OR Medical devices from this surgery are [...] Care Teams (unrecognized sec tion and content) Cigarette Making Machine Catcher Relationship Specialty Start Date End Date Mc BautistaSABAS - P 3 ARMAMENT/ORDNANCE IMA TECHNICIAN [address] [place] [address] PCP - General Certified Nurse Practitioner 12/25/21 Cigarette Making Machine Catcher Relationship Specialty Start Date End Date Lily Mc, DESSERT CUP MACHINE FEEDER - P 3 ARMAMENT/ORDNANCE IMA TECHNICIAN [address] [place] [address] PCP - General Certified Nurse Practitioner 12/25/21 [...] BE BASED ON THE PRIMARY CLINICAL RECORDS. [employer] [facility]. provides no warranty or guarantee of the accuracy or completeness of information in this document.
== END 2023-08-25 08:38 | disposition home or self-care (01) ==
LOC: US 08:41
DX: D69.3 Immune thrombocytopenic purpura (principal); M79.662 Pain in left lower leg
CPT/HCPCS: 93971

== ENCOUNTER 2023-08-26 15:02 | Outpatient (OUT) | payer MEDICAID, SELFPAY ==
--- OUTSIDE RECORDS SUMMARY | 2023-08-26 15:16 | XMS_ITS | CCD ---
Author Name Unknown Address [address] [place] [address] Organization [facility] Care Team Providers Care Ore Washer Name Role Phone Ingrid Dent Primary Care [...] Translations: [HYDROCODONE-ACETAMI NOPHEN] Drug Allergy 06-28-20 13 [place], [place] (10 sources) Amoxicillin; Translations: [AMOXICILLIN] Drug Allergy 06-28-20 13 Anaphylaxis [place], [place] (10 sources) ARIPiprazole; Translations: [ARIPIPRAZOLE] Drug Allergy 06-28-20 13 [place], [place] (10 sources) Asenapine; Translations: [ASENAPINE] Drug Allergy 02-26-20 16 [place] (10 sources) Azithromycin; Translations: [AZITHROMYCIN] Drug Allergy 06-28-20 13 [place] (10 sources) buPROPion; Translations: [BUPROPION] Drug Allergy 06-28-20 13 [place]aphyl[place] (10 sources) Codeine; Translations: [CODEINE] Drug Allergy 06-28-[address] [facility], It[place] (10 sources) Dihydroergotamine; Translations: [DIHYDROERGOTAMINE] Drug Allergy 06-28-20 13 [place] (9 sources) FLUoxetine Drug Allergy 02-17-20 19 [place] (10 sources) gabapentin; Translations: [GABAPENTIN] Drug Allergy 06-28-20 13 [place] (10 sources) lamoTRIgine; Translations: [LAMOTRIGINE] Drug Allergy 06-28-20 13 [place], [place] (10 sources) medroxyPROGESTERone; Translations: [MEDROXYPROGESTERONE ] Drug Allergy 06-28-20 13 Other (See Comments) [place] (9 sources) Naproxen Drug Allergy 02-26-20 16 [place] (10 sources) Nitrofurantoin; Translations: [NITROFURANTOIN] Drug Allergy 06-28-20 13 [place] (9 sources) Nitrofurantoin Drug Allergy 02-17-20 19 Other (See Comments), Rash [place] (9 sources) Penicillins; Translations: [PENICILLINS] Propensity to adverse reactions to drug 06-28-20 13 Hives, [place] (10 sources) Sertraline; Translations: [SERTRALINE] Drug Allergy 06-28-20 13 [place] (10 sources) Sulfamethoxazole / Trimethoprim; Translations: [SULFAMETHOXAZOLE-TR IMETHOPRIM] Drug Allergy 06-28-20 13 [place] (10 sources) traMADol; Translations: [TRAMADOL] Drug Allergy 01-17-20 15 [place] (9 sources) Clindamycin/Lincomyc in Propensity to adverse reactions to drug 06-28-20 13 Anaphylaxis [place] (1 source) Asenapine Drug Allergy 10-30-19 17 [facility] (1 source) buPROPion Drug Allergy 10-30-19 17 [facility] (1 source) Codeine Drug Allergy 10-30-19 17 [facility] (1 source) Dihydroergotamine Drug Allergy 10-30-19 17 [facility] (1 source) FLUoxetine Drug Allergy 10-30-19 17 [facility] (1 source) gabapentin Drug Allergy 10-30-19 17 [facility] (2 sources) HYDROcodone; Translations: [HYDROCODONE] Drug Allergy 10-30-19 17 [facility] (1 source) lamoTRIgine Drug Allergy 10-30-19 17 [facility] (2 sources) Naproxen; Translations: [NAPROXEN] Drug Allergy 10-30-19 17 [facility] (1 source) Nitrofurantoin Drug Allergy 10-30-19 17 [facility] (1 source) Penicillin Drug Allergy 10-30-19 17 [facility] (1 source) Sertraline Drug Allergy 10-30-19 17 [facility] (1 source) Sisomicin Drug Allergy 10-30-19 17 [facility] (1 source) Penicillins Propensity to adverse reactions to drug 06-28-20 13 Hives, Rash [employer] Phone: (1 source) Asenapine; Translations: [ASENAPINE MALEATE] [...] 0 12/10/2021 12/20/2021 Active lactobacillus rhamnosus gg [id number] unt oral capsule (1 source) Start: 09-01-2020 [...] 0 02/16/2019 05/22/2020 Discontinued (LIST CLEANUP) ergocalciferol 41671 unt oral capsule (1 source) Provitamin D2 Compound Start: 09-28-2018 End: 05-22-2020 take 1 capsule by mouth every week vitamin D (ERGOCALCIFEROL) 90054 units CAPS capsule Take 50,000 Units by [...] Jerzy Linton MD 02/16/23 Final result Normal [facility] Hemoglobin A1Con 02-13-2023 Glucose [Mass/Vol] 85 mg/dL Normal [facility] Comment on above: Result Comment: The ADA and AACC recommend providing the estimated average glucose result to permit better patient understanding of their HBA1c result. Performed By: #### T RAY, LIPR #### [facility] [address] [place] [address] Tool Repairer Bench: Rupesh Feldman DO #### GLYHGB #### [facility] [address] [place] [address] Tool Repairer Bench: Bryn Farias MD HbA1c (Bld) [Mass fraction] 4.6 % Normal 4.0-6.0 [facility] Comment on above: Performed By: #### T RAY, LIPR #### [facility] [address] [place] [address] Tool Repairer Bench: Rupesh Feldman DO #### GLYHGB #### [address] [address] Tool Repairer Bench: Bryn Farias MD TSH w/reflex to FT4on 2022 Thyroid Stim. Horm. 0.56 uIU/mL Normal 0.30-5.00 [facility] Comment on above: Performed By: #### T SHX, LIPR #### [facility] [address] [place] [address] Tool Repairer Bench: Rupesh Feldman DO #### GLYHGB #### [address] [address] Tool Repairer Bench: Bryn Farias MD Lipid Profileon 2 Cholesterol [Mass/Vol] 198 mg/dL Normal <200 [facility] Comment on above: Result Comment: Cholesterol Guidelines: <200 Desirable 200-240 Borderline >240 Undesirable Performed By: #### T SHX, LIPR #### [facility] [address] [place] [address] Tool Repairer Bench: Rupesh Feldman DO #### GLYHGB #### [address] [address] Tool Repairer Bench: Bryn Farias MD Cholesterol in HDL [Mass/Vol] 45 mg/dL Normal >40 [facility] Comment on above: Result Comment: HDL Guidelines: <40 Undesirable 40-59 Borderline >59 Desirable Performed By: #### T SHX, LIPR #### [facility] [address] [place] [address] Tool Repairer Bench: Rupesh Feldman DO #### GLYHGB #### [address] [address] Tool Repairer Bench: Bryn Farias MD Cholesterol in LDL [Mass/Vol] 131 mg/dL High 0-130 [facility] Comment on above: Result Comment: LDL Guidelines: <100 Desirable 100-129 Near to/above Desirable 130-159 Borderline >159 Undesirable Direct (measured) LDL and calculated LDL are not interchangeable tests. Performed By: #### T SHX, LIPR #### [facility] [address] [place] [address] Tool Repairer Bench: Rupesh Feldman DO #### GLYHGB #### [address] [place], [place] [id number] Tool Repairer Bench: Bryn Farias MD Cholesterol.total/Ch olesterol in HDL [Mass ratio] 4.4 {ratio} Normal <5 [facility] Comment on above: Performed By: #### T SHX, LIPR #### [facility] [address] [place] [address] Tool Repairer Bench: Rupesh Feldman DO #### GLYHGB #### [address] [address] Tool Repairer Bench: Bryn Farias MD Triglyceride [Mass/Vol] 109 mg/dL Normal <150 [facility] Comment on above: Result Comment: Triglyceride Guidelines: <150 Desirable 150-199 Borderline 200-499 High >499 Very high Based on AHA Guidelines for fasting triglyceride, May 2012. Performed By: #### T SHX, LIPR #### [facility] [address] [place] [address] Tool Repairer Bench: Rupesh Feldman DO #### GLYHGB #### [address] [address] Tool Repairer Bench: Bryn Farias MD Acetaminophenon 02-10-2023 Acetaminophen [Mass/Vol] ug/mL Low 10-30 [facility] Comment on above: Performed By: #### C DP, ACET, ALCB, SALI, CP, MG #### [facility] [address] [place] [address] Tool Repairer Bench: Rupesh Feldman DO CBC with Diffon 02-10-2023 Abs. Basophil 0.00 k/uL Normal 0.0-0.2 [facility] Comment on above: Performed By: #### C DP, ACET, ALCB, SALI, CP, MG #### [facility] [address] [place] [address] Tool Repairer Bench: Rupesh Feldman DO Abs.Neutrophil (Seg) 4.80 k/uL Normal 1.3-9.1 [facility] Comment on above: Performed By: #### C DP, ACET, ALCB, SALI, CP, MG #### [facility] [place] [address] Tool Repairer Bench: Rupesh Feldman DO Basophils/100 WBC (Bld) 1 % Normal 0-2 [facility] Comment on above: Performed By: #### C DP, ACET, ALCB, SALI, CP, MG #### [facility] [address] [place] [address] Tool Repairer Bench: Rupesh Feldman DO Eosinophils (Bld) [#/Vol] 0.00 10*3/uL Normal 0.0-0.4 [facility] Comment on above: Performed By: #### C DP, ACET, ALCB, SALI, CP, MG #### [facility] [address] [place] [address] Tool Repairer Bench: Rupesh Feldman DO Eosinophils/100 WBC (Bld) 1 % Normal 0-4 [facility] Comment on above: Performed By: #### C DP, ACET, ALCB, SALI, CP, MG #### [facility] [address] [place] [address] Tool Repairer Bench: Rupesh Feldman DO Erythrocyte distribution width (RBC) [Ratio] 15.3 % High 11.5-14.9 [facility] Comment on above: Performed By: #### C DP, ACET, ALCB, SALI, CP, MG #### [facility] [address] [place] [address] Tool Repairer Bench: Rupesh Feldman DO Hematocrit (Bld) [Volume fraction] 40.5 % Normal 36-46 [facility] Comment on above: Performed By: #### C DP, ACET, ALCB, SALI, CP, MG #### [facility] [address] [place] [address] Tool Repairer Bench: Rupesh Feldman DO Hemoglobin (Bld) [Mass/Vol] 13.9 g/dL Normal 12.0-16.0 [facility] Comment on above: Performed By: #### C DP, ACET, ALCB, SALI, CP, MG #### [facility] [address] [place], [place] [address]e [facility] [place] [address] Tool Repairer Bench: Rupesh Feldman DO Lymphocytes (Bld) [#/Vol] 2.20 10*3/uL Normal 1.0-4.8 [facility] Comment on above: Performed By: #### C DP, ACET, ALCB, SALI, CP, MG #### [facility] [place] [address] Tool Repairer Bench: Rupesh Feldman DO Lymphocytes/100 WBC (Bld) 30 % Normal 24-44 [facility] Comment on above: Performed By: #### C DP, ACET, ALCB, SALI, CP, MG #### [facility] [place] [facility] [place] [address] Tool Repairer Bench: Rupesh Feldman DO MCH (RBC) [Entitic mass] 28.5 pg Normal 26-34 [facility] Comment on above: Performed By: #### C DP, ACET, ALCB, SALI, CP, MG #### [facility] [place] [facility] [place] [address] Tool Repairer Bench: Rupesh Feldman DO MCHC (RBC) [Mass/Vol] 34.3 g/dL Normal 31-37 [facility] Comment on above: Performed By: #### C DP, ACET, ALCB, SALI, CP, MG #### [facility] [address] [place] [address] Tool Repairer Bench: Rupesh Feldman DO MCV (RBC) [Entitic vol] 83.2 fL Normal 80-100 [facility] Comment on above: Performed By: #### C DP, ACET, ALCB, SALI, CP, MG #### [facility] [address] [place] [address] Tool Repairer Bench: Rupesh Feldman DO Monocytes (Bld) [#/Vol] 0.40 10*3/uL Normal 0.1-1.3 [facility] Comment on above: Performed By: #### C DP, ACET, ALCB, SALI, CP, MG #### [facility] [address] [facility] [place] [address] Tool Repairer Bench: Rupesh Feldman DO Monocytes/100 WBC (Bld) 5 % Normal 1-7 [facility] Comment on above: Performed By: #### C DP, ACET, ALCB, SALI, CP, MG #### [facility] [place] [address] Tool Repairer Bench: Rupesh Feldman DO Neutrophil (Seg) 63 % Normal 36-[address] [facility] Comment on above: Performed By: #### C DP, ACET, ALCB, SALI, CP, MG #### [facility] [address] [facility] [place] [address] Tool Repairer Bench: Rupesh Feldman DO Platelet mean volume (Bld) [Entitic vol] 7.7 fL Normal 6.0-12.0 [facility] Comment on above: Performed By: #### C DP, ACET, ALCB, SALI, CP, MG #### [facility] [address] [place] [address] Tool Repairer Bench: Rupesh Feldman DO Platelets (Bld) [#/Vol] 287 10*3/uL Normal 150-450 [facility] Comment on above: Performed By: #### C DP, ACET, ALCB, SALI, CP, MG #### [facility] [address] [place] [address] Tool Repairer Bench: Rupesh Feldman DO RBC (Bld) [#/Vol] 4.87 10*6/uL Normal 4.0-5.2 [facility] Comment on above: Performed By: #### C DP, ACET, ALCB, SALI, CP, MG #### [facility] [place] [facility] [place] [address] Tool Repairer Bench: Rupesh Feldman DO WBC (Bld) [#/Vol] 7.5 10*3/uL Normal 3.5-11.0 [facility] Comment on above: Performed By: #### C DP, ACET, ALCB, SALI, CP, MG #### [facility] [address] [place] [address]. [place] [address] Tool Repairer Bench: Rupesh Feldman DO Comp Metabolic Profon 2022 Albumin [Mass/Vol] 4.8 g/dL Normal 3.5-5.2 [facility] Comment on above: Performed By: #### C DP, ACET, ALCB, SALI, CP, MG #### [facility] [place] [facility] [place] [address] Tool Repairer Bench: Rupesh Feldman DO Alkaline Phos 74 U/L Normal 35-104 [facility] Comment on above: Performed By: #### C DP, ACET, ALCB, SALI, CP, MG #### [facility] [address] [place] [address] Tool Repairer Bench: Rupesh Feldman DO ALT [Catalytic activity/Vol] 12 U/L Normal 5-33 [facility] Comment on above: Performed By: #### C DP, ACET, ALCB, SALI, CP, MG #### [facility] [address] [place] [address] Tool Repairer Bench: Rupesh Feldman DO Anion gap [Moles/Vol] 14 mmol/L Normal 9-17 [facility] Comment on above: Performed By: #### C DP, ACET, ALCB, SALI, CP, MG #### [facility] [address] [place] [address] Tool Repairer Bench: Rupesh Feldman DO AST [Catalytic activity/Vol] 15 U/L Normal <32 [facility] Comment on above: Performed By: #### C DP, ACET, ALCB, SALI, CP, MG #### [facility] [address] [place] [address] Tool Repairer Bench: Rupesh Feldman DO Bilirubin [Mass/Vol] 0.4 mg/dL Normal 0.3-1.2 [facility] Comment on above: Performed By: #### C DP, ACET, ALCB, SALI, CP, MG #### [facility] [address] [place] [address] Tool Repairer Bench: Rupesh Feldman DO Calcium [Mass/Vol] 9.4 mg/dL Normal 8.6-10.4 [facility] Comment on above: Performed By: #### C DP, ACET, ALCB, SALI, CP, MG #### [facility] [address] [place] [address] Tool Repairer Bench: Rupesh Feldman DO Chloride [Moles/Vol] 103 mmol/L Normal 98-107 [facility] Comment on above: Performed By: #### C DP, ACET, ALCB, SALI, CP, MG #### [facility] [address] [facility] [place] [address] Tool Repairer Bench: Rupesh Feldman DO CO2 [Moles/Vol] 19 mmol/L Low 20-31 [facility] Comment on above: Performed By: #### C DP, ACET, ALCB, SALI, CP, MG #### [facility] [address] [facility] [place] [address] Tool Repairer Bench: Rupesh Feldman DO Creatinine [Mass/Vol] 0.59 mg/dL Normal 0.50-0.90 [facility] Comment on above: Performed By: #### C DP, ACET, ALCB, SALI, CP, MG #### [facility] [address] [facility] [place] [address] Tool Repairer Bench: Rupesh Feldman DO GFR/1.73 sq M.predicted among non-blacks MDRD (S/P/Bld) [Vol rate/Area] mL/min/{1.73_m2} Normal >60 [facility] Comment on above: Result Comment: These results [...] DP, ACET, ALCB, SALI, CP, MG #### [facility] [address] [facility] [place] [address] Tool Repairer Bench: Rupesh Feldman DO Glucose [Mass/Vol] 101 mg/dL High 70-99 [facility] Comment on above: Performed By: #### C DP, ACET, ALCB, SALI, CP, MG #### [facility] [address] [place] [address] Tool Repairer Bench: Rupesh Feldman DO Potassium [Moles/Vol] 3.5 mmol/L Low 3.7-5.3 [facility] Comment on above: Performed By: #### C DP, ACET, ALCB, SALI, CP, MG #### [facility] [address] [place] [address] Tool Repairer Bench: Rupesh Feldman DO Protein [Mass/Vol] 7.6 g/dL Normal 6.4-8.3 [facility] Comment on above: Performed By: #### C DP, ACET, ALCB, SALI, CP, MG #### [facility] [place] [address] Tool Repairer Bench: Rupesh Feldman DO Sodium [Moles/Vol] 136 mmol/L Normal 135-144 [facility] Comment on above: Performed By: #### C DP, ACET, ALCB, SALI, CP, MG #### [facility] [place] [address] Tool Repairer Bench: Rupesh Feldman DO Urea nitrogen [Mass/Vol] 15 mg/dL Normal 6-20 [facility] Comment on above: Performed By: #### C DP, ACET, ALCB, SALI, CP, MG #### [facility] [place] [address] Tool Repairer Bench: Rupesh Feldman DO Drug Scr, Abuse, Uron 2022 Amphetamine(s),Ur Positive Abnormal NEG [facility] Comment on above: Result Comment: (Positive cutoff 1000 ng/mL) Performed By: #### D AU #### [facility] [place] [address] Tool Repairer Bench: Rupesh Feldman DO Barbiturate(s),Ur Negative Normal NEG [facility] Comment on above: Result Comment: (Positive cutoff 200 ng/mL) Performed By: #### D AU #### [facility] [address] [place] [address] Tool Repairer Bench: Rupesh Feldman DO Benzodiazepine(s) Negative Normal NEG [facility] Comment on above: Result Comment: (Positive cutoff 200 ng/mL) Performed By: #### D AU #### [facility] [address] [place] [address] Tool Repairer Bench: Rupesh Feldman DO Cannabinoid(s),Ur Negative Normal NEG [facility] Comment on above: Result Comment: (Positive cutoff 50 ng/mL) Performed By: #### D AU #### [facility] [address] [place] [address] Tool Repairer Bench: Rupesh Feldman DO Cocaine Metabolite Positive Abnormal NEG [facility] Comment on above: Result Comment: (Positive cutoff 300 ng/mL) Performed By: #### D AU #### [facility] [address] [place] [address] Tool Repairer Bench: Rupesh Feldman DO Fentanyl, Urine Negative Normal NEG [facility] Comment on above: Result Comment: (Positive cutoff 5 ng/ml) Performed By: #### D AU #### [facility] [address] [place] [address] Tool Repairer Bench: Rupesh Feldman DO Interpretive Info Assay provides medic al screening only. The absence of expected drug(s) and/or Normal [facility] Comment on above: Result Comment: meta bolite(s) may indicate diluted or adulterated urine, limitations of testing or timing of collection. Testing for legal purposes should be confirmed by another method. To request confirmation of test result, please call the lab within 7 days of sample submission. Performed By: #### D AU #### [facility] [address] [place] [address] Tool Repairer Bench: Rupesh Feldman DO Methadone Ql (U) Negative Normal NEG [facility] Comment on above: Result Comment: (Positive cutoff 300 ng/mL) Performed By: #### D AU #### [facility] [place] [address] Tool Repairer Bench: Rupesh Feldman DO Opiate(s), Ur Negative Normal NEG [facility] Comment on above: Result Comment: (Positive cutoff 300 ng/mL) Performed By: #### D AU #### [facility] [address] [place] [address] Tool Repairer Bench: Rupesh Feldman DO Oxycodone, Urine Negative Normal NEG [facility] Comment on above: Result Comment: (Positive cutoff 100 ng/mL) Performed By: #### D AU #### [facility] [address] [place] [address] Tool Repairer Bench: Rupesh Feldman DO Phencyclidine, Ur Negative Normal NEG [facility] Comment on above: Result Comment: (Positive cutoff 25 ng/mL) Performed By: #### D AU #### [facility] [address] [place] [address] Tool Repairer Bench: Rupesh Feldman DO Ethanol Alcoholon 02-10-2023 Ethanol [Mass/Vol] mg/dL Normal <10 [facility] Comment on above: Performed By: #### C DP, ACET, ALCB, SALI, CP, MG #### [facility] [address] [place] [address] Tool Repairer Bench: Rupesh Feldman DO Ethanol percent <0.010 Normal [facility] Comment on above: Performed By: #### C DP, ACET, ALCB, SALI, CP, MG #### [facility] [address] [place] [address] Tool Repairer Bench: Rupesh Feldman DO Magnesiumon 02-10-2023 Magnesium [Mass/Vol] 2.0 mg/dL Normal 1.6-2.6 [facility] Comment on above: Performed By: #### C DP, ACET, ALCB, SALI, CP, MG #### [facility] [address] [facility] [place] [address] Tool Repairer Bench: Rupesh Feldman DO Salicylateon 02-10-2023 Salicylate <1 Low 3-10 [facility] Comment on above: Performed By: #### T SHX, LIPR #### [facility] [address] [place] [address] Tool Repairer Bench: Rupesh Feldman DO #### GLYHGB #### [facility] [address] [place] [address] Tool Repairer Bench: Bryn Fraias MD Flu A/B Ag Detectionon 12-11 Flu A Antigen Negative NEGATIVE [facility] Comment on above: for Influenza A Anti gen Flu B Antigen Negative NEGATIVE [facility] Comment on above: for Influenza B Anti gen. [facility] XR FOOT LEFT (MIN 3 VIEWS)on 05-16-2021 [...] views of the left foot. Interpreted by: Cralitos Lovell MD Signed by: Carlitos Lovell MD 05/16/21 Final result Normal [facility] XR FOOT LEFT (MIN 3 VIEWS)Or dered By: Van Peña on 05-16-2021 Unremarkable radiographic views of the left foot. [facility] Work Phone: EXAMINATION: THREE XRAY VIEWS OF THE LEFT FOOT 05/16/2021 1:00 am COMPARISON: None. HISTORY: ORDERING SYSTEM PROVIDED HISTORY: pain, bruising to the left lateral foot TECHNOLOGIST PROVIDED HISTORY: pain, bruising to the left lateral foot Reason for Exam: bruising to lateral aspect FINDINGS: Bones demonstrate normal alignment. Bone mineralization is within normal limits. Joint spaces are preserved. Soft tissues are unremarkable. [employer] Phone: [place], pn Incoming Radiant Results From [employer] - 05/16/2021 1:19 AM EDT EXAMINATION: THREE [...] Unremarkable radiographic views of the left foot. [employer] Phone: [employer] Phone: Comprehensive Metabolic Pane zaina 11-05-2020 Albumin [Mass/Vol] 4.8 g/dL 3.5 - 5.2 g/dL [facility] Phone: Albumin/Globulin [Mass ratio] 1.2 {ratio} [employer] Phone: ALP [Catalytic activity/Vol] 243 U/L High 35 - 104 U/L [employer] Phone: ALT [Catalytic activity/Vol] 27 U/L 5 - 33 U/L [employer] Phone: Anion gap [Moles/Vol] 18 mmol/L High 9 - 17 mmol/L [employer] Phone: AST [Catalytic activity/Vol] 32 U/L High <32 [employer] Phone: Bilirubin Ql (U) 0.50 mg/dL 0.3 - 1.2 mg/dL [employer] Phone: Bun/Cre Ratio NOT REPORTED [facility] Phone: Calcium [Mass/Vol] 9.9 mg/dL 8.6 - 10. 4 mg/dL [employer] Phone: Chloride [Moles/Vol] 98 mmol/L 98 - 10 7 mmol/L [facility] Phone: CO2 [Moles/Vol] 24 mmol/L 20 - 31 mmol/L [facility] Phone: Creatinine [Mass/Vol] 0.5 mg/dL 0.50 - 0.90 mg/dL [employer] Phone: GFR >60 >60 mL/min [employer] Phone: GFR Non- >60 >60 mL/min [facility] Phone: GFR/1.73 sq M predicted among non-blacks MDRD (S/P/Bld) [Vol rate/Area] [facility] Phone: Comment on above: Average GFR for 20-2 9 years old: 116 mL/min/1.73sq m Chronic Kidney Disease: <60 mL/min/1.73sq m Kidney failure: <15 mL/min/1.73sq m eGFR calculated using average adult body mass. Additional eGFR calculator available at: http://www.[employer]/multiple_crcl_2012.htm GFR/1.73 sq M predicted among non-blacks MDRD (S/P/Bld) [Vol rate/Area] NOT REPORTED [facility] Phone: Glucose [Mass/Vol] 92 mg/dL 70 - 99 mg/dL [facility] [phone]-DENTIST Work Phone: Interpretation and review of laboratory results Abnormal [facility] Phone: Potassium [Moles/Vol] 2.7 mmol/L Critically low 3.7 - 5.3 mmol/L [facility] Work Phone: Protein [Mass/Vol] 8.7 g/dL High 6.4 - 8.3 g/dL [facility] [employer] Phone: Sodium [Moles/Vol] 140 mmol/L 135 - 144 mmol/L [facility] [employer] Phone: Urea nitrogen [Mass/Vol] 13 mg/dL 6 - 20 mg/dL [facility] [employer] Phone: Cult,Bloodon 09-05-2020 Cult,Blood Specimen Description .BLOOD Special Requests R WRIST, 3 ML red only Culture NO GROWTH 6 DAYS Report Status FINAL 09/05/2020 Normal [facility] Comment on above: Performed By: #### C DP, IPF, HCG, CRP, CP, EDTOX #### [facility] [employer] [address] [place] [address] [employer] Bench: Bryn Farias MD Cult,Blood Specimen Description .BLOOD Special Requests R HAND, 7 ML Culture NO GROWTH 6 DAYS Report Status FINAL 09/05/2020 Normal [facility] Comment on above: Performed By: #### C DP, IPF, HCG, CRP, CP, EDTOX #### [employer] [address] [place] [address] Tool Repairer Bench: Bryn Farias MD Culture, Blood 1on Culture NO GROWTH 6 DAYS [place], [place] Special Requests R WRIST, 3 ML red only [place], [place] Specimen Description .BLOOD [place], [place] CBC with Diffon 09-02-2020 Abs. Basophil <0.03 Normal 0.00-0.20 [facility] Comment on above: Performed By: #### C DP, IPF, HCG, CRP, CP, EDTOX #### [facility] [employer] [address] [place] [address] Tool Repairer Bench: Bryn Farias MD Abs.Imm.Granulocyte <0.03 Normal 0.00-0.30 [facility] Comment on above: Performed By: #### C DP, IPF, HCG, CRP, CP, EDTOX #### [address] [address] Tool Repairer Bench: Bryn Farias MD Abs.Neutrophil (Seg) 3.13 k/uL Normal 1.50-8.10 [facility] Comment on above: Performed By: #### C DP, IPF, HCG, CRP, CP, EDTOX #### [address] [address] Tool Repairer Bench: Bryn Farias MD Basophils/100 WBC (Bld) 0 % Normal 0-2 [facility] Comment on above: Performed By: #### C DP, IPF, HCG, CRP, CP, EDTOX #### [place] [address] [employer] Repairer Bench: Bryn Farias MD Eosinophils (Bld) [#/Vol] 0.10 10*3/uL Normal 0.00-0.44 [facility] Comment on above: Performed By: #### C DP, IPF, HCG, CRP, CP, EDTOX #### [address] [address] Tool Repairer Bench: Bryn Farias MD Eosinophils/100 WBC (Bld) 2 % Normal 1-4 [facility] Comment on above: Performed By: #### C DP, IPF, HCG, CRP, CP, EDTOX #### [address] [address] [employer] Repaire[employer] Bench: Bryn Farias MD Erythrocyte distribution width (RBC) [Ratio] 16.4 % High 11.8-14.4 [facility] Comment on above: Performed By: #### C DP, IPF, HCG, CRP, CP, EDTOX #### [address] [address] Tool Repairer Bench: Bryn Farias MD Hematocrit (Bld) [Volume fraction] 34.7 % Low 36.3-47.1 [facility] Comment on above: Performed By: #### C DP, IPF, HCG, CRP, CP, EDTOX #### [place] [address] Tool Repairer Bench: Bryn Farias MD Hemoglobin (Bld) [Mass/Vol] 10.4 g/dL Low 11.9-15.1 [facility] Comment on above: Performed By: #### C DP, IPF, HCG, CRP, CP, EDTOX #### [place] [address] Tool Repairer Bench: Bryn Farias MD Immature granulocytes/100 WBC (Bld) 0 % Normal 0 [facility] Comment on above: Performed By: #### C DP, IPF, HCG, CRP, CP, EDTOX #### [place] [address] Tool Repairer Bench: Bryn Farias MD Lymphocytes (Bld) [#/Vol] 2.25 10*3/uL Normal 1.10-3.70 [facility] Comment on above: Performed By: #### C DP, IPF, HCG, CRP, CP, EDTOX #### [address] [address] Tool Repairer Bench: Bryn Farias MD Lymphocytes/100 WBC (Bld) 38 % Normal 24-43 [facility] Comment on above: Performed By: #### C DP, IPF, HCG, CRP, CP, EDTOX #### [place] [address] Tool Repairer Bench: Bryn Farias MD MCH (RBC) [Entitic mass] 29.6 pg Normal 25.2-33.5 [facility] Comment on above: Performed By: #### C DP, IPF, HCG, CRP, CP, EDTOX #### [address] [address] Tool Repairer Bench: Bryn Farias MD MCHC (RBC) [Mass/Vol] 30.0 g/dL Normal 28.4-34.8 [facility] Comment on above: Performed By: #### C DP, IPF, HCG, CRP, CP, EDTOX #### [address] [address] Tool Repairer Bench: Bryn Farias MD MCV (RBC) [Entitic vol] 98.9 fL Normal 82.6-102.9 [facility] Comment on above: Performed By: #### C DP, IPF, HCG, CRP, CP, EDTOX #### [address] [address] Tool Rep[employer]r Bench: Bryn Farias MD Monocytes (Bld) [#/Vol] 0.37 10*3/uL Normal 0.10-1.20 [facility] Comment on above: Performed By: #### C DP, IPF, HCG, CRP, CP, EDTOX #### [address] [address] [employer] Repairer Bench: Bryn Farias MD Monocytes/100 WBC (Bld) 6 % Normal 3-12 [facility] Comment on above: Performed By: #### C DP, IPF, HCG, CRP, CP, EDTOX #### [address] [address] [employer] Repairer Bench: Bryn Farias MD Neutrophil (Seg) 54 % Normal 36-65 [facility] Comment on above: Performed By: #### C DP, IPF, HCG, CRP, CP, EDTOX #### [address] [address] Tool Repairer Bench: Bryn Farias MD NRBC Automated 0.0 per 100 WBC Normal 0.0 [facility] Comment on above: Performed By: #### C DP, IPF, HCG, CRP, CP, EDTOX #### [address] [address] Tool Repairer Bench: Bryn Farias MD Platelet mean volume (Bld) [Entitic vol] 8.9 fL Normal 8.1-13.5 [facility] Comment on above: Performed By: #### C DP, IPF, HCG, CRP, CP, EDTOX #### [address] [address] Tool Repairer Bench: Bryn Farias MD Platelets (Bld) [#/Vol] 269 10*3/uL Normal 138-453 [facility] Comment on above: Performed By: #### C DP, IPF, HCG, CRP, CP, EDTOX #### [address] [address] Tool Repairer Bench: Bryn Farias MD RBC (Bld) [#/Vol] 3.51 10*6/uL Low 3.95-5.11 [facility] Comment on above: Performed By: #### C DP, IPF, HCG, CRP, CP, EDTOX #### [address] [address] Tool Repairer Bench: Bryn Farias MD RBC morphology finding Nom (Bld) ANISOCYTOSIS PRESENT Normal [facility] Comment on above: Performed By: #### C DP, IPF, HCG, CRP, CP, EDTOX #### [address] [address] Tool Repairer Bench: Bryn Farias MD WBC (Bld) [#/Vol] 5.9 10*3/uL Normal 3.5-11.3 [facility] Comment on above: Performed By: #### C DP, IPF, HCG, CRP, CP, EDTOX #### [facility] [employer] [address] [place] [address] Tool Repairer Bench: Bryn Farias MD Auto Diff Performed NOT REPORTED Normal [facility] Comment on above: Performed By: #### C DP, IPF, HCG, CRP, CP, EDTOX #### [facility] [address] [place], [place] [id number] Tool Repairer Bench: Bryn Farias MD Platelet Estimate NOT REPORTED Normal [facility] Comment on above: Performed By: #### C DP, IPF, HCG, CRP, CP, EDTOX #### [facility] [address] [place], [place] [phone] Tool Repairer Bench: Bryn Farias MD WBC Morphology NOT REPORTED Normal [facility] Comment on above: Performed By: #### C DP, IPF, HCG, CRP, CP, EDTOX #### [facility] [place], [place] [id number] Tool Repairer Bench: Bryn Farias MD Hematologyon 09-02-2020 Basophils (Bld) [#/Vol] 10*3/uL [place] Basophils/100 WBC (Bld) 0 % 0 - 2 % [place] Eosinophils (Bld) [#/Vol] 0.10 10*3/uL [place] Eosinophils/100 WBC (Bld) 2 % 1 - 4 % [place] Hematocrit (Bld) [Volume fraction] 34.7 % Low 36.3 - 47.1 % [place] Hemoglobin (Bld) [Mass/Vol] 10.4 g/dL Low 11.9 - 15.1 g/dL [place] Lymphocytes (Bld) [#/Vol] 2.25 10*3/uL [place] Lymphocytes/100 WBC (Bld) 38 % 24 - 43 % [place] MCH (RBC) [Entitic mass] 29.6 pg 25.2 - 33.5 pg [place] MCV (RBC) [Entitic vol] 98.9 fL 82.6 - 102.9 fL [place] Monocytes (Bld) [#/Vol] 0.37 10*3/uL [place] Monocytes/100 WBC (Bld) 6 % 3 - 12 % [place] Platelets (Bld) [#/Vol] NOT REPORTED [place] Platelets (Bld) [#/Vol] 269 10*3/uL [place] RBC (Bld) [#/Vol] 3.51 10*6/uL Low 3.95 - 5.1 1 m/uL [place] RBC morphology finding Nom (Bld) ANISOCYTOSIS PRESENT [place] WBC (Bld) [#/Vol] 0.0 10*3/uL 0.0 per 10 0 WBC [place] WBC (Bld) [#/Vol] 5.9 10*3/uL [place] Metabolic Panelon 09-02-2020 Albumin [Mass/Vol] 2.8 g/dL Low 3.5 - 5.2 g/dL [place] Anion gap [Moles/Vol] 8 mmol/L Low 9 - 17 mmol/L [place] Calcium [Mass/Vol] 7.8 mg/dL Low 8.6 - 10. 4 mg/dL [place] Chloride [Moles/Vol] 108 mmol/L High 98 - 10 7 mmol/L [place] CO2 [Moles/Vol] 21 mmol/L 20 - 31 mmol/L [place] Creatinine [Mass/Vol] 0.31 mg/dL Low 0.5 - 0.9 mg/dL [place] GFR/1.73 sq M predicted among non-blacks MDRD (S/P/Bld) [Vol rate/Area] [place] Comment on above: Average GFR for 20-2 9 years old: 116 mL/min/1.73sq m Chronic Kidney Disease: <60 mL/min/1.73sq m Kidney failure: <15 mL/min/1.73sq m eGFR calculated using average adult body mass. Additional eGFR calculator available at: http://www.[employer]/multiple_crcl_2012.htm GFR/1.73 sq M predicted among non-blacks MDRD (S/P/Bld) [Vol rate/Area] NOT REPORTED [place] Glucose [Mass/Vol] 99 mg/dL 70 - 99 mg/dL [place], [place] Phosphate [Mass/Vol] 3.6 mg/dL 2.6 - 4 .5 mg/dL [place] Potassium [Moles/Vol] 3.1 mmol/L Low 3.7 - 5.3 mmol/L [place] Sodium [Moles/Vol] 137 mmol/L 135 - 144 mmol/L [place] Urea nitrogen [Mass/Vol] 3 mg/dL Low 6 - 20 mg/dL [place] Otheron 09-02-2020 SARS-CoV-2 [place] SARS-CoV-2, Rapid Not Detected Not Detected [place] Comment on above: Rapid NAAT: The [...] management decisions. Fact sheet for Healthcare Providers: https://www.fda.gov/media/740886/download Fact sheet for Patients: https://www.fda.gov/media/230016/download Methodology: Isothermal Nucleic Acid Amplification Source .NASOPHARYNGEAL SWAB [place] Bun/Cre Ratio NOT REPORTED [place], [place] GFR >60 >60 mL/min [place] GFR Non- >60 >60 mL/min [place] Interpretation and review of laboratory results Abnormal [place] Differential Type NOT REPORTED [place] Erythrocyte distribution width (RBC) [Ratio] 16.4 % High 11.8 - 14.4 % [place] Immature granulocytes (Bld) [#/Vol] 0 % 0 [place] Immature granulocytes (Bld) [#/Vol] 10*3/uL [place] Interpretation and review of laboratory results Abnormal [place] MCHC (RBC) [Mass/Vol] 30.0 g/dL 28.4 - 34.8 g/dL [place] Platelet mean volume (Bld) [Entitic vol] 8.9 fL 8.1 - 13.5 fL [place] Segmented neutrophils/100 WBC (Bld) 54 % 36 - 65 % [place] Segs Absolute 3.13 [place], [place] WBC Morphology NOT REPORTED [place], [place] Renal Function Panelon 09-02 (cont.) Normal [facility] Comment on above: Result Comment: Aver age GFR for 20-29 years old: 116 mL/min/1.73sq m Chronic Kidney Disease: <60 mL/min/1.73sq m Kidney failure: <15 mL/min/1.73sq m eGFR calculated using average adult body mass. Additional eGFR calculator available at: http://www.[employer]/multiple_crcl_2011.htm Performed By: #### C DP, IPF, HCG, CRP, CP, EDTOX #### [facility] [employer] [address] [place] [phone] Tool Repairer Bench: Bryn Farias MD Albumin [Mass/Vol] 2.8 g/dL Low 3.5-5.2 [facility] Comment on above: Performed By: #### C DP, IPF, HCG, CRP, CP, EDTOX #### [facility] [employer] [facility] [place], [place] [phone] Tool Repairer Bench: Bryn Farias MD Anion gap [Moles/Vol] 8 mmol/L Low 9-17 [facility] Comment on above: Performed By: #### C DP, IPF, HCG, CRP, CP, EDTOX #### [address] [address] [employer] Bench: Bryn Farias MD Calcium [Mass/Vol] 7.8 mg/dL Low 8.6-10.4 [facility] Comment on above: Performed By: #### C DP, IPF, HCG, CRP, CP, EDTOX #### [address] [address] Tool Rep[employer]r Bench: Bryn Farias MD Chloride [Moles/Vol] 108 mmol/L High 98-107 [facility] Comment on above: Performed By: #### C DP, IPF, HCG, CRP, CP, EDTOX #### [address] [address] Tool Repairer Bench: Bryn Farias MD CO2 [Moles/Vol] 21 mmol/L Normal 20-31 [facility] Comment on above: Performed By: #### C DP, IPF, HCG, CRP, CP, EDTOX #### [address] [address] Tool Rep[employer]r Bench: Bryn Farias MD Creatinine [Mass/Vol] 0.31 mg/dL Low 0.50-0.90 [facility] Comment on above: Performed By: #### C DP, IPF, HCG, CRP, CP, EDTOX #### [address] [address] Tool [employer]r Bench: Bryn Farias MD GFR, Amer >60 Normal >60 [facility] Comment on above: Performed By: #### C DP, IPF, HCG, CRP, CP, EDTOX #### [address] [address] Tool Repairer Bench: Bryn Farias MD GFR,non Amer >60 Normal >60 [facility] Comment on above: Performed By: #### C DP, IPF, HCG, CRP, CP, EDTOX #### [facility] [employer] [address] [place] [address] Tool Rep[employer]r Bench: Bryn Farias MD Glucose [Mass/Vol] 99 mg/dL Normal 70-99 [facility] Comment on above: Performed By: #### C DP, IPF, HCG, CRP, CP, EDTOX #### [facility] [employer] [address] [place] [address] Tool Repairer Bench: Bryn Farias MD Phosphorus, Inorg. 3.6 mg/dL Normal 2.6-4.5 [facility] Comment on above: Performed By: #### C DP, IPF, HCG, CRP, CP, EDTOX #### [facility] [employer] [address] [place] [address] Tool Repairer Bench: Bryn Farias MD Potassium [Moles/Vol] 3.1 mmol/L Low 3.7-5.3 [facility] Comment on above: Performed By: #### C DP, IPF, HCG, CRP, CP, EDTOX #### [facility] [employer] [address] [place] [address] Tool Repairer Bench: Bryn Farias MD Sodium [Moles/Vol] 137 mmol/L Normal 135-144 [facility] Comment on above: Performed By: #### C DP, IPF, HCG, CRP, CP, EDTOX #### [facility] [employer] [address] [place] [address] Tool [employer] Bench: Bryn Farias MD Urea nitrogen [Mass/Vol] 3 mg/dL Low 6-20 [facility] Comment on above: Performed By: #### C DP, IPF, HCG, CRP, CP, EDTOX #### [facility] [employer] [address] [place] [address] Tool Rep[employer]r Bench: Bryn Farias MD BUN/CRE Ratio NOT REPORTED Normal -20 [facility] Comment on above: Performed By: #### C DP, IPF, HCG, CRP, CP, EDTOX #### [address] [address] Tool Repairer Bench: Bryn Farias MD Staging: NOT REPORTED Normal [facility] Comment on above: Performed By: #### C DP, IPF, HCG, CRP, CP, EDTOX #### [address] [address] Tool Repairer Bench: Bryn Farias MD [id number] 09-02-2020 SARS-CoV-2 (COVID-19) RNA IRENA+probe Ql (Unsp spec) Normal [facility] Comment on above: Performed By: #### C DP, IPF, HCG, CRP, CP, EDTOX #### [address] [address] Tool Repairer Bench: Bryn Farias MD SARS-CoV-2 (COVID-19) RNA IRENA+probe Ql (Unsp spec) Normal [facility] Comment on above: Performed By: #### C DP, IPF, HCG, CRP, CP, EDTOX #### [address] [address] Tool Rep[employer]r Bench: Bryn Farias MD SARS-CoV-2 (COVID-19) RNA IRENA+probe Ql (Unsp spec) Not detected [facility] Comment on above: Result Comment: Rapid [...] management decisions. Fact sheet for Healthcare Providers: https://www.fda.gov/media/547125/download Fact sheet for Patients: https://www.fda.gov/media/795150/download Methodology: Isothermal Nucleic Acid Amplification Performed By: #### C DP, IPF, HCG, CRP, CP, EDTOX #### [facility] [address] [place] [address] [phone] Tool Rep[employer]r Bench: Bryn Farias MD SARS-CoV-2 (COVID-19) RNA IRENA+probe Ql (Unsp spec) .NASOPHARYNGEAL SWAB Normal [facility] Comment on above: Performed By: #### C DP, IPF, HCG, CRP, CP, EDTOX #### [facility] [employer] [address] [place] [address] [phone] Tool Rep[employer]r Bench: Bryn Farias MD C-Reactive Proteinon 021 CRP [Mass/Vol] 10.2 mg/L High 0.0-5.0 [facility] Comment on above: Performed By: #### C DP, IPF, HCG, CRP, CP, EDTOX #### [facility] [employer] [address] [place] [address] [phone] Tool [employer] Bench: Bryn Farias MD CBC auto differentialon Basophils (Bld) [#/Vol] 10*3/uL [place] Basophils/100 WBC (Bld) 0 % 0 - 2 % [place] Differential Type NOT REPORTED [place] Eosinophils (Bld) [#/Vol] 0.11 10*3/uL [place] Eosinophils/100 WBC (Bld) 2 % 1 - 4 % [place] Erythrocyte distribution width (RBC) [Ratio] 16.0 % High 11.8 - 14.4 % [place] Hematocrit (Bld) [Volume fraction] 35.0 % Low 36.3 - 47.1 % [place] Hemoglobin (Bld) [Mass/Vol] 11.0 g/dL Low 11.9 - 15.1 g/dL [place] Immature granulocytes (Bld) [#/Vol] 1 % High 0 [place] Immature granulocytes (Bld) [#/Vol] 0.03 10*3/uL [place] Interpretation and review of laboratory results Abnormal [place] Lymphocytes (Bld) [#/Vol] 1.99 10*3/uL [place] Lymphocytes/100 WBC (Bld) 30 % 24 - 43 % [place] MCH (RBC) [Entitic mass] 29.9 pg 25.2 - 33.5 pg [place] MCHC (RBC) [Mass/Vol] 31.4 g/dL 28.4 - 34.8 g/dL [place] MCV (RBC) [Entitic vol] 95.1 fL 82.6 - 102.9 fL [place] Monocytes (Bld) [#/Vol] 0.41 10*3/uL [place] Monocytes/100 WBC (Bld) 6 % 3 - 12 % [place] Platelet mean volume (Bld) [Entitic vol] 9.0 fL 8.1 - 13.5 fL [place] Platelets (Bld) [#/Vol] 258 10*3/uL [place] Platelets (Bld) [#/Vol] NOT REPORTED [place] RBC (Bld) [#/Vol] 3.68 10*6/uL Low 3.95 - 5.1 1 m/uL [place] RBC morphology finding Nom (Bld) ANISOCYTOSIS PRESENT [place] Segmented neutrophils/100 WBC (Bld) 61 % 36 - 65 % [place] Segs Absolute 3.99 [place], [place] WBC (Bld) [#/Vol] 6.5 10*3/uL [place] WBC (Bld) [#/Vol] 0.0 10*3/uL 0.0 per 10 0 WBC [place] WBC Morphology NOT REPORTED [place], [place] CBC with Diffon 09-01-2020 Abs. Basophil <0.03 Normal 0.00-0.20 [facility] Comment on above: Performed By: #### C DP, IPF, HCG, CRP, CP, EDTOX #### [address] [address] Tool Repairer Bench: Bryn Farias MD Abs.Imm.Granulocyte 0.03 k/uL Normal 0.00-0.30 [facility] Comment on above: Performed By: #### C DP, IPF, HCG, CRP, CP, EDTOX #### [place] [address] Tool Repairer Bench: Bryn Farias MD Abs.Neutrophil (Seg) 3.99 k/uL Normal 1.50-8.10 [facility] Comment on above: Performed By: #### C DP, IPF, HCG, CRP, CP, EDTOX #### [address] [address] Tool Repairer Bench: Bryn Farias MD Basophils/100 WBC (Bld) 0 % Normal 0-2 [facility] Comment on above: Performed By: #### C DP, IPF, HCG, CRP, CP, EDTOX #### [address] [address] Tool Repairer Bench: Bryn Farias MD Eosinophils (Bld) [#/Vol] 0.11 10*3/uL Normal 0.00-0.44 [facility] Comment on above: Performed By: #### C DP, IPF, HCG, CRP, CP, EDTOX #### [address] [address] Tool Repairer Bench: Bryn Farias MD Eosinophils/100 WBC (Bld) 2 % Normal 1-4 [facility] Comment on above: Performed By: #### C DP, IPF, HCG, CRP, CP, EDTOX #### [address] [address] Tool Repairer Bench: Bryn Farias MD Erythrocyte distribution width (RBC) [Ratio] 16.0 % High 11.8-14.4 [facility] Comment on above: Performed By: #### C DP, IPF, HCG, CRP, CP, EDTOX #### [address] [address] Tool Repairer Bench: Bryn Farias MD Hematocrit (Bld) [Volume fraction] 35.0 % Low 36.3-47.1 [facility] Comment on above: Performed By: #### C DP, IPF, HCG, CRP, CP, EDTOX #### [address] [address] Tool Repairer Bench: Bryn Farias MD Hemoglobin (Bld) [Mass/Vol] 11.0 g/dL Low 11.9-15.1 [facility] Comment on above: Performed By: #### C DP, IPF, HCG, CRP, CP, EDTOX #### [address] [address] Tool Repairer Bench: Bryn Farias MD Immature granulocytes/100 WBC (Bld) 1 % High 0 [facility] Comment on above: Performed By: #### C DP, IPF, HCG, CRP, CP, EDTOX #### [address] [address] Tool Repairer Bench: Bryn Farias MD Lymphocytes (Bld) [#/Vol] 1.99 10*3/uL Normal 1.10-3.70 [facility] Comment on above: Performed By: #### C DP, IPF, HCG, CRP, CP, EDTOX #### [address] [address] Tool Repairer Bench: Bryn Farias MD Lymphocytes/100 WBC (Bld) 30 % Normal 24-43 [facility] Comment on above: Performed By: #### C DP, IPF, HCG, CRP, CP, EDTOX #### [address] [address] Tool Repairer Bench: Bryn Farias MD MCH (RBC) [Entitic mass] 29.9 pg Normal 25.2-33.5 [facility] Comment on above: Performed By: #### C DP, IPF, HCG, CRP, CP, EDTOX #### [facility] [employer] [address] [place] [phone] Tool Repairer Bench: Bryn Farias MD MCHC (RBC) [Mass/Vol] 31.4 g/dL Normal 28.4-34.8 [facility] Comment on above: Performed By: #### C DP, IPF, HCG, CRP, CP, EDTOX #### [address] [address] [employer] Repairer Bench: Bryn Farias MD MCV (RBC) [Entitic vol] 95.1 fL Normal 82.6-102.9 [facility] Comment on above: Performed By: #### C DP, IPF, HCG, CRP, CP, EDTOX #### [address] [address] Tool Repairer Bench: Bryn Farias MD Monocytes (Bld) [#/Vol] 0.41 10*3/uL Normal 0.10-1.20 [facility] Comment on above: Performed By: #### C DP, IPF, HCG, CRP, CP, EDTOX #### [place] [address] Tool Repairer Bench: Bryn Farias MD Monocytes/100 WBC (Bld) 6 % Normal 3-12 [facility] Comment on above: Performed By: #### C DP, IPF, HCG, CRP, CP, EDTOX #### [address] [address] [employer] Bench: Bryn Farias MD Neutrophil (Seg) 61 % Normal 36-65 [facility] Comment on above: Performed By: #### C DP, IPF, HCG, CRP, CP, EDTOX #### [address] [address] [employer] Bench: Bryn Farias MD NRBC Automated 0.0 per 100 WBC Normal 0.0 [facility] Comment on above: Performed By: #### C DP, IPF, HCG, CRP, CP, EDTOX #### [address] [address] [employer] Bench: Bryn Farias MD Platelet mean volume (Bld) [Entitic vol] 9.0 fL Normal 8.1-13.5 [facility] Comment on above: Performed By: #### C DP, IPF, HCG, CRP, CP, EDTOX #### [address] [address] Tool Repairer Bench: Bryn Farias MD Platelets (Bld) [#/Vol] 258 10*3/uL Normal 138-453 [facility] Comment on above: Performed By: #### C DP, IPF, HCG, CRP, CP, EDTOX #### [address] [address] Tool Repairer Bench: Bryn Farias MD RBC (Bld) [#/Vol] 3.68 10*6/uL Low 3.95-5.11 [facility] Comment on above: Performed By: #### C DP, IPF, HCG, CRP, CP, EDTOX #### [address] [address] Tool Repairer Bench: Bryn Farias MD RBC morphology finding Nom (Bld) ANISOCYTOSIS PRESENT Normal [facility] Comment on above: Performed By: #### C DP, IPF, HCG, CRP, CP, EDTOX #### [address] [address] Tool Repairer Bench: Bryn Farias MD WBC (Bld) [#/Vol] 6.5 10*3/uL Normal 3.5-11.3 [facility] Comment on above: Performed By: #### C DP, IPF, HCG, CRP, CP, EDTOX #### [address] [address] Tool Repairer Bench: Bryn Farias MD Auto Diff Performed NOT REPORTED Normal [facility] Comment on above: Performed By: #### C DP, IPF, HCG, CRP, CP, EDTOX #### [address] [address] Tool Repairer Bench: Bryn Farias MD Platelet Estimate NOT REPORTED Normal [facility] Comment on above: Performed By: #### C DP, IPF, HCG, CRP, CP, EDTOX #### [address] [address] Tool Repairer Bench: Bryn Farias MD WBC Morphology NOT REPORTED Normal [facility] Comment on above: Performed By: #### C DP, IPF, HCG, CRP, CP, EDTOX #### [address] [address] Tool Repairer Bench: Bryn Farias MD [facility]acon 09-01-2020 CRP [Mass/Vol] 10.2 mg/L High 0 - 5 mg/L [place], [place] Otheron 09-01-2020 Sed Rate 1 mm 0 - 20 mm [place] Interpretation and review of laboratory results Abnormal [place] Sedimentation Rateon 021 Sedimentation Rate 1 mm Normal 0-20 [facility] Comment on above: Performed By: #### C DP, IPF, HCG, CRP, CP, EDTOX #### [address] [place] [address] Tool Repairer Bench: Bryn Farias MD CBC auto differentialon Basophils (Bld) [#/Vol] 10*3/uL [place] Basophils/100 WBC (Bld) 0 % 0 - 2 % [place] Differential Type NOT REPORTED [place] Eosinophils (Bld) [#/Vol] 0.12 10*3/uL [place] Eosinophils/100 WBC (Bld) 2 % 1 - 4 % [place] Erythrocyte distribution width (RBC) [Ratio] 16.7 % High 11.8 - 14.4 % [place] Hematocrit (Bld) [Volume fraction] 34.3 % Low 36.3 - 47.1 % [place] Hemoglobin (Bld) [Mass/Vol] 10.4 g/dL Low 11.9 - 15.1 g/dL [place] Immature granulocytes (Bld) [#/Vol] 0 % 0 [place] Immature granulocytes (Bld) [#/Vol] 0.03 10*3/uL [place] Interpretation and review of laboratory results Abnormal [place] Lymphocytes (Bld) [#/Vol] 2.10 10*3/uL [place] Lymphocytes/100 WBC (Bld) 26 % 24 - 43 % [place] MCH (RBC) [Entitic mass] 29.4 pg 25.2 - 33.5 pg [place] MCHC (RBC) [Mass/Vol] 30.3 g/dL 28.4 - 34.8 g/dL [place] MCV (RBC) [Entitic vol] 96.9 fL 82.6 - 102.9 fL [place] Monocytes (Bld) [#/Vol] 0.44 10*3/uL [place] Monocytes/100 WBC (Bld) 5 % 3 - 12 % [place] Platelet mean volume (Bld) [Entitic vol] 9.1 fL 8.1 - 13.5 fL [place] Platelets (Bld) [#/Vol] 238 10*3/uL [place] Platelets (Bld) [#/Vol] NOT REPORTED [place] RBC (Bld) [#/Vol] 3.54 10*6/uL Low 3.95 - 5.1 1 m/uL [place] RBC morphology finding Nom (Bld) ANISOCYTOSIS PRESENT [place] Segmented neutrophils/100 WBC (Bld) 67 % High 36 - 65 % [place] Segs Absolute 5.40 [place] WBC (Bld) [#/Vol] 8.1 10*3/uL [place] WBC (Bld) [#/Vol] 0.0 10*3/uL 0.0 per 10 0 WBC [place] WBC Morphology NOT REPORTED [place], [place] CBC with Diffon 08-31-2020 Abs. Basophil <0.03 Normal 0.00-0.20 [facility] Comment on above: Performed By: #### C DP, IPF, HCG, CRP, CP, EDTOX #### [facility] [employer] [address] [place] [phone] Tool Repairer Bench: Bryn Farias MD Abs.Imm.Granulocyte 0.03 k/uL Normal 0.00-0.30 [facility] Comment on above: Performed By: #### C DP, IPF, HCG, CRP, CP, EDTOX #### [facility] [employer] [address] [place] [address] [phone] Tool Repairer Bench: Bryn Farias MD Abs.Neutrophil (Seg) 5.40 k/uL Normal 1.50-8.10 [facility] Comment on above: Performed By: #### C DP, IPF, HCG, CRP, CP, EDTOX #### [facility] [employer] [address] [place] [address] [phone] Tool Repairer Bench: Bryn Farias MD Basophils/100 WBC (Bld) 0 % Normal 0-2 [facility] Comment on above: Performed By: #### C DP, IPF, HCG, CRP, CP, EDTOX #### [address] [address] Tool Repairer Bench: Bryn Farias MD Eosinophils (Bld) [#/Vol] 0.12 10*3/uL Normal 0.00-0.44 [facility] Comment on above: Performed By: #### C DP, IPF, HCG, CRP, CP, EDTOX #### [address] [address] Tool Repairer Bench: Bryn Farias MD Eosinophils/100 WBC (Bld) 2 % Normal 1-4 [facility] Comment on above: Performed By: #### C DP, IPF, HCG, CRP, CP, EDTOX #### [place] [address] Tool Repairer Bench: Bryn Farias MD Erythrocyte distribution width (RBC) [Ratio] 16.7 % High 11.8-14.4 [facility] Comment on above: Performed By: #### C DP, IPF, HCG, CRP, CP, EDTOX #### [address] [address] Tool Repairer Bench: Bryn Farias MD Hematocrit (Bld) [Volume fraction] 34.3 % Low 36.3-47.1 [facility] Comment on above: Performed By: #### C DP, IPF, HCG, CRP, CP, EDTOX #### [address] [address] Tool Repairer Bench: Bryn Farias MD Hemoglobin (Bld) [Mass/Vol] 10.4 g/dL Low 11.9-15.1 [facility] Comment on above: Performed By: #### C DP, IPF, HCG, CRP, CP, EDTOX #### [address] [address] Tool Repairer Bench: Bryn Farias MD Immature granulocytes/100 WBC (Bld) 0 % Normal 0 [facility] Comment on above: Performed By: #### C DP, IPF, HCG, CRP, CP, EDTOX #### [address] [phone] Tool Repairer Bench: Bryn Farias MD Lymphocytes (Bld) [#/Vol] 2.10 10*3/uL Normal 1.10-3.70 [facility] Comment on above: Performed By: #### C DP, IPF, HCG, CRP, CP, EDTOX #### [address] [address] Tool Repairer Bench: Bryn Farias MD Lymphocytes/100 WBC (Bld) 26 % Normal 24-43 [facility] Comment on above: Performed By: #### C DP, IPF, HCG, CRP, CP, EDTOX #### [address] [address] Tool Repairer Bench: Bryn Farias MD MCH (RBC) [Entitic mass] 29.4 pg Normal 25.2-33.5 [facility] Comment on above: Performed By: #### C DP, IPF, HCG, CRP, CP, EDTOX #### [address] [address] Tool Repairer Bench: Bryn Farias MD MCHC (RBC) [Mass/Vol] 30.3 g/dL Normal 28.4-34.8 [facility] Comment on above: Performed By: #### C DP, IPF, HCG, CRP, CP, EDTOX #### [address] [address] Tool Repairer Bench: Bryn Farias MD MCV (RBC) [Entitic vol] 96.9 fL Normal 82.6-102.9 [facility] Comment on above: Performed By: #### C DP, IPF, HCG, CRP, CP, EDTOX #### [address] [address] Tool Repairer Bench: Bryn Farias MD Monocytes (Bld) [#/Vol] 0.44 10*3/uL Normal 0.10-1.20 [facility] Comment on above: Performed By: #### C DP, IPF, HCG, CRP, CP, EDTOX #### [address] [address] Tool Repairer Bench: Bryn Farias MD Monocytes/100 WBC (Bld) 5 % Normal 3-12 [facility] Comment on above: Performed By: #### C DP, IPF, HCG, CRP, CP, EDTOX #### [address] [address] Tool Repairer Bench: Bryn Farias MD Neutrophil (Seg) 67 % High 36-65 [facility] Comment on above: Performed By: #### C DP, IPF, HCG, CRP, CP, EDTOX #### [address] [address] Tool Repairer Bench: Bryn Farias MD NRBC Automated 0.0 per 100 WBC Normal 0.0 [facility] Comment on above: Performed By: #### C DP, IPF, HCG, CRP, CP, EDTOX #### [address] [address] Tool Repairer Bench: Bryn Farias MD Platelet mean volume (Bld) [Entitic vol] 9.1 fL Normal 8.1-13.5 [facility] Comment on above: Performed By: #### C DP, IPF, HCG, CRP, CP, EDTOX #### [address] [address] Tool Repairer Bench: Bryn Farias MD Platelets (Bld) [#/Vol] 238 10*3/uL Normal 138-453 [facility] Comment on above: Performed By: #### C DP, IPF, HCG, CRP, CP, EDTOX #### [address] [address] Tool Repairer Bench: Bryn Farias MD RBC (Bld) [#/Vol] 3.54 10*6/uL Low 3.95-5.11 [facility] Comment on above: Performed By: #### C DP, IPF, HCG, CRP, CP, EDTOX #### [address] [address] Tool Repairer Bench: Bryn Farias MD RBC morphology finding Nom (Bld) ANISOCYTOSIS PRESENT Normal [facility] Comment on above: Performed By: #### C DP, IPF, HCG, CRP, CP, EDTOX #### [address] [address] Tool Repairer Bench: Bryn Farias MD WBC (Bld) [#/Vol] 8.1 10*3/uL Normal 3.5-11.3 [facility] Comment on above: Performed By: #### C DP, IPF, HCG, CRP, CP, EDTOX #### [address] [address] Tool Repairer Bench: Bryn Farias MD Auto Diff Performed NOT REPORTED Normal [facility] Comment on above: Performed By: #### C DP, IPF, HCG, CRP, CP, EDTOX #### [address] [address] Tool Repairer Bench: Bryn Farias MD Platelet Estimate NOT REPORTED Normal [facility] Comment on above: Performed By: #### C DP, IPF, HCG, CRP, CP, EDTOX #### [address] [address] Tool Repairer Bench: Bryn Farias MD WBC Morphology NOT REPORTED Normal [facility] Comment on above: Performed By: #### C DP, IPF, HCG, CRP, CP, EDTOX #### [employer] [address] [place] [address] [phone] Tool Repairer Bench: Bryn Farias MD Comp Metabolic Pr/rfx MGon 0 08-31-2020 (cont.) Normal [facility] Comment on above: Result Comment: Aver age GFR for 20-29 years old: 116 mL/min/1.73sq m Chronic Kidney Disease: <60 mL/min/1.73sq m Kidney failure: <15 mL/min/1.73sq m eGFR calculated using average adult body mass. Additional eGFR calculator available at: http://www.[employer]/multiple_crcl_2011.htm Performed By: #### C DP, IPF, HCG, CRP, CP, EDTOX #### [employer] [address] [place] [address] Tool Repairer Bench: Bryn Farisa MD Albumin [Mass/Vol] 3.0 g/dL Low 3.5-5.2 [facility] Comment on above: Performed By: #### C DP, IPF, HCG, CRP, CP, EDTOX #### [employer] [address] [place] [address] [phone] Tool Repairer Bench: Bryn Farias MD Albumin/Glob Ratio 1.4 Normal 1.0-2.5 [facility] Comment on above: Performed By: #### C DP, IPF, HCG, CRP, CP, EDTOX #### [employer] [address] [place] [address] [phone] Tool Repairer Bench: Bryn Farias MD Alkaline Phos 122 U/L High 35-104 [facility] Comment on above: Result Comment: SPEC IMEN MODERATELY HEMOLYZED, RESULTS MAY BE ADVERSELY AFFECTED Performed By: #### C DP, IPF, HCG, CRP, CP, EDTOX #### [employer] [address] [place] [address] [phone] Tool Repairer Bench: Bryn Farias MD ALT [Catalytic activity/Vol] 13 U/L Normal 5-33 [facility] Comment on above: Result Comment: SPEC IMEN MODERATELY HEMOLYZED, RESULTS MAY BE ADVERSELY AFFECTED Performed By: #### C DP, IPF, HCG, CRP, CP, EDTOX #### [address] [address] Tool Repairer Bench: Bryn Farias MD Anion gap [Moles/Vol] 4 mmol/L Low 9-17 [facility] Comment on above: Performed By: #### C DP, IPF, HCG, CRP, CP, EDTOX #### [facility] [employer] [address] [place] [address] Tool Repairer Bench: Bryn Farias MD AST [Catalytic activity/Vol] 26 U/L Normal <32 [facility] Comment on above: Result Comment: SPEC IMEN MODERATELY HEMOLYZED, RESULTS MAY BE ADVERSELY AFFECTED Performed By: #### C DP, IPF, HCG, CRP, CP, EDTOX #### [facility] [employer] [address] [place] [address] Tool Repairer Bench: Bryn Farias MD Bilirubin [Mass/Vol] 0.21 mg/dL Low 0.3-1.2 [facility] Comment on above: Performed By: #### C DP, IPF, HCG, CRP, CP, EDTOX #### [facility] [employer] [address] [place] [address] Tool Repairer Bench: Bryn Farias MD Calcium [Mass/Vol] 8.5 mg/dL Low 8.6-10.4 [facility] Comment on above: Performed By: #### C DP, IPF, HCG, CRP, CP, EDTOX #### [facility] [employer] [address] [place] [address] Tool Repairer Bench: Bryn Farias MD Chloride [Moles/Vol] 109 mmol/L High 98-107 [facility] Comment on above: Performed By: #### C DP, IPF, HCG, CRP, CP, EDTOX #### [address] [address] Tool Repairer Bench: Bryn Farias MD CO2 [Moles/Vol] 24 mmol/L Normal 20-31 [facility] Comment on above: Performed By: #### C DP, IPF, HCG, CRP, CP, EDTOX #### [address] [address] Tool Repairer Bench: Bryn Farias MD Creatinine [Mass/Vol] 0.31 mg/dL Low 0.50-0.90 [facility] Comment on above: Performed By: #### C DP, IPF, HCG, CRP, CP, EDTOX #### [address] [address] Tool Repairer Bench: Bryn Farias MD GFR, Amer >60 Normal >60 [facility] Comment on above: Performed By: #### C DP, IPF, HCG, CRP, CP, EDTOX #### [address] [address] Tool Repairer Bench: Bryn Farias MD GFR,non Amer >60 Normal >60 [facility] Comment on above: Performed By: #### C DP, IPF, HCG, CRP, CP, EDTOX #### [address] [address] Tool Repairer Bench: Bryn Farias MD Glucose [Mass/Vol] 104 mg/dL High 70-99 [facility] Comment on above: Performed By: #### C DP, IPF, HCG, CRP, CP, EDTOX #### [address] [address] Tool Repairer Bench: Bryn Farias MD Potassium [Moles/Vol] 4.5 mmol/L Normal 3.7-5.3 [facility] Comment on above: Result Comment: SPEC IMEN MODERATELY HEMOLYZED, RESULTS MAY BE ADVERSELY AFFECTED Performed By: #### C DP, IPF, HCG, CRP, CP, EDTOX #### [facility] [address] [place] [address] Tool Repairer Bench: Bryn Farias MD Protein [Mass/Vol] 5.2 g/dL Low 6.4-8.3 [facility] Comment on above: Performed By: #### C DP, IPF, HCG, CRP, CP, EDTOX #### [facility] [employer] [address] [place] [address] Tool Repairer Bench: Bryn Farias MD Sodium [Moles/Vol] 137 mmol/L Normal 135-144 [facility] Comment on above: Performed By: #### C DP, IPF, HCG, CRP, CP, EDTOX #### [address] [address] Tool Repairer Bench: Bryn Farias MD Urea nitrogen [Mass/Vol] 2 mg/dL Low 6-20 [facility] Comment on above: Performed By: #### C DP, IPF, HCG, CRP, CP, EDTOX #### [facility] [employer] [address] [place] [address] Tool Repairer Bench: Bryn Farias MD BUN/CRE Ratio NOT REPORTED Normal -20 [facility] Comment on above: Performed By: #### C DP, IPF, HCG, CRP, CP, EDTOX #### [facility] [employer] [address] [place] [address] Tool Repairer Bench: Bryn Farias MD Staging: NOT REPORTED Normal [facility] Comment on above: Performed By: #### C DP, IPF, HCG, CRP, CP, EDTOX #### [facility] [employer] [address] [place] [address] Tool Repairer Bench: Bryn Farias MD Metabolic Panelon 08-31-2020 Albumin [Mass/Vol] 3 g/dL Low 3.5 - 5.2 g/dL [place] ALP [Catalytic activity/Vol] 122 U/L High 35 - 104 U/L [place] Comment on above: SPECIMEN MODERATELY HEMOLYZED, RESULTS MAY BE ADVERSELY AFFECTED ALT [Catalytic activity/Vol] 13 U/L 5 - 33 U/L [place] Comment on above: SPECIMEN MODERATELY HEMOLYZED, RESULTS MAY BE ADVERSELY AFFECTED Anion gap [Moles/Vol] 4 mmol/L Low 9 - 17 mmol/L [place] AST [Catalytic activity/Vol] 26 U/L <32 [place] Comment on above: SPECIMEN MODERATELY HEMOLYZED, RESULTS MAY BE ADVERSELY AFFECTED Calcium [Mass/Vol] 8.5 mg/dL Low 8.6 - 10. 4 mg/dL [place] Chloride [Moles/Vol] 109 mmol/L High 98 - 10 7 mmol/L [place] CO2 [Moles/Vol] 24 mmol/L 20 - 31 mmol/L [place] Creatinine [Mass/Vol] 0.31 mg/dL Low 0.5 - 0.9 mg/dL [place] GFR/1.73 sq M predicted among non-blacks MDRD (S/P/Bld) [Vol rate/Area] NOT REPORTED [place] GFR/1.73 sq M predicted among non-blacks MDRD (S/P/Bld) [Vol rate/Area] [place] Comment on above: Average GFR for 20-2 9 years old: 116 mL/min/1.73sq m Chronic Kidney Disease: <60 mL/min/1.73sq m Kidney failure: <15 mL/min/1.73sq m eGFR calculated using average adult body mass. Additional eGFR calculator available at: http://www.[employer]/multiple_crcl_2012.htm Glucose [Mass/Vol] 104 mg/dL High 70 - 99 mg/dL [place] Potassium [Moles/Vol] 4.5 mmol/L 3.7 - 5.3 mmol/L [place] Comment on above: SPECIMEN MODERATELY HEMOLYZED, RESULTS MAY BE ADVERSELY AFFECTED Protein [Mass/Vol] 5.2 g/dL Low 6.4 - 8.3 g/dL [place] Sodium [Moles/Vol] 137 mmol/L 135 - 144 mmol/L [place] Urea nitrogen [Mass/Vol] 2 mg/dL Low 6 - 20 mg/dL [place] Otheron 08-31-2020 Atrial Rate 122 BPM [place] P [place] 60 degrees [place] P-R Interval 144 ms [place] Q-T Interval 356 ms [place] QRS Duration 92 ms [place] QTc Calculation (Baz[place]) 507 ms [place] R [place] 19 degrees [place] T [place] 60 degrees [place] Ventricular Rate 122 BPM [place] [employer], [employer] Incoming E kg Results From [employer] [place] - 08/31/2020 11:53 AM EST Sinus tachycardia Possible Left atrial enlargement Nonspecific ST abnormality Abnormal ECG When compared with ECG of 31-JUL-2015 19:51, No significant change was found [place] Sinus tachycardia Possible Left atrial enlargement Nonspecific ST abnormality Abnormal ECG When compared with ECG of 31-JUL-2015 19:51, No significant change was found [place] Albumin/Globulin [Mass ratio] 1.4 {ratio} [place] Bilirubin Ql (U) 0.21 mg/dL Low 0.3 - 1.2 mg/dL [place] Bun/Cre Ratio NOT REPORTED [place] GFR >60 >60 mL/min [place] GFR Non- >60 >60 mL/min [place] Interpretation and review of laboratory results Abnormal [place] EXAMINATION: TWO XRA Y VIEWS OF [...] soft tissue swelling. No radiodense foreign body. [place] 1. No acute osseous abnormality of the right hand and forearm. 2. No radiodense foreign body. [place] [employer] Incoming Radiant Results From [employer] - 08/31/2020 5:09 AM EST EXAMINATION: TWO [...] and forearm. 2. No radiodense foreign body. [place] XR HAND RIGHT (MIN 3 VIEWS)o [...] Interpreted by: Petty Lisa MD Signed by: Ptety Lisa MD 08/31/20 Final result Normal [facility] XR RADIUS ULNA LEFT (2 VIEWS [...] Petty Lisa MD 08/31/20 Final result Normal [facility] APTTon 08-30-2020 aPTT Coag (Bld) [Time] 24.8 s Normal 20.5-30.5 [facility] Comment on above: Result Comment: IV Heparin Therapy Range: 48.6-77.8 Performed By: #### C OVID #### [employer] [facility] [place], [place] [phone] Tool Repairer Bench: Bryn Farias MD Acetaminophenon 08-30-2020 Acetaminophen [Mass/Vol] ug/mL Low 10-30 [facility] Comment on above: Performed By: #### C OVID #### [employer] [address] [place] [address] [phone] Tool Repairer Bench: Bryn Farias MD Basic Metab w/rfx MGon 08-30 Potassium [Moles/Vol] 3.3 mmol/L Low 3.7-5.3 [facility] Comment on above: Performed By: #### C OVID #### [address] [address] Tool Repairer Bench: Bryn Farias MD (cont.) [facility] Comment on above: Result Comment: Aver age GFR for 20-29 years old: 116 mL/min/1.73sq m Chronic Kidney Disease: <60 mL/min/1.73sq m Kidney failure: <15 mL/min/1.73sq m eGFR calculated using average adult body mass. Additional eGFR calculator available at: http://www.[employer]/multiple_crcl_2011.htm Performed By: #### C OVID #### [address] [address] Tool Repairer Bench: Bryn Farias MD Anion gap [Moles/Vol] 9 mmol/L Normal 9-17 [facility] Comment on above: Performed By: #### C OVID #### [address] [address] Tool Repairer Bench: Bryn Farias MD Calcium [Mass/Vol] 8.4 mg/dL Low 8.6-10.4 [facility] Comment on above: Performed By: #### C OVID #### [facility] [employer] [address] [place] [address] Tool Repairer Bench: Bryn Farias MD Chloride [Moles/Vol] 106 mmol/L Normal 98-107 [facility] Comment on above: Performed By: #### C OVID #### [address] [address] Tool Repairer Bench: Bryn Farias MD CO2 [Moles/Vol] 23 mmol/L Normal 20-31 [facility] Comment on above: Performed By: #### C OVID #### [address] [address] Tool Repairer Bench: Bryn Farias MD Creatinine [Mass/Vol] 0.41 mg/dL Low 0.50-0.90 [facility] Comment on above: Performed By: #### C OVID #### [address] [address] Tool Repairer Bench: Bryn Farias MD GFR, Amer >60 Normal >60 [facility] Comment on above: Performed By: #### C OVID #### [address] [address] Tool Repairer Bench: Bryn Farias MD GFR,non Amer >60 Normal >60 [facility] Comment on above: Performed By: #### C OVID #### [address] [address] Tool Repairer Bench: Bryn Farias MD Glucose [Mass/Vol] 99 mg/dL Normal 70-99 [facility] Comment on above: Performed By: #### C OVID #### [address] [address] Tool Repairer Bench: Bryn Farias MD Sodium [Moles/Vol] 138 mmol/L Normal 135-144 [facility] Comment on above: Performed By: #### C OVID #### [address] [address] Tool Repairer Bench: Bryn Farias MD Urea nitrogen [Mass/Vol] 3 mg/dL Low 6-20 [facility] Comment on above: Performed By: #### C OVID #### [address] [address] Tool Repairer Bench: Bryn Farias MD BUN/CRE Ratio NOT REPORTED Normal 9-20 [facility] Comment on above: Performed By: #### C OVID #### [address], [place] [phone] Tool Repairer Bench: Bryn Farias MD Staging: NOT REPORTED Normal [facility] Comment on above: Performed By: #### C OVID #### [facility] [address] [place], [place] [phone] Tool Repairer Bench: Bryn Farias MD C-REACTIVE PROTEINon 021 CRP [Mass/Vol] 21.2 mg/L High 0 - 5 mg/L [place] Interpretation and review of laboratory results Abnormal [place] C-Reactive Proteinon 021 CRP [Mass/Vol] 21.2 mg/L High 0.0-5.0 [facility] Comment on above: Performed By: #### C DP, IPF, HCG, CRP, CP, EDTOX #### [place] [id number] [place], [place] [phone] Tool Repairer Bench: Bryn Farias MD CBC WITH AUTO DIFFERENTIALon 08-30-2020 Basophils (Bld) [#/Vol] 10*3/uL [place] Basophils/100 WBC (Bld) 0 % 0 - 2 % [place] Differential Type NOT REPORTED [place] Eosinophils (Bld) [#/Vol] 0.07 10*3/uL [place] Eosinophils/100 WBC (Bld) 1 % 1 - 4 % [place] Erythrocyte distribution width (RBC) [Ratio] 16.4 % High 11.8 - 14.4 % [place] Hematocrit (Bld) [Volume fraction] 36.8 % 36.3 - 47.1 % [place] Hemoglobin (Bld) [Mass/Vol] 12.2 g/dL 11.9 - 15.1 g/dL [place] Immature granulocytes (Bld) [#/Vol] 1 % High 0 [place] Immature granulocytes (Bld) [#/Vol] 0.04 10*3/uL [place] Interpretation and review of laboratory results Abnormal [place] Lymphocytes (Bld) [#/Vol] 1.57 10*3/uL [place] Lymphocytes/100 WBC (Bld) 21 % Low 24 - 43 % [place] MCH (RBC) [Entitic mass] 29.3 pg 25.2 - 33.5 pg [place] MCHC (RBC) [Mass/Vol] 33.2 g/dL 28.4 - 34.8 g/dL [place] MCV (RBC) [Entitic vol] 88.2 fL 82.6 - 102.9 fL [place] Monocytes (Bld) [#/Vol] 0.31 10*3/uL [place] Monocytes/100 WBC (Bld) 4 % 3 - 12 % [place] Platelet mean volume (Bld) [Entitic vol] NOT REPORTED 8.1 - 13.5 fL [place] Platelets (Bld) [#/Vol] NOT REPORTED [place] Platelets (Bld) [#/Vol] See Reflexed IPF Result [place] RBC (Bld) [#/Vol] 4.17 10*6/uL 3.95 - 5.1 1 m/uL [place] RBC morphology finding Nom (Bld) ANISOCYTOSIS PRESENT [place] Segmented neutrophils/100 WBC (Bld) 74 % High 36 - 65 % [place] Segs Absolute 5.62 [place] WBC (Bld) [#/Vol] 7.6 10*3/uL [place] WBC (Bld) [#/Vol] 0.0 10*3/uL 0.0 per 10 0 WBC [place] WBC Morphology NOT REPORTED [place], [place] CBC auto differentialon Basophils (Bld) [#/Vol] 10*3/uL [place] Basophils/100 WBC (Bld) 0 % 0 - 2 % [place] Differential Type NOT REPORTED [place] Eosinophils (Bld) [#/Vol] 0.06 10*3/uL [place] Eosinophils/100 WBC (Bld) 1 % 1 - 4 % [place] Erythrocyte distribution width (RBC) [Ratio] 16.4 % High 11.8 - 14.4 % [place] Hematocrit (Bld) [Volume fraction] 35.1 % Low 36.3 - 47.1 % [place] Hemoglobin (Bld) [Mass/Vol] 11.2 g/dL Low 11.9 - 15.1 g/dL [place] Immature granulocytes (Bld) [#/Vol] 0.03 10*3/uL [place] Immature granulocytes (Bld) [#/Vol] 0 % 0 [place] Interpretation and review of laboratory results Abnormal [place] Lymphocytes (Bld) [#/Vol] 2.54 10*3/uL [place] Lymphocytes/100 WBC (Bld) 29 % 24 - 43 % [place] MCH (RBC) [Entitic mass] 29.7 pg 25.2 - 33.5 pg [place] MCHC (RBC) [Mass/Vol] 31.9 g/dL 28.4 - 34.8 g/dL [place] MCV (RBC) [Entitic vol] 93.1 fL 82.6 - 102.9 fL [place] Monocytes (Bld) [#/Vol] 0.47 10*3/uL [place] Monocytes/100 WBC (Bld) 5 % 3 - 12 % [place] Platelet mean volume (Bld) [Entitic vol] 8.6 fL 8.1 - 13.5 fL [place] Platelets (Bld) [#/Vol] NOT REPORTED [place] Platelets (Bld) [#/Vol] 287 10*3/uL [place] RBC (Bld) [#/Vol] 3.77 10*6/uL Low 3.95 - 5.1 1 m/uL [place] RBC morphology finding Nom (Bld) ANISOCYTOSIS PRESENT [place] Segmented neutrophils/100 WBC (Bld) 65 % 36 - 65 % [place] Segs Absolute 5.59 [place] WBC (Bld) [#/Vol] 8.7 10*3/uL [place] WBC (Bld) [#/Vol] 0.0 10*3/uL 0.0 per 10 0 WBC [place] WBC Morphology NOT REPORTED [place], [place] CBC with Diffon 08-30-2020 Abs. Basophil <0.03 Normal 0.00-0.20 [facility] Comment on above: Performed By: #### C OVID #### [address] [address] [employer] Repairer Bench: Bryn Farias MD Abs.Imm.Granulocyte 0.03 k/uL Normal 0.00-0.30 [facility] Comment on above: Performed By: #### C OVID #### [address] [address] Tool Repairer Bench: Bryn Farias MD Abs.Neutrophil (Seg) 5.59 k/uL Normal 1.50-8.10 [facility] Comment on above: Performed By: #### C OVID #### [address] [address] [employer] Repairer Bench: Bryn Farias MD Basophils/100 WBC (Bld) 0 % Normal 0-2 [facility] Comment on above: Performed By: #### C OVID #### [address] [address] [employer] Rep[employer] Bench: Bryn Farias MD Eosinophils (Bld) [#/Vol] 0.06 10*3/uL Normal 0.00-0.44 [facility] Comment on above: Performed By: #### C OVID #### [address] [address] [employer] Rep[employer] Bench: Bryn Farias MD Eosinophils/100 WBC (Bld) 1 % Normal 1-4 [facility] Comment on above: Performed By: #### C OVID #### [address] [address] [employer] Repaire[employer] Bench: Bryn Farias MD Erythrocyte distribution width (RBC) [Ratio] 16.4 % High 11.8-14.4 [facility] Comment on above: Performed By: #### C OVID #### [address] [address] [employer] Repairer Bench: Bryn Farias MD Hematocrit (Bld) [Volume fraction] 35.1 % Low 36.3-47.1 [facility] Comment on above: Performed By: #### C OVID #### [address] [address] [employer] Rep[employer]r Bench: Bryn Farias MD Hemoglobin (Bld) [Mass/Vol] 11.2 g/dL Low 11.9-15.1 [facility] Comment on above: Performed By: #### C OVID #### [address] [address] [employer] Repairer Bench: Bryn Farias MD Immature granulocytes/100 WBC (Bld) 0 % Normal 0 [facility] Comment on above: Performed By: #### C OVID #### [address] [address] [employer] Repaire[employer] Bench: Bryn Farias MD Lymphocytes (Bld) [#/Vol] 2.54 10*3/uL Normal 1.10-3.70 [facility] Comment on above: Performed By: #### C OVID #### [address] [address] [employer] Rep[employer]r Bench: Bryn Farias MD Lymphocytes/100 WBC (Bld) 29 % Normal 24-43 [facility] Comment on above: Performed By: #### C OVID #### [address] [address] [employer] Repairer Bench: Bryn Farias MD MCH (RBC) [Entitic mass] 29.7 pg Normal 25.2-33.5 [facility] Comment on above: Performed By: #### C OVID #### [address] [address] Tool Repairer Bench: Bryn Farias MD MCHC (RBC) [Mass/Vol] 31.9 g/dL Normal 28.4-34.8 [facility] Comment on above: Performed By: #### C OVID #### [address] [address] Tool Repairer Bench: Bryn Farias MD MCV (RBC) [Entitic vol] 93.1 fL Normal 82.6-102.9 [facility] Comment on above: Performed By: #### C OVID #### [address] [address] Tool Repairer Bench: Bryn Farias MD Monocytes (Bld) [#/Vol] 0.47 10*3/uL Normal 0.10-1.20 [facility] Comment on above: Performed By: #### C OVID #### [address] [address] [employer] Rep[employer] Bench: Bryn Farias MD Monocytes/100 WBC (Bld) 5 % Normal 3-12 [facility] Comment on above: Performed By: #### C OVID #### [address] [address] Tool Repairer Bench: Bryn Farias MD Neutrophil (Seg) 65 % Normal 36-65 [facility] Comment on above: Performed By: #### C OVID #### [address] [address] Tool Repairer Bench: Bryn Farias MD NRBC Automated 0.0 per 100 WBC Normal 0.0 [facility] Comment on above: Performed By: #### C OVID #### [address] [address] [employer] Repairer Bench: Bryn Farias MD Platelet mean volume (Bld) [Entitic vol] 8.6 fL Normal 8.1-13.5 [facility] Comment on above: Performed By: #### C OVID #### [address] [address] [employer] Repairer Bench: Bryn Farias MD Platelets (Bld) [#/Vol] 287 10*3/uL Normal 138-453 [facility] Comment on above: Performed By: #### C OVID #### [address] [address] Tool Repairer Bench: Bryn Farias MD RBC (Bld) [#/Vol] 3.77 10*6/uL Low 3.95-5.11 [facility] Comment on above: Performed By: #### C OVID #### [address] [address] Tool Repairer Bench: Bryn Farias MD RBC morphology finding Nom (Bld) ANISOCYTOSIS PRESENT Normal [facility] Comment on above: Performed By: #### C OVID #### [address] [address] [employer] Repairer Bench: Bryn Farias MD WBC (Bld) [#/Vol] 8.7 10*3/uL Normal 3.5-11.3 [facility] Comment on above: Performed By: #### C OVID #### [address] [address] Tool Repairer Bench: Bryn Farias MD Auto Diff Performed NOT REPORTED Normal [facility] Comment on above: Performed By: #### C OVID #### [address] [address] [employer] Rep[employer]r Bench: Bryn Farias MD Platelet Estimate NOT REPORTED Normal [facility] Comment on above: Performed By: #### C OVID #### [place] [address] [employer] Rep[employer]r Bench: Bryn Farias MD WBC Morphology NOT REPORTED Normal [facility] Comment on above: Performed By: #### C OVID #### [place] [address] [employer] Rep[employer]r Bench: Bryn Farias MD Abs. Basophil <0.03 Normal 0.00-0.20 [facility] Comment on above: Performed By: #### C DP, IPF, HCG, CRP, CP, EDTOX #### [place] [address] [employer]r Bench: Bryn Farias MD Abs.Imm.Granulocyte 0.04 k/uL Normal 0.00-0.30 [facility] Comment on above: Performed By: #### C DP, IPF, HCG, CRP, CP, EDTOX #### [place] [address] [employer] Bench: Bryn Farias MD Abs.Neutrophil (Seg) 5.62 k/uL Normal 1.50-8.10 [facility] Comment on above: Performed By: #### C DP, IPF, HCG, CRP, CP, EDTOX #### [place] [address] [employer] Bench: Bryn Farias MD Basophils/100 WBC (Bld) 0 % Normal 0-2 [facility] Comment on above: Performed By: #### C DP, IPF, HCG, CRP, CP, EDTOX #### [place] [address] [employer] Rep[employer]r Bench: Bryn Farias MD Eosinophils (Bld) [#/Vol] 0.07 10*3/uL Normal 0.00-0.44 [facility] Comment on above: Performed By: #### C DP, IPF, HCG, CRP, CP, EDTOX #### [address] [address] Tool Repairer Bench: Bryn Farias MD Eosinophils/100 WBC (Bld) 1 % Normal 1-4 [facility] Comment on above: Performed By: #### C DP, IPF, HCG, CRP, CP, EDTOX #### [address] [address] [employer] Repairer Bench: Bryn Farias MD Erythrocyte distribution width (RBC) [Ratio] 16.4 % High 11.8-14.4 [facility] Comment on above: Performed By: #### C DP, IPF, HCG, CRP, CP, EDTOX #### [place] [address] [employer] Bench: Bryn Farias MD Hematocrit (Bld) [Volume fraction] 36.8 % Normal 36.3-47.1 [facility] Comment on above: Performed By: #### C DP, IPF, HCG, CRP, CP, EDTOX #### [address] [address] Tool Repairer Bench: Bryn Farias MD Hemoglobin (Bld) [Mass/Vol] 12.2 g/dL Normal 11.9-15.1 [facility] Comment on above: Performed By: #### C DP, IPF, HCG, CRP, CP, EDTOX #### [address] [address] [employer] Repairer Bench: Bryn Farias MD Immature granulocytes/100 WBC (Bld) 1 % High 0 [facility] Comment on above: Performed By: #### C DP, IPF, HCG, CRP, CP, EDTOX #### [address] [address] [employer] Repairer Bench: Bryn Farias MD Lymphocytes (Bld) [#/Vol] 1.57 10*3/uL Normal 1.10-3.70 [facility] Comment on above: Performed By: #### C DP, IPF, HCG, CRP, CP, EDTOX #### [address] [address] [employer] Repairer Bench: Bryn Farias MD Lymphocytes/100 WBC (Bld) 21 % Low 24-43 [facility] Comment on above: Performed By: #### C DP, IPF, HCG, CRP, CP, EDTOX #### [address] [address] [employer] Repairer Bench: Bryn Farias MD MCH (RBC) [Entitic mass] 29.3 pg Normal 25.2-33.5 [facility] Comment on above: Performed By: #### C DP, IPF, HCG, CRP, CP, EDTOX #### [address] [address] Tool Repairer Bench: Bryn Farias MD MCHC (RBC) [Mass/Vol] 33.2 g/dL Normal 28.4-34.8 [facility] Comment on above: Performed By: #### C DP, IPF, HCG, CRP, CP, EDTOX #### [address] [address] [employer] Repairer Bench: Bryn Farias MD MCV (RBC) [Entitic vol] 88.2 fL Normal 82.6-102.9 [facility] Comment on above: Performed By: #### C DP, IPF, HCG, CRP, CP, EDTOX #### [address] [address] [employer] Repairer Bench: Bryn Farias MD Monocytes (Bld) [#/Vol] 0.31 10*3/uL Normal 0.10-1.20 [facility] Comment on above: Performed By: #### C DP, IPF, HCG, CRP, CP, EDTOX #### [address] [address] [employer] Rep[employer]r Bench: Bryn Farias MD Monocytes/100 WBC (Bld) 4 % Normal 3-12 [facility] Comment on above: Performed By: #### C DP, IPF, HCG, CRP, CP, EDTOX #### [address] [address] Tool Repairer Bench: Bryn Farias MD Neutrophil (Seg) 74 % High 36-65 [facility] Comment on above: Performed By: #### C DP, IPF, HCG, CRP, CP, EDTOX #### [address] [address] Tool Repairer Bench: Bryn Farias MD NRBC Automated 0.0 per 100 WBC Normal 0.0 [facility] Comment on above: Performed By: #### C DP, IPF, HCG, CRP, CP, EDTOX #### [address] [address] [employer] Repairer Bench: Bryn Farias MD Platelet Count See Reflexed IPF Result Normal 138-453 [facility] Comment on above: Performed By: #### C DP, IPF, HCG, CRP, CP, EDTOX #### [address] [address] Tool Repairer Bench: Bryn Farias MD RBC (Bld) [#/Vol] 4.17 10*6/uL Normal 3.95-5.11 [facility] Comment on above: Performed By: #### C DP, IPF, HCG, CRP, CP, EDTOX #### [address] [address] [employer] Repairer Bench: Bryn Farias MD RBC morphology finding Nom (Bld) ANISOCYTOSIS PRESENT Normal [facility] Comment on above: Performed By: #### C DP, IPF, HCG, CRP, CP, EDTOX #### [address] [address] [employer]r Bench: Bryn Farias MD WBC (Bld) [#/Vol] 7.6 10*3/uL Normal 3.5-11.3 [facility] Comment on above: Performed By: #### C DP, IPF, HCG, CRP, CP, EDTOX #### [address] [address] [employer] Repairer Bench: Bryn Farias MD Auto Diff Performed NOT REPORTED Normal [facility] Comment on above: Performed By: #### C DP, IPF, HCG, CRP, CP, EDTOX #### [address] [address] Tool Repairer Bench: Bryn Farias MD MPV NOT REPORTED Normal 8.1-13.5 [facility] Comment on above: Performed By: #### C DP, IPF, HCG, CRP, CP, EDTOX #### [address] [address] Tool Repairer Bench: Bryn Farias MD Platelet Estimate NOT REPORTED Normal [facility] Comment on above: Performed By: #### C DP, IPF, HCG, CRP, CP, EDTOX #### [address] [address] Tool Repairer Bench: Bryn Farias MD WBC Morphology NOT REPORTED Normal [facility] Comment on above: Performed By: #### C DP, IPF, HCG, CRP, CP, EDTOX #### [address] [address] Tool Repairer Bench: Bryn Farias MD COVID-19on 08-30-2020 SARS-CoV-2, Rapid Not Detected Not Detected [place], [place] Comment on above: Rapid NAAT: The [...] management decisions. Fact sheet for Healthcare Providers: https://www.fda.gov/media/690942/download Fact sheet for Patients: https://www.fda.gov/media/396314/download Methodology: Isothermal Nucleic Acid Amplification Source .NASOPHARYNGEAL SWAB [facility], [place] Comp Metabolic Profon 2020 (cont.) Normal [facility] Comment on above: Result Comment: Aver age GFR for 20-29 years old: 116 mL/min/1.73sq m Chronic Kidney Disease: <60 mL/min/1.73sq m Kidney failure: <15 mL/min/1.73sq m eGFR calculated using average adult body mass. Additional eGFR calculator available at: http://www.[employer]/multiple_crcl_2012.htm Performed By: #### C DP, IPF, HCG, CRP, CP, EDTOX #### [facility] [employer] [address] [place] [phone] Tool Repairer Bench: Bryn Farias MD Albumin [Mass/Vol] 3.9 g/dL Normal 3.5-5.2 [facility] Comment on above: Performed By: #### C DP, IPF, HCG, CRP, CP, EDTOX #### [facility] [employer] [address] [place] [phone] Tool Repairer Bench: Bryn Farias MD Albumin/Glob Ratio 1.7 Normal 1.0-2.5 [facility] Comment on above: Performed By: #### C DP, IPF, HCG, CRP, CP, EDTOX #### [address] [address] Tool Repairer Bench: Bryn Farias MD Alkaline Phos 132 U/L High 35-104 [facility] Comment on above: Performed By: #### C DP, IPF, HCG, CRP, CP, EDTOX #### [address] [address] Tool Repairer Bench: Bryn Farias MD ALT [Catalytic activity/Vol] 18 U/L Normal 5-33 [facility] Comment on above: Performed By: #### C DP, IPF, HCG, CRP, CP, EDTOX #### [address] [address] Tool Repairer Bench: Bryn Farias MD Anion gap [Moles/Vol] 10 mmol/L Normal 9-17 [facility] Comment on above: Performed By: #### C DP, IPF, HCG, CRP, CP, EDTOX #### [address] [address] Tool Repairer Bench: Bryn Farias MD AST [Catalytic activity/Vol] 20 U/L Normal <32 [facility] Comment on above: Performed By: #### C DP, IPF, HCG, CRP, CP, EDTOX #### [address] [address] Tool Repairer Bench: Bryn Farias MD Bilirubin [Mass/Vol] mg/dL Low 0.3-1.2 [facility] Comment on above: Performed By: #### C DP, IPF, HCG, CRP, CP, EDTOX #### [address] [address] Tool Repairer Bench: Bryn Farias MD Calcium [Mass/Vol] 8.9 mg/dL Normal 8.6-10.4 [facility] Comment on above: Performed By: #### C DP, IPF, HCG, CRP, CP, EDTOX #### [address] [address] Tool Repairer Bench: Bryn Farias MD Chloride [Moles/Vol] 103 mmol/L Normal 98-107 [facility] Comment on above: Performed By: #### C DP, IPF, HCG, CRP, CP, EDTOX #### [address] [address] Tool Repairer Bench: Bryn Farias MD CO2 [Moles/Vol] 24 mmol/L Normal 20-31 [facility] Comment on above: Performed By: #### C DP, IPF, HCG, CRP, CP, EDTOX #### [address] [address] Tool Repairer Bench: Bryn Farias MD Creatinine [Mass/Vol] 0.39 mg/dL Low 0.50-0.90 [facility] Comment on above: Performed By: #### C DP, IPF, HCG, CRP, CP, EDTOX #### [address] [address] [employer] Repairer Bench: Bryn Farias MD GFR, Amer >60 Normal >60 [facility] Comment on above: Performed By: #### C DP, IPF, HCG, CRP, CP, EDTOX #### [address] [address] [employer] Repairer Bench: Bryn Farias MD GFR,non Amer >60 Normal >60 [facility] Comment on above: Performed By: #### C DP, IPF, HCG, CRP, CP, EDTOX #### [address] [address] Tool Repairer Bench: Bryn Farias MD Glucose [Mass/Vol] 86 mg/dL Normal 70-99 [facility] Comment on above: Performed By: #### C DP, IPF, HCG, CRP, CP, EDTOX #### [address] [address] Tool Repairer Bench: Bryn Farias MD Potassium [Moles/Vol] 3.6 mmol/L Low 3.7-5.3 [facility] Comment on above: Performed By: #### C DP, IPF, HCG, CRP, CP, EDTOX #### [facility] [employer] [address] [place] [address] Tool Repairer Bench: Bryn Farias MD Protein [Mass/Vol] 6.2 g/dL Low 6.4-8.3 [facility] Comment on above: Performed By: #### C DP, IPF, HCG, CRP, CP, EDTOX #### [address] [address] Tool Repairer Bench: Bryn Farias MD Sodium [Moles/Vol] 137 mmol/L Normal 135-144 [facility] Comment on above: Performed By: #### C DP, IPF, HCG, CRP, CP, EDTOX #### [address] [address] [employer] Repairer Bench: Bryn Farias MD Urea nitrogen [Mass/Vol] 4 mg/dL Low 6-20 [facility] Comment on above: Performed By: #### C DP, IPF, HCG, CRP, CP, EDTOX #### [facility] [employer] [address] [place] [address] Tool Repairer Bench: Bryn Farias MD BUN/CRE Ratio NOT REPORTED Normal -20 [facility] Comment on above: Performed By: #### C DP, IPF, HCG, CRP, CP, EDTOX #### [facility] [employer] [address] [place] [address] Tool Repairer Bench: Bryn Farias MD Staging: NOT REPORTED Normal [facility] Comment on above: Performed By: #### C DP, IPF, HCG, CRP, CP, EDTOX #### [address] [phone] Tool Repairer Bench: Bryn Farias MD Drugon 08-30-2020 Ethanol [Mass/Vol] 194 mg/dL High <10 [facility], [place] Drug Scr, Abuse, [place] 2020 Amphetamine(s),Ur Negative Normal [facility] Comment on above: Result Comment: (Positive cutoff 1000 ng/mL) Performed By: #### C DP, IPF, HCG, CRP, CP, EDTOX #### [address] [phone] Tool Repairer Bench: Bryn Farias MD Barbiturate(s),Ur Negative Normal [facility] Comment on above: Result Comment: (Positive cutoff 200 ng/mL) Performed By: #### C DP, IPF, HCG, CRP, CP, EDTOX #### [facility] [employer] [address] [place] [address] [phone] Tool Repairer Bench: Bryn Farias MD Benzodiazepine(s) Negative Normal [facility] Comment on above: Result Comment: (Positive cutoff 200 ng/mL) Performed By: #### C DP, IPF, HCG, CRP, CP, EDTOX #### [facility] [employer] [address] [place] [phone] Tool Repairer Bench: Bryn Farias MD Cannabinoid(s),Ur Negative Normal [facility] Comment on above: Result Comment: (Positive cutoff 50 ng/mL) Performed By: #### C DP, IPF, HCG, CRP, CP, EDTOX #### [facility] [address] [place] [address] [phone] Tool Repairer Bench: Bryn Farias MD Cocaine Metabolite Negative Normal NEG [facility] Comment on above: Result Comment: (Positive cutoff 300 ng/mL) Performed By: #### C DP, IPF, HCG, CRP, CP, EDTOX #### [address] [address] Tool Repairer Bench: Bryn Farias MD Interpretive Info Assay provides medic al screening only. The absence of expected drug(s) and/or Normal [facility] Comment on above: Result Comment: meta bolite(s) may indicate diluted or adulterated urine, limitations of testing or timing of collection. Testing for legal purposes should be confirmed by another method. To request confirmation of test result, please call the lab within 7 days of sample submission. Performed By: #### C DP, IPF, HCG, CRP, CP, EDTOX #### [address] [address] Tool Repairer Bench: Bryn Farias MD Methadone Ql (U) Negative Normal [facility] Comment on above: Result Comment: (Positive cutoff 300 ng/mL) Performed By: #### C DP, IPF, HCG, CRP, CP, EDTOX #### [facility] [address] [place] [address] Tool Repairer Bench: Bryn Farias MD Opiate(s), Ur Negative Normal NEG [facility] Comment on above: Result Comment: (Positive cutoff 300 ng/mL) Performed By: #### C DP, IPF, HCG, CRP, CP, EDTOX #### [facility] [address] [place] [address] Tool Repairer Bench: Bryn Farias MD Oxycodone, Urine Negative Normal [facility] Comment on above: Result Comment: (Positive cutoff 100 ng/mL) Performed By: #### C DP, IPF, HCG, CRP, CP, EDTOX #### [facility] [address] [place] [address] Tool Repairer Bench: Bryn Farias MD Phencyclidine, Ur Negative Normal [facility] Comment on above: Result Comment: (Positive cutoff 25 ng/mL) Performed By: #### C DP, IPF, HCG, CRP, CP, EDTOX #### [facility] [employer] [address] [place] [address] Tool Repairer Bench: Bryn Farias MD Buprenorphrine, Ur NOT REPORTED Normal NE[facility] Comment on above: Performed By: #### C DP, IPF, HCG, CRP, CP, EDTOX #### [facility] [employer] [address] [place] [address] Tool Repairer Bench: Bryn Farias MD MDMA, Urine NOT REPORTED Normal NEG [facility] Comment on above: Performed By: #### C DP, IPF, HCG, CRP, CP, EDTOX #### [facility] [employer] [address] [place] [address] Tool Repairer Bench: Bryn Farias MD Methamphetamine, Ur NOT REPORTED Normal NEG [facility] Comment on above: Performed By: #### C DP, IPF, HCG, CRP, CP, EDTOX #### [facility] [employer] [address] [place] [address] Tool Repairer Bench: Bryn Farias MD Propoxyphene,Urine NOT REPORTED Normal [facility] Comment on above: Performed By: #### C DP, IPF, HCG, CRP, CP, EDTOX #### [facility] [employer] [address] [place] [address] Tool Repairer Bench: Bryn Farias MD Tricyclic antidepressants Screen Ql (U) NOT REPORTED Normal NEG [facility] Comment on above: Performed By: #### C DP, IPF, HCG, CRP, CP, EDTOX #### [facility] [employer] [address] [place] [address] Tool Repairer Bench: Bryn Farias MD Amphetamine(s),Ur Negative Normal [facility] Comment on above: Result Comment: (Positive cutoff 1000 ng/mL) Performed By: #### D AU #### [facility] [employer] [address] [place] [address] Tool Repairer Bench: Bryn Farias MD Barbiturate(s),Ur Negative Normal [facility] Comment on above: Result Comment: (Positive cutoff 200 ng/mL) Performed By: #### D AU #### [address] [address] Tool Repairer Bench: Bryn Farias MD Benzodiazepine(s) Negative Normal [facility] Comment on above: Result Comment: (Positive cutoff 200 ng/mL) Performed By: #### D AU #### [address] [address] Tool Repairer Bench: Bryn Farias MD Cannabinoid(s),Ur Negative Normal [facility] Comment on above: Result Comment: (Positive cutoff 50 ng/mL) Performed By: #### D AU #### [address] [address] Tool Rep[employer]r Bench: Bryn Farias MD Cocaine Metabolite Negative Normal NEG [facility] Comment on above: Result Comment: (Positive cutoff 300 ng/mL) Performed By: #### D AU #### [address] [address] Tool Repairer Bench: Bryn Farias MD Interpretive Info Assay provides medic al screening only. The absence of expected drug(s) and/or Normal [facility] Comment on above: Result Comment: meta bolite(s) may indicate diluted or adulterated urine, limitations of testing or timing of collection. Testing for legal purposes should be confirmed by another method. To request confirmation of test result, please call the lab within 7 days of sample submission. Performed By: #### D AU #### [address] [address] [employer]airer Bench: Bryn Farias MD Methadone Ql (U) Negative Normal [facility] Comment on above: Result Comment: (Positive cutoff 300 ng/mL) Performed By: #### D AU #### [address] [address] Tool Repairer Bench: Bryn Farias MD Opiate(s), Ur Negative Normal NEG [facility] Comment on above: Result Comment: (Positive cutoff 300 ng/mL) Performed By: #### D AU #### [address] [address] Tool Repairer Bench: Bryn Farias MD Oxycodone, Urine Negative Normal NEG [facility] Comment on above: Result Comment: (Positive cutoff 100 ng/mL) Performed By: #### D AU #### [address] [address] Tool Repairer Bench: Bryn Farias MD Phencyclidine, Ur Negative Normal NEG [facility] Comment on above: Result Comment: (Positive cutoff 25 ng/mL) Performed By: #### D AU #### [address] [address] Tool Repairer Bench: Bryn Farias MD Buprenorphrine, Ur NOT REPORTED Normal NEG [facility] Comment on above: Performed By: #### D AU #### [address] [address] Tool Repairer Bench: Bryn Farias MD MDMA, Urine NOT REPORTED Normal NEG [facility] Comment on above: Performed By: #### D AU #### [address] [address] Tool Repairer Bench: Bryn Farias MD Methamphetamine, Ur NOT REPORTED Normal NEG [facility] Comment on above: Performed By: #### D AU #### [address] [address] Tool Repairer Bench: Bryn Farias MD Propoxyphene,Urine NOT REPORTED Normal NEG [facility] Comment on above: Performed By: #### D AU #### [address] [id number] Tool Repairer Bench: Bryn Farias MD Tricyclic antidepressants Screen Ql (U) NOT REPORTED Normal NEG [facility] Comment on above: Performed By: #### D AU #### [facility] [place], [place] [id number] Tool Repairer Bench: Bryn Farias MD HCG Screen, Bloodon 08-30-19 21 HCG Screen, Blood Negative Normal NEG [facility] Comment on above: Result Comment: Spec imens with hCG levels near the threshold of the test (25 mIU/mL) may give a negative or indeterminate result. In such cases, another test should be performed with a new specimen in 48-72 hours. If early is suspected clinically in this setting, correlation with quantitative serum b-hCG level is suggested. [facility] has confirmed the use of plasma for this test. This has not been cleared or approved by the U.S. Food and Drug Administration. The FDA has determined that such clearance is not necessary. Performed By: #### C DP, IPF, HCG, CRP, CP, EDTOX #### [facility] [address] [place], [place] [id number] Tool Repairer Bench: Bryn Farias MD Hematologyon 08-30-2020 aPTT Coag (Bld) [Time] 24.8 s [place] Comment on above: IV Heparin Therapy Range: 48.6-77.8 INR Coag (PPP) [Relative time] 1.0 {INR} [place] Comment on above: Therapeutic Range: Moderate Anticoagulant Intensity: INR = 2.0-3.0 High Anticoagulant Intensity: INR = 2.5-3.5 PT Coag (PPP) [Time] 10.1 s [place] Lactic Acidon 08-30-2020 Lactic Acid,Whole Bl 1.3 mmol/L Normal 0.7-2.1 [facility] Comment on above: Performed By: #### C DP, IPF, HCG, CRP, CP, EDTOX #### [facility] [place], [place] [id number] Tool Repairer Bench: Bryn Farias MD Lactic Acid NOT REPORTED Normal [facility] Comment on above: Performed By: #### C DP, IPF, HCG, CRP, CP, EDTOX #### [facility] [address] [place] [address] Tool Repairer Bench: Bryn Farias MD Lactic Acid,Whole Bl 2.5 mmol/L High 0.7-2.1 [facility] Comment on above: Performed By: #### C OVID #### [facility] [address] [place] [id number] Tool Repairer Bench: Bryn Farias MD Lactic Acid NOT REPORTED Normal [facility] Comment on above: Performed By: #### C OVID #### [facility] [employer] [address] [place] [address] Tool Repairer Bench: Bryn Farias MD Lactic Acid,Whole Bl 2.3 mmol/L High 0.7-2.1 [facility] Comment on above: Performed By: #### C OVID #### [facility] [employer] [address] [place] [address] Tool Repairer Bench: Bryn Farias MD Lactic Acid NOT REPORTED Normal [facility] Comment on above: Performed By: #### C OVID #### [facility] [employer] [address] [place] [address] Tool Repairer Bench: Bryn Farias MD Lactic Acid, Plasmaon 2020 Interpretation and review of laboratory results Abnormal [place] Lactate [Moles/Vol] NOT REPORTED mmol/L [place] Lactic Acid, Whole Blood 2.5 mmol/L High 0.7 - 2.1 mmol/L [place] Interpretation and review of laboratory results Abnormal [place] Lactate [Moles/Vol] NOT REPORTED mmol/L [place] Lactic Acid, Whole Blood 2.3 mmol/L High 0.7 - 2.1 mmol/L [place] Magnesiumon 08-30-2020 Magnesium [Mass/Vol] 1.8 mg/dL Normal 1.6-2.6 [facility] Comment on above: Performed By: #### C OVID #### [facility] [address] [place] [address] Tool Repairer Bench: Bryn Farias MD Metabolic Panelon 08-30-2020 Lactate [Moles/Vol] NOT REPORTED mmol/L [place] Magnesium [Mass/Vol] 1.8 mg/dL 1.6 - 2 .6 mg/dL [place] Anion gap [Moles/Vol] 9 mmol/L 9 - 17 mmol/L [place] Calcium [Mass/Vol] 8.4 mg/dL Low 8.6 - 10. 4 mg/dL [place] Chloride [Moles/Vol] 106 mmol/L 98 - 10 7 mmol/L [place] CO2 [Moles/Vol] 23 mmol/L 20 - 31 mmol/L [place] Creatinine [Mass/Vol] 0.41 mg/dL Low 0.5 - 0.9 mg/dL [place] GFR/1.73 sq M predicted among non-blacks MDRD (S/P/Bld) [Vol rate/Area] [place], [place] Comment on above: Average GFR for 20-2 9 years old: 116 mL/min/1.73sq m Chronic Kidney Disease: <60 mL/min/1.73sq m Kidney failure: <15 mL/min/1.73sq m eGFR calculated using average adult body mass. Additional eGFR calculator available at: http://www.Payoff.atHomestars/multiple_crcl_2012.htm GFR/1.73 sq M predicted among non-blacks MDRD (S/P/Bld) [Vol rate/Area] NOT REPORTED [place] Glucose [Mass/Vol] 99 mg/dL 70 - 99 mg/dL [place] Potassium [Moles/Vol] 3.3 mmol/L Low 3.7 - 5.3 mmol/L [place] Sodium [Moles/Vol] 138 mmol/L 135 - 144 mmol/L [place] Urea nitrogen [Mass/Vol] 3 mg/dL Low 6 - 20 mg/dL [place] Albumin [Mass/Vol] 3.9 g/dL 3.5 - 5.2 g/dL [place] ALP [Catalytic activity/Vol] 132 U/L High 35 - 104 U/L [place] ALT [Catalytic activity/Vol] 18 U/L 5 - 33 U/L [place] Anion gap [Moles/Vol] 10 mmol/L 9 - 17 mmol/L [place] AST [Catalytic activity/Vol] 20 U/L <32 [place] Calcium [Mass/Vol] 8.9 mg/dL 8.6 - 10. 4 mg/dL [place] Chloride [Moles/Vol] 103 mmol/L 98 - 10 7 mmol/L [place] CO2 [Moles/Vol] 24 mmol/L 20 - 31 mmol/L [place] Creatinine [Mass/Vol] 0.39 mg/dL Low 0.5 - 0.9 mg/dL [place] GFR/1.73 sq M predicted among non-blacks MDRD (S/P/Bld) [Vol rate/Area] NOT REPORTED [place] GFR/1.73 sq M predicted among non-blacks MDRD (S/P/Bld) [Vol rate/Area] [place] Comment on above: Average GFR for 20-2 9 years old: 116 mL/min/1.73sq m Chronic Kidney Disease: <60 mL/min/1.73sq m Kidney failure: <15 mL/min/1.73sq m eGFR calculated using average adult body mass. Additional eGFR calculator available at: http://www.Payoff.atHomestars/multiple_crcl_2012.htm Glucose [Mass/Vol] 86 mg/dL 70 - 99 mg/dL [place] Potassium [Moles/Vol] 3.6 mmol/L Low 3.7 - 5.3 mmol/L [place] Protein [Mass/Vol] 6.2 g/dL Low 6.4 - 8.3 g/dL [place] Sodium [Moles/Vol] 137 mmol/L 135 - 144 mmol/L [place] Urea nitrogen [Mass/Vol] 4 mg/dL Low 6 - 20 mg/dL [place] Otheron 08-30-2020 Lactic Acid, Whole Blood 1.3 mmol/L 0.7 - 2.1 mmol/L [place] Amphetamine Screen, Ur Negative NEGATIVE [place] Comment on above: (Positive cutoff 1000 ng/mL) Barbiturate Screen, Ur Negative NEGATIVE [place] Comment on above: (Positive cutoff 200 ng/mL) Benzodiazepine Screen, Urine Negative NEGATIVE [place] Comment on above: (Positive cutoff 200 ng/mL) Buprenorphine Urine NOT REPORTED NEGATIVE [place] Cannabinoid Scrn, Ur Negative NEGATIVE [place] Comment on above: (Positive cutoff 50 ng/mL) Cocaine Metabolite, Urine Negative NEGATIVE [place] Comment on above: (Positive cutoff 300 ng/mL) MDMA, Urine NOT REPORTED NEGATIVE [facility] [place] Methadone Screen, Urine Negative NEGATIVE [place] Comment on above: (Positive cutoff 300 ng/mL) Methamphetamine, Urine NOT REPORTED NEGATIVE [place] Opiates, Urine Negative NEGATIVE [facility] [place] Comment on above: (Positive cutoff 300 ng/mL) Oxycodone Screen, Ur Negative NEGATIVE [place] Comment on above: (Positive cutoff 100 ng/mL) Phencyclidine, Urine Negative NEGATIVE [place] Comment on above: (Positive cutoff 25 ng/mL) Propoxyphene, Urine NOT REPORTED NEGATIVE [place] Test Information Assay provides medic al screening only. The absence of expected drug(s) and/or metabolite(s) may indicate diluted or adulterated urine, limitations of testing or timing of collection. [place] Comment on above: Testing for legal pu rposes should be confirmed by another method. To request confirmation of test result, please call the lab within 7 days of sample submission. Tricyclic Antidepressants, Urine NOT REPORTED NEGATIVE [place] Acetaminophen [Mass/Vol] <5 Low 10 - 30 ug/mL [place] Interpretation and review of laboratory results Abnormal [place] Bun/Cre Ratio NOT REPORTED [facility] [place] GFR >60 >60 mL/min [place] GFR Non- >60 >60 mL/min [place] Interpretation and review of laboratory results Abnormal [place] EXAMINATION: 2 XRAY VIEWS OF THE [...] sclerosis is also present in this area. [place] Findings concerning for osteomyelitis proximally adjacent the fracture line of the distal tibia with adjacent soft tissue swelling medially. 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 Hardware appears well seated currently. [place], [employer] Incoming Radiant Results From [employer] - 08/30/2020 3:19 AM EST EXAMINATION: 2 [...] nonunion fractures. Hardware appears well seated currently. [place] Acetaminophen [Mass/Vol] 9 ug/mL Low 10 - 30 ug/mL [place] Albumin/Globulin [Mass ratio] 1.7 {ratio} [place] Bilirubin Ql (U) <0.10 Low 0.3 - 1.2 mg/dL [place] Bun/Cre Ratio NOT REPORTED [place], [place] Ethanol percent 0.194 % High <0.010 [place] GFR >60 >60 mL/min [place] GFR Non- >60 >60 mL/min [place] Interpretation and review of laboratory results Abnormal [place] Salicylate Lvl <1 Low 3 - 10 mg/dL [place], [place] Toxic Tricyclic Sc,Blood Negative NEGATIVE [place] hCG Qual Negative NEGATIVE [place] Comment on above: Specimens with hCG l evels near the threshold of the test (25 mIU/mL) may give a negative or indeterminate result. In such cases, another test should be performed with a new specimen in 48-72 hours. If early is suspected clinically in this setting, correlation with quantitative serum b-hCG level is suggested. [employer] has confirmed the use of plasma for this test. This has not been cleared or approved by the U.S. Food and Drug Administration. The FDA has determined that such clearance is not necessary. Platelet, Fluorescence 252 [place], [place] Platelet, Immature Fraction 1.7 % 1.1 - 10.3 % [place] SARS-CoV-2 [place] PLT, Immature Fract.on 08-30 Platelet, Fluoresc. 252 k/uL Normal 138-453 [facility] Comment on above: Performed By: #### C DP, IPF, HCG, CRP, CP, EDTOX #### [address] [address] Tool Repairer Bench: Bryn Farias MD PLT, Immature Fract. 1.7 % Normal 1.1-10.3 [facility] Comment on above: Performed By: #### C DP, IPF, HCG, CRP, CP, EDTOX #### [address] [address] Tool Repairer Bench: Bryn Farias MD PTon 08-30-2020 INR Coag (PPP) [Relative time] 1.0 {INR} Normal [facility] Comment on above: Result Comment: Therapeutic Range: Moderate Anticoagulant Intensity: INR = 2.0-3.0 High Anticoagulant Intensity: INR = 2.5-3.5 Performed By: #### C OVID #### [address] [address] Tool Repairer Bench: Bryn Farias MD PT Coag (PPP) [Time] 10.1 s Normal 9.0-12.0 [facility] Comment on above: Performed By: #### C OVID #### [address] [address] Tool Repairer Bench: Bryn Farias MD [id number] 08-30-2020 SARS-CoV-2 (COVID-19) RNA IRENA+probe Ql (Unsp spec) Normal [facility] Comment on above: Performed By: #### C OVID #### [address] [address] Tool Repairer Bench: Bryn Farias MD SARS-CoV-2 (COVID-19) RNA IRENA+probe Ql (Unsp spec) Normal [facility] Comment on above: Performed By: #### C OVID #### [address] [id number] Tool Repairer Bench: Bryn Farias MD SARS-CoV-2 (COVID-19) RNA IRENA+probe Ql (Unsp spec) Not detected Normal [place] Comment on above: Result Comment: Rapid NAAT: [...] management decisions. Fact sheet for Healthcare Providers: https://www.fda.gov/media/158894/download Fact sheet for Patients: https://www.fda.gov/media/762910/download Methodology: Isothermal Nucleic Acid Amplification Performed By: #### C OVID #### [address] [address] Tool Repairer Bench: Bryn Farias MD SARS-CoV-2 (COVID-19) RNA IRENA+probe Ql (Unsp spec) .NASOPHARYNGEAL SWAB Normal [facility] Comment on above: Performed By: #### C OVID #### [facility] [address] [place] [address] Tool Repairer Bench: Bryn Farias MD Sedimentation Rateon 021 Sedimentation Rate 1 mm Normal 0-20 [facility] Comment on above: Performed By: #### C OVID #### [facility] [address] [place] [address] Tool Repairer Bench: Bryn Farias MD Sed Rate 1 mm 0 - 20 mm [facility], [place] Tox Scr, Bld, EDon 1 Acetaminophen [Mass/Vol] 9 ug/mL Low 10-30 [facility] Comment on above: Performed By: #### C DP, IPF, HCG, CRP, CP, EDTOX #### [facility] [address] [place] [address] Tool Repairer Bench: Bryn Farias MD Ethanol [Mass/Vol] 194 mg/dL High <10 [facility] Comment on above: Performed By: #### C DP, IPF, HCG, CRP, CP, EDTOX #### [facility] [address] [place] [address] Tool Repairer Bench: Bryn Farias MD Ethanol percent 0.194 % High <0.010 [facility] Comment on above: Performed By: #### C DP, IPF, HCG, CRP, CP, EDTOX #### [facility] [address] [place] [address] Tool Repairer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 Work Phone: Start: 05-22-2020 Urine test visual color cmprsn meths Berry [employer]inkle [employer] Work Phone: Start: 05-22-2020 Assay of lipase Berry Hiknle [employer] Work Phone: Start: 05-22-2020 Assay of magnesium Joesphnicolas [employer] Work Phone: Start: 05-22-2020 Blood count complete auto&auto difrntl wbc Berry [employer] Work Phone: Start: 05-22-2020 Comprehensive metabo lic panel Berry [employer]inkle [employer] Work Phone: Start: 05-22-2020 Radiologic exam ches t single view Berry [employer]inkle [employer] Work Phone: Start: 05-22-2020 Ecg routine ecg w/le ast 12 lds trcg only w/o i&r Berry [employer] Work Phone: Start: 05-22-2020 EKG REPORT Hpf Scanni ng Plan of Treatment Date Care Activity Detail Author Start: 05-22-2030 DTaP/Tdap/Td vaccine (2 - Td) DTaP/Tdap/Td vaccine (2 - Td) [place] Start: 05-22-2030 DTaP/Tdap/Td vaccine (3 - Td or Tdap) DTaP/Tdap/Td vaccine (3 - Td or Tdap) [facility] Start: 05-22-2030 DTaP/Tdap/Td vaccine (3 - Td) DTaP/Tdap/Td vaccine (3 - Td) [place] Start: 12-10-2022 Depression Monitoring Depression Mon itoring [facility] Start: 11-13-2022 Creatinine measurement Creatinine [facility] Start: 11-13-2022 Potassium [Moles/vol ume] in Serum or Plasma Potassium [facility] Start: 04-24-2022 Influenza vaccination Flu vacc ine (Season Ended) [facility] Start: 03-24-2022 Influenza vaccination Flu vaccine (# 1) [facility] Start: 03-11-2022 End: 03-11-2022 Patient encounter procedure 03/11/2022 Office Visit Family Medicine Mc Bautista, G[employer] P[employer] WORKER - QUALITY MEASUREMENT SPECIALIST [id number] [place] [address] [facility] Start: 11-05-2021 Creatinine measurement Creatinine mo [facility] Work Phone: Start: 11-05-2021 Potassium monitoring Potassium monit [facility] Work Phone: Start: 2021 Screening for malign ant neoplasm of cervix [facility] Start: 09-02-2021 Creatinine measurement Creatinine mo [place] Start: 09-02-2021 Potassium monitoring Potassium monit [place] Start: 06-20-2021 COVID-19 Vaccine (2 - Pfizer risk 4-dose series) COVID-19 Vaccine (2 - Pfizer risk 4-dose series) [facility] Start: 06-20-2021 COVID-19 Vaccine (2 - Pfizer risk series) COVID-19 Vaccine (2 - Pfizer risk series) [facility] Start: 05-22-2021 Creatinine measurement Creatinine mo [place] Start: 05-22-2021 Potassium monitoring Potassium monit [place] Start: 04-24-2021 Influenza vaccination Flu vaccine (# 1) [facility] [employer] Work Phone: Start: 04-24-2020 Influenza vaccination Flu vaccine (# 1) [place] Start: 2012 Screening for malign ant neoplasm of cervix [facility] Start: 2010 Hepatitis B vaccine (1 of 3 - Risk 3-dose series) Hepatitis B vaccine (1 of 3 - Risk 3-dose series) [facility] Start: 2010 Shingles vaccine (1 of 2) Shingles vaccine (1 of 2) [facility] Start: 2003 COVID-19 Vaccine (1) COVID-19 Vaccin e (1) [facility] Work Phone: Start: 1997 Pneumococcal 0-64 ye ars Vaccine (1 - PCV) Pneumococcal 0-64 years Vaccine (1 - PCV) [facility] Start: 1997 Pneumococcal 0-64 ye ars Vaccine (1 of 3 - PCV13) Pneumococcal 0-64 years Vaccine (1 of 3 - PCV13) [place] Start: 1997 Pneumococcal 0-64 ye ars Vaccine (1 of 4 - PCV13) Pneumococcal 0-64 years Vaccine (1 of 4 - PCV13) [facility] Work Phone: Start: 1992 Hepatitis A vaccine (1 of 2 - Risk 2-dose series) Hepatitis A vaccine (1 of 2 - Risk 2-dose series) [facility] Start: 1992 Varicella vaccine (1 of 2 - 2-dose childhood series) Varicella vaccine (1 of 2 - 2-dose childhood series) [facility] CBC auto differential [place] Comment on above: Daily until disconti nued starting 08/30/2020, 4 completed Daily until disconti nued starting 09/02/2020 Culture, Blood 1 [place], [place] Oxygen therapy [[facility] [place]] Initiate Oxygen Therapy Protocol Respiratory Care Routine Daily until discontinued starting 08/30/2020 [place] Comment on above: Daily until disconti nued starting 08/30/2020 End: 08-30-2020 PREVIOUS SPECIMEN PREVIOUS SPECIMEN Lab STAT Once for 1 Occurrences starting 08/30/2020 until 08/30/2020 [place] Comment on above: Once for 1 Occurrenc es starting 08/30/2020 until 08/30/2020 PREVIOUS SPECIMEN PREVIOUS SPECI MEN Lab STAT 08/30/2020 3:13 AM EST [place] RENAL FUNCTION PANEL RENAL FUNCT ION PANEL Lab Routine Daily until discontinued starting 09/02/2020, 1 completed [place] Comment on above: Daily until disconti nued starting 09/02/2020, 1 completed End: 11-05-2020 XR CHEST PORTABLE XR CHEST PORTABLE Imaging STAT Once for 1 Occurrences starting 11/05/2020 until 11/05/2020 [employer] Phone: Comment on above: Once for 1 Occurrenc es starting 11/05/2020 until 11/05/2020 XR CHEST PORTABLE XR CHEST LALO BLE Imaging STAT 11/05/2020 4:06 PM EDT [employer] Phone: Immunizations Immunization Date Immunization Notes Care Provider [facility] 05-22-2020 tetanus toxoid, redu francisco diphtheria toxoid, and acellular pertussis vaccine, adsorbed Ingrid [facility] [employer] Payers Date Payer Category Payer Medicaid [id number] 2015 Unknown [id number] 2015 Unknown [id number] 1990 Unknown [id number] 2.16.8 [id number] 1990 Unknown [id number] 2.16.8 [id number] 1991 Unknown [id number] 2.16.8 [id number] 1991 Unknown [id number] 2.16.8 [id number] 1991 Unknown [id number] 2.16.8 [id number] 1991 Unknown [id number] 2.16.8 [id number] 1991 Unknown [id number] 2.16.8 [id number] 1990 Unknown [id number] 2.16.84 [id number] Social History Date Type Detail Facility Start: 05-23-2020 End: 12-10-2021 Tobacco smoking status NHIS Current every day smoker [place], [place] End: 09-24-2015 History of tobacco use Cigarette [place]oker [place] Start: 05-23-2020 End: 08-16-2022 Cigarettes smoked current (pack per day) - Reported [place] Start: 05-23-2020 End: 12-10-2021 Tobacco use and exposure Never used [place] Start: 05-23-2020 End: 08-16-2022 Alcohol intake Current non-drinker of alcohol (finding) [place] Start: 02-16-2019 Tobacco Comment E-cig and down to 1 cigarette a day [place], [place] Start: 1990 Sex Assigned At Not on file M [place], [place] Start: 12-01-2021 End: 08-16-2022 Exposure to SARS-CoV-2 (event) Not sure [place] Start: 12-10-2021 [facility]: Start: 12-10-2021 History SDOH Food Worry 1 [employer] Work Phone: Start: 12-10-2021 Tobacco Comment Pt has been us ing her vape more [employer] Work Phone: Medical Equipment Procedure Code Equipment Code Equipment Origin al Text Equipment Identifier Dates Impl Tightrope R t Acl W/Suture [id number] Start: 03-16-2019 Emery-Graft Grac[place] is Tendon - [id number] Start: 03-16-2019 Comment on above: Description: [id number] Emery-Graft Grac[place] is Tendon - [id number] Start: 03-16-2019 Comment on above: Description: [id number] Screw Bc Vented If 8x20mm [id number] Start: 03-16-2019 Hospital Discharge instructions 08-16-2022 [...] attachments cannot be sent through Care Everywhere.Rash (Tu[place]uan)documented in this encounter [facility] Work Phone: Hospital Discharge instructions 06-14-2021 [...] a follow up appointment THANK YOU!!! From [facility] and [facility] On behalf of the Emergency Department staff at [facility], I would like to thank you for giving us the opportunity to address your health care needs and concerns. We hope that during your visit, our service was delivered in a professional and caring manner. Please keep [facility] in mind as we walk with you [...] how we did during your visit at [email or web address] and let us know about your experience The following attachments cannot be sent through Care Everywhere.Perforated Eardrum ([place]uan)Otitis Media (Tu[place]uan)documented in this encounter [employer] Phone: Evaluation note Note Date & Type Note Facility Evaluation note Diagnosis Left foot pain- Primary Pain in limb documented in this encounter [employer] Phone: Evaluation note Note Date & Type Note Facility Evaluation note Diagnosis Suppurative otitis media with spontaneous tympanic membrane rupture, left- Primary documented in this encounter [employer] Phone: Evaluation note Note Date & Type Note Facility Evaluation note Diagnosis Hypertension, unspecified type- Primary Nausea Nausea alone documented in this encounter [employer] Phone: Evaluation note Note Date & Type Note Facility Evaluation note Diagnosis Rash- Primary Rash and other nonspecific skin eruption documented in this encounter [employer] Phone: Evaluation note Note Date & Type Note Facility Evaluation note Diagnosis Rash and other nonspecific skin eruption- Primary documented in this encounter TERRIE CRU[facility] [employer] Phone: Hospital Discharge instructions InstructionsAttachments Note Date & Type Note Facility Hospital Discharge instructions Van Peña MD - 05/16/2021 THANK YOU!!! From [facility] On behalf of the Emergency Department staff at [facility], I would like to thank you for giving [facility] the opportunity to address your health care needs and concerns. We hope that during your visit, our service was delivered in a professional and caring manner. Please keep [facility] in mind as we walk with you [...] cannot be sent through Care Everywhere.Foot Pain ([place])documented in this encounter [employer] Phone: Hospital Discharge instructions Attachments Note Date & Type Note Facility Hospital Discharge instructions The following attachments cannot be sent through Care Everywhere.Nausea and Vomiting ([place])Hypertension: General Info ([place])documented in this encounter [employer] Phone: Hospital Discharge instructions Attachments Note Date & Type Note Facility Hospital Discharge instructions The following attachments cannot be sent through Care Everywhere.Rash ([place]uan)Dyshidrotic Eczema ([place])documented in this encounter [employer] Phone: Family History No Family History Records [...] FoundDocuments on File Type Date Recorded Patient Audiometric Technician Expl anation ACP-Advance Directive 07/07/2013 3:21 PM [...] Documents on File Type Date Recorded Patient Audiometric Technician Expl anation ACP-Advance Directive 07/07/2013 3:21 PM ACP-Power of Poolroom/Poolhall Manager Latest Code Status on File Code Status Date Activated Date Inactivated Comments Full Code 05/23/2020 2:28 AM Full Code 08/01/2015 5:11 PM 08/02/2015 5:59 PM Full Code 07/18/2015 10:52 PM 07/30/2015 5:54 PM Full Code 06/28/2013 6:15 AM 07/05/2013 11:40 AM Documents on File Type Date Recorded Patient Audiometric Technician Expl anation ACP-Advance Directive 07/07/2013 3:21 PM ACP-Power of Poolroom/Poolhall Manager Latest Code Status on File Code [...] Documents on File Type Date Recorded Patient Audiometric Technician Expl anation ACP-Power of Poolroom/Poolhall Manager ACP-Advance Directive 07/07/2013 3:21 PM Summary [...] through Care Everywhere. * Medication Overdose: Accidental ([place]) documented in this encounter* Instructions* Hansa Davenport [...] be sent through Care Everywhere. * Cellulitis ([place]) documented in this encounter Assessments Diagnosis Accidental [...] Davenport DO - 09/01/2020 4:10 PM EST [facility] Office: [phone] Valeriy García DO, Grey Hauser DO, Kike [...] Rios Kowalski MD, MD Ra, Jenny Goodrich QUALITY MEASUREMENT SPECIALIST, Jewels Dominguez QUALITY MEASUREMENT SPECIALIST, Shireen Bernal QUALITY MEASUREMENT SPECIALIST, Stephanie Leos, DIRECTOR VISUAL,Bonilla Arce CNP, Yodit Edwards QUALITY MEASUREMENT SPECIALIST, Annabella Smith QUALITY MEASUREMENT SPECIALIST, Yaa Cantu CNP, Akira Bundy CNP, Trevor Arriaga PA-C, Zohreh Nguyen DNP, Irma Milian CNP, Sri Fishman, AN, Deena Jones CNP, Alka Lazo CNP, Pretty Barbosa, AN [facility] IN-PATIENT SERVICE [facility] Discharge Summary Patient ID: Rm Mccullough : 1990 ACCOUNT: [id number] Patient's PCP: Ingrid Dent APRN - AN [...] recommend continuing suicide precautions and admitting to [facility] once patient is discharged. Patient did complain [...] outpatient [facility] for further treatment and evaluation of her right ankle problems.Currently, patient is medically stable for discharge. She will be discharged to [facility] for continued psychiatric evaluation/treatment. Significant therapeutic interventions: [...] Psychiatric facility Physician Follow Up: Ingrid Dent, GAS PIT WORKER - QUALITY MEASUREMENT SPECIALIST [address] [facility] [address] In 1 week Hospital follow-up for evaluation of underlying cellulitis Compa Chase MD [address] [place] [address], [address] [facility] [id number] In 2 weeks For wound re-check (right leg) Requiring Further Evaluation/Follow Up POST HOSPITALIZATION/Incidental Findings: Patient needs reevaluation by her primary care physician within 7 days of discharge to monitor improvement of right leg cellulitis. Patient needs follow-up with inpatient psychiatry for further titration/adjustment of her medications It is recommended that she continue outpatient follow up With her orthopedic surgeon at [facility] for further treatment and evaluation of her [...] Report called to the receiving RN at [facility]. Patient scheduled to be transported at 1730 * Florentino Chang RCP - 09/02/2020 2:43 PM EST RAPID Covid 19 swab taken from left nare, labeled, placed in red dot bag, and handed off to second healthcare worker outside of room for transport to laboratory per hospital policy and procedure. Patient tolerated procedure well. * aHnsa Davenport DO - 09/02/2020 12:20 PM EST [facility] Office: [phone] Valeriy García DO, Grey Hauser DO, Kike Cardenas DO, Roby Napier DO, Amado Bhagat MD, Liv Snowden MD, Abimael Amor MD, Violeta Saba MD, Delfin Marshall MD, Kirsty Del Valle MD, MD Shawn, Shan Keenan MD, Jeni Partida MD, Ghanshyam Bonilla DO, Avtar Wall MD, Gaby Rodriguez MD, Jamir Chavira DO, Heriberto Bermeo MD, Hansa Davenport DO, Rios Kowalski MD, MD aR, Jenny Goodrich, QUALITY MEASUREMENT SPECIALIST, Jewels Dominguez, QUALITY MEASUREMENT SPECIALIST, Shireen Bernal CNP, Stephanie Leos, DIRECTOR VISUAL,Bonilla Arce CNP, Yodit Edwards CNP, Annabella Smith CNP, Yaa Cantu CNP, Akira Bundy, AN, Trevor Arriaga PA-C, Zohreh Nguyen DNP, Irma Milian CNP, Sri Fishman CNP, Deena Jones CNP, Alka Lazo CNP, Pretty Barbosa, AN [facility] IN-PATIENT SERVICE [facility] Progress Note 09/02/2020 12:20 PM Name: Rm Mccullough Acct: [id number] Room: [facility] [place] Day: 3 Admit Date: [...] results found for: POCPH, PHART, PH, POCPCO2, [id number], PCO2, POCPO2, PO2ART, PO2, POCHCO3, [id number], HCO3, NBEA, PBEA, BEART, BE, THGBART, THB, [id number], [id number], [id number], O2SAT, FIO2 Lab Results Component Value Date/Time [...] 2. Patient is agreeable for discharge to [facility], currently she is medically stable. 3. We will continue her current home regimen. 4. Discussed with case management 5. Discussed with nurse 6. Discussed with patient. Hansa Davenport DO 09/02/2020 12:20 PM * Sammie Casanova RN - 09/02/2020 12:40 AM EST Pt. Requested medication for diarrhea. Imodium order received and given to pt. See MAR. * Berry Mccain [facility] - 09/01/2020 6:51 PM EST Pharmacy Note [...] Davenport DO - 09/01/2020 3:57 PM EST [facility] Office: [phone] Valeriy García DO, Grey Hauser DO, Kike [...] Rios Kowalski MD, MD Ra, Jenny Goodrich QUALITY MEASUREMENT SPECIALIST, Jewels Dominguez QUALITY MEASUREMENT SPECIALIST, Shireen Bernal, QUALITY MEASUREMENT SPECIALIST, Stephanie Leos, DIRECTOR VISUAL,Bonilla Arce, QUALITY MEASUREMENT SPECIALIST, Yodit Edwards, QUALITY MEASUREMENT SPECIALIST, Annabella Smith, QUALITY MEASUREMENT SPECIALIST, Yaa Cantu QUALITY MEASUREMENT SPECIALIST, Akira Bundy, QUALITY MEASUREMENT SPECIALIST, Trevor Arriaga PA-C, Zohreh Nguyen DNP, Irma Milian, QUALITY MEASUREMENT SPECIALIST, Sri Fishman, QUALITY MEASUREMENT SPECIALIST, Deena Jones, QUALITY MEASUREMENT SPECIALIST, Alka Lazo, QUALITY MEASUREMENT SPECIALIST, Pretty Barbosa, QUALITY MEASUREMENT SPECIALIST [facility] IN-PATIENT SERVICE [facility] Progress Note 09/01/2020 3:57 PM Name: Rm Mccullough Acct: [id number] Room: [facility] [place] Day: 2 Admit Date: [...] disease), H/O opioid abuse ([facility]), H/O self mutilation, Hepatitis C, Heroin abuse [...] results found for: POCPH, PHART, PH, POCPCO2, FML8ODV, PCO2, POCPO2, PO2ART, PO2, POCHCO3, [id number], HCO3, NBEA, PBEA, BEART, BE, THGBART, THB, [id number], [id number], [id number], O2SAT, FIO2 Lab Results Component Value Date/Time [...] recommend continuing suicide precautions and admitting to [facility] once patient is medically stable for discharge. Patient did complain of some right lower extremity leg pain/erythema concerning for cellulitis. She was started on Ancef 2 g every 8 hours on 08/30/19 and vancomycin with improvement in her right leg pain/swelling. Patient's vital signs remained stable during her admission. She was afebrile and normotensive with no white count. She will be discharged to [facility] for continued psychiatric evaluation/treatment once evaluated by ID. Plan: 1. Right lower extremity cellulitis-improving: She does have multiple drug allergies, continue Ancef/Vancomycin. Will have ID evaluate Leg for abx recommendations. She will need follow-up with her primary care physician/surgeon for reevaluation of cellulitis and to ensure resolution. Blood cultureswith no growth to date. 2. Suicidal ideation with plan: Plan to discharge to [facility]. Continue current medication. Will need 1:1 Sitter at bedside, suicide precautions> Pt on high doses of medication. 3. Nausea/diarrhea: resolved. 4. UMM: continue home ferrous sulfate 325 mg daily. 5. Acute hypokalemia replaced 6. Lactic acidosis: Resolved. 7. DVT prophylaxis 8. Advance diet as tolerated Dispo: will discharged today to [facility] Hansa Davenport DO 09/01/2020 3:57 PM * Alyce Ortiz RN - 09/01/2020 12:55 PM EST RN phoned the [facility] and requested home medication list faxed. Will update once received. * Hansa Davenport DO - 08/31/2020 12:42 PM EST [facility] Office: [phone] Valeriy García DO, Grey Hauser DO, Kike [...] Rios Kowalski MD, MD Ra, Jenny Goodrich QUALITY MEASUREMENT SPECIALIST, Jewels Dominguez QUALITY MEASUREMENT SPECIALIST, Shireen Bernal, QUALITY MEASUREMENT SPECIALIST, Stephanie Leos, DIRECTOR VISUAL,Bonilla Arce, QUALITY MEASUREMENT SPECIALIST, Yodit Edwards QUALITY MEASUREMENT SPECIALIST, Annabella Smith QUALITY MEASUREMENT SPECIALIST, Yaa Cantu, QUALITY MEASUREMENT SPECIALIST, Akira Bundy, QUALITY MEASUREMENT SPECIALIST, Trevor Arriaga PA-C, Zohreh Nguyen, RAUL, Irma Milian, QUALITY MEASUREMENT SPECIALIST, Sri Fishman, QUALITY MEASUREMENT SPECIALIST, Deena Jones, QUALITY MEASUREMENT SPECIALIST, Alka Lazo, QUALITY MEASUREMENT SPECIALIST, Prettymegan Barbosa CNP [facility] IN-PATIENT SERVICE [facility] Progress Note 08/31/2020 12:43 PM Name: Rm Mccullough Acct: [id number] Room: [address] Day: 1 Admit Date: 08/30/2020 1:07 [...] results found for: POCPH, PHART, PH, POCPCO2, OUC3DGN, PCO2, POCPO2, PO2ART, PO2, POCHCO3, [id number], HCO3, NBEA, PBEA, BEART, BE, THGBART, THB, [id number], [id number], [id number], O2SAT, FIO2 Lab Results Component Value Date/Time [...] DO 08/31/2020 12:43 PM * Akira Gambino, [facility] - 08/30/2020 4:03 AM EST Pharmacy Note Vancomycin Consult Rm Mccullough is a 29 y.o. female started on Vancomycin for cellulitis; consult received from Dr. Alex Cedeño to manage therapy. Also receiving the following antibiotics: none. Patient Active Problem List Diagnosis Mixed bipolar I disorder ([facility]) Opioid type dependence, continuous use (HCC) Opioid dependence with withdrawal ([facility]) Hep C w/o coma, chronic (HCC) Essential hypertension NHL (non-Hodgkin's lymphoma) ([facility]) Bilateral leg edema Abdominal swelling, generalized Right upper quadrant pain Chest pain Shortness of breath Idiopathic thrombocytopenic purpura (HCC) DVT (deep venous thrombosis) ([facility]) Trigeminal neuralgia Celiac disease Fibroma Transient synovitis [...] consult. Will continue to follow. Akira Gambino [facility] 08/30/2020 4:03 AM documented in this encounter Additional Source Comments INFORMATION SOURCE (unrecogn ized section and content) DATE CREATED AUTHOR 06/02/2020 [facility] DATE CREATED AUTHOR AUTHOR'S ORGANIZ ATION 05/17/2021 [facility] DATE CREATED AUTHOR AUTHOR'S ORGANIZ ATION 02/16/2023 [facility] DATE CREATED AUTHOR AUTHOR'S ORGANIZ ATION 05/08/2023 [facility] DATE CREATED AUTHOR AUTHOR'S ORGANIZ ATION 08/24/2023 [facility] Reason for Visit (unrecogniz ed section and content) Reason Comments Drug Overdose Reason Comments Suicidal Alcohol Intoxication Status Reason Specialty Diagnoses / Procedures Referre d By Contact Referred To Contact Diagnoses Suicidal behavior with attempted self-injury (HCC) Hansa Davenport DO [address], [place] [facility] Reason Comments Foot Pain Other Medical clearance fo r halfway Reason Comments Ear Fullness Otalgia Reason Comments [...] SYNOVECTOMY performed by Cipriano Tilley DO at [facility] OR SECTION 2011 & 2015 X 2 DILATION AND CURETTAGE OF UTERUS 08/24/2013 - 08/23/2014 ANTERIOR CRUCIATE LIGAMENT REPAIR 03/16/2019 ANTERIOR CRUCIATE LIGAMENT REPAIR 03/16/2019 Knee/Right ARTHROSCOPIC ACL RECONSTRUCTION (ARTHREX, 3080 TABLE) performed by Cipriano Tilley DO at [facility] OR Medical devices from this [...] Care Teams (unrecognized sec tion and content) Ore Washer Relationship Specialty Start Date End Date Mc BautistaSABAS - QUALITY MEASUREMENT SPECIALIST [address] [place] [address] PCP - General Certified Nurse Practitioner 12/25/21 Ore Washer Relationship Specialty Start Date End Date Lily Mc, GAS PIT WORKER - QUALITY MEASUREMENT SPECIALIST [address] [place] [address] PCP - General Certified Nurse Practitioner 12/25/21 [...] BE BASED ON THE PRIMARY CLINICAL RECORDS. [employer] [facility]. provides no warranty or guarantee of the accuracy or completeness of information in this document.
[2023-08-26 15:27] LABS: Basophils Percent Auto 0.2 % (0.2-2.0); Eosinophils Absolute Auto 0.1 10^3/uL (0.0-0.7); Eosinophils Percent Auto 0.9 % (0.9-7.0); Hematocrit 39.8 % (36.0-48.0); Hemoglobin 12.9 g/dL (12.0-16.0); Immature Granulocytes Abs Auto 0.01 10^3/uL (0.00-0.03); Immature Granulocytes Pct Auto 0.2 % (0.0-0.5); Lymphocytes Absolute Auto 2.3 10^3/uL (1.2-3.8); Lymphocytes Percent Auto 34.5 % (20.5-60.0); Mean Corpuscular HGB Conc 32.4 g/dL (29.9-35.2); Mean Corpuscular Hemoglobin 27.8 pg (26.7-34.0); Mean Corpuscular Volume 85.8 fL (81.0-99.0); Mean Platelet Volume 9.6 fL (9.5-13.5); Monocytes Absolute Auto 0.4 10^3/uL (0.3-0.8); Monocytes Percent Auto 5.5 % (1.7-12.0); Neutrophils Absolute Auto 3.9 10^3/uL (1.4-6.5); Neutrophils Percent Auto 58.7 % (43.0-75.0); Platelet Count 272 10^3/uL (150-450); Red Blood Count 4.64 10^6/uL (4.20-5.40); Red Cell Distribution Width 18.9 % (11.0-15.0); White Blood Count 6.6 10^3/uL (4.0-11.0)
[2023-08-26 15:47] LABS: D Dimer <0.19 mg/L FEU (<=0.59)
[2023-08-26 16:09] LABS: Alanine Aminotransferase 31 U/L (14-59); Albumin Globulin Ratio 1.2; Albumin Level 3.9 g/dL (3.4-5.0); Alkaline Phosphatase 65 U/L (46-116); Anion Gap 10.6; Aspartate Amino Transferase 8 U/L (15-37); BUN Creatinine Ratio 23.6; Bilirubin Total 0.1 mg/dL (0.2-1.0); Calcium 9.6 mg/dL (8.5-10.1); Carbon Dioxide 28.7 mmol/L (21.0-32.0); Chloride 104 mmol/L (98-107); Estimated GFR (African America >60 (>=60); Estimated GFR (Non-African Ame >60 (>=60); Globulin 3.3 g/dL; Glucose 59 mg/dL (74-106); Potassium 4.3 mmol/L (3.5-5.1); Sodium 139 mmol/L (136-145); Total Protein 7.2 g/dL (6.4-8.2)
== END 2023-08-26 15:03 | disposition home or self-care (01) ==
LOC: LAB 15:03
PROVIDERS: Visit Provider Nurse Practitioner Primary Care
DX: R23.3 Spontaneous ecchymoses (principal)
CPT/HCPCS: 36415; 80053; 85025; 85378